=== PATIENT | female | born 1945 | race Caucasian/White ===

== ENCOUNTER 2017-01-11 17:13 | Inpatient (IN) | payer OTHER, MEDICAID ==
[2017-01-11] MEDS ORDERED: DILAUDID INJ IM ONE (17:24)
[2017-01-11] MEDS ORDERED: DILAUDID INJ ONE (17:26)
--- NOTE | 2017-01-11 17:26 | DR.GENAD ---
HPI - Complaint/Symptoms Chief Complaint Doctors Comments: Patient presents to the ED with complaint of fallling out the back door and injured her left shoulder and hip. Complains of 10/10 pain. Denies any allergies. There was no LOC or vomiting PMH - PMH Past Medical History: CHF, COPD, Diabetes, Dyslipidemia, Hypertension Past Surgical History: Yes Surgical History: Cholecystectomy, Hysterectomy, Ortho Surgery - Family History Family Medical History: Diabetes Mellitus, Coronary Artery Disease, Hypertension - Social History Do you use any recreational Drugs:: No ROS - Review of Systems Constitutional: No Symptoms Reported Eyes: No Symptoms Reported ENTM: No Symptoms Reported Respiratoy: No Symptoms Reported Cardiovascular: No Symptoms Reported Gastrointestinal/Abdominal: No Symptoms Reported Genitourinary: No Symptoms Reported Neurological: No Symptoms Reported Musculoskeletal: Shoulder (left shoulder pain) Integumentary: No Symptoms Reported Hematologic/Lymphatic: No Symptoms Reported Endocrine: No Symptoms Reported Psychiatric: No Symptoms Reported All Other Systems: Reviewed and Negative PE - Vital Signs Vitals: Temperature 97.9 F Pulse Rate 85 Respiratory Rate 18 Blood Pressure [Right Arm] 135/69 Blood Pressure 179/97 O2 Sat by Pulse Oximetry 93 - General Limitations: No Limitations General Appearance: Alert, Anxious - Head Head Exam: Normal Inspection, Atraumatic - Eyes Eye exam: Normal Appearance, PERRL, EOMI - ENT ENT Exam: Normal Exam External Ear Exam: Normal External Inspection TM/Canal Exam: Bilateral Normal Nose Exam: Normal Nose Exam Mouth Exam: Normal Inspection Throat Exam: Normal Inspection - Neck Neck Exam: Normal Inspection - Chest Chest Inspection: Normal Inspection - Respiratory Respiratory Exam: Normal Lung Sounds Bilat Respiratory Exam: Bilateral Clear to Auscultation - Cardiovascular Cardiovascular Exam: Regular Rate, Normal Rhythm - Abdominal Exam Abdominal Exam: Normal Inspection, Normal Bowel Sounds Abdominal Tenderness: negative: RUQ, RLQ, LUQ, LLQ, Epigastrium, Suprapubic, Diffuse, Mild, Moderate, Severe, Other - Extremities Extremities Exam: Normal Inspection, Tenderness (left shoulder), Other (left hip pain) - Back Back Exam: Normal Inspection - Neurologic Neurological Exam: Alert, Oriented X3, CN II-XII Intact - Psychiatric Psychiatric Exam: Normal Affect - Skin Skin Exam: Warm, Dry, Intact Course - Treatment Treatment: Dilaudid 1mg - Reevaluation 1st: Improved ROR - XRAY XRAY Interpreted by: Radiologist (Pelvic pain after fall: Mildly displaced subcapital left femoral neck fracture; Left shoulder: Significantly comminujted fracture of the humeral head and neck with associated anterior inferior humeral head dislocation with associated bony Bankart fracture of the glenoid. There is fracture exttension with comminution of the greater tuberosity. Mildly [id number] coracoid process fracture, Left 2nd rib fracture with possible pulmonary contusion. No pneumothorax visualized. Large glenohuymeral lipohemarthrosis) - Diagnosis Discharge Problem: Displaced subcapital femoral neck frac Shoulder fracture, left Qualifiers: Encounter type: initial encounter Fracture type: closed Qualified Code(s): S42.92XA - Fracture of left shoulder girdle, part unspecified, initial encounter for closed fracture - Discharge Plan Condition: Stable - Follow ups/Referrals Follow ups/Referrals: NFD,None [Primary Care Provider] - 3 days - Instructions
[2017-01-11] MEDS ORDERED: DILAUDID INJ IVP ONE (17:28)
--- NOTE | 2017-01-11 17:58 | RAD ---
HISTORY: Fall with pain Study: 2 views of the left shoulder. Comparison: None Findings: Poorly defined, comminuted fracture of the left humeral head with probable dislocation anteriorly of the humerus. No gross soft tissue abnormalities. The acromioclavicular joint is normal in appearanc e. IMPRESSION: 1. Comminuted fracture dislocation of the left shoulder. This is not well defined on this plain film of the shoulder. Reported By:
--- NOTE | 2017-01-11 19:01 | CT ---
CT pelvis without contrast Indication: Pelvic pain after fall. Comparison: None Technique: CT images of the pelvis were obtained without contrast. Automatic exposure control was uti lized. Findings: There is an acute subcapital left femoral neck fracture demonstrating mild superior elevati on with foreshortening and external rotation. The femoral heads are normally seated within the acetab rena. No acute pelvic fracture or diastasis identified. The SI joints and pubic symphysis are intact. There are mild discogenic degenerative changes of the lower lumbar spine. Impression: Mildly displaced subcapital left femoral neck fracture. Reported By:
--- NOTE | 2017-01-11 19:09 | CT ---
CT left shoulder without contrast Indication: Shoulder pain after fall Comparison: Radiographs performed earlier the same day Technique: CT images of the left shoulder were obtained without contrast. Automatic exposure control was utilized. Findings: There is severely comminuted fracture of the humeral head and neck with anterior dislocatio n of the humeral head with impaction on the anterior inferior glenoid. There is associated bony Banka rt fracture. There is moderate impaction of the humeral neck into the largest humeral head fragment, demonstrating posterior angulation. There are several fracture fragments within the posterior glenohu meral joint space, likely representing comminuted fracture of the greater tuberosity. There is also f racture of the coracoid process demonstrating approximately 1.3 cm of anterior lateral displacement. There is large lipohemarthrosis. There is fracture of the lateral left 2nd rib. There is some mild ground-glass of the visualized left lung apex, suggesting contusion. No pneumothorax is visualized. Impression: 1. Significantly comminuted fracture of the humeral head and neck with associated anterior inferior h umeral head dislocation with associated bony Bankart fracture of the glenoid. There is fracture exten rupinder with comminution of the greater tuberosity. 2. Mildly displaced coracoid process fracture 3. Left 2nd rib fracture with possible pulmonary contusion. No pneumothorax visualized. 4. Large glenohumeral lipohemarthrosis Reported By:
--- NOTE | 2017-01-11 19:19 | CT ---
CT cervical spine without contrast Indication:Pain after fall Technique: Helical images through the cervical spine without contrast. Coronal and sagittal reformats provided. Findings: The craniocervical and cervicothoracic junctions are intact. Patient's head is tilted to th e left. Limited images through the posterior fossa show no acute abnormality. Limited images through the upper chest show chronic lung changes. Mild edema may be present. There is soft tissue swelling about the left shoulder. See separately dictated left shoulder CT repor t. Carotid bulb plaque noted. Spinal canal is relatively patent for CT without severe stenosis. Verte bral body heights are normal. Mild multilevel disk space narrowing noted, most pronounced at C3-C4 Impression: No acute cervical spine fracture. Reported By:
[2017-01-11 20:31] LABS: BILIRUBIN,URINE NEGATIVE (NEGATIVE); BLOOD/HEMOGLOBIN,URINE NEGATIVE (NEGATIVE); GLUCOSE, URINE 4+ (NEGATIVE); KETONES,URINE NEGATIVE (NEGATIVE); LEUKOCYTE ESTERASE ,URINE NEGATIVE (NEGATIVE); NITRITES,URINE NEGATIVE (NEGATIVE); PROTEIN,URINE NEGATIVE (NEGATIVE); UROBILINOGEN,URINE NORMAL (NORMAL)
[2017-01-11 20:44] LABS: AMORPHOUS SEDIMENT,UR 1+ /HPF (NEGATIVE); APPEARANCE,URINE CLEAR (CLEAR); BACTERIA,URINE NEGATIVE /HPF (NEGATIVE); COLOR,URINE PALE YELLOW (YELLOW); RBC,URINE NONE SEEN /HPF (NEGATIVE); SQUAMOUS EPITHELIAL CELL,UR RARE /HPF (NEGATIVE)
[2017-01-11] MEDS ORDERED: DILAUDID PCA 60 MG IVP PRN (20:50)
[2017-01-11] MEDS ORDERED: D5W 1000 ML IV 1,000 ML IV SCH (21:00)
[2017-01-11] MEDS: DILAUDID INJ IVP PRN (22:39)
[2017-01-12] MEDS: DILAUDID INJ IVP PRN ×4 (01:03→13:52)
[2017-01-12 02:50] VITALS: BMI 34.1
--- NOTE | 2017-01-12 06:52 | RAD ---
Chest, one view Indication: Preoperative evaluation prior to hip surgery. Comparison: 04/18/2016 Findings: The heart size is normal. There are stable mild interstitial changes at the lung bases. No focal infiltrate or large effusion. The bony thorax is unremarkable. Impression: No acute chest process. Reported By:
[2017-01-12 07:42] LABS: BASOPHILS # (AUTO) 0.1 X10^3/uL (0.0-0.1); BASOPHILS % (AUTO) 0.7 % (0.2-1.0); EOSINOPHILS # (AUTO) 0.5 x10^3/uL (0.0-0.2); EOSINOPHILS % (AUTO) 4.3 % (0.9-2.9); HEMATOCRIT 40.3 % (36.0-47.0); HEMOGLOBIN 13.8 g/dL (12.0-16.0); LYMPHOCYTES # (AUTO) 1.8 X10^3/uL (1.3-2.9); LYMPHOCYTES % (AUTO) 15.6 % (21.0-51.0); MEAN CORPUSCULAR HEMOGLOBIN 32.2 pg (27.0-34.0); MEAN CORPUSCULAR HGB CONC 34.1 g/dL (33.0-35.0); MEAN CORPUSCULAR VOLUME 94.5 fL (80.0-100.0); MEAN PLATELET VOLUME 8.8 fL (7.4-11.0); MONOCYTES # (AUTO) 0.5 x10^3/uL (0.3-0.8); MONOCYTES % (AUTO) 4.2 % (0.0-13.0); NEUTROPHILS # (AUTO) 8.6 x10^3/uL (2.2-4.8); NEUTROPHILS % (AUTO) 75.2 % (42.0-75.0); PLATELET COUNT 225 X10^3/uL (150.0-450.0); RED BLOOD COUNT 4.27 X10^6/uL (3.5-5.4); RED CELL DISTRIBUTION WIDTH 14.1 % (11.6-16.5); WHITE BLOOD COUNT 11.4 X10^3/uL (3.6-10.0)
[2017-01-12 07:53] LABS: ALBUMIN 3.3 g/dL (3.4-5.0); CALCIUM 8.5 mg/dL (8.5-10.1); CARBON DIOXIDE 32.4 mmol/L (21-32); COR CA(FOR HYPOALB) 9.1 mg/dL (8.5-10.1); CREATININE 1.79 mg/dL (0.55-1.02); TOTAL PROTEIN 6.8 g/dL (6.4-8.2)
[2017-01-12 11:40] VITALS: BP 149/67
--- NOTE | 2017-01-12 13:59 | DR.H&P ---
H&P - History & Physical for Day of: H&P Date: 01/11/17 - Chief Complaint Chief Complaint: Left hip, shoulder, and chest wall pain - Allergies Allergies/Adverse Reactions: Allergies Allergy/AdvReac Type Severity Reaction Status Date / Time No Known Drug Allergies Allergy Verified 01/11/17 18:00 - History of Present Illness History of Present Illness: Pt is a 71 y/o WF presents following a fall c/o left hip, left shoulder, and left chest wall pain. Radiographic imaging revealed a non-displaced left rib fracture with possible pulmonary contusion, left femerol neck fx, and left humeral head fx associated with hemarthrosis, anterior dislocation of the humeral head, glenoid fx and displaced coracoid process fx. Pt is being admitted for pain control with tentative plans to transfer to a tertiary medical center due to multiple underlying medical problems. - Past Medical History Past Medical History: CHF, COPD, Diabetes, Dyslipidemia, Hypertension - Past Surgical History Surgical History: Cholecystectomy, Hysterectomy, Ortho Surgery - Family History Family Medical History: Diabetes Mellitus, Coronary Artery Disease, Hypertension - Social History Does patient currently use any type of tobacco product: No Have you used tobacco products in the last 12 months: No Type of Tobacco Use: None Does any household member use tobacco: No Alcohol Use: None Drug Use: None - Medications Home Medications: Exenatide Microspheres [Bydureon Pen] 2 mg SC .Saturday01/12/17 [History Confirmed 01/12/17] Glipizide [Glipizide] 1 tab PO BID 01/12/17 [History Confirmed 01/12/17] Meloxicam [Meloxicam] 1 tab PO DAILY 01/12/17 [History Confirmed 01/12/17] Misc Home Med [Patient's Home Medication] 1 tab PO DAILY 01/12/17 [History Confirmed 01/12/17] Pregabalin [LYRICA 100 MG *] 1 tab PO BID 01/12/17 [History Confirmed 01/12/17] Simvastatin [Simvastatin] 1 tab PO .SUPPER 01/12/17 [History Confirmed 01/12/17] Valsartan [Valsartan] 1 tab PO DAILY 01/12/17 [History Confirmed 01/12/17] - Review of Systems Constitutional: No Symptoms Reported Eyes: No Symptoms Reported ENT: No Symptoms Reported Respiratory: No Symptoms Reported Cardiovascular: No Symptoms Reported Gastrointestinal: No Symptoms Reported Genitourinary: No Symptoms Reported Musculoskeletal: See HPI Skin: No Symptoms Reported Neurological: No Symptoms Reported - Physical Exam Vital Signs: Temperature 97.6 F Pulse Rate [Left Radial] 82 Pulse Rate 85 Respiratory Rate 21 Blood Pressure [Right Arm] 149/67 Blood Pressure 179/97 O2 Sat by Pulse Oximetry 88 Oriented: Normal (consistent with baseline dementia) Eyes: Normal Ear: Normal Nose: Normal Throat: Normal Respiratory: Clear Throughout Cardiovascular: Normal : Normal Auscultation: Bowel Sounds: Normal Palpation: Normal Tenderness: Normal Skin: Normal Musculoskeletal: Left, Shoulder (Left humerus fx - see HPI ), Arm, Hip (left femeral neck fracture) Psychiatric: Normal Mood Description: Calm Affect: Flat Speech Pattern: Inappropriate (consistent with baseline dementia) - Assessment/Plan (1) Left displaced femoral neck fracture Status: Acute Plan: 1. Admit for further w/u. 2. CMP/CBC. 3. UA C&S. 4. EKG. 5. Dilaudid 1mg IV q [address] pelvis without contrast. 7. CT left shoulder. 8. Rib view films. 6. O2 at 2L/min per NC (2) Left humeral fracture Qualifiers: Encounter type: initial encounter Fracture type: closed Fracture alignment: displaced Status: Acute Plan: as above (3) Fracture of coracoid process of left scapula Qualifiers: Encounter type: initial encounter Fracture type: closed Fracture alignment: displaced Qualified Code(s): S42.132A - Displaced fracture of coracoid process, left shoulder, initial encounter for closed fracture Status: Acute Plan: as above (4) Glenoid fracture of shoulder Qualifiers: Encounter type: initial encounter Fracture type: closed Laterality: left Qualified Code(s): S42.142A - Displaced fracture of glenoid cavity of scapula , left shoulder, initial encounter for closed fracture; S42.152A - Displaced fracture of neck of scapula, left shoulder, initial encounter for closed fracture Status: Acute Plan: as above (5) CHF (congestive heart failure) Qualifiers: Congestive heart failure chronicity: chronic Status: Chronic Plan: as above (6) COPD (chronic obstructive pulmonary disease) Qualifiers: COPD type: chronic bronchitis Status: Chronic Plan: as above
--- NOTE | 2017-01-12 14:16 | PCM.DCPLAN ---
Discharge Summary - Admission Date Date of Admission: 01/11/17 - Discharge Date Discharge Date: 01/12/17 - Admission Diagnoses (1) Left displaced femoral neck fracture Status: Acute (2) Left humeral fracture Status: Acute (3) Fracture of coracoid process of left scapula Status: Acute (4) Glenoid fracture of shoulder Status: Acute (5) CHF (congestive heart failure) Status: Chronic (6) COPD (chronic obstructive pulmonary disease) Status: Chronic - Discharge Diagnoses Discharge Diagnosis: same - Discharge Medications Discharge Medications: Exenatide Microspheres [Bydureon Pen] 2 mg SC .Saturday01/12/17 [History] Glipizide [Glipizide] 1 tab PO BID 01/12/17 [History] Meloxicam [Meloxicam] 1 tab PO DAILY 01/12/17 [History] Misc Home Med [Patient's Home Medication] 1 tab PO DAILY 01/12/17 [History] Pregabalin [LYRICA 100 MG *] 1 tab PO BID 01/12/17 [History] Simvastatin [Simvastatin] 1 tab PO .SUPPER 01/12/17 [History] Valsartan [Valsartan] 1 tab PO DAILY 01/12/17 [History] - Hospital Course Vital Signs: Temperature 97.6 F Pulse Rate [Left Radial] 82 Pulse Rate 85 Respiratory Rate 21 Blood Pressure [Right Arm] 149/67 Blood Pressure 179/97 O2 Sat by Pulse Oximetry 88 Latest Lab Results: Laboratory Last Values WBC 11.4 X10^3/uL (3.6-10.0) H 01/12/17 07:30 RBC 4.27 X10^6/uL (3.5-5.4) 01/12/17 07:30 Hgb 13.8 g/dL (12.0-16.0) 01/12/17 07:30 Hct 40.3 % (36.0-47.0) 01/12/17 07:30 MCV 94.5 fL (80.0-100.0) 01/12/17 07:30 MCH 32.2 pg (27.0-34.0) 01/12/17 07:30 MCHC 34.1 g/dL (33.0-35.0) 01/12/17 07:30 RDW 14.1 % (11.6-16.5) 01/12/17 07:30 Plt Count 225 X10^3/uL (150.0-450.0) 01/12/17 07:30 MPV 8.8 fL (7.4-11.0) 01/12/17 07:30 Neut % 75.2 % (42.0-75.0) H 01/12/17 07:30 Lymph % 15.6 % (21.0-51.0) L 01/12/17 07:30 [place] % 4.2 % (0.0-13.0) 01/12/17 07:30 Eos % 4.3 % (0.9-2.9) H 01/12/17 07:30 Baso % 0.7 % (0.2-1.0) 01/12/17 07:30 Neut # 8.6 x10^3/uL (2.2-4.8) H 01/12/17 07:30 Lymph # 1.8 X10^3/uL (1.3-2.9) 01/12/17 07:30 [place] # 0.5 x10^3/uL (0.3-0.8) 01/12/17 07:30 Eos # 0.5 x10^3/uL (0.0-0.2) H 01/12/17 07:30 Baso # 0.1 X10^3/uL (0.0-0.1) 01/12/17 07:30 Absolute Nucleated RBC 0.0 /100WBC 01/12/17 07:30 INR Target Range - 01/12/17 07:30 INR 0.84 (0.8-1.3) 01/12/17 07:30 PTT 25.1 SECONDS (22.9-36.5) 01/12/17 07:30 PTT Comment - 01/12/17 07:30 Sodium 143 mmol/L (136-145) 01/12/17 07:30 Corrected Sodium 145 mmol/L (136-145) 01/12/17 07:30 Potassium 3.6 mmol/L (3.5-5.1) 01/12/17 07:30 Chloride 102 mmol/L (98-107) 01/12/17 07:30 Carbon Dioxide 32.4 mmol/L (21-32) H 01/12/17 07:30 BUN 18 mg/dL (7-18) 01/12/17 07:30 Creatinine 1.79 mg/dL (0.55-1.02) H 01/12/17 07:30 Est GFR (MDRD) Af Amer 36 (>60) L 01/12/17 07:30 Est GFR (MDRD) Non-Af 30 (>60) L 01/12/17 07:30 Glucose 175 mg/dL (65-99) H 01/12/17 07:30 POC Glucose (mg/dL) 189 mg/dL (65-99) H 01/12/17 11:37 Calcium 8.5 mg/dL (8.5-10.1) 01/12/17 07:30 Corrected Calcium 9.1 mg/dL (8.5-10.1) 01/12/17 07:30 Total Bilirubin 0.50 mg/dL (0.2-1.0) 01/12/17 07:30 AST 34 Units/L (15-37) 01/12/17 07:30 ALT 36 Units/L (12-78) 01/12/17 07:30 Alkaline Phosphatase 162 Units/L (46-116) H 01/12/17 07:30 Total Protein 6.8 g/dL (6.4-8.2) 01/12/17 07:30 Albumin 3.3 g/dL (3.4-5.0) L 01/12/17 07:30 Globulin 3.5 g/dL (2.5-4.5) 01/12/17 07:30 Albumin/Globulin Ratio 0.9 Ratio (1.1-2.1) L 01/12/17 07:30 Specimen Type Catherized urine 01/11/17 20:00 Urine Color Pale yellow (YELLOW) 01/11/17 20:00 Urine Appearance Clear (CLEAR) 01/11/17 20:00 Urine pH 5.0 (5.0 - 8.0) 01/11/17 20:00 Ur Specific [place] 1.020 (1.000-1.030) 01/11/17 20:00 Urine Protein Negative (NEGATIVE) 01/11/17 20:00 Urine Glucose (UA) 4+ (NEGATIVE) 01/11/17 20:00 Urine Ketones Negative (NEGATIVE) 01/11/17 20:00 Urine Occult Blood Negative (NEGATIVE) 01/11/17 20:00 Urine Nitrite Negative (NEGATIVE) 01/11/17 20:00 Urine Bilirubin Negative (NEGATIVE) 01/11/17 20:00 Urine Urobilinogen Normal (NORMAL) 01/11/17 20:00 Ur Leukocyte Esterase Negative (NEGATIVE) 01/11/17 20:00 Urine RBC None seen /HPF (NEGATIVE) 01/11/17 20:00 Urine WBC None seen /HPF (NEGATIVE) 01/11/17 20:00 Ur Squamous Epith Cells Rare /HPF (NEGATIVE) 01/11/17 20:00 Amorphous Sediment 1+ /HPF (NEGATIVE) 01/11/17 20:00 Urine Bacteria Negative /HPF (NEGATIVE) 01/11/17 20:00 Ur Culture Indicated? No/not indicated 01/11/17 20:00 Blood Type A POSITIVE 01/12/17 07:30 Antibody Screen Negative 01/12/17 07:30 Hospital Course: As stated in the HPI, the pt is a 71 y/o WF presents following a fall c/o left hip, left shoulder, and left chest wall pain. Radiographic imaging revealed a non-displaced left rib fracture with possible pulmonary contusion, left femerol neck fx, and left humeral head fx associated with hemarthrosis, anterior dislocation of the humeral head, glenoid fx and displaced coracoid process fx. Pt is being admitted for pain control with tentative plans to transfer to a tertiary medical center due to multiple underlying medical problems. The pt's pain is currently well controlled on dilaudid 1mg IV q 2 hours prn pain. Pt has been accepted to [facility] in [place], [place] for further work up and ortho surgical evaluation. - Discharge Plan Disposition: 01 HOME, SELF-CARE Condition: Stable - Follow ups/Referrals Follow ups/Referrals: NFD,None [Primary Care Provider] - 3 days - Instructions Instructions: Shoulder Fracture
[2017-01-12] MEDS ORDERED: COREG TAB 12.5 MG PO SCH (21:00)
[2017-01-12] MEDS ORDERED: ARICEPT TAB 10 MG PO SCH (21:00)
--- NOTE | 2017-01-13 07:02 | RAD ---
HISTORY: Left hip fracture. Study: AP view of the pelvis in frogleg view of the left hip. Comparison: None. Findings: A single frontal view of the pelvis demonstrates the pelvic ring to be intact. There is a mildly dis placed fracture of the left femoral neck with approximately 1/4 shafts width lateral and superior dis placement of the distal femoral component. The left femoral head is well seated in the acetabulum. So ft tissue swelling surrounding the fracture site is noted. Impression: Mildly displaced fracture of the left femoral neck. Reported By:
[2017-01-13] MEDS ORDERED: PATIENT'S HOME MEDICATION (Aspirin [Aspirin] 81 MG) PO SCH (09:00)
[2017-01-13] MEDS ORDERED: XANAX PO SCH (09:00)
[2017-01-13] MEDS ORDERED: COLACE CAP 100 MG PO SCH (09:00)
[2017-01-13] MEDS ORDERED: ASPIRIN EC 81 MG PO SCH (09:00)
== END 2017-01-12 14:54 | disposition short-term general hospital (02) | DRG 536 ==
LOC: ER 17:20 → MED/SURG 20:44
PROVIDERS: ADMIT Internal Medicine; ATTEND Internal Medicine
DX: S72.012A Unspecified intracapsular fracture of left femur, initial encounter for closed fracture (principal); S42.92XA Fracture of left shoulder girdle, part unspecified, initial encounter for closed fracture; S42.142A Displaced fracture of glenoid cavity of scapula, left shoulder, initial encounter for closed fracture; S42.152A Displaced fracture of neck of scapula, left shoulder, initial encounter for closed fracture; S42.135A Nondisplaced fracture of coracoid process, left shoulder, initial encounter for closed fracture; W13.8XXA Fall from, out of or through other building or structure, initial encounter; Y92.89 Other specified places as the place of occurrence of the external cause; R07.2 Precordial pain; I50.9 Heart failure, unspecified; J44.9 Chronic obstructive pulmonary disease, unspecified
CPT/HCPCS: 36415; 51702; 71010; 72125; 72192; 73030; 73200; 73501; 80053; 81001; 85025; 85610; 85730; 86850; 86900; 86901; 93005; 93010; 94760; 96365; 96374; 99284; A4222

== ENCOUNTER 2017-02-05 11:48 | Observation (INO) | payer OTHER, MEDICAID ==
[2017-02-05] MEDS ORDERED: BUTT CREAM (COMPOUND) ONE (16:45)
[2017-02-05] MEDS ORDERED: FLEXERIL TAB 10 MG PO PRN (16:58)
[2017-02-05] MEDS ORDERED: DUONEB 0.5 MG/3 MG ONE (17:00)
[2017-02-05] MEDS: DUONEB 0.5 MG/3 MG NEB SCH ×2 (17:10→20:34)
[2017-02-05 17:14] VITALS: BMI 31.7
[2017-02-05] MEDS ORDERED: TYLENOL 325 MG TAB PO PRN (17:20)
[2017-02-05] MEDS ORDERED: XANAX PO PRN (17:22)
[2017-02-05] MEDS ORDERED: DILAUDID INJ IVP PRN (17:28)
[2017-02-05] MEDS ORDERED: ZOFRAN INJ 4 MG VIAL IVP PRN (17:29)
[2017-02-05] MEDS: HumaLOG SC SCH (17:30)
--- NOTE | 2017-02-05 18:59 | DR.H&P ---
H&P - History & Physical for Day of: H&P Date: 02/05/17 - Chief Complaint Chief Complaint: WEAKNESS - Allergies Allergies/Adverse Reactions: Allergies Allergy/AdvReac Type Severity Reaction Status Date / Time No Known Drug Allergies Allergy Verified 01/11/17 18:00 - History of Present Illness History of Present Illness: patient is a 71-year-old white female who is being admitted for generalized weakness. Plan to consult case management for long- term care placement for physical therapy/rehabilitation therapy. Patient was recently released from [facility] in [place] where she was treated for a left traumatic hip fracture repair. - Past Medical History Past Medical History: CHF, COPD, Diabetes, Dyslipidemia, Hypertension - Past Surgical History Surgical History: Cholecystectomy, Hysterectomy, Ortho Surgery - Family History Family Medical History: Diabetes Mellitus, Coronary Artery Disease, Hypertension - Social History Does patient currently use any type of tobacco product: No Have you used tobacco products in the last 12 months: No Type of Tobacco Use: None Does any household member use tobacco: No Alcohol Use: None Drug Use: None - Review of Systems Constitutional: Weakness Eyes: No Symptoms Reported ENT: No Symptoms Reported Respiratory: No Symptoms Reported Cardiovascular: No Symptoms Reported Genitourinary: No Symptoms Reported Musculoskeletal: Shoulder Pain, Back Pain, Leg Pain Neurological: Weakness - Physical Exam Vital Signs: Pulse Rate 80 Blood Pressure [Right Arm] 149/67 Blood Pressure 149/67 O2 Sat by Pulse Oximetry 95 Oriented: Normal Eyes: Normal Ear: Normal Nose: Normal Throat: Normal Respiratory: RLL Diminished, LLL Diminished Cardiovascular: Normal : Normal Auscultation: Bowel Sounds: Normal Palpation: Normal Skin: Normal Musculoskeletal: Shoulder, Hip, Back:Lumbar, Motor Deficit Mood Description: Calm Speech Pattern: Clear, Appropriate - Assessment/Plan (1) Weakness Status: Acute Plan: ADMIT FOR EVALUATION OF WEAKNESS, RESUME HOME MEDS. ADMISSION LABS. PT CONSULT. CASE MANAGMENT FOR JAIL PLACEMENT (2) Hx of fracture of left hip Status: Acute (3) Diabetes mellitus Qualifiers: Diabetes mellitus type: type 2 Diabetes mellitus complication status: without complication Status: Acute (4) CHF (congestive heart failure) Qualifiers: Congestive heart failure chronicity: chronic Status: Chronic (5) COPD (chronic obstructive pulmonary disease) Qualifiers: COPD type: chronic bronchitis Status: Chronic (6) Hypertension Qualifiers: Hypertension type: essential hypertension Qualified Code(s): I10 - Essential (primary) hypertension Status: Chronic
[2017-02-05 20:20] LABS: BILIRUBIN,URINE NEGATIVE (NEGATIVE); BLOOD/HEMOGLOBIN,URINE 4+ (NEGATIVE); GLUCOSE, URINE NEGATIVE (NEGATIVE); KETONES,URINE NEGATIVE (NEGATIVE); LEUKOCYTE ESTERASE ,URINE 3+ (NEGATIVE); NITRITES,URINE POSITIVE (NEGATIVE); PROTEIN,URINE 2+ (NEGATIVE); UROBILINOGEN,URINE NORMAL (NORMAL)
[2017-02-05 20:24] LABS: APPEARANCE,URINE CLOUDY (CLEAR); COLOR,URINE YELLOW (YELLOW)
[2017-02-05 20:26] LABS: BACTERIA,URINE 2+ /HPF (NEGATIVE); SQUAMOUS EPITHELIAL CELL,UR RARE /HPF (NEGATIVE)
[2017-02-05] MEDS: LOVENOX INJ 30 MG SYR SC SCH (21:49)
[2017-02-05] MEDS: PEPCID TAB 20 MG PO SCH (21:53)
[2017-02-05] MEDS: COLACE CAP 100 MG PO SCH (21:53)
[2017-02-05] MEDS: SNACK - Diabetic Appropriate PO SCH (21:56)
[2017-02-05] MEDS: MIRALAX POWDER (1 DOSE 17GM) PO SCH (21:56)
[2017-02-05] MEDS ORDERED: NS 1/2 1000 ML IV 1,000 ML IV ONE (22:30)
[2017-02-05] MEDS: ROCEPHIN VIAL 1 GM 1 GM in NS 50 ML IV + SPIKE MINIBAG* 50 ML IV SCH (22:37)
[2017-02-05] MEDS: NORCO 5/325 MG TAB PO PRN (22:37)
[2017-02-05] MEDS: NS 1/2 1000 ML IV 1,000 ML IV SCH (22:38)
[2017-02-05] MEDS ORDERED: STERILE WATER IRRIGATION IR ONE (23:33)
[2017-02-06] MEDS: DUONEB 0.5 MG/3 MG NEB SCH ×6 (01:10→20:19)
[2017-02-06] MEDS: NORCO 5/325 MG TAB PO PRN ×2 (02:43→09:27)
[2017-02-06 05:46] LABS: ALANINE AMINOTRANSFERASE 23 Units/L (12-78); ALBUMIN 2.4 g/dL (3.4-5.0); ALKALINE PHOSPHATASE 122 Units/L (46-116); ASPARTATE AMINO TRANSFERASE 22 Units/L (15-37); BLOOD UREA NITROGEN 17 mg/dL (7-18); CALCIUM 8.6 mg/dL (8.5-10.1); CARBON DIOXIDE 32.9 mmol/L (21-32); CHLORIDE 97 mmol/L (98-107); COR CA(FOR HYPOALB) 9.9 mg/dL (8.5-10.1); COR NA(FOR HYPERGLY) 134 mmol/L (136-145); CREATININE 0.75 mg/dL (0.55-1.02); SODIUM 133 mmol/L (136-145); TOTAL PROTEIN 7.4 g/dL (6.4-8.2); eGFR BLACK RACES > 60 (>60); eGFR NON BLACK RACES > 60 (>60)
[2017-02-06 06:06] LABS: BASOPHILS % (AUTO) 0.5 % (0.2-1.0); EOSINOPHILS # (AUTO) 0.2 x10^3/uL (0.0-0.2); EOSINOPHILS % (AUTO) 3.6 % (0.9-2.9); HEMATOCRIT 33.1 % (36.0-47.0); HEMOGLOBIN 11.3 g/dL (12.0-16.0); LYMPHOCYTES # (AUTO) 1.3 X10^3/uL (1.3-2.9); LYMPHOCYTES % (AUTO) 23.4 % (21.0-51.0); MEAN CORPUSCULAR HEMOGLOBIN 33.3 pg (27.0-34.0); MEAN CORPUSCULAR HGB CONC 34.2 g/dL (33.0-35.0); MEAN CORPUSCULAR VOLUME 97.2 fL (80.0-100.0); MEAN PLATELET VOLUME 8.2 fL (7.4-11.0); MONOCYTES # (AUTO) 0.7 x10^3/uL (0.3-0.8); MONOCYTES % (AUTO) 12.5 % (0.0-13.0); NEUTROPHILS # (AUTO) 3.3 x10^3/uL (2.2-4.8); PLATELET COUNT 249 X10^3/uL (150.0-450.0); RED CELL DISTRIBUTION WIDTH 17.6 % (11.6-16.5); WHITE BLOOD COUNT 5.5 X10^3/uL (3.6-10.0)
[2017-02-06] MEDS: HumaLOG SC SCH ×3 (06:22→16:24)
[2017-02-06] MEDS: NS 1/2 1000 ML IV 1,000 ML IV SCH ×2 (07:28→22:04)
[2017-02-06] MEDS: LEVEMIR SC SCH ×2 (07:29→10:29)
[2017-02-06] MEDS ORDERED: HumuLIN R SUBCUT PRN (08:17)
[2017-02-06] MEDS: VITAMIN C PO SCH (09:27)
[2017-02-06] MEDS: MICRO K EXTEN CAP 10 MEQ PO SCH (09:28)
[2017-02-06] MEDS: LASIX PO SCH (09:28)
[2017-02-06] MEDS: COLACE CAP 100 MG PO SCH ×2 (09:28→21:59)
[2017-02-06] MEDS: ROCEPHIN VIAL 1 GM 1 GM in NS 50 ML IV + SPIKE MINIBAG* 50 ML IV SCH (09:29)
[2017-02-06] MEDS: LOVENOX INJ 30 MG SYR SC SCH ×2 (09:29→22:04)
[2017-02-06] MEDS: PEPCID TAB 20 MG PO SCH ×2 (09:29→22:03)
[2017-02-06] MEDS: TAB-A-VITE PO SCH (09:29)
[2017-02-06] MEDS: MIRALAX POWDER (1 DOSE 17GM) PO SCH ×2 (09:30→22:04)
[2017-02-06] MEDS ORDERED: NORCO 7.5/325 MG TAB PO PRN (17:59)
[2017-02-06] MEDS: ZOCOR TAB 20 MG PO SCH (19:24)
[2017-02-06] MEDS: SNACK - Diabetic Appropriate PO SCH (22:02)
[2017-02-06] MEDS: NORCO 7.5/325 MG TAB PO PRN (22:02)
[2017-02-06] MEDS: LYRICA CAP 100 MG PO SCH (22:03)
[2017-02-06] MEDS: GLUCOTROL PO SCH (22:03)
[2017-02-07] MEDS: DUONEB 0.5 MG/3 MG NEB SCH ×6 (00:25→20:36)
[2017-02-07] MEDS: NORCO 7.5/325 MG TAB PO PRN ×2 (04:10→14:13)
[2017-02-07 05:38] LABS: BASOPHILS % (AUTO) 0.6 % (0.2-1.0); EOSINOPHILS # (AUTO) 0.3 x10^3/uL (0.0-0.2); EOSINOPHILS % (AUTO) 4.6 % (0.9-2.9); HEMATOCRIT 33.3 % (36.0-47.0); HEMOGLOBIN 11.4 g/dL (12.0-16.0); LYMPHOCYTES # (AUTO) 1.5 X10^3/uL (1.3-2.9); LYMPHOCYTES % (AUTO) 25.2 % (21.0-51.0); MEAN CORPUSCULAR HEMOGLOBIN 33.7 pg (27.0-34.0); MEAN CORPUSCULAR HGB CONC 34.4 g/dL (33.0-35.0); MEAN CORPUSCULAR VOLUME 98.1 fL (80.0-100.0); MEAN PLATELET VOLUME 8.2 fL (7.4-11.0); MONOCYTES # (AUTO) 0.7 x10^3/uL (0.3-0.8); MONOCYTES % (AUTO) 11.7 % (0.0-13.0); NEUTROPHILS # (AUTO) 3.4 x10^3/uL (2.2-4.8); NEUTROPHILS % (AUTO) 57.9 % (42.0-75.0); PLATELET COUNT 242 X10^3/uL (150.0-450.0); RED BLOOD COUNT 3.39 X10^6/uL (3.5-5.4); RED CELL DISTRIBUTION WIDTH 17.6 % (11.6-16.5); WHITE BLOOD COUNT 5.8 X10^3/uL (3.6-10.0)
[2017-02-07 05:48] LABS: ALANINE AMINOTRANSFERASE 23 Units/L (12-78); ALBUMIN 2.4 g/dL (3.4-5.0); ALKALINE PHOSPHATASE 120 Units/L (46-116); ASPARTATE AMINO TRANSFERASE 21 Units/L (15-37); BLOOD UREA NITROGEN 14 mg/dL (7-18); CALCIUM 8.7 mg/dL (8.5-10.1); CARBON DIOXIDE 31.5 mmol/L (21-32); CHLORIDE 99 mmol/L (98-107); COR NA(FOR HYPERGLY) 135 mmol/L (136-145); CREATININE 0.73 mg/dL (0.55-1.02); SODIUM 134 mmol/L (136-145); TOTAL PROTEIN 7.4 g/dL (6.4-8.2); eGFR BLACK RACES > 60 (>60); eGFR NON BLACK RACES > 60 (>60)
[2017-02-07] MEDS: HumaLOG SC SCH ×3 (06:02→17:13)
[2017-02-07] MEDS: LOVENOX INJ 30 MG SYR SC SCH ×2 (09:34→21:18)
[2017-02-07] MEDS: XANAX PO SCH (09:35)
[2017-02-07] MEDS: GLUCOTROL PO SCH ×2 (09:36→21:17)
[2017-02-07] MEDS: PriLOSEC PO SCH (09:36)
[2017-02-07] MEDS: PEPCID TAB 20 MG PO SCH ×2 (09:37→21:17)
[2017-02-07] MEDS: ASPIRIN 81 MG CHEWTAB PO SCH (09:37)
[2017-02-07] MEDS: TAB-A-VITE PO SCH (09:37)
[2017-02-07] MEDS: VITAMIN C PO SCH (09:37)
[2017-02-07] MEDS: LYRICA CAP 100 MG PO SCH ×2 (09:37→21:17)
[2017-02-07] MEDS: LASIX PO SCH (09:38)
[2017-02-07] MEDS: MICRO K EXTEN CAP 10 MEQ PO SCH (09:38)
[2017-02-07] MEDS: COLACE CAP 100 MG PO SCH ×2 (09:38→21:17)
[2017-02-07] MEDS: MIRALAX POWDER (1 DOSE 17GM) PO SCH ×2 (09:40→21:18)
[2017-02-07] MEDS: ROCEPHIN VIAL 1 GM 1 GM in NS 50 ML IV + SPIKE MINIBAG* 50 ML IV SCH (09:41)
[2017-02-07] MEDS: LEVEMIR SC SCH (09:45)
[2017-02-07] MEDS ORDERED: MYLICON TAB 80 MG CHEW PO PRN (10:57)
[2017-02-07] MEDS: NS 1/2 1000 ML IV 1,000 ML IV SCH (12:05)
[2017-02-07] MEDS: ZOCOR TAB 20 MG PO SCH (17:43)
[2017-02-07] MEDS: SNACK - Diabetic Appropriate PO SCH (21:18)
[2017-02-08] MEDS: DUONEB 0.5 MG/3 MG NEB SCH ×4 (00:58→12:20)
[2017-02-08] MEDS: HumaLOG SC SCH ×2 (06:02→11:25)
[2017-02-08 06:19] LABS: BASOPHILS % (AUTO) 0.4 % (0.2-1.0); EOSINOPHILS # (AUTO) 0.3 x10^3/uL (0.0-0.2); EOSINOPHILS % (AUTO) 4.4 % (0.9-2.9); HEMATOCRIT 35.5 % (36.0-47.0); LYMPHOCYTES # (AUTO) 1.2 X10^3/uL (1.3-2.9); LYMPHOCYTES % (AUTO) 19.1 % (21.0-51.0); MEAN CORPUSCULAR HEMOGLOBIN 33.2 pg (27.0-34.0); MEAN CORPUSCULAR HGB CONC 33.7 g/dL (33.0-35.0); MEAN CORPUSCULAR VOLUME 98.6 fL (80.0-100.0); MEAN PLATELET VOLUME 8.3 fL (7.4-11.0); MONOCYTES # (AUTO) 0.5 x10^3/uL (0.3-0.8); MONOCYTES % (AUTO) 8.1 % (0.0-13.0); NEUTROPHILS # (AUTO) 4.3 x10^3/uL (2.2-4.8); PLATELET COUNT 220 X10^3/uL (150.0-450.0); WHITE BLOOD COUNT 6.4 X10^3/uL (3.6-10.0)
[2017-02-08 06:24] LABS: ALANINE AMINOTRANSFERASE 25 Units/L (12-78); ALBUMIN 2.6 g/dL (3.4-5.0); ALKALINE PHOSPHATASE 126 Units/L (46-116); ASPARTATE AMINO TRANSFERASE 22 Units/L (15-37); BLOOD UREA NITROGEN 11 mg/dL (7-18); CALCIUM 8.8 mg/dL (8.5-10.1); CARBON DIOXIDE 31.3 mmol/L (21-32); CHLORIDE 102 mmol/L (98-107); COR CA(FOR HYPOALB) 9.9 mg/dL (8.5-10.1); COR NA(FOR HYPERGLY) 138 mmol/L (136-145); CREATININE 0.64 mg/dL (0.55-1.02); SODIUM 137 mmol/L (136-145); TOTAL PROTEIN 7.6 g/dL (6.4-8.2); eGFR BLACK RACES > 60 (>60); eGFR NON BLACK RACES > 60 (>60)
[2017-02-08] MEDS: ROCEPHIN VIAL 1 GM 1 GM in NS 50 ML IV + SPIKE MINIBAG* 50 ML IV SCH (09:44)
[2017-02-08] MEDS: LOVENOX INJ 30 MG SYR SC SCH (09:44)
[2017-02-08] MEDS: PriLOSEC PO SCH (09:45)
[2017-02-08] MEDS: PEPCID TAB 20 MG PO SCH (09:45)
[2017-02-08] MEDS: GLUCOTROL PO SCH (09:45)
[2017-02-08] MEDS: LASIX PO SCH (09:45)
[2017-02-08] MEDS: VITAMIN C PO SCH (09:45)
[2017-02-08] MEDS: MICRO K EXTEN CAP 10 MEQ PO SCH (09:45)
[2017-02-08] MEDS: XANAX PO SCH (09:45)
[2017-02-08] MEDS: COLACE CAP 100 MG PO SCH (09:45)
[2017-02-08] MEDS: ASPIRIN 81 MG CHEWTAB PO SCH (09:45)
[2017-02-08] MEDS: TAB-A-VITE PO SCH (09:45)
[2017-02-08] MEDS: LYRICA CAP 100 MG PO SCH (09:46)
[2017-02-08] MEDS: MIRALAX POWDER (1 DOSE 17GM) PO SCH (09:46)
[2017-02-08] MEDS: LEVEMIR SC SCH (09:56)
[2017-02-08] MEDS: NS 1/2 1000 ML IV 1,000 ML IV SCH (11:05)
[2017-02-08 12:14] VITALS: BP 142/66
[2017-02-08] MEDS ORDERED: FLUVIRIN IM ONE (14:00)
== END 2017-02-08 13:40 ==
LOC: MED/SURG 11:48 → UNDOADMOB 11:48 → MED/SURG 13:27
PROVIDERS: ADMIT Internal Medicine; ATTEND Internal Medicine
DX: R53.1 Weakness (principal); J44.9 Chronic obstructive pulmonary disease, unspecified; I50.9 Heart failure, unspecified; E78.2 Mixed hyperlipidemia; I10 Essential (primary) hypertension; E11.65 Type 2 diabetes mellitus with hyperglycemia; J44.0 Chronic obstructive pulmonary disease with (acute) lower respiratory infection; N39.0 Urinary tract infection, site not specified; Z87.81 Personal history of (healed) traumatic fracture; R26.89 Other abnormalities of gait and mobility
CPT/HCPCS: 36415; 80053; 81001; 85025; 87086; 94640; 94760; A4217; A4222; 1956; G0378; J0696; J1650; J1815; J1817; J7620

== ENCOUNTER 2017-04-05 07:11 | Inpatient (IN) | payer OTHER, MEDICAID ==
[2017-04-05] MEDS ORDERED: LASIX IVP ONE ×2 (07:28→07:33)
[2017-04-05 07:34] LABS: ABG BASE EXCESS 1.6 mmol/L (-2.0-2.0)
[2017-04-05 07:35] LABS: ABG HCO3 33.1 mmol/L (22-26)
[2017-04-05 07:36] LABS: ABG ALLEN TEST POS
[2017-04-05] MEDS ORDERED: DUONEB 0.5 MG/3 MG NEB ONE (07:41)
[2017-04-05 08:12] LABS: ALANINE AMINOTRANSFERASE 22 Units/L (12-78); ALBUMIN 3.3 g/dL (3.4-5.0); ALKALINE PHOSPHATASE 171 Units/L (46-116); ASPARTATE AMINO TRANSFERASE 31 Units/L (15-37); BLOOD UREA NITROGEN 15 mg/dL (7-18); CALCIUM 9.2 mg/dL (8.5-10.1); CARBON DIOXIDE 32.6 mmol/L (21-32); CHLORIDE 99 mmol/L (98-107); COR CA(FOR HYPOALB) 9.8 mg/dL (8.5-10.1); COR NA(FOR HYPERGLY) 144 mmol/L (136-145); CREATININE 0.91 mg/dL (0.55-1.02); SODIUM 139 mmol/L (136-145); TOTAL PROTEIN 8.3 g/dL (6.4-8.2); eGFR BLACK RACES > 60 (>60); eGFR NON BLACK RACES > 60 (>60)
--- NOTE | 2017-04-05 08:17 | RAD ---
Examination: Portable AP chest History: SOB, low oxygen Comparison reference: 01/11/2017 Findings: Continued normal heart size. Minimal linear atelectasis left base. Small focus of airspace disease in the right lower lung with air bronchogram identified. This may represent atelectasis; the diaphragm is slightly elevated. Interval performance of left shoulder arthroplasty since prior study. Impression: Right lower lobe infiltrate, minimal atelectasis left base. Reported By:
[2017-04-05 08:22] LABS: B-TYPE NATRIURETIC PEPTIDE 231 pg/mL (0-79)
--- NOTE | 2017-04-05 08:28 | DR.DIABETE ---
HPI - Time Seen Time seen: 08:10 - PCP Primary Care Physician: klaus - Complaints/Symptoms Chief Complaint Doctor Comments: Relative reports that patient had breathing problemes this AM at 0400, she was started on her breathing treatment and got better. Later this morning about two hours later, her breathing became more labored. and she came to the ED for evaluation. Upon arrival oxygen via nasal canula ,saturation 59% via pulse ox. Her blood gas pH 7.15 pco2 95; O2 48;HC03 33 O2 sat 70%.. Patient was started on nebulization treatment and improved with Bipap. Chief Complaint:: pt has been short of breath and having sore throat that started last night. - Source History Provided: Patient, Family Member - Mode of Arrival Mode of Arrival: Wheelchair - Timing Onset of Chief Complaint: 04/04/17 PMH - PMH Past Medical History: Yes Past Medical History: CHF, COPD, Diabetes, Dyslipidemia, Hypertension Past Surgical History: Yes Surgical History: Cholecystectomy, Hysterectomy, Ortho Surgery - Family History History of Family Medical Conditions: Yes Family Medical History: Diabetes Mellitus, Coronary Artery Disease, Hypertension - Social History Does patient currently use any type of tobacco product: No Have you used tobacco products in the last 12 months: No Type of Tobacco Use: None Does any household member use tobacco: No Alcohol Use: None Do you use any recreational Drugs:: No Lives With: Family - infectious screening In the last 2 months have you had wt loss of >10#?: NO Have you had fever, night sweats or hemotysis?: No Have you traveled outside the country in the last 6 months?: No Isolation: Standard ROS - Review of Systems Constitutional: See HPI Eyes: No Symptoms Reported ENTM: No Symptoms Reported Respiratoy: Short of Breath Cardiovascular: No Symptoms Reported Gastrointestinal/Abdominal: No Symptoms Reported Genitourinary: No Symptoms Reported Neurological: No Symptoms Reported Musculoskeletal: No Symptoms Reported Integumentary: No Symptoms Reported Hematologic/Lymphatic: No Symptoms Reported Endocrine: No Symptoms Reported Psychiatric: No Symptoms Reported All Other Systems: Reviewed and Negative PE - Vital Signs Vitals: Temperature 98.3 F Pulse Rate [Left Radial] 106 Pulse Rate 107 Respiratory Rate 16 Blood Pressure [Left Arm] 115/70 Blood Pressure [Right Arm] 142/66 Blood Pressure 193/97 O2 Sat by Pulse Oximetry 100 - General Limitations: Altered Mental Status General Appearance: Alert, In Distress (respiratory) - Head Head Exam: Normal Inspection, Atraumatic - Eyes Eye exam: Normal Appearance, PERRL, EOMI - ENT ENT Exam: Normal Exam - Neck Neck Exam: Normal Inspection, Full ROM - Chest Chest Inspection: Normal Inspection (s/p neb treatment) - Respiratory Respiratory Exam: Normal Lung Sounds Bilat Respiratory Exam: Bilateral Clear to Auscultation (s/p neb treatment) - Cardiovascular Cardiovascular Exam: Regular Rate, Normal Rhythm - Abdominal Exam Abdominal Exam: Normal Inspection Abdominal Tenderness: negative: RUQ, RLQ, LUQ, LLQ, Epigastrium, Suprapubic, Diffuse, Mild, Moderate, Severe, Other - Extremities Extremities Exam: Normal Inspection, Full ROM - Back Back Exam: Normal Inspection - Neurologic Neurological Exam: Alert, Oriented X3, CN II-XII Intact Speech: Fluid Speech Cranial Nerve Exam: EOM Function (II, III, IV, ): Right Abnormal - Skin Skin Exam: Warm, Dry, Intact Course - Treatment Treatment: Bipap, nebulizatins, oxygen - Reevaluation 1st: Improved - Consultation Called: 09:00 (Dr Salinas agreed to admit for further treatment and evaluation) ROR - Labs Reviewed Result Diagrams: 04/05/17 07:55 04/05/17 07:55 Laboratory: WBC 8.3 X10^3/uL (3.6-10.0) 04/05/17 07:55 RBC 5.05 X10^6/uL (3.5-5.4) 04/05/17 07:55 Hgb 16.0 g/dL (12.0-16.0) 04/05/17 07:55 Hct 47.3 % (36.0-47.0) H 04/05/17 07:55 MCV 93.6 fL (80.0-100.0) 04/05/17 07:55 MCH 31.7 pg (27.0-34.0) 04/05/17 07:55 MCHC 33.9 g/dL (33.0-35.0) 04/05/17 07:55 RDW 13.6 % (11.6-16.5) 04/05/17 07:55 Plt Count 160 X10^3/uL (150.0-450.0) 04/05/17 07:55 MPV 9.1 fL (7.4-11.0) 04/05/17 07:55 Neut % 85.4 % (42.0-75.0) H 04/05/17 07:55 Lymph % 10.5 % (21.0-51.0) L 04/05/17 07:55 [place] % 3.0 % (0.0-13.0) 04/05/17 07:55 Eos % 0.6 % (0.9-2.9) L 04/05/17 07:55 Baso % 0.5 % (0.2-1.0) 04/05/17 07:55 Neut # 7.1 x10^3/uL (2.2-4.8) H 04/05/17 07:55 Lymph # 0.9 X10^3/uL (1.3-2.9) L 04/05/17 07:55 [place] # 0.3 x10^3/uL (0.3-0.8) 04/05/17 07:55 Eos # 0.0 x10^3/uL (0.0-0.2) 04/05/17 07:55 Baso # 0.0 X10^3/uL (0.0-0.1) 04/05/17 07:55 Absolute Nucleated RBC 0.0 /100WBC 04/05/17 07:55 Sample Site Lb 04/05/17 09:14 ABG pH 7.420 (7.35-7.45) 04/05/17 09:14 ABG pCO2 51.0 mmHg (35.0-45.0) H* 04/05/17 09:14 ABG pO2 70.0 mmHg (80.0-100.0) L 04/05/17 09:14 ABG HCO3 33.1 mmol/L (22-26) H* 04/05/17 09:14 ABG O2 Saturation 94.0 % (90-100) 04/05/17 09:14 ABG Base Excess 7.3 mmol/L (-2.0-2.0) H 04/05/17 09:14 Wes Test Pos 04/05/17 09:14 A-a Gradient 223.0 mmHg 04/05/17 09:14 FiO2 50.000 04/05/17 09:14 Blood Gas Comments Pt kelli well. cdn 12/01/17 09:14 Sodium 139 mmol/L (136-145) 04/05/17 07:55 Corrected Sodium 144 mmol/L (136-145) 04/05/17 07:55 Potassium 5.0 mmol/L (3.5-5.1) 04/05/17 07:55 Chloride 99 mmol/L (98-107) 04/05/17 07:55 Carbon Dioxide 32.6 mmol/L (21-32) H 04/05/17 07:55 BUN 15 mg/dL (7-18) 04/05/17 07:55 Creatinine 0.91 mg/dL (0.55-1.02) 04/05/17 07:55 Est GFR (MDRD) Af Amer > 60 (>60) 04/05/17 07:55 Est GFR (MDRD) Non-Af > 60 (>60) 04/05/17 07:55 Glucose 303 mg/dL (65-99) H 04/05/17 07:55 Calcium 9.2 mg/dL (8.5-10.1) 04/05/17 07:55 Corrected Calcium 9.8 mg/dL (8.5-10.1) 04/05/17 07:55 Total Bilirubin 0.40 mg/dL (0.2-1.0) 04/05/17 07:55 AST 31 Units/L (15-37) 04/05/17 07:55 ALT 22 Units/L (12-78) 04/05/17 07:55 Alkaline Phosphatase 171 Units/L (46-116) H 04/05/17 07:55 C-Reactive Protein 103.20 mg/L (0-3.0) H 04/05/17 07:55 B-Natriuretic Peptide 231 pg/mL (0-79) H 04/05/17 07:55 Total Protein 8.3 g/dL (6.4-8.2) H 04/05/17 07:55 Albumin 3.3 g/dL (3.4-5.0) L 04/05/17 07:55 Globulin 5.0 g/dL (2.5-4.5) H 04/05/17 07:55 Albumin/Globulin Ratio 0.7 Ratio (1.1-2.1) L 04/05/17 07:55 Specimen Type Catherized urine 04/05/17 08:30 Urine Color Yellow (YELLOW) 04/05/17 08:30 Urine Appearance Slightly hazy (CLEAR) 04/05/17 08:30 Urine pH 6.0 (5.0 - 8.0) 04/05/17 08:30 Ur Specific [place] 1.020 (1.000-1.030) 04/05/17 08:30 Urine Protein 4+ (NEGATIVE) 04/05/17 08:30 Urine Glucose (UA) 2+ (NEGATIVE) 04/05/17 08:30 Urine Ketones Negative (NEGATIVE) 04/05/17 08:30 Urine Occult Blood 2+ (NEGATIVE) 04/05/17 08:30 Urine Nitrite Negative (NEGATIVE) 04/05/17 08:30 Urine Bilirubin Negative (NEGATIVE) 04/05/17 08:30 Urine Urobilinogen Normal (NORMAL) 04/05/17 08:30 Ur Leukocyte Esterase Negative (NEGATIVE) 04/05/17 08:30 Urine RBC 0 - 4 /HPF (NEGATIVE) 04/05/17 08:30 Urine WBC Rare /HPF (NEGATIVE) 04/05/17 08:30 Ur Squamous Epith Cells Few /HPF (NEGATIVE) 04/05/17 08:30 Amorphous Sediment 1+ /HPF (NEGATIVE) 04/05/17 08:30 Urine Bacteria Negative /HPF (NEGATIVE) 04/05/17 08:30 Hyaline Casts Few /LPF (NEGATIVE) 04/05/17 08:30 Ur Culture Indicated? No/not indicated 04/05/17 08:30 - XRAY XRAY Interpreted by: Radiologist (Chest: Continued normal heart size. Minimal linear atelectasis left base. Small focus of airspace disease in the right lower lung with air brochogram identified. This may represent atelectasis; the diaphragm is slightly elevated. Interval performace of left shoulder arthropasty since prior study. Impression: Right lower lobe infiltrate, minimal atelectasis left base.) - EKG Rhythm: ST Block: LBBB - Diagnosis Discharge Problem: COPD exacerbation RLL pneumonia Qualifiers: Pneumonia type: due to unspecified organism Qualified Code(s): J18.1 - Lobar pneumonia, unspecified organism Hypertension Qualifiers: Hypertension type: unspecified Qualified Code(s): I10 - Essential (primary) hypertension - Discharge Plan Condition: Stable - Follow ups/Referrals Follow ups/Referrals: AGGIE SALINAS [Primary Care Provider] - 3 days - Instructions
[2017-04-05 08:35] LABS: BASOPHILS % (AUTO) 0.5 % (0.2-1.0); EOSINOPHILS % (AUTO) 0.6 % (0.9-2.9); HEMATOCRIT 47.3 % (36.0-47.0); LYMPHOCYTES # (AUTO) 0.9 X10^3/uL (1.3-2.9); LYMPHOCYTES % (AUTO) 10.5 % (21.0-51.0); MEAN CORPUSCULAR HEMOGLOBIN 31.7 pg (27.0-34.0); MEAN CORPUSCULAR HGB CONC 33.9 g/dL (33.0-35.0); MEAN CORPUSCULAR VOLUME 93.6 fL (80.0-100.0); MEAN PLATELET VOLUME 9.1 fL (7.4-11.0); MONOCYTES # (AUTO) 0.3 x10^3/uL (0.3-0.8); NEUTROPHILS # (AUTO) 7.1 x10^3/uL (2.2-4.8); NEUTROPHILS % (AUTO) 85.4 % (42.0-75.0); PLATELET COUNT 160 X10^3/uL (150.0-450.0); RED BLOOD COUNT 5.05 X10^6/uL (3.5-5.4); RED CELL DISTRIBUTION WIDTH 13.6 % (11.6-16.5); WHITE BLOOD COUNT 8.3 X10^3/uL (3.6-10.0)
[2017-04-05 08:42] LABS: BILIRUBIN,URINE NEGATIVE (NEGATIVE); BLOOD/HEMOGLOBIN,URINE 2+ (NEGATIVE); GLUCOSE, URINE 2+ (NEGATIVE); KETONES,URINE NEGATIVE (NEGATIVE); LEUKOCYTE ESTERASE ,URINE NEGATIVE (NEGATIVE); NITRITES,URINE NEGATIVE (NEGATIVE); PROTEIN,URINE 4+ (NEGATIVE); UROBILINOGEN,URINE NORMAL (NORMAL)
[2017-04-05] MEDS ORDERED: NORMODYNE INJ 20 MG VIAL IVP PRN (08:46)
[2017-04-05 09:06] LABS: APPEARANCE,URINE SLIGHTLY HAZY (CLEAR); BACTERIA,URINE NEGATIVE /HPF (NEGATIVE); COLOR,URINE YELLOW (YELLOW); RBC,URINE 0 - 4 /HPF (NEGATIVE); SQUAMOUS EPITHELIAL CELL,UR FEW /HPF (NEGATIVE)
[2017-04-05 09:07] LABS: AMORPHOUS SEDIMENT,UR 1+ /HPF (NEGATIVE); HYALINE CASTS, URINE FEW /LPF (NEGATIVE)
[2017-04-05] MEDS ORDERED: ROCEPHIN 1 GM IV PREMIX 1 GM/50 ML IV.SOLN. IV ONE ×2 (09:13→09:18)
[2017-04-05] MEDS ORDERED: NS 1/2 1000 ML IV 1,000 ML IV ONE ×2 (09:18→19:18)
[2017-04-05 09:19] LABS: ABG BASE EXCESS 7.3 mmol/L (-2.0-2.0)
[2017-04-05 09:20] LABS: ABG ALLEN TEST POS; ABG HCO3 33.1 mmol/L (22-26)
[2017-04-05] MEDS: NS 1/2 1000 ML IV 1,000 ML IV SCH ×2 (09:23→20:41)
[2017-04-05] MEDS: HumuLIN R SUBCUT PRN (12:12)
[2017-04-05] MEDS ORDERED: DUONEB 0.5 MG/3 MG NEB PRN (12:26)
[2017-04-05] MEDS ORDERED: ZOCOR TAB 20 MG PO SCH (13:00)
[2017-04-05] MEDS: ZOSYN VIAL 3.375 GM 3.375 GM in NS 50 ML IV 50 ML IV SCH ×2 (14:00→21:27)
[2017-04-05] MEDS: ROBITUSSIN DM PO SCH ×3 (15:13→21:30)
[2017-04-05 15:31] VITALS: BMI 31.2
[2017-04-05] MEDS: NORCO 7.5/325 MG TAB PO PRN (17:54)
[2017-04-05] MEDS ORDERED: NS 100 ML IV + SPIKE MINIBAG* 100 ML IV ONE (19:36)
[2017-04-05] MEDS: DUONEB 0.5 MG/3 MG NEB SCH (20:38)
[2017-04-05] MEDS: PULMICORT NEB TX 0.5 MG NEB SCH (20:38)
[2017-04-05] MEDS: SNACK - Diabetic Appropriate PO SCH (20:42)
[2017-04-05] MEDS ORDERED: PATIENT'S HOME MEDICATION (Amitriptyline Hcl [Amitriptyline Hcl] 1 TAB) PO SCH (21:00)
[2017-04-05] MEDS: ELAVIL PO SCH (21:28)
[2017-04-05] MEDS: COREG TAB 12.5 MG PO SCH (21:29)
[2017-04-05] MEDS: ARICEPT TAB 10 MG PO SCH (21:29)
[2017-04-05] MEDS: LYRICA CAP 100 MG PO SCH (21:29)
[2017-04-05] MEDS: FLEXERIL TAB 10 MG PO SCH (21:29)
[2017-04-05] MEDS: ZETIA TAB 10 MG PO SCH (21:30)
[2017-04-06] MEDS: DUONEB 0.5 MG/3 MG NEB SCH ×6 (00:40→20:27)
[2017-04-06] MEDS: NS 1/2 1000 ML IV 1,000 ML IV SCH ×5 (03:52→23:50)
[2017-04-06] MEDS ORDERED: NS 100 ML IV + SPIKE MINIBAG* 100 ML IV ONE ×2 (05:04→20:46)
[2017-04-06] MEDS: ZOSYN VIAL 3.375 GM 3.375 GM in NS 50 ML IV 50 ML IV SCH ×3 (06:00→21:43)
[2017-04-06] MEDS ORDERED: NS 1/2 1000 ML IV 1,000 ML IV ONE ×3 (06:05→20:44)
[2017-04-06 06:33] LABS: BASOPHILS % (AUTO) 0.3 % (0.2-1.0); EOSINOPHILS # (AUTO) 0.1 x10^3/uL (0.0-0.2); EOSINOPHILS % (AUTO) 1.1 % (0.9-2.9); HEMATOCRIT 39.5 % (36.0-47.0); HEMOGLOBIN 13.5 g/dL (12.0-16.0); LYMPHOCYTES # (AUTO) 1.9 X10^3/uL (1.3-2.9); LYMPHOCYTES % (AUTO) 26.6 % (21.0-51.0); MEAN CORPUSCULAR HEMOGLOBIN 31.6 pg (27.0-34.0); MEAN CORPUSCULAR HGB CONC 34.2 g/dL (33.0-35.0); MEAN CORPUSCULAR VOLUME 92.5 fL (80.0-100.0); MEAN PLATELET VOLUME 9.3 fL (7.4-11.0); MONOCYTES # (AUTO) 0.4 x10^3/uL (0.3-0.8); NEUTROPHILS # (AUTO) 4.6 x10^3/uL (2.2-4.8); PLATELET COUNT 132 X10^3/uL (150.0-450.0); RED BLOOD COUNT 4.27 X10^6/uL (3.5-5.4); RED CELL DISTRIBUTION WIDTH 13.2 % (11.6-16.5)
[2017-04-06 07:12] LABS: ALANINE AMINOTRANSFERASE 23 Units/L (12-78); ALBUMIN 2.6 g/dL (3.4-5.0); ALKALINE PHOSPHATASE 122 Units/L (46-116); ASPARTATE AMINO TRANSFERASE 33 Units/L (15-37); BLOOD UREA NITROGEN 19 mg/dL (7-18); CALCIUM 8.7 mg/dL (8.5-10.1); CARBON DIOXIDE 29.6 mmol/L (21-32); CHLORIDE 100 mmol/L (98-107); COR CA(FOR HYPOALB) 9.8 mg/dL (8.5-10.1); COR NA(FOR HYPERGLY) 138 mmol/L (136-145); CREATININE 0.84 mg/dL (0.55-1.02); SODIUM 137 mmol/L (136-145); TOTAL PROTEIN 6.9 g/dL (6.4-8.2); eGFR BLACK RACES > 60 (>60); eGFR NON BLACK RACES > 60 (>60)
[2017-04-06] MEDS ORDERED: PATIENT'S HOME MEDICATION (Umeclidinium-Vilanterol 1 PUFF) IN SCH (09:00)
[2017-04-06] MEDS ORDERED: PATIENT'S HOME MEDICATION (Aspirin [Aspirin] 81 MG) PO SCH (09:00)
[2017-04-06] MEDS ORDERED: MEMANTINE HCL 28 MG PO SCH (09:00)
[2017-04-06] MEDS: PULMICORT NEB TX 0.5 MG NEB SCH ×2 (09:02→20:27)
[2017-04-06] MEDS: DIOVAN TAB 80 MG PO SCH (10:03)
[2017-04-06] MEDS: LYRICA CAP 100 MG PO SCH ×2 (10:03→21:40)
[2017-04-06] MEDS: LASIX PO SCH (10:03)
[2017-04-06] MEDS: ASPIRIN EC 81 MG PO SCH (10:03)
[2017-04-06] MEDS: MICRO K EXTEN CAP 10 MEQ PO SCH (10:03)
[2017-04-06] MEDS: COREG TAB 12.5 MG PO SCH ×2 (10:03→21:41)
[2017-04-06] MEDS: PriLOSEC PO SCH (10:03)
[2017-04-06] MEDS: LEVAQUIN PREMIX IV 750 MG 750 MG/150 ML BAG IV SCH (10:04)
[2017-04-06] MEDS: ROBITUSSIN DM PO SCH ×4 (10:04→21:43)
--- NOTE | 2017-04-06 14:14 | RAD ---
Examination: Chest, PA and lateral views History: Pneumonia Comparison reference: 04/05/2017 Findings: Continued normal heart size. Increasing airspace disease, with air bronchogram, in the righ t lower lobe. Minimal atelectasis suggested again in the left base. No significant pleural fluid, pne umothorax or hilar lesion noted. Impression: Increasing pneumonia right base. Reported By:
[2017-04-06] MEDS: XANAX PO SCH (17:32)
[2017-04-06] MEDS: PATIENT'S HOME MEDICATION PO SCH (17:41)
[2017-04-06] MEDS: SNACK - Diabetic Appropriate PO SCH (20:23)
[2017-04-06] MEDS ORDERED: ZOSYN VIAL 3.375 GM IV ONE (20:45)
[2017-04-06] MEDS: ZETIA TAB 10 MG PO SCH (21:40)
[2017-04-06] MEDS: NORCO 7.5/325 MG TAB PO PRN (21:40)
[2017-04-06] MEDS: ELAVIL PO SCH (21:41)
[2017-04-06] MEDS: ARICEPT TAB 10 MG PO SCH (21:42)
[2017-04-06] MEDS: FLEXERIL TAB 10 MG PO SCH (21:42)
[2017-04-07] MEDS: DUONEB 0.5 MG/3 MG NEB SCH ×6 (00:39→20:22)
[2017-04-07] MEDS ORDERED: ZOSYN VIAL 3.375 GM IV ONE (05:07)
[2017-04-07] MEDS ORDERED: NS 100 ML IV + SPIKE MINIBAG* 100 ML IV ONE (05:08)
[2017-04-07 05:31] LABS: BASOPHILS % (AUTO) 0.2 % (0.2-1.0); EOSINOPHILS # (AUTO) 0.2 x10^3/uL (0.0-0.2); EOSINOPHILS % (AUTO) 3.3 % (0.9-2.9); HEMATOCRIT 37.7 % (36.0-47.0); HEMOGLOBIN 12.8 g/dL (12.0-16.0); LYMPHOCYTES # (AUTO) 1.7 X10^3/uL (1.3-2.9); LYMPHOCYTES % (AUTO) 32.8 % (21.0-51.0); MEAN CORPUSCULAR HEMOGLOBIN 31.2 pg (27.0-34.0); MEAN CORPUSCULAR HGB CONC 33.9 g/dL (33.0-35.0); MEAN CORPUSCULAR VOLUME 92.2 fL (80.0-100.0); MEAN PLATELET VOLUME 9.9 fL (7.4-11.0); MONOCYTES # (AUTO) 0.5 x10^3/uL (0.3-0.8); NEUTROPHILS # (AUTO) 2.8 x10^3/uL (2.2-4.8); NEUTROPHILS % (AUTO) 54.7 % (42.0-75.0); PLATELET COUNT 128 X10^3/uL (150.0-450.0); RED BLOOD COUNT 4.09 X10^6/uL (3.5-5.4); RED CELL DISTRIBUTION WIDTH 13.4 % (11.6-16.5); WHITE BLOOD COUNT 5.2 X10^3/uL (3.6-10.0)
[2017-04-07] MEDS: NS 1/2 1000 ML IV 1,000 ML IV SCH ×3 (05:48→22:19)
[2017-04-07] MEDS: ZOSYN VIAL 3.375 GM 3.375 GM in NS 50 ML IV 50 ML IV SCH ×3 (05:48→22:19)
[2017-04-07 06:32] LABS: ALANINE AMINOTRANSFERASE 23 Units/L (12-78); ALBUMIN 2.3 g/dL (3.4-5.0); ALKALINE PHOSPHATASE 107 Units/L (46-116); ASPARTATE AMINO TRANSFERASE 28 Units/L (15-37); BLOOD UREA NITROGEN 20 mg/dL (7-18); CALCIUM 8.2 mg/dL (8.5-10.1); CARBON DIOXIDE 28.9 mmol/L (21-32); CHLORIDE 103 mmol/L (98-107); COR CA(FOR HYPOALB) 9.6 mg/dL (8.5-10.1); COR NA(FOR HYPERGLY) 140 mmol/L (136-145); CREATININE 0.89 mg/dL (0.55-1.02); SODIUM 139 mmol/L (136-145); TOTAL PROTEIN 6.3 g/dL (6.4-8.2); eGFR BLACK RACES > 60 (>60); eGFR NON BLACK RACES > 60 (>60)
[2017-04-07] MEDS: PULMICORT NEB TX 0.5 MG NEB SCH ×2 (08:32→20:22)
[2017-04-07] MEDS: XANAX PO SCH (08:52)
[2017-04-07] MEDS: LEVAQUIN PREMIX IV 750 MG 750 MG/150 ML BAG IV SCH (08:52)
[2017-04-07] MEDS: ROBITUSSIN DM PO SCH ×4 (08:52→21:18)
[2017-04-07] MEDS: COREG TAB 12.5 MG PO SCH ×2 (08:53→21:17)
[2017-04-07] MEDS: DIOVAN TAB 80 MG PO SCH (08:53)
[2017-04-07] MEDS: LYRICA CAP 100 MG PO SCH ×2 (08:53→22:18)
[2017-04-07] MEDS: LASIX PO SCH (08:53)
[2017-04-07] MEDS: ASPIRIN EC 81 MG PO SCH (08:53)
[2017-04-07] MEDS: PriLOSEC PO SCH (08:53)
[2017-04-07] MEDS: MICRO K EXTEN CAP 10 MEQ PO SCH (08:54)
[2017-04-07] MEDS: PATIENT'S HOME MEDICATION PO SCH (08:55)
--- NOTE | 2017-04-07 10:12 | RAD ---
HISTORY: 71-year-old female with shortness of breath. Study: Frontal view of the chest. Comparison: Chest radiograph 04/06/2017 Findings: Left reverse total shoulder arthroplasty is stable. The trachea is midline. The cardiac silhouette is stably enlarged with chronic elevation of the righ t hemidiaphragm, prominent interstitium and perihilar lung markings. Mild improvement pattern of aera tion of the right lung base along the medial aspect. The lungs are clear without focal consolidation, effusion or pneumothorax. Soft tissues are unremarkable. Osseous structures are unremarkable. IMPRESSION: 1. Mild improvement pattern of aeration right lung base. Reported By:
[2017-04-07] MEDS: HumuLIN R SUBCUT PRN (13:08)
[2017-04-07] MEDS: SNACK - Diabetic Appropriate PO SCH (20:17)
[2017-04-07] MEDS: ELAVIL PO SCH (21:00)
[2017-04-07] MEDS: ARICEPT TAB 10 MG PO SCH (21:17)
[2017-04-07] MEDS: ZETIA TAB 10 MG PO SCH (22:18)
[2017-04-07] MEDS: FLEXERIL TAB 10 MG PO SCH (22:18)
[2017-04-07] MEDS: NORCO 7.5/325 MG TAB PO PRN (22:19)
[2017-04-08] MEDS: DUONEB 0.5 MG/3 MG NEB SCH ×6 (00:54→21:07)
[2017-04-08] MEDS ORDERED: NS 1/2 1000 ML IV 1,000 ML IV ONE (03:00)
[2017-04-08] MEDS: ZOSYN VIAL 3.375 GM 3.375 GM in NS 50 ML IV 50 ML IV SCH ×3 (05:27→21:07)
[2017-04-08] MEDS: NS 1/2 1000 ML IV 1,000 ML IV SCH ×3 (05:27→23:04)
[2017-04-08 05:57] LABS: BASOPHILS % (AUTO) 0.4 % (0.2-1.0); EOSINOPHILS # (AUTO) 0.2 x10^3/uL (0.0-0.2); EOSINOPHILS % (AUTO) 3.6 % (0.9-2.9); HEMATOCRIT 37.3 % (36.0-47.0); HEMOGLOBIN 12.7 g/dL (12.0-16.0); LYMPHOCYTES # (AUTO) 1.7 X10^3/uL (1.3-2.9); LYMPHOCYTES % (AUTO) 34.3 % (21.0-51.0); MEAN CORPUSCULAR HEMOGLOBIN 31.3 pg (27.0-34.0); MEAN CORPUSCULAR HGB CONC 34.1 g/dL (33.0-35.0); MEAN CORPUSCULAR VOLUME 91.7 fL (80.0-100.0); MEAN PLATELET VOLUME 9.4 fL (7.4-11.0); MONOCYTES # (AUTO) 0.5 x10^3/uL (0.3-0.8); MONOCYTES % (AUTO) 9.2 % (0.0-13.0); NEUTROPHILS # (AUTO) 2.7 x10^3/uL (2.2-4.8); NEUTROPHILS % (AUTO) 52.5 % (42.0-75.0); PLATELET COUNT 141 X10^3/uL (150.0-450.0); RED BLOOD COUNT 4.07 X10^6/uL (3.5-5.4); RED CELL DISTRIBUTION WIDTH 13.3 % (11.6-16.5); WHITE BLOOD COUNT 5.1 X10^3/uL (3.6-10.0)
[2017-04-08 06:40] LABS: ALANINE AMINOTRANSFERASE 24 Units/L (12-78); ALBUMIN 2.3 g/dL (3.4-5.0); ALKALINE PHOSPHATASE 117 Units/L (46-116); ASPARTATE AMINO TRANSFERASE 31 Units/L (15-37); BLOOD UREA NITROGEN 18 mg/dL (7-18); CALCIUM 8.4 mg/dL (8.5-10.1); CARBON DIOXIDE 29.8 mmol/L (21-32); CHLORIDE 104 mmol/L (98-107); COR CA(FOR HYPOALB) 9.8 mg/dL (8.5-10.1); COR NA(FOR HYPERGLY) 141 mmol/L (136-145); CREATININE 0.82 mg/dL (0.55-1.02); SODIUM 140 mmol/L (136-145); TOTAL PROTEIN 6.6 g/dL (6.4-8.2); eGFR BLACK RACES > 60 (>60); eGFR NON BLACK RACES > 60 (>60)
--- NOTE | 2017-04-08 07:31 | RAD ---
Examination: Portable AP chest History: SOB and pneumonia Comparison reference 04/07/2017 Findings: Continued normal heart size with low volume lungs. No change in the patchy airspace density in the right lower lung. The left diaphragm has become less distinct, consistent with a developing p arenchymal process in the left lower lobe; minimal air bronchogram is visible. No pneumothorax is see n. Impression: Persistent infiltrate right lower lobe. Developing airspace process left lower lung. Cont inued follow-up suggested. Reported By:
[2017-04-08] MEDS: LEVAQUIN PREMIX IV 750 MG 750 MG/150 ML BAG IV SCH (08:01)
[2017-04-08] MEDS: MICRO K EXTEN CAP 10 MEQ PO SCH (08:02)
[2017-04-08] MEDS: XANAX PO SCH (08:02)
[2017-04-08] MEDS: DIOVAN TAB 80 MG PO SCH (08:02)
[2017-04-08] MEDS: COREG TAB 12.5 MG PO SCH ×2 (08:03→21:05)
[2017-04-08] MEDS: ASPIRIN EC 81 MG PO SCH (08:03)
[2017-04-08] MEDS: PriLOSEC PO SCH (08:03)
[2017-04-08] MEDS: LYRICA CAP 100 MG PO SCH ×2 (08:03→21:06)
[2017-04-08] MEDS: ROBITUSSIN DM PO SCH ×4 (08:03→23:07)
[2017-04-08] MEDS: PATIENT'S HOME MEDICATION PO SCH (08:03)
[2017-04-08] MEDS: LASIX PO SCH (08:03)
[2017-04-08] MEDS: PULMICORT NEB TX 0.5 MG NEB SCH ×2 (08:42→21:07)
[2017-04-08] MEDS: NORCO 7.5/325 MG TAB PO PRN ×2 (14:23→22:30)
[2017-04-08] MEDS ORDERED: NS 500 ML IV 500 ML IV ONE (16:27)
[2017-04-08] MEDS ORDERED: NS 500 ML IV 500 ML IV SCH (17:00)
[2017-04-08] MEDS: SNACK - Diabetic Appropriate PO SCH (20:58)
[2017-04-08] MEDS: ZETIA TAB 10 MG PO SCH (21:00)
[2017-04-08] MEDS ORDERED: COLACE CAP 100 MG PO SCH (21:00)
[2017-04-08] MEDS: ELAVIL PO SCH (21:05)
[2017-04-08] MEDS: ARICEPT TAB 10 MG PO SCH (21:05)
[2017-04-08] MEDS: FLEXERIL TAB 10 MG PO SCH (21:06)
[2017-04-09] MEDS: DUONEB 0.5 MG/3 MG NEB SCH ×4 (00:50→13:15)
[2017-04-09] MEDS: NS 1/2 1000 ML IV 1,000 ML IV SCH (04:01)
[2017-04-09] MEDS: ZOSYN VIAL 3.375 GM 3.375 GM in NS 50 ML IV 50 ML IV SCH ×2 (05:43→13:13)
[2017-04-09 06:16] LABS: BASOPHILS % (AUTO) 0.4 % (0.2-1.0); EOSINOPHILS # (AUTO) 0.2 x10^3/uL (0.0-0.2); EOSINOPHILS % (AUTO) 3.9 % (0.9-2.9); HEMATOCRIT 36.8 % (36.0-47.0); HEMOGLOBIN 12.7 g/dL (12.0-16.0); LYMPHOCYTES # (AUTO) 1.9 X10^3/uL (1.3-2.9); LYMPHOCYTES % (AUTO) 37.4 % (21.0-51.0); MEAN CORPUSCULAR HEMOGLOBIN 31.4 pg (27.0-34.0); MEAN CORPUSCULAR HGB CONC 34.5 g/dL (33.0-35.0); MEAN PLATELET VOLUME 9.7 fL (7.4-11.0); MONOCYTES # (AUTO) 0.4 x10^3/uL (0.3-0.8); MONOCYTES % (AUTO) 7.6 % (0.0-13.0); NEUTROPHILS # (AUTO) 2.5 x10^3/uL (2.2-4.8); NEUTROPHILS % (AUTO) 50.7 % (42.0-75.0); PLATELET COUNT 157 X10^3/uL (150.0-450.0); RED BLOOD COUNT 4.04 X10^6/uL (3.5-5.4); RED CELL DISTRIBUTION WIDTH 13.3 % (11.6-16.5); WHITE BLOOD COUNT 4.9 X10^3/uL (3.6-10.0)
[2017-04-09 06:45] LABS: ALANINE AMINOTRANSFERASE 42 Units/L (12-78); ALBUMIN 2.3 g/dL (3.4-5.0); ALKALINE PHOSPHATASE 118 Units/L (46-116); ASPARTATE AMINO TRANSFERASE 37 Units/L (15-37); BLOOD UREA NITROGEN 17 mg/dL (7-18); CALCIUM 8.5 mg/dL (8.5-10.1); CARBON DIOXIDE 31.6 mmol/L (21-32); CHLORIDE 105 mmol/L (98-107); COR CA(FOR HYPOALB) 9.9 mg/dL (8.5-10.1); COR NA(FOR HYPERGLY) 143 mmol/L (136-145); SODIUM 142 mmol/L (136-145); TOTAL PROTEIN 6.6 g/dL (6.4-8.2); eGFR BLACK RACES > 60 (>60); eGFR NON BLACK RACES > 60 (>60)
[2017-04-09] MEDS: ASPIRIN EC 81 MG PO SCH (08:10)
[2017-04-09] MEDS: LASIX PO SCH (08:11)
[2017-04-09] MEDS: LEVAQUIN PREMIX IV 750 MG 750 MG/150 ML BAG IV SCH (08:11)
[2017-04-09] MEDS: LYRICA CAP 100 MG PO SCH (08:11)
[2017-04-09] MEDS: COREG TAB 12.5 MG PO SCH (08:11)
[2017-04-09] MEDS: MICRO K EXTEN CAP 10 MEQ PO SCH (08:11)
[2017-04-09] MEDS: DIOVAN TAB 80 MG PO SCH (08:11)
[2017-04-09] MEDS: XANAX PO SCH (08:12)
[2017-04-09] MEDS: PriLOSEC PO SCH (08:12)
[2017-04-09] MEDS: ROBITUSSIN DM PO SCH ×2 (08:12→13:53)
[2017-04-09] MEDS: PATIENT'S HOME MEDICATION PO SCH (08:12)
[2017-04-09] MEDS: PULMICORT NEB TX 0.5 MG NEB SCH (08:42)
[2017-04-09] MEDS: NORCO 7.5/325 MG TAB PO PRN (10:22)
[2017-04-09 15:03] VITALS: BP 122/56
== END 2017-04-09 17:00 | disposition home or self-care (01) | DRG 194 ==
LOC: ER 07:11 → ICU 10:18
PROVIDERS: ADMIT Internal Medicine; ATTEND Internal Medicine
DX: J18.8 Other pneumonia, unspecified organism (principal); J44.1 Chronic obstructive pulmonary disease with (acute) exacerbation; R06.02 Shortness of breath; E11.65 Type 2 diabetes mellitus with hyperglycemia; E78.2 Mixed hyperlipidemia; I10 Essential (primary) hypertension; J20.8 Acute bronchitis due to other specified organisms; B95.62 Methicillin resistant Staphylococcus aureus infection as the cause of diseases classified elsewhere; R26.89 Other abnormalities of gait and mobility
CPT/HCPCS: 36415; 36600; 51702; 71010; 71020; 80053; 81001; 82803; 83880; 85025; 86140; 87040; 87070; 87077; 87086; 87186; 87205; 87880; 93005; 93010; 94640; 94660; 96365; 96374; 96375; 97535; 99285; A4222; A4618; A7030; J0696; J1815; J1940; J1956; J2543; J7620; J7626

== ENCOUNTER 2017-06-26 17:41 | Inpatient (IN) | payer OTHER, MEDICAID ==
[~2017-06-26 17:41] MED LIST: MARCAINE 0.5% ONE
--- NOTE | 2017-06-26 18:16 | RAD ---
Right hip, three views Indication: Fall with hip pain Comparison: None Findings: There is a comminuted basicervical fracture of the right femoral neck with superior displac ement of the distal fragment. The right femoral head is intact and remains well seated within the marcelle tabulum without dislocation. Bipolar left hip arthroplasty projects in expected radiographic position without complication. The SI joints and pubic symphysis are intact. Impression: Moderately displaced basicervical fracture of the right femoral neck without dislocation. Reported By:
--- NOTE | 2017-06-26 18:18 | DR.EXTPAIN ---
HPI - Time seen Time seen: 18:00 - PCP Primary Care Physician: WARREN - Complaint/Symptoms Chief Complaint Doctor Comments: tripped and fell backwards onto left hip just [employer] Chief Complaint:: PT. C/O RIGHT HIP PAIN S/P FALL. PT. UNABLE TO BEAR WEIGHT ON EXTREMITY. - Nurses notes reviewed Nurses Notes Review: Yes - Source History Provided: Patient, EMS - Mode of arrival Mode of Arrival: EMS - Timing Onset of Chief Complaint: 06/26/17 - Context History of: Hip Operation PMH - PMH Past Medical History: Yes Past Medical History: CHF, COPD, Diabetes, Dyslipidemia, Hypertension Past Surgical History: Yes Surgical History: Cholecystectomy, Hysterectomy, Ortho Surgery - Family History History of Family Medical Conditions: Yes Family Medical History: Diabetes Mellitus, Coronary Artery Disease, Hypertension - Social History Does patient currently use any type of tobacco product: No Have you used tobacco products in the last 12 months: No Type of Tobacco Use: None Does any household member use tobacco: No Alcohol Use: None Do you use any recreational Drugs:: No Lives With: Family Lives Where: Home - infectious screening In the last 2 months have you had wt loss of >10#?: NO Have you had fever, night sweats or hemotysis?: No Have you traveled outside the country in the last 6 months?: No Isolation: Standard ROS - Review of Systems Constitutional: No Symptoms Reported Eyes: No Symptoms Reported ENTM: No Symptoms Reported Respiratoy: No Symptoms Reported Cardiovascular: No Symptoms Reported Gastrointestinal/Abdominal: No Symptoms Reported Genitourinary: No Symptoms Reported Neurological: No Symptoms Reported Musculoskeletal: Right, Hip Integumentary: No Symptoms Reported Hematologic/Lymphatic: No Symptoms Reported Endocrine: No Symptoms Reported Psychiatric: No Symptoms Reported All Other Systems: Reviewed and Negative PE - Vital Signs Vitals: Temperature 97.8 F Pulse Rate 63 Respiratory Rate 20 Blood Pressure [Left Arm] 115/70 Blood Pressure [Right Arm] 122/56 Blood Pressure 173/80 O2 Sat by Pulse Oximetry 97 - General Limitations: No Limitations General Appearance: Alert, In No Apparent Distress - Head Head Exam: Normal Inspection, Atraumatic - Eyes Eye exam: Normal Appearance - ENT ENT Exam: Normal Exam - Respiratory Respiratory Exam: Normal Lung Sounds Bilat Respiratory Exam: Bilateral Clear to Auscultation - Cardiovascular Cardiovascular Exam: Regular Rate, Normal Rhythm, Normal Heart Sounds - Abdominal Exam Abdominal Exam: Normal Bowel Sounds, Soft. negative: Tenderness - Upper Extremities Shoulder Exam: Normal Inspection Arm Exam: Normal Inspection Elbow Exam: Normal Inspection Neuromotor Exam: Normal Exam Neurosensory Exam: Normal Exam - Lower Extremities Hip/Pelvis Exam: Tenderness, Pelvis Stable Knee Exam: Normal Inspection Lower Leg Exam: Normal Inspection, Full ROM. negative: Tenderness Ankle Exam: Normal Inspection Neurovascular/Tendon Exam: Normal Capillary Refill Gait Exam: Not Tested/Not Observed, Unable to bear weight - Skin Skin Exam: Warm, Dry, Intact Course - Consultation Consultation Comments: Spoke with Dr Neves and reviewed Xray, will admit pt to medicine, preop labs. ROR - Labs Reviewed Laboratory Results Reviewed?: Yes Result Diagrams: 06/26/17 19:02 06/26/17 19:02 Laboratory: WBC 12.4 X10^3/uL (3.6-10.0) H 06/26/17 19:02 RBC 4.73 X10^6/uL (3.5-5.4) 06/26/17 19:02 Hgb 15.0 g/dL (12.0-16.0) 06/26/17 19:02 Hct 43.2 % (36.0-47.0) 06/26/17 19:02 MCV 91.3 fL (80.0-100.0) 06/26/17 19:02 MCH 31.7 pg (27.0-34.0) 06/26/17 19:02 MCHC 34.7 g/dL (33.0-35.0) 06/26/17 19:02 RDW 13.2 % (11.6-16.5) 06/26/17 19:02 Plt Count 197 X10^3/uL (150.0-450.0) 06/26/17 19:02 MPV 8.7 fL (7.4-11.0) 06/26/17 19:02 Neut % 76.4 % (42.0-75.0) H 06/26/17 19:02 Lymph % 16.7 % (21.0-51.0) L 06/26/17 19:02 [place] % 4.2 % (0.0-13.0) 06/26/17 19:02 Eos % 2.2 % (0.9-2.9) 06/26/17 19:02 Baso % 0.5 % (0.2-1.0) 06/26/17 19:02 Neut # 9.4 x10^3/uL (2.2-4.8) H 06/26/17 19:02 Lymph # 2.1 X10^3/uL (1.3-2.9) 06/26/17 19:02 [place] # 0.5 x10^3/uL (0.3-0.8) 06/26/17 19:02 Eos # 0.3 x10^3/uL (0.0-0.2) H 06/26/17 19:02 Baso # 0.1 X10^3/uL (0.0-0.1) 06/26/17 19:02 Absolute Nucleated RBC 0.0 /100WBC 06/26/17 19:02 INR Target Range - 06/26/17 19:02 INR 0.96 (0.8-1.3) 06/26/17 19:02 PTT 25.6 SECONDS (22.9-36.5) 06/26/17 19:02 PTT Comment - 06/26/17 19:02 Sodium 141 mmol/L (136-145) 06/26/17 19:02 Corrected Sodium 141 mmol/L (136-145) 06/26/17 19:02 Potassium 4.1 mmol/L (3.5-5.1) 06/26/17 19:02 Chloride 101 mmol/L (98-107) 06/26/17 19:02 Carbon Dioxide 31.4 mmol/L (21-32) 06/26/17 19:02 BUN 20 mg/dL (7-18) H 06/26/17 19:02 Creatinine 1.03 mg/dL (0.55-1.02) H 06/26/17 19:02 Est GFR (MDRD) Af Amer > 60 (>60) 06/26/17 19:02 Est GFR (MDRD) Non-Af 56 (>60) L 06/26/17 19:02 Glucose 120 mg/dL (65-99) H 06/26/17 19:02 Calcium 8.9 mg/dL (8.5-10.1) 06/26/17 19:02 Corrected Calcium TNP 06/26/17 19:02 Magnesium 2.3 mg/dL (1.7-2.9) 06/26/17 19:02 Total Bilirubin 0.20 mg/dL (0.2-1.0) 06/26/17 19:02 AST 24 Units/L (15-37) 06/26/17 19:02 ALT 36 Units/L (12-78) 06/26/17 19:02 Alkaline Phosphatase 120 Units/L (46-116) H 06/26/17 19:02 Total Protein 7.6 g/dL (6.4-8.2) 06/26/17 19:02 Albumin 3.5 g/dL (3.4-5.0) 06/26/17 19:02 Globulin 4.1 g/dL (2.5-4.5) 06/26/17 19:02 Albumin/Globulin Ratio 0.9 Ratio (1.1-2.1) L 06/26/17 19:02 - XRAY XRAY Interpreted by: Radiologist XRAY Findings: rt hip fx - Diagnosis Discharge Problem: Hip fracture - Discharge Plan Disposition: ADMITTED INPATIENT Condition: Stable - Follow ups/Referrals Follow ups/Referrals: AGGIE KELLEY [Primary Care Provider] - 3 days - Instructions
[2017-06-26] MEDS ORDERED: MORPHINE SULFATE INJ 2 MG INJ IVP ONE (18:33)
[2017-06-26] MEDS ORDERED: ZOFRAN INJ 4 MG VIAL IVP ONE (18:33)
[2017-06-26] MEDS ORDERED: ZOFRAN INJ 4 MG VIAL ONE (18:35)
[2017-06-26] MEDS ORDERED: MORPHINE SULFATE INJ 2 MG INJ ONE (18:35)
[2017-06-26 19:12] LABS: BASOPHILS # (AUTO) 0.1 X10^3/uL (0.0-0.1); BASOPHILS % (AUTO) 0.5 % (0.2-1.0); EOSINOPHILS # (AUTO) 0.3 x10^3/uL (0.0-0.2); EOSINOPHILS % (AUTO) 2.2 % (0.9-2.9); HEMATOCRIT 43.2 % (36.0-47.0); LYMPHOCYTES # (AUTO) 2.1 X10^3/uL (1.3-2.9); LYMPHOCYTES % (AUTO) 16.7 % (21.0-51.0); MEAN CORPUSCULAR HEMOGLOBIN 31.7 pg (27.0-34.0); MEAN CORPUSCULAR HGB CONC 34.7 g/dL (33.0-35.0); MEAN CORPUSCULAR VOLUME 91.3 fL (80.0-100.0); MEAN PLATELET VOLUME 8.7 fL (7.4-11.0); MONOCYTES # (AUTO) 0.5 x10^3/uL (0.3-0.8); MONOCYTES % (AUTO) 4.2 % (0.0-13.0); NEUTROPHILS # (AUTO) 9.4 x10^3/uL (2.2-4.8); NEUTROPHILS % (AUTO) 76.4 % (42.0-75.0); PLATELET COUNT 197 X10^3/uL (150.0-450.0); RED BLOOD COUNT 4.73 X10^6/uL (3.5-5.4); RED CELL DISTRIBUTION WIDTH 13.2 % (11.6-16.5); WHITE BLOOD COUNT 12.4 X10^3/uL (3.6-10.0)
[2017-06-26 19:24] LABS: ALANINE AMINOTRANSFERASE 36 Units/L (12-78); ALBUMIN 3.5 g/dL (3.4-5.0); ALKALINE PHOSPHATASE 120 Units/L (46-116); ASPARTATE AMINO TRANSFERASE 24 Units/L (15-37); BLOOD UREA NITROGEN 20 mg/dL (7-18); CALCIUM 8.9 mg/dL (8.5-10.1); CARBON DIOXIDE 31.4 mmol/L (21-32); CHLORIDE 101 mmol/L (98-107); COR NA(FOR HYPERGLY) 141 mmol/L (136-145); CREATININE 1.03 mg/dL (0.55-1.02); MAGNESIUM 2.3 mg/dL (1.7-2.9); SODIUM 141 mmol/L (136-145); TOTAL PROTEIN 7.6 g/dL (6.4-8.2); eGFR BLACK RACES > 60 (>60); eGFR NON BLACK RACES 56 (>60)
--- NOTE | 2017-06-26 19:37 | RAD ---
AP Chest Indication: preoperative evaluation for hip surgery Comparison: 04/08/2017 Findings: The trachea is midline. The cardiac silhouette is unremarkable. Aside for subsegmental atelectasis within both lung bases the lungs are clear without focal infiltrate or effusion. The bony thorax is unremarkable. IMPRESSION: 1. No acute cardiopulmonary abnormality. Reported By:
--- NOTE | 2017-06-26 19:46 | CT ---
CT right hip without contrast. Indication: Fall Technique: 2 mm axial images with coronal and sagittal reformatted images were provided without IV co ntrast administration. Comparison: Hip radiographic evaluation performed earlier on same date. Findings: The mildly displaced fracture of the basicervical right femoral neck. There are few small d isplaced comminuted fracture fragments. The distal femur demonstrates very mild proximal and lateral migration. The femoral head remains well positioned within the acetabular fossa. There is no acute ac etabular fracture. The obturator ring is intact on the right. Small right hip joint effusion. There i s moderate osteopenia. Impression: 1.Mildly comminuted and distracted right basicervical femoral neck fracture. Femoral head remains wel l positioned within the acetabular fossa without acute acetabular fracture. 2. Moderate osteopenia. Reported By:
[2017-06-26] MEDS ORDERED: NS 500 ML IV 500 ML IV ONE (20:38)
[2017-06-26] MEDS ORDERED: PATIENT'S HOME MEDICATION (Albuterol Sulfate [Proair Hfa] 2 PUFF) IH SCH (21:00)
[2017-06-26] MEDS ORDERED: VERSED ONE (21:01)
[2017-06-26] MEDS ORDERED: DIPRIVAN PREMIX 1 GM IV 1,000 MG/100 ML VIAL ONE (21:01)
[2017-06-26] MEDS ORDERED: KETALAR ONE (21:01)
[2017-06-26] MEDS ORDERED: DIPRIVAN VIAL 20 ML ONE (21:02)
[2017-06-26] MEDS ORDERED: MARCAINE 0.25% INJ ONE (21:12)
[2017-06-26] MEDS ORDERED: VENTOLIN or PROAIR HFA IN PRN (21:35)
[2017-06-26] MEDS: COREG TAB 12.5 MG PO SCH (22:06)
[2017-06-26] MEDS: FLEXERIL TAB 10 MG PO SCH (22:07)
[2017-06-26] MEDS: XANAX PO SCH (22:07)
[2017-06-26] MEDS: ARICEPT TAB 10 MG PO SCH (22:07)
[2017-06-26] MEDS: LYRICA CAP 100 MG PO SCH (22:07)
[2017-06-26] MEDS: ZOCOR TAB 20 MG PO SCH (22:09)
[2017-06-26] MEDS: NS 1000 ML 1,000 ML IV SCH (22:10)
[2017-06-26] MEDS: GLUCOTROL PO SCH (22:10)
[2017-06-26] MEDS ORDERED: STERILE WATER IRRIGATION IR ONE ×2 (22:50→22:55)
[2017-06-27] MEDS ORDERED: VENTOLIN or PROAIR HFA IN SCH (03:00)
[2017-06-27 05:36] LABS: BASOPHILS % (AUTO) 0.5 % (0.2-1.0); EOSINOPHILS # (AUTO) 0.3 x10^3/uL (0.0-0.2); EOSINOPHILS % (AUTO) 3.1 % (0.9-2.9); HEMATOCRIT 37.6 % (36.0-47.0); HEMOGLOBIN 13.1 g/dL (12.0-16.0); LYMPHOCYTES % (AUTO) 22.5 % (21.0-51.0); MEAN CORPUSCULAR HEMOGLOBIN 31.8 pg (27.0-34.0); MEAN CORPUSCULAR HGB CONC 34.8 g/dL (33.0-35.0); MEAN CORPUSCULAR VOLUME 91.5 fL (80.0-100.0); MONOCYTES # (AUTO) 0.6 x10^3/uL (0.3-0.8); MONOCYTES % (AUTO) 6.9 % (0.0-13.0); PLATELET COUNT 181 X10^3/uL (150.0-450.0); RED BLOOD COUNT 4.11 X10^6/uL (3.5-5.4)
[2017-06-27 05:37] VITALS: BMI 34.7
[2017-06-27 05:55] LABS: ALANINE AMINOTRANSFERASE 29 Units/L (12-78); ALBUMIN 2.9 g/dL (3.4-5.0); ALKALINE PHOSPHATASE 101 Units/L (46-116); ASPARTATE AMINO TRANSFERASE 18 Units/L (15-37); BLOOD UREA NITROGEN 16 mg/dL (7-18); CALCIUM 8.4 mg/dL (8.5-10.1); CHLORIDE 108 mmol/L (98-107); COR CA(FOR HYPOALB) 9.3 mg/dL (8.5-10.1); CREATININE 0.87 mg/dL (0.55-1.02); SODIUM 142 mmol/L (136-145); TOTAL PROTEIN 6.4 g/dL (6.4-8.2); eGFR BLACK RACES > 60 (>60); eGFR NON BLACK RACES > 60 (>60)
[2017-06-27] MEDS: COREG TAB 12.5 MG PO SCH ×2 (08:10→20:01)
[2017-06-27] MEDS: DIOVAN TAB 80 MG PO SCH (08:10)
--- NOTE | 2017-06-27 08:18 | DR.H&P ---
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 PT HAS PMH OF COPD, DM, HTN , OA. PT ADMITTED FOR PAIN CONTROL, ORTHO CONSULT. CXR, EKG ON ADMISSION - Past Medical History Past Medical History: CHF, COPD, Diabetes, Dyslipidemia, Hypertension - Past Surgical History Surgical History: Cholecystectomy, Hysterectomy, Ortho Surgery - Family History Family Medical History: Diabetes Mellitus, Coronary Artery Disease, Hypertension - Social History Does patient currently use any type of tobacco product: No Have you used tobacco products in the last 12 months: No Type of Tobacco Use: None Does any household member use tobacco: No Alcohol Use: None Drug Use: None - Medications Home Medications: Glimepiride [AMARYL 4 MG *] 1 tab PO DAILY 06/26/17 [History Confirmed 06/26/17] Glipizide 1 tab PO BID 06/26/17 [History Confirmed 06/26/17] Tramadol HCl [ULTRAM 50 MG *] 1 tab PO BID PRN 06/26/17 [History Confirmed 06/26] - Review of Systems Constitutional: No Symptoms Reported Eyes: No Symptoms Reported ENT: No Symptoms Reported Cardiovascular: No Symptoms Reported Musculoskeletal: Back Pain, Leg Pain Skin: No Symptoms Reported Neurological: Weakness - Physical Exam Vital Signs: Temperature 98.4 F Pulse Rate [Apical] 76 Pulse Rate 63 Respiratory Rate 20 Blood Pressure [Left Arm] 115/70 Blood Pressure [Right Arm] 99/88 Blood Pressure 173/80 O2 Sat by Pulse Oximetry 98 Oriented: Normal Eyes: Normal Ear: Normal Nose: Normal Throat: Normal Respiratory: RLL Diminished, LLL Diminished Cardiovascular: Normal : Normal Auscultation: Bowel Sounds: Normal Palpation: Normal Tenderness: Normal Skin: Normal Musculoskeletal: Right, Hip, Thigh, Back:Lumbar Psychiatric: Anxiety Affect: Anxious Speech Pattern: Clear, Appropriate - Assessment/Plan (1) Hip fracture Status: Acute Plan: ADMIT, ORTHO CONSULT. BLOOD SUGAR CONTROL. BP AND CARDIAC MONITORING. CXR, EKG ON ADMISSION NPO AFTER MIDNIGHT (2) Diabetes mellitus Status: Acute (3) Hx of fracture of left hip Status: Acute (4) CHF (congestive heart failure) Status: Chronic (5) COPD (chronic obstructive pulmonary disease) Qualifiers: COPD type: chronic bronchitis Status: Chronic (6) Hypertension Qualifiers: Hypertension type: unspecified Qualified Code(s): I10 - Essential (primary ) hypertension Status: Chronic
[2017-06-27] MEDS ORDERED: SOLIFENACIN SUCCINATE PO SCH (09:00)
[2017-06-27] MEDS ORDERED: PATIENT'S HOME MEDICATION (Meloxicam [Meloxicam] 7.5 MG) PO SCH (09:00)
[2017-06-27] MEDS ORDERED: PATIENT'S HOME MEDICATION (Umeclidinium-Vilanterol 1 PUFF) IN SCH (09:00)
[2017-06-27] MEDS ORDERED: PATIENT'S HOME MEDICATION (Amitriptyline Hcl [Amitriptyline Hcl] 1 TAB) PO SCH (09:00)
[2017-06-27] MEDS ORDERED: LR 1000 ML IV 1,000 ML IV ONE (09:17)
[2017-06-27] MEDS ORDERED: EPHEDRINE SULFATE INJ ONE (09:39)
[2017-06-27] MEDS ORDERED: NEO-SYNEPHRINE INJ ONE ×2 (09:39)
[2017-06-27] MEDS ORDERED: DIPRIVAN VIAL ONE (09:39)
[2017-06-27] MEDS ORDERED: VERSED ONE (09:39)
[2017-06-27] MEDS: AMARYL TAB 4 MG PO SCH ×2 (09:44→15:24)
[2017-06-27] MEDS: ZETIA TAB 10 MG PO SCH ×2 (09:45→15:24)
[2017-06-27] MEDS: GLUCOTROL PO SCH ×2 (09:45→20:01)
[2017-06-27] MEDS: LYRICA CAP 100 MG PO SCH ×2 (09:45→20:01)
[2017-06-27] MEDS: PriLOSEC PO SCH ×2 (09:45→15:25)
[2017-06-27] MEDS: MEMANTINE HCL 28 MG PO SCH (09:45)
[2017-06-27] MEDS: ELAVIL PO SCH ×2 (09:46→15:23)
[2017-06-27] MEDS: CANAGLIFLOZIN PO SCH (09:46)
[2017-06-27] MEDS: MOBIC TAB 15 MG PO SCH ×2 (09:46→15:25)
[2017-06-27] MEDS: DETROL LA 2 MG CAP EXT REL PO SCH ×2 (09:46→15:24)
[2017-06-27] MEDS: MICRO K EXTEN CAP 10 MEQ PO SCH ×2 (09:47→15:24)
[2017-06-27] MEDS: LASIX PO SCH ×2 (09:47→15:25)
[2017-06-27] MEDS ORDERED: ANCEF 1 GM IV PREMIX* 2 GM/100 ML BAG IV ONE (10:32)
[2017-06-27] MEDS ORDERED: MARCAINE 0.5% ONE (10:41)
--- NOTE | 2017-06-27 10:50 | DR.CONSULT ---
Consult - Consultation for Day of: Date: 06/27/17 - Chief Complaint Chief Complaint: rt hip pain - Allergies Allergies/Adverse Reactions: Allergies Allergy/AdvReac Type Severity Reaction Status Date / Time No Known Drug Allergies Allergy Verified 06/26/17 17:47 - History of Present Illness History of Present Illness: fall on 06/26/17. unable to get up and walk. was brought to the ER. investigations show rt hip fracture. I was consulted. advised. CT rt hip, epidural injection for pain control, bucks traction , blood test and posted for surgery. - Past Medical History Past Medical History: CHF, COPD, Diabetes, Dyslipidemia, Hypertension - Past Surgical History Surgical History: Cholecystectomy, Hysterectomy, Ortho Surgery (left hip josefina and left shoulder surgery) - Family History Family Medical History: Diabetes Mellitus, Coronary Artery Disease, Hypertension - Social History Does patient currently use any type of tobacco product: No Have you used tobacco products in the last 12 months: No Type of Tobacco Use: None Does any household member use tobacco: No Alcohol Use: None Drug Use: None - Medications Home Medications: Glimepiride [AMARYL 4 MG *] 1 tab PO DAILY 06/26/17 [History Confirmed 06/26/17] Glipizide 1 tab PO BID 06/26/17 [History Confirmed 06/26/17] Tramadol HCl [ULTRAM 50 MG *] 1 tab PO BID PRN 06/26/17 [History Confirmed 06/26] - Review of Systems Musculoskeletal: See HPI - Physical Exam Vital Signs: Temperature 97.9 F Pulse Rate [Right Brachial] 80 Pulse Rate [Apical] 76 Pulse Rate 63 Respiratory Rate 12 Blood Pressure [Left Arm] 115/70 Blood Pressure [Right Arm] 130/63 Blood Pressure 173/80 O2 Sat by Pulse Oximetry 96 Musculoskeletal: Right, Hip, Swelling, Tender, Deformity, Instability, Crepitance - Plan Plan: rt hip intra capsular neck fracture. plan rt hip bipolar hemiarthroplasty. benefits and reisks discussed with her and the family.
[2017-06-27] MEDS ORDERED: NS 250 ML IV 250 ML IV ONE (11:34)
[2017-06-27] MEDS ORDERED: NS IRRIGATION 1000 ML 1,000 ML with BACITRACIN VIAL 50,000 UNT IR ONE ×2 (11:39)
[2017-06-27] MEDS: NS 1000 ML 1,000 ML IV SCH ×2 (12:18→15:31)
[2017-06-27] MEDS ORDERED: DILAUDID INJ ONE (12:50)
[2017-06-27] MEDS ORDERED: NS 1000 ML 1,000 ML ONE (13:07)
[2017-06-27] MEDS ORDERED: NS IRRIGATION 3000 ML 3,000 ML with BACITRACIN VIAL 50,000 UNT IR ONE ×4 (13:09)
[2017-06-27] MEDS ORDERED: DILAUDID INJ IVP PRN (14:11)
[2017-06-27] MEDS ORDERED: REGLAN INJ 10 MG VIAL IVP PRN (14:11)
[2017-06-27] MEDS ORDERED: ZOFRAN INJ 4 MG VIAL IVP PRN (14:11)
[2017-06-27] MEDS ORDERED: PHENERGAN INJ 25 MG IVP PRN (14:11)
[2017-06-27] MEDS ORDERED: BENADRYL INJ 50 MG VIAL IVP PRN (14:11)
--- NOTE | 2017-06-27 14:47 | RAD ---
HISTORY: Status post arthroplasty Study: Right hip AP, lateral, AP pelvis Comparison: 06/26/2017 Findings: The patient is immediately status post right knee hemiarthroplasty. Position and alignment is anatomi c. Surgical joy are present at the operative site. IMPRESSION: Status post right hip arthroplasty in good position Reported By:
[2017-06-27] MEDS: ULTRAM PO PRN (15:25)
[2017-06-27] MEDS: FLEXERIL TAB 10 MG PO SCH (20:01)
[2017-06-27] MEDS: ZOCOR TAB 20 MG PO SCH (20:01)
[2017-06-27] MEDS: ARICEPT TAB 10 MG PO SCH (20:01)
[2017-06-27] MEDS: XANAX PO SCH (20:02)
[2017-06-28] MEDS ORDERED: TYLENOL 325 MG TAB PO PRN (00:21)
[2017-06-28] MEDS: NS 1000 ML 1,000 ML IV SCH ×2 (01:47→15:28)
[2017-06-28] MEDS: MORPHINE SULFATE INJ 2 MG INJ IVP PRN ×3 (04:45→22:27)
[2017-06-28 06:04] LABS: BASOPHILS % (AUTO) 0.3 % (0.2-1.0); EOSINOPHILS # (AUTO) 0.3 x10^3/uL (0.0-0.2); EOSINOPHILS % (AUTO) 3.2 % (0.9-2.9); HEMATOCRIT 31.5 % (36.0-47.0); HEMOGLOBIN 11.2 g/dL (12.0-16.0); LYMPHOCYTES # (AUTO) 1.9 X10^3/uL (1.3-2.9); LYMPHOCYTES % (AUTO) 18.3 % (21.0-51.0); MEAN CORPUSCULAR HEMOGLOBIN 32.5 pg (27.0-34.0); MEAN CORPUSCULAR HGB CONC 35.7 g/dL (33.0-35.0); MEAN PLATELET VOLUME 9.2 fL (7.4-11.0); MONOCYTES # (AUTO) 0.8 x10^3/uL (0.3-0.8); MONOCYTES % (AUTO) 7.1 % (0.0-13.0); NEUTROPHILS # (AUTO) 7.5 x10^3/uL (2.2-4.8); NEUTROPHILS % (AUTO) 71.1 % (42.0-75.0); PLATELET COUNT 150 X10^3/uL (150.0-450.0); RED BLOOD COUNT 3.46 X10^6/uL (3.5-5.4); RED CELL DISTRIBUTION WIDTH 12.6 % (11.6-16.5); WHITE BLOOD COUNT 10.6 X10^3/uL (3.6-10.0)
[2017-06-28 06:08] LABS: BLOOD UREA NITROGEN 15 mg/dL (7-18); CALCIUM 8.2 mg/dL (8.5-10.1); CARBON DIOXIDE 28.7 mmol/L (21-32); CHLORIDE 105 mmol/L (98-107); CREATININE 0.88 mg/dL (0.55-1.02); SODIUM 141 mmol/L (136-145); eGFR BLACK RACES > 60 (>60); eGFR NON BLACK RACES > 60 (>60)
[2017-06-28] MEDS: AMARYL TAB 4 MG PO SCH (08:47)
[2017-06-28] MEDS: COREG TAB 12.5 MG PO SCH ×2 (08:48→20:17)
[2017-06-28] MEDS: CANAGLIFLOZIN PO SCH (08:48)
[2017-06-28] MEDS: DIOVAN TAB 80 MG PO SCH (08:49)
[2017-06-28] MEDS: DETROL LA 2 MG CAP EXT REL PO SCH (08:49)
[2017-06-28] MEDS: ELAVIL PO SCH (08:49)
[2017-06-28] MEDS: MICRO K EXTEN CAP 10 MEQ PO SCH (08:50)
[2017-06-28] MEDS: MEMANTINE HCL 28 MG PO SCH (08:50)
[2017-06-28] MEDS: LYRICA CAP 100 MG PO SCH ×2 (08:50→20:17)
[2017-06-28] MEDS: GLUCOTROL PO SCH ×2 (08:50→20:17)
[2017-06-28] MEDS: LASIX PO SCH (08:50)
[2017-06-28] MEDS: MOBIC TAB 15 MG PO SCH (08:51)
[2017-06-28] MEDS: PriLOSEC PO SCH (08:51)
[2017-06-28] MEDS: ZETIA TAB 10 MG PO SCH (08:51)
[2017-06-28] MEDS: ULTRAM PO PRN (09:00)
--- NOTE | 2017-06-28 14:35 | PCM.PROG ---
Progress Note - Progress Note for Day of Date: 06/28/17 - Subjective Subjective: 1DAY POST OP RIGHT HIP FRACTURE REPAIR PER DR SHABAZZ. PT IS CURRENTLY TOLERATING POST OPERATIVE PAIN. PT HAD NOT BEEN UP POST OP. STATE SHE ATE BREAKFAST, NO BM. - Past Medical Family Social History Past Med/Fam/Surg Hx: No changes since H&P Allergies: Allergies No Known Drug Allergies Allergy (Verified 06/26/17 17:47) - Review of Systems ROS: No change since H&P - Vital Signs and I&O's Vital Signs: Temperature 98.9 F Pulse Rate [Right Brachial] 107 Pulse Rate [Apical] 76 Pulse Rate 90 Respiratory Rate 20 Blood Pressure [Left Arm] 115/70 Blood Pressure [Right Arm] 145/65 Blood Pressure 133/63 O2 Sat by Pulse Oximetry 92 Intake and Output: Intake & Output 06/26/17 06/27/17 06/28/17 06/29/17 11:59 11:59 11:59 11:59 Intake Total 1220 1440 600 Output Total 1999 5300 1150 Balance -780 -2220 -168 - Physical Exam Oriented: Normal Eyes: Normal Ear: Normal Nose: Normal Throat: Normal Respiratory: Diminished Cardiovascular: Normal : Normal Auscultation: Bowel Sounds: Normal Tenderness: Normal Skin: Normal Musculoskeletal: Right, Hip, Tender, Instability Psychiatric: Anxiety Mood Description: Calm Affect: Anxious Speech Pattern: Clear, Appropriate - Laboratory and Diagnostics Result Diagrams: 06/28/17 04:30 06/28/17 04:30 Labs: Laboratory WBC 10.6 X10^3/uL (3.6-10.0) H 06/28/17 04:30 RBC 3.46 X10^6/uL (3.5-5.4) L 06/28/17 04:30 Hgb 11.2 g/dL (12.0-16.0) L 06/28/17 04:30 Hct 31.5 % (36.0-47.0) L 06/28/17 04:30 MCV 91.0 fL (80.0-100.0) 06/28/17 04:30 MCH 32.5 pg (27.0-34.0) 06/28/17 04:30 MCHC 35.7 g/dL (33.0-35.0) H 06/28/17 04:30 RDW 12.6 % (11.6-16.5) 06/28/17 04:30 Plt Count 150 X10^3/uL (150.0-450.0) 06/28/17 04:30 MPV 9.2 fL (7.4-11.0) 06/28/17 04:30 Neut % 71.1 % (42.0-75.0) 06/28/17 04:30 Lymph % 18.3 % (21.0-51.0) L 06/28/17 04:30 Hidalgo % 7.1 % (0.0-13.0) 06/28/17 04:30 Eos % 3.2 % (0.9-2.9) H 06/28/17 04:30 Baso % 0.3 % (0.2-1.0) 06/28/17 04:30 Neut # 7.5 x10^3/uL (2.2-4.8) H 06/28/17 04:30 Lymph # 1.9 X10^3/uL (1.3-2.9) 06/28/17 04:30 Hidalgo # 0.8 x10^3/uL (0.3-0.8) 06/28/17 04:30 Eos # 0.3 x10^3/uL (0.0-0.2) H 06/28/17 04:30 Baso # 0.0 X10^3/uL (0.0-0.1) 06/28/17 04:30 Absolute Nucleated RBC 0.0 /100WBC 06/28/17 04:30 INR Target Range - 06/26/17 19:02 INR 0.96 (0.8-1.3) 06/26/17 19:02 PTT 25.6 SECONDS (22.9-36.5) 06/26/17 19:02 PTT Comment - 06/26/17 19:02 Sodium 141 mmol/L (136-145) 06/28/17 04:30 Corrected Sodium TNP 06/28/17 04:30 Potassium 3.8 mmol/L (3.5-5.1) 06/28/17 04:30 Chloride 105 mmol/L (98-107) 06/28/17 04:30 Carbon Dioxide 28.7 mmol/L (21-32) 06/28/17 04:30 BUN 15 mg/dL (7-18) 06/28/17 04:30 Creatinine 0.88 mg/dL (0.55-1.02) 06/28/17 04:30 Est GFR (MDRD) Af Amer > 60 (>60) 06/28/17 04:30 Est GFR (MDRD) Non-Af > 60 (>60) 06/28/17 04:30 Glucose 110 mg/dL (65-99) H 06/28/17 04:30 POC Glucose (mg/dL) 142 mg/dL (65-99) H 06/28/17 11:24 Calcium 8.2 mg/dL (8.5-10.1) L 06/28/17 04:30 Corrected Calcium 9.3 mg/dL (8.5-10.1) 06/27/17 04:40 Magnesium 2.3 mg/dL (1.7-2.9) 06/26/17 19:02 Total Bilirubin 0.30 mg/dL (0.2-1.0) 06/27/17 04:40 AST 18 Units/L (15-37) 06/27/17 04:40 ALT 29 Units/L (12-78) 06/27/17 04:40 Alkaline Phosphatase 101 Units/L (46-116) 06/27/17 04:40 Total Protein 6.4 g/dL (6.4-8.2) 06/27/17 04:40 Albumin 2.9 g/dL (3.4-5.0) L 06/27/17 04:40 Globulin 3.5 g/dL (2.5-4.5) 06/27/17 04:40 Albumin/Globulin Ratio 0.8 Ratio (1.1-2.1) L 06/27/17 04:40 Blood Type A POSITIVE 06/26/17 19:02 Antibody Screen Positive 06/26/17 19:02 Antibody Identification Anti-E Warm Auto Antibody 06/26/17 19:02 Antibody Identification Anti-E Warm Auto Antibody 06/26/17 19:02 - Plan (1) Hip fracture Status: Acute Plan: S/P RIGHT HIP FRACTURE REPAIR, CONTINUE DAILY LABS, POST OPERATIVE PLAN OF CARE, PAIN CONTROL, WOUND/DRESSING CHANGES. BLOOD SUGAR CONTROL. BP AND CARDIAC MONITORING. CXR, EKG ON ADMISSION (2) Diabetes mellitus Status: Acute (3) Hx of fracture of left hip Status: Acute (4) CHF (congestive heart failure) Status: Chronic (5) COPD (chronic obstructive pulmonary disease) Status: Chronic Qualifiers: COPD type: chronic bronchitis (6) Hypertension Status: Chronic Qualifiers: Hypertension type: unspecified Qualified Code(s): I10 - Essential (primary ) hypertension
[2017-06-28] MEDS: LOVENOX INJ 30 MG SYR SC SCH (20:15)
[2017-06-28] MEDS: XANAX PO SCH (20:16)
[2017-06-28] MEDS: ZOCOR TAB 20 MG PO SCH (20:17)
[2017-06-28] MEDS: FLEXERIL TAB 10 MG PO SCH (20:17)
[2017-06-28] MEDS: ARICEPT TAB 10 MG PO SCH (20:17)
[2017-06-28] MEDS: DUONEB 0.5 MG/3 MG NEB PRN (20:42)
[2017-06-29] MEDS: MORPHINE SULFATE INJ 2 MG INJ IVP PRN ×2 (02:53→08:53)
[2017-06-29] MEDS: NS 1000 ML 1,000 ML IV SCH ×2 (02:53→20:02)
[2017-06-29 06:13] LABS: BASOPHILS % (AUTO) 0.3 % (0.2-1.0); EOSINOPHILS # (AUTO) 0.4 x10^3/uL (0.0-0.2); HEMATOCRIT 26.7 % (36.0-47.0); HEMOGLOBIN 9.5 g/dL (12.0-16.0); LYMPHOCYTES # (AUTO) 2.1 X10^3/uL (1.3-2.9); LYMPHOCYTES % (AUTO) 21.9 % (21.0-51.0); MEAN CORPUSCULAR HEMOGLOBIN 32.6 pg (27.0-34.0); MEAN CORPUSCULAR HGB CONC 35.6 g/dL (33.0-35.0); MEAN CORPUSCULAR VOLUME 91.4 fL (80.0-100.0); MEAN PLATELET VOLUME 9.2 fL (7.4-11.0); MONOCYTES # (AUTO) 0.7 x10^3/uL (0.3-0.8); MONOCYTES % (AUTO) 7.9 % (0.0-13.0); NEUTROPHILS # (AUTO) 6.2 x10^3/uL (2.2-4.8); NEUTROPHILS % (AUTO) 65.9 % (42.0-75.0); PLATELET COUNT 125 X10^3/uL (150.0-450.0); RED BLOOD COUNT 2.92 X10^6/uL (3.5-5.4); RED CELL DISTRIBUTION WIDTH 12.9 % (11.6-16.5); WHITE BLOOD COUNT 9.4 X10^3/uL (3.6-10.0)
[2017-06-29 06:14] LABS: BLOOD UREA NITROGEN 17 mg/dL (7-18); CALCIUM 8.1 mg/dL (8.5-10.1); CARBON DIOXIDE 26.6 mmol/L (21-32); CHLORIDE 106 mmol/L (98-107); COR NA(FOR HYPERGLY) 141 mmol/L (136-145); CREATININE 0.93 mg/dL (0.55-1.02); SODIUM 141 mmol/L (136-145); eGFR BLACK RACES > 60 (>60); eGFR NON BLACK RACES > 60 (>60)
[2017-06-29] MEDS: LOVENOX INJ 30 MG SYR SC SCH (08:46)
[2017-06-29] MEDS: ELAVIL PO SCH (08:46)
[2017-06-29] MEDS: COREG TAB 12.5 MG PO SCH ×2 (08:46→20:01)
[2017-06-29] MEDS: AMARYL TAB 4 MG PO SCH (08:47)
[2017-06-29] MEDS: ZETIA TAB 10 MG PO SCH (08:47)
[2017-06-29] MEDS: GLUCOTROL PO SCH ×2 (08:47→20:01)
[2017-06-29] MEDS: DETROL LA 2 MG CAP EXT REL PO SCH (08:47)
[2017-06-29] MEDS: DIOVAN TAB 80 MG PO SCH (08:47)
[2017-06-29] MEDS: PriLOSEC PO SCH (08:47)
[2017-06-29] MEDS: LASIX PO SCH (08:47)
[2017-06-29] MEDS: MICRO K EXTEN CAP 10 MEQ PO SCH (08:47)
[2017-06-29] MEDS: LYRICA CAP 100 MG PO SCH ×2 (08:47→20:01)
[2017-06-29] MEDS: MOBIC TAB 15 MG PO SCH (08:48)
[2017-06-29] MEDS: CANAGLIFLOZIN PO SCH (08:52)
[2017-06-29] MEDS: MEMANTINE HCL 28 MG PO SCH (08:52)
[2017-06-29] MEDS: LEVAQUIN PREMIX IV 500 MG 500 MG/100 ML BAG IV SCH (19:09)
[2017-06-29] MEDS: ULTRAM PO PRN (19:58)
[2017-06-29] MEDS: ARICEPT TAB 10 MG PO SCH (20:01)
[2017-06-29] MEDS: ZOCOR TAB 20 MG PO SCH (20:01)
[2017-06-29] MEDS: FLEXERIL TAB 10 MG PO SCH (21:20)
[2017-06-29] MEDS: XANAX PO SCH (21:20)
[2017-06-30] MEDS: MORPHINE SULFATE INJ 2 MG INJ IVP PRN ×2 (04:08→18:12)
[2017-06-30 06:11] LABS: BASOPHILS % (AUTO) 0.4 % (0.2-1.0); EOSINOPHILS # (AUTO) 0.3 x10^3/uL (0.0-0.2); EOSINOPHILS % (AUTO) 3.6 % (0.9-2.9); HEMATOCRIT 25.4 % (36.0-47.0); HEMOGLOBIN 9.1 g/dL (12.0-16.0); LYMPHOCYTES # (AUTO) 1.4 X10^3/uL (1.3-2.9); LYMPHOCYTES % (AUTO) 15.8 % (21.0-51.0); MEAN CORPUSCULAR HEMOGLOBIN 32.6 pg (27.0-34.0); MEAN CORPUSCULAR HGB CONC 35.9 g/dL (33.0-35.0); MEAN CORPUSCULAR VOLUME 90.8 fL (80.0-100.0); MEAN PLATELET VOLUME 9.6 fL (7.4-11.0); MONOCYTES # (AUTO) 0.6 x10^3/uL (0.3-0.8); MONOCYTES % (AUTO) 7.4 % (0.0-13.0); NEUTROPHILS # (AUTO) 6.4 x10^3/uL (2.2-4.8); NEUTROPHILS % (AUTO) 72.8 % (42.0-75.0); PLATELET COUNT 138 X10^3/uL (150.0-450.0); RED BLOOD COUNT 2.79 X10^6/uL (3.5-5.4); RED CELL DISTRIBUTION WIDTH 12.7 % (11.6-16.5); WHITE BLOOD COUNT 8.7 X10^3/uL (3.6-10.0)
[2017-06-30 06:13] LABS: BLOOD UREA NITROGEN 16 mg/dL (7-18); CALCIUM 8.3 mg/dL (8.5-10.1); CHLORIDE 106 mmol/L (98-107); COR NA(FOR HYPERGLY) 142 mmol/L (136-145); CREATININE 0.81 mg/dL (0.55-1.02); SODIUM 141 mmol/L (136-145); eGFR BLACK RACES > 60 (>60); eGFR NON BLACK RACES > 60 (>60)
[2017-06-30] MEDS: COLACE CAP 100 MG PO SCH ×2 (08:30→20:57)
[2017-06-30] MEDS: COREG TAB 12.5 MG PO SCH ×2 (08:30→20:58)
[2017-06-30] MEDS: LOVENOX INJ 30 MG SYR SC SCH (08:30)
[2017-06-30] MEDS: DETROL LA 2 MG CAP EXT REL PO SCH (08:30)
[2017-06-30] MEDS: LASIX PO SCH (08:30)
[2017-06-30] MEDS: MICRO K EXTEN CAP 10 MEQ PO SCH (08:30)
[2017-06-30] MEDS: LYRICA CAP 100 MG PO SCH ×2 (08:31→20:57)
[2017-06-30] MEDS: DIOVAN TAB 80 MG PO SCH (08:31)
[2017-06-30] MEDS: MEMANTINE HCL 28 MG PO SCH (08:31)
[2017-06-30] MEDS: CANAGLIFLOZIN PO SCH (08:31)
[2017-06-30] MEDS: GLUCOTROL PO SCH ×2 (08:31→20:57)
[2017-06-30] MEDS: LEVAQUIN PREMIX IV 500 MG 500 MG/100 ML BAG IV SCH (08:31)
[2017-06-30] MEDS: AMARYL TAB 4 MG PO SCH (08:31)
[2017-06-30] MEDS: ELAVIL PO SCH (08:31)
[2017-06-30] MEDS: MILK OF MAGNESIA PO SCH ×3 (08:31→20:57)
[2017-06-30] MEDS: PriLOSEC PO SCH (08:38)
[2017-06-30] MEDS: ZETIA TAB 10 MG PO SCH (08:39)
[2017-06-30] MEDS: MOBIC TAB 15 MG PO SCH (08:39)
[2017-06-30] MEDS: NS 1000 ML 1,000 ML IV SCH ×2 (13:38→18:18)
[2017-06-30] MEDS: FLEXERIL TAB 10 MG PO SCH (20:57)
[2017-06-30] MEDS: XANAX PO SCH (20:57)
[2017-06-30] MEDS: ZOCOR TAB 20 MG PO SCH (20:57)
[2017-06-30] MEDS: ARICEPT TAB 10 MG PO SCH (20:58)
[2017-07-01] MEDS: NS 1000 ML 1,000 ML IV SCH ×2 (01:55→18:33)
[2017-07-01] MEDS: MORPHINE SULFATE INJ 2 MG INJ IVP PRN ×3 (05:48→21:25)
[2017-07-01 06:11] LABS: BASOPHILS % (AUTO) 0.6 % (0.2-1.0); EOSINOPHILS # (AUTO) 0.3 x10^3/uL (0.0-0.2); EOSINOPHILS % (AUTO) 4.1 % (0.9-2.9); HEMATOCRIT 24.8 % (36.0-47.0); HEMOGLOBIN 8.9 g/dL (12.0-16.0); LYMPHOCYTES # (AUTO) 1.7 X10^3/uL (1.3-2.9); LYMPHOCYTES % (AUTO) 22.4 % (21.0-51.0); MEAN CORPUSCULAR HEMOGLOBIN 32.6 pg (27.0-34.0); MEAN CORPUSCULAR HGB CONC 35.7 g/dL (33.0-35.0); MEAN CORPUSCULAR VOLUME 91.4 fL (80.0-100.0); MEAN PLATELET VOLUME 9.4 fL (7.4-11.0); MONOCYTES # (AUTO) 0.6 x10^3/uL (0.3-0.8); MONOCYTES % (AUTO) 7.5 % (0.0-13.0); NEUTROPHILS # (AUTO) 5.1 x10^3/uL (2.2-4.8); NEUTROPHILS % (AUTO) 65.4 % (42.0-75.0); PLATELET COUNT 159 X10^3/uL (150.0-450.0); RED BLOOD COUNT 2.72 X10^6/uL (3.5-5.4); RED CELL DISTRIBUTION WIDTH 12.9 % (11.6-16.5); WHITE BLOOD COUNT 7.8 X10^3/uL (3.6-10.0)
[2017-07-01 06:43] LABS: ALANINE AMINOTRANSFERASE 60 Units/L (12-78); ALBUMIN 1.9 g/dL (3.4-5.0); ALKALINE PHOSPHATASE 133 Units/L (46-116); ASPARTATE AMINO TRANSFERASE 62 Units/L (15-37); BLOOD UREA NITROGEN 15 mg/dL (7-18); CALCIUM 8.3 mg/dL (8.5-10.1); CARBON DIOXIDE 29.6 mmol/L (21-32); CHLORIDE 106 mmol/L (98-107); CREATININE 0.67 mg/dL (0.55-1.02); SODIUM 141 mmol/L (136-145); TOTAL PROTEIN 5.9 g/dL (6.4-8.2); eGFR BLACK RACES > 60 (>60); eGFR NON BLACK RACES > 60 (>60)
[2017-07-01] MEDS: LEVAQUIN PREMIX IV 500 MG 500 MG/100 ML BAG IV SCH (08:43)
[2017-07-01] MEDS: MICRO K EXTEN CAP 10 MEQ PO SCH (08:44)
[2017-07-01] MEDS: LASIX PO SCH (08:44)
[2017-07-01] MEDS: COREG TAB 12.5 MG PO SCH ×2 (08:44→21:18)
[2017-07-01] MEDS: LYRICA CAP 100 MG PO SCH ×2 (08:44→21:17)
[2017-07-01] MEDS: MILK OF MAGNESIA PO SCH ×2 (08:44→21:17)
[2017-07-01] MEDS: ZETIA TAB 10 MG PO SCH (08:44)
[2017-07-01] MEDS: GLUCOTROL PO SCH ×2 (08:44→21:22)
[2017-07-01] MEDS: DETROL LA 2 MG CAP EXT REL PO SCH (08:44)
[2017-07-01] MEDS: COLACE CAP 100 MG PO SCH ×2 (08:44→21:17)
[2017-07-01] MEDS: MOBIC TAB 15 MG PO SCH (08:44)
[2017-07-01] MEDS: DIOVAN TAB 80 MG PO SCH (08:45)
[2017-07-01] MEDS: PriLOSEC PO SCH (08:45)
[2017-07-01] MEDS: ELAVIL PO SCH (08:45)
[2017-07-01] MEDS: AMARYL TAB 4 MG PO SCH (08:45)
[2017-07-01] MEDS: LOVENOX INJ 30 MG SYR SC SCH (08:45)
[2017-07-01] MEDS: MEMANTINE HCL 28 MG PO SCH (08:48)
[2017-07-01] MEDS: CANAGLIFLOZIN PO SCH (08:48)
[2017-07-01] MEDS: DUONEB 0.5 MG/3 MG NEB PRN (09:42)
--- NOTE | 2017-07-01 12:17 | PCM.PROG ---
Progress Note - Progress Note for Day of Date: 07/01/17 - Subjective Subjective: she is post op rt hip bipolar arthroplasty. I have seen her multiple damián since the surgery. The drain has been removed. the dressing changed. incison clean and dry. waling with help of the walker. she is ambulting very well. the denies any excessive pain, fever, chills. no complications in her post op period. No infection or any complications. patient was reminded of her posterior hio precautions and the consequences of not following those. she understands that she will dislocate her hip and may need surgical intervention to reduce it in case she dislocates that. she reports she understands that. - Past Medical Family Social History Past Med/Fam/Surg Hx: No changes since H&P Allergies: Allergies No Known Drug Allergies Allergy (Verified 06/26/17 17:47) - Review of Systems ROS: No change since H&P - Vital Signs and I&O's Vital Signs: Temperature 98.2 F Pulse Rate [Right Brachial] 70 Pulse Rate [Apical] 76 Pulse Rate 64 Respiratory Rate 18 Blood Pressure [Left Arm] 115/70 Blood Pressure [Right Arm] 143/64 Blood Pressure 133/63 O2 Sat by Pulse Oximetry 98 Intake and Output: Intake & Output 06/29/17 06/30/17 07/01/17 07/02/17 11:59 11:59 11:59 11:59 Intake Total 2280 4220 2722 Output Total 2475 60 600 Balance -195 4160 2122 - Physical Exam Oriented: Normal Eyes: Normal Ear: Normal Nose: Normal Throat: Normal Respiratory: Diminished Cardiovascular: Normal : Normal Auscultation: Bowel Sounds: Normal Tenderness: Normal Skin: Normal Musculoskeletal: Right, Hip, Tender, Instability Psychiatric: Anxiety Mood Description: Calm Affect: Anxious Speech Pattern: Clear, Appropriate - Laboratory and Diagnostics Result Diagrams: 07/01/17 04:35 07/01/17 04:35 Labs: 06/28/17 00:40 Blood Blood Culture - Preliminary 06/28/17 00:35 Blood Blood Culture - Preliminary Laboratory WBC 7.8 X10^3/uL (3.6-10.0) 07/01/17 04:35 RBC 2.72 X10^6/uL (3.5-5.4) L 07/01/17 04:35 Hgb 8.9 g/dL (12.0-16.0) L 07/01/17 04:35 Hct 24.8 % (36.0-47.0) L 07/01/17 04:35 MCV 91.4 fL (80.0-100.0) 07/01/17 04:35 MCH 32.6 pg (27.0-34.0) 07/01/17 04:35 MCHC 35.7 g/dL (33.0-35.0) H 07/01/17 04:35 RDW 12.9 % (11.6-16.5) 07/01/17 04:35 Plt Count 159 X10^3/uL (150.0-450.0) 07/01/17 04:35 MPV 9.4 fL (7.4-11.0) 07/01/17 04:35 Neut % 65.4 % (42.0-75.0) 07/01/17 04:35 Lymph % 22.4 % (21.0-51.0) 07/01/17 04:35 Riley % 7.5 % (0.0-13.0) 07/01/17 04:35 Eos % 4.1 % (0.9-2.9) H 07/01/17 04:35 Baso % 0.6 % (0.2-1.0) 07/01/17 04:35 Neut # 5.1 x10^3/uL (2.2-4.8) H 07/01/17 04:35 Lymph # 1.7 X10^3/uL (1.3-2.9) 07/01/17 04:35 Riley # 0.6 x10^3/uL (0.3-0.8) 07/01/17 04:35 Eos # 0.3 x10^3/uL (0.0-0.2) H 07/01/17 04:35 Baso # 0.0 X10^3/uL (0.0-0.1) 07/01/17 04:35 Absolute Nucleated RBC 0.0 /100WBC 07/01/17 04:35 INR Target Range - 06/26/17 19:02 INR 0.96 (0.8-1.3) 06/26/17 19:02 PTT 25.6 SECONDS (22.9-36.5) 06/26/17 19:02 PTT Comment - 06/26/17 19:02 Sodium 141 mmol/L (136-145) 07/01/17 04:35 Corrected Sodium TNP 07/01/17 04:35 Potassium 3.9 mmol/L (3.5-5.1) 07/01/17 04:35 Chloride 106 mmol/L (98-107) 07/01/17 04:35 Carbon Dioxide 29.6 mmol/L (21-32) 07/01/17 04:35 BUN 15 mg/dL (7-18) 07/01/17 04:35 Creatinine 0.67 mg/dL (0.55-1.02) 07/01/17 04:35 Est GFR (MDRD) Af Amer > 60 (>60) 07/01/17 04:35 Est GFR (MDRD) Non-Af > 60 (>60) 07/01/17 04:35 Glucose 102 mg/dL (65-99) H 07/01/17 04:35 POC Glucose (mg/dL) 135 mg/dL (65-99) H 07/01/17 11:19 Calcium 8.3 mg/dL (8.5-10.1) L 07/01/17 04:35 Corrected Calcium 10.0 mg/dL (8.5-10.1) 07/01/17 04:35 Magnesium 2.3 mg/dL (1.7-2.9) 06/26/17 19:02 Total Bilirubin 0.30 mg/dL (0.2-1.0) 07/01/17 04:35 AST 62 Units/L (15-37) H 07/01/17 04:35 ALT 60 Units/L (12-78) 07/01/17 04:35 Alkaline Phosphatase 133 Units/L (46-116) H 07/01/17 04:35 Total Protein 5.9 g/dL (6.4-8.2) L 07/01/17 04:35 Albumin 1.9 g/dL (3.4-5.0) L 07/01/17 04:35 Globulin 4.0 g/dL (2.5-4.5) 07/01/17 04:35 Albumin/Globulin Ratio 0.5 Ratio (1.1-2.1) L 07/01/17 04:35 Blood Type A POSITIVE 06/26/17 19:02 Antibody Screen Positive 06/26/17 19:02 Antibody Identification Anti-E Warm Auto Antibody 06/26/17 19:02 Antibody Identification Anti-E Warm Auto Antibody 06/26/17 19:02 - Plan (1) Hip fracture Status: Acute Plan: plan on DC her. pain mangement PO. regular dressing change and staple removal at 3 weeks. RTC as advised.
[2017-07-01] MEDS: FLEXERIL TAB 10 MG PO SCH (21:17)
[2017-07-01] MEDS: XANAX PO SCH (21:18)
[2017-07-01] MEDS: ARICEPT TAB 10 MG PO SCH (21:18)
[2017-07-01] MEDS: ZOCOR TAB 20 MG PO SCH (21:18)
[2017-07-02] MEDS: MORPHINE SULFATE INJ 2 MG INJ IVP PRN ×2 (02:42→14:41)
[2017-07-02 05:08] LABS: BASOPHILS % (AUTO) 0.7 % (0.2-1.0); EOSINOPHILS # (AUTO) 0.3 x10^3/uL (0.0-0.2); EOSINOPHILS % (AUTO) 5.3 % (0.9-2.9); HEMATOCRIT 24.2 % (36.0-47.0); HEMOGLOBIN 8.6 g/dL (12.0-16.0); LYMPHOCYTES # (AUTO) 1.6 X10^3/uL (1.3-2.9); LYMPHOCYTES % (AUTO) 26.8 % (21.0-51.0); MEAN CORPUSCULAR HEMOGLOBIN 32.6 pg (27.0-34.0); MEAN CORPUSCULAR HGB CONC 35.5 g/dL (33.0-35.0); MEAN CORPUSCULAR VOLUME 91.8 fL (80.0-100.0); MEAN PLATELET VOLUME 8.8 fL (7.4-11.0); MONOCYTES # (AUTO) 0.5 x10^3/uL (0.3-0.8); MONOCYTES % (AUTO) 7.7 % (0.0-13.0); NEUTROPHILS # (AUTO) 3.6 x10^3/uL (2.2-4.8); NEUTROPHILS % (AUTO) 59.5 % (42.0-75.0); PLATELET COUNT 168 X10^3/uL (150.0-450.0); RED BLOOD COUNT 2.63 X10^6/uL (3.5-5.4); RED CELL DISTRIBUTION WIDTH 12.6 % (11.6-16.5)
[2017-07-02 05:22] LABS: ALANINE AMINOTRANSFERASE 54 Units/L (12-78); ALBUMIN 1.9 g/dL (3.4-5.0); ALKALINE PHOSPHATASE 137 Units/L (46-116); ASPARTATE AMINO TRANSFERASE 40 Units/L (15-37); BLOOD UREA NITROGEN 16 mg/dL (7-18); CALCIUM 8.2 mg/dL (8.5-10.1); CHLORIDE 106 mmol/L (98-107); COR CA(FOR HYPOALB) 9.9 mg/dL (8.5-10.1); COR NA(FOR HYPERGLY) 141 mmol/L (136-145); CREATININE 0.69 mg/dL (0.55-1.02); SODIUM 141 mmol/L (136-145); TOTAL PROTEIN 5.8 g/dL (6.4-8.2); eGFR BLACK RACES > 60 (>60); eGFR NON BLACK RACES > 60 (>60)
[2017-07-02] MEDS: NS 1000 ML 1,000 ML IV SCH ×2 (06:02→09:19)
--- NOTE | 2017-07-02 06:37 | RAD ---
HISTORY: COPD, congestive heart failure Study: Chest AP portable Comparison: 06/26/2017 Findings: The heart is enlarged. No congestive heart failure is noted. The aorta is calcified. The miguel ángel are nor mal. The lungs are free of acute alveolar infiltrates. Bibasilar subsegmental atelectasis right great er than left is identified. No pleural effusions are identified. The bony thorax is unremarkable with the exception of a left shoulder arthroplasty. IMPRESSION: Mild cardiomegaly without congestive heart failure No infiltrates Bibasilar subsegmental atelectasis Reported By:
[2017-07-02] MEDS ORDERED: EXENATIDE MICROSPHERES 2 MG SC SCH (09:00)
[2017-07-02] MEDS: LEVAQUIN PREMIX IV 500 MG 500 MG/100 ML BAG IV SCH (09:09)
[2017-07-02] MEDS: PriLOSEC PO SCH (09:11)
[2017-07-02] MEDS: LYRICA CAP 100 MG PO SCH (09:11)
[2017-07-02] MEDS: DIOVAN TAB 80 MG PO SCH (09:11)
[2017-07-02] MEDS: ELAVIL PO SCH (09:11)
[2017-07-02] MEDS: ZETIA TAB 10 MG PO SCH (09:11)
[2017-07-02] MEDS: COLACE CAP 100 MG PO SCH (09:11)
[2017-07-02] MEDS: MILK OF MAGNESIA PO SCH (09:11)
[2017-07-02] MEDS: DETROL LA 2 MG CAP EXT REL PO SCH (09:11)
[2017-07-02] MEDS: MICRO K EXTEN CAP 10 MEQ PO SCH (09:11)
[2017-07-02] MEDS: AMARYL TAB 4 MG PO SCH (09:12)
[2017-07-02] MEDS: LASIX PO SCH (09:12)
[2017-07-02] MEDS: COREG TAB 12.5 MG PO SCH (09:12)
[2017-07-02] MEDS: GLUCOTROL PO SCH (09:12)
[2017-07-02] MEDS: MOBIC TAB 15 MG PO SCH (09:12)
[2017-07-02] MEDS: LOVENOX INJ 30 MG SYR SC SCH (09:12)
[2017-07-02] MEDS: MEMANTINE HCL 28 MG PO SCH (09:13)
[2017-07-02] MEDS: CANAGLIFLOZIN PO SCH (09:13)
[2017-07-02 12:12] VITALS: BP 136/60
[2017-07-02] MEDS ORDERED: ELAVIL ONE (20:39)
--- NOTE | 2017-07-05 11:01 | OR.GENERIC ---
Post-Op Note Generic - Post-Op Note Operative Report: PREOPERATIVE DIAGNOSIS- right HIP FRACTURE NECK OF FEMUR, PATHOLOGICAL, DISPLACED, TRANSCERVICAL POSTOPERATIVE DIAGNOSIS-right HIPfRACTURE NECK OF FEMUR, INTRACAPSULAR, TRANSCERVICDISPLACED, PATHOLOGICAL pROCEDURE-right HIP BIPOLAR HEMIARTHROPLASTY, UNCEMENTED iMPLANTS USED-fady ACCOLADE II fEMUR-SIZE 4, 127 NECK, +0 NECK bIPOLAR UNIVERSAL HEAD 44 MM CERCLAGE CABLE WITH CRIMP 1 indication- Mrs. ROBERTS is a 71-year-old female who presents to the emergency room after a fall at home. She was seen in the emergency room and examination and x-rays and a computed tomography scan confirmed that it is not displaced intracapsular fracture of the RIGHT hip. Patient's past history significant for a LEFT hip fracture and a LEFT shoulder fracture dislocation which has been treated in the past year. She was admitted and underwent medical consultation was placed for me. History was again reviewed with her. After clearance from the medicine and the anesthesia she was posted for surgery. Natural history and treatment discussions were done with the family. Surgical option for fixation versus josefina-replacement versus total hip replacement were discussed with them. Computed tomography scan did not show any signs of osteoarthritis as well as the x-rays. So I offered them josefina-bipolar arthroplasty. Risks and benefits were discussed with them. Complications including but not limited to infection, neurovascular damage, loosening, periprosthetic fracture, arthritis of the hip, persistence of pain, stiffness of the RIGHT hip, need for further procedure, conversion to a total hip where he feel the complications which were discussed with them. They understood and verbalized that. preoperative-patient was seen in the preoperative holding area. Patient had gotten an epidural previous day for pain control. Limb was marked. Consent was revisited. Again the procedure was explained to them in detail. Postoperative instructions were discussed with him. She got an appropriate antibiotic. Procedure- patient was brought to the operating room. Patient was placed supine on the operating table. She was shifted to the LEFT lateral position and secured to the pegboard. Safety straps were applied. Axillary roll was placed. The RIGHT upper limb was supported with support. RIGHT lower limb was prepped and draped. Landmarks as well as the proposed incision was marked.A curvilinear incision was made centering over the posterior 3rd of the greater trochanter. Incision deepened through the subcutaneous tissue and to expose the gluteus and tensor fascia sharda. Incision made in the tensor fascia sharda and the gluteal muscles split bluntly to expose the fat surrounding the short rotators. A CHARNLEY retractor was placed and made sure that there was no traction on sciatic nerve. The fat surrounding the short rotators was swept with a Ray-Nestor. The circumflex presents with cauterized. Ethibond sutures were passed through the short rotators and the short rotators were cauterized off the bone with the limb externally rotated. The capsule identified and capsulotomy done and T fashion. Again treating sutures passed through the capsule using Ethibond. The joint was entered end hematoma evacuated. Fracture was noted to be in the transcervical region, comminution noted. Severe osteoporosis noted. Using a bone rongeur the fragments where taken out. The head extracted with a corkscrew and measured to be 44. The rest of the neck exposed and retractors placed superiorly and inferiorly. The proposed neck osteotomy was marked a fingerbreadth from the lesser trocar. Osteotomy completed with an oscillating saw. The acetabulum visualized and free floating fragments were removed. The ligamentum was removed. Thorough irrigation was done and no signs of arthritis noted in the acetabular side. So decided to proceed with a bipolar arthroplasty. the femur was flexed to 90 and rotated withthe foot parallel to the floor. Using a box osteotome lateralizing the entry was done. The canal was opened with reamer. Progressive reaming was done from 0. Size 4 seems to be good fit. There was not out of periprosthetic fracture. So we went ahead and did a prophylactic and cerclage wire. broach was advanced with appropriate anteversion. Using the final broach trial reduction was done with a 0 neck and 44 head. Hip was taken through range of motion and shuck test was appropriate tension. These were the final sizes which were determined. These were opened on the back table. The broach was removed through irrigation was done. The final component was seated and the 44 head was reduced. It was again ranged and found to be stable. the capsule and Rotators were sutured back to the femur by passing them through the drill and the bone. The tensor fascia as well as the G max was closed in layers. subcutaneous tissue was closed with the QUILL 20. The skin was stapled. Sterile dressing was applied. Patient was taken off the pegboard and placed supine on the recovery table with an abduction pillow. Postoperative x-rays were obtained which showed appropriately sized and aligned hip processes with ANCEF large cable. No complications were noted. The family was briefed about the procedure. Postoperative instructions were given to them. She is advised to be inpatient and go through rehabilitation. We will make appropriate rehabilitation arrangements for her. Regular dressing change and posterior hip precautions were discussed with him. Weightbearing as tolerated/100 percent weightbearing is allowed. All the questions were discussed with the patient.
== END 2017-07-02 15:35 | DRG 470 ==
LOC: ER 17:47 → MED/SURG 20:35
PROVIDERS: ADMIT Internal Medicine; ATTEND Internal Medicine
PROC: 0SRR01A Replacement of Right Hip Joint, Femoral Surface with Metal Synthetic Substitute, Uncemented, Open Approach (ICD-10-PCS; principal; 2017-06-27 10:30)
DX: S72.091A Other fracture of head and neck of right femur, initial encounter for closed fracture (principal); W01.0XXA Fall on same level from slipping, tripping and stumbling without subsequent striking against object, initial encounter; Y92.89 Other specified places as the place of occurrence of the external cause; J44.9 Chronic obstructive pulmonary disease, unspecified; E11.65 Type 2 diabetes mellitus with hyperglycemia; E78.2 Mixed hyperlipidemia; I10 Essential (primary) hypertension; M25.551 Pain in right hip; R94.31 Abnormal electrocardiogram [ECG] [EKG]; R26.89 Other abnormalities of gait and mobility
CPT/HCPCS: 36415; 51702; 62326; 71045; 73501; 73700; 80048; 80053; 83735; 85025; 85610; 85730; 86850; 86860; 86880; 86885; 86900; 86901; 86970; 87040; 93005; 93010; 94640; 94762; 96365; 96374; 96375; 97535; 99100; 99284; A4216; A4217; A4222; S0020; J0690; J1170; J1650; J1956; J2250; J2270; J2370; J2405; J3490; J7120; J7620

== ENCOUNTER → 2017-07-23 | Outpatient (CLI) | payer OTHER, MEDICAID ==
[2017-07-02 12:12] VITALS: BP 136/60
--- NOTE | 2017-07-23 12:10 | RAD ---
Exam: Right hip History: 71-year-old female with right hip pain. Comparison: Previous right hip radiographs of 06/27/2017. Findings: AP pelvis and frog-leg lateral views of the right hip were obtained. The patient is status post right hip replacement. Both the femoral and acetabular components of the prosthesis appear well seated wit h no radiographic evidence of loosening. No acute bony abnormality is identified. IMPRESSION: Status post right total hip replacement. No hardware complications are seen. Reported By:
== END ==
LOC: RAD 11:38
PROVIDERS: ATTEND Orthopaedic Surgery
DX: M25.551 Pain in right hip (principal); Z96.641 Presence of right artificial hip joint
CPT/HCPCS: 73501

== ENCOUNTER → 2017-08-27 | Outpatient (CLI) | payer OTHER, MEDICAID ==
--- NOTE | 2017-08-27 17:39 | RAD ---
HISTORY: Right knee pain for months Study: Right knee: Four views Comparison: None Findings: Moderate joint space narrowing is noted in the medial compartment. Minimal spurring is noted mediall y. Minimal spiking of the tibial spines is noted. A bipartite patella is noted. Minimal patellofem oral joint degeneration is noted. No acute bony or joint abnormalities are identified. Mild osteope romaine is present. IMPRESSION: 1. Degenerative change in the right knee as described above. 2. No acute bony or joint abnormalities are identified. Reported By:
== END ==
LOC: RAD 15:41
PROVIDERS: ATTEND Internal Medicine
DX: M25.561 Pain in right knee (principal)
CPT/HCPCS: 73560

== ENCOUNTER → 2017-09-03 | Outpatient (CLI) | payer OTHER, MEDICAID ==
--- NOTE | 2017-09-03 11:02 | US ---
HISTORY: Right knee pain. Palpable edema in the right knee laterally Study: Right knee ultrasound: Multiplanar ultrasonographic examination of the soft tissues lateral to the right knee and posterior to the right knee was performed. Comparison: Right knee films from 08/27 2017 Findings: On the images submitted to [facility] there is significant edema present within the soft tissues along the la teral aspect of the right knee. The visualized posterior right knee shows no evidence of a popliteal cyst. IMPRESSION: 1. Significant edema involving the lateral aspect of the right knee. Reported By:
== END ==
LOC: RAD 10:09
PROVIDERS: ATTEND Nurse Practitioner Family
DX: M25.461 Effusion, right knee (principal); R60.0 Localized edema
CPT/HCPCS: 76881

== ENCOUNTER → 2017-09-18 | Outpatient (CLI) | payer OTHER, MEDICAID ==
--- NOTE | 2017-09-18 09:36 | VAS ---
VENOUS ULTRASOUND DOPPLER EXAMINATION OF THE RIGHT LOWER EXTREMITY HISTORY: Edema Comparison: None TECHNIQUE: Multiple adames scale and color flow Doppler images of the deep venous system were obtained of the right lower extremity. FINDINGS: The deep venous system of the right lower extremity was evaluated from the level of the common femora l vein through the popliteal vein. Normal color flow and augmentation can be observed. In addition, normal compression is seen throughout the deep venous system. IMPRESSION: 1. Negative for DVT. Reported By:
== END ==
LOC: RAD 08:56
PROVIDERS: ATTEND Internal Medicine
DX: R60.0 Localized edema (principal)
CPT/HCPCS: 93971

== ENCOUNTER 2018-01-06 12:32 | Observation (INO) ==
[2018-01-06 13:13] LABS: BASOPHILS % (AUTO) 0.5 % (0.2-1.0); EOSINOPHILS # (AUTO) 0.1 x10^3/uL (0.0-0.2); EOSINOPHILS % (AUTO) 1.1 % (0.9-2.9); HEMATOCRIT 39.2 % (36.0-47.0); HEMOGLOBIN 13.6 g/dL (12.0-16.0); LYMPHOCYTES % (AUTO) 13.8 % (21.0-51.0); MEAN CORPUSCULAR HEMOGLOBIN 31.6 pg (27.0-34.0); MEAN CORPUSCULAR HGB CONC 34.6 g/dL (33.0-35.0); MEAN CORPUSCULAR VOLUME 91.3 fL (80.0-100.0); MEAN PLATELET VOLUME 8.4 fL (7.4-11.0); MONOCYTES # (AUTO) 0.5 x10^3/uL (0.3-0.8); MONOCYTES % (AUTO) 6.4 % (0.0-13.0); NEUTROPHILS # (AUTO) 5.6 x10^3/uL (2.2-4.8); NEUTROPHILS % (AUTO) 78.2 % (42.0-75.0); PLATELET COUNT 166 X10^3/uL (150.0-450.0); WHITE BLOOD COUNT 7.2 X10^3/uL (3.6-10.0)
[2018-01-06 13:20] LABS: ALBUMIN 2.8 g/dL (3.4-5.0); CALCIUM 8.5 mg/dL (8.5-10.1); CARBON DIOXIDE 31.6 mmol/L (21-32); COR CA(FOR HYPOALB) 9.5 mg/dL (8.5-10.1); CREATININE 1.18 mg/dL (0.55-1.02); TOTAL PROTEIN 6.6 g/dL (6.4-8.2)
[2018-01-06 13:42] LABS: BILIRUBIN,URINE NEGATIVE (NEGATIVE); BLOOD/HEMOGLOBIN,URINE NEGATIVE (NEGATIVE); GLUCOSE, URINE 4+ (NEGATIVE); KETONES,URINE NEGATIVE (NEGATIVE); LEUKOCYTE ESTERASE ,URINE NEGATIVE (NEGATIVE); NITRITES,URINE NEGATIVE (NEGATIVE); PROTEIN,URINE 1+ (NEGATIVE); UROBILINOGEN,URINE NORMAL (NORMAL)
[2018-01-06 13:43] LABS: CKMB % 3.7 % (<4); CREATINE KINASE 27 Units/L (26-192); CREATINE KINASE MB < 1.0 ng/mL (0-4.0); TROPONIN I < 0.02 ng/mL (0-1.5)
[2018-01-06 13:48] LABS: AMORPHOUS SEDIMENT,UR 1+ /HPF (NEGATIVE); APPEARANCE,URINE CLEAR (CLEAR); BACTERIA,URINE TRACE /HPF (NEGATIVE); COLOR,URINE YELLOW (YELLOW); RBC,URINE 0-2 /HPF (NONE SEEN); SQUAMOUS EPITHELIAL CELL,UR RARE /HPF (NEGATIVE)
--- NOTE | 2018-01-06 13:52 | CT ---
CT brain without contrast Indication: Fall and dizziness Comparison: 04/18/2016 Technique: Multiple axial images of the brain were obtained from the skull base to the vertex without administra tion of IV contrast. Findings: Mild bilateral periventricular deep white matter hypoattenuation is noted , not significant changed f rom prior CT exam.. No acute intraparenchymal hemorrhage or mass can be identified. No extra-axial fluid collections are seen. No alteration in the attenuation of the brain parenchyma can be identified to suggest acute o r subacute ischemic change. The ventricular system is symmetric and nondilated. The extracranial st ructures are grossly unremarkable. IMPRESSION: No acute intracranial process is identified. Mild bilateral periventricular deep white matter hypoattenuation is nonspecific; however statisticall y most likely represent sequela of chronic microvascular ischemic disease. Reported By:
[2018-01-06] MEDS: NS 1000 ML 1,000 ML IV SCH (14:00)
--- NOTE | 2018-01-06 14:08 | CT ---
History: Back pain Technique: CT of the lumbar spine without IV contrast. Multiple contiguous axial CT images of the lum bar spine were obtained without IV contrast. Sagittal and coronal reformatted images were reconstruct ed. Automated exposure control (AEC) was utilized to adjust the MA and/or kV according to patient siz e. Comparison:NONE Findings: Nonspecific interstitial opacities are seen in the lung bases. This can be seen in setting of chronic interstitial lung disease, atypical infection, interstitial pulmonary edema. There is no acute fracture, dislocation, or subluxation of the lumbar spine demonstrated. There is ge neralized osteopenia. The vertebral bodies demonstrate normal height and alignment. There is mild mul tilevel DDD and spondylosis. At L4-5, there is a concentric disc bulge with mild bilateral facet arthrosis and ligamentum flavum t hickening resulting in mild spinal canal stenosis. Impression: 1. No acute bony abnormalities of the lumbar spine are demonstrated. There are mild multilevel degene rative changes 2. Generalized osteopenia. 3. Nonspecific findings the lung bases as described above appear Reported By:
--- NOTE | 2018-01-06 14:44 | DR.DIZZY ---
HPI Time seen Time seen: 14:25 PCP Primary Care Physician: SALINAS Complaint Chief Complaint Doctor Comments: Patient presents with family with complaint of multiple falls at home today associated with weakness and dizziness. She denies vomiting or diarrhea or fever. Chief Complaint:: FAMILY MEMBER STATES PRIOR TO ARRIVAL, THEY HAD SAT PT. UP ON THE SIDE OF THE BED AND PT. FELL BACK ONTO BED. PT. C/O OF BACK AND HIP PAIN TO FAMILY MEMBER AND REQUESTED A PAIN PILL. PAIN PILL WAS GIVEN TO PT. FAMILY STATES THEY GOT PT. TO THE SIDE OF THE BED AGAIN AND PT. BECAME VERY DIZZY AND PALE. UPON ARRIVAL TO ER, PT. IS DROWSY AND CONFUSED. Source History Provided: Patient, Family Member and EMS Mode of Arrival Mode of Arrival: EMS Timing Onset of Chief Complaint: 01/06/18 Context Stroke Symptoms: None PMH PMH Past Medical History: Yes Past Medical History: CHF, COPD, Diabetes, Dyslipidemia, Hypertension and Sleep Apnea Past Surgical History: Yes Surgical History: Cholecystectomy, Hysterectomy and Ortho Surgery Family History History of Family Medical Conditions: Yes Family Medical History: Diabetes Mellitus, Coronary Artery Disease and Hypertension Social History Does patient currently use any type of tobacco product: No Have you used tobacco products in the last 12 months: No Type of Tobacco Use: None Does any household member use tobacco: No Alcohol Use: None Do you use any recreational Drugs:: No Lives With: Family Lives Where: Home infectious screening In the last 2 months have you had wt loss of >10#?: NO Have you had fever, night sweats or hemotysis?: No Have you traveled outside the country in the last 6 months?: No Isolation: Standard PE Vital Signs Vitals: Temperature 99.7 F Pulse Rate [Apical] 89 Pulse Rate 98 Respiratory Rate 20 Blood Pressure [Left Arm] 115/70 Blood Pressure [Right Arm] 121/58 Blood Pressure 131/68 O2 Sat by Pulse Oximetry 98 General Limitations: No Limitations, Language Barrier and Physical Limitation ( mulltiple falls, weakness) General Appearance: Alert, In No Apparent Distress and Lethargic; negative In Distress Head Head Exam: Normal Inspection, Atraumatic and Normocephalic Eyes Eye exam: Normal Appearance, PERRL and EOMI Pupils: Regular, Round: Bilateral Anterior Chamber: Normal Inspection: Bilateral ENT ENT Exam: Normal Exam, Normal Oropharynx and Mucous Membranes Moist Neck Neck Exam: Normal Inspection and Full ROM Respiratory Respiratory Exam: Normal Lung Sounds Bilat Respiratory Exam: Bilateral: Clear to Auscultation Abdominal Exam Abdominal Exam: Normal Inspection, Normal Bowel Sounds and Soft Abdominal Tenderness: RUQ, RLQ and LUQ Rectal Rectal Exam: Deferred Extremeties Extremities Exam: Normal Inspection and Full ROM Back Back Exam: Normal Inspection and Full ROM Neurologic Neurological Exam: Alert, Oriented X3 and CN II-XII Intact Cranial Nerve Exam: EOM Function (II, III, IV, ): Normal Cerebellar Function: Ataxic Gait Motor Strength - LUE: 3/5 Psychiatric Psychiatric Exam: Normal Affect and Normal Mood Skin Skin Exam: Warm, Dry, Intact and Normal Color COURSE Consultation Called: 14:30 Consultation Comments: Dr Salinas agreed to admit for further evaluation ROR Labs Reviewed Result Diagrams: 01/06/18 13:01 01/06/18 13:01 Laboratory: WBC 7.2 X10^3/uL (3.6-10.0) 01/06/18 13:01 RBC 4.30 X10^6/uL (3.5-5.4) 01/06/18 13:01 Hgb 13.6 g/dL (12.0-16.0) 01/06/18 13:01 Hct 39.2 % (36.0-47.0) 01/06/18 13:01 MCV 91.3 fL (80.0-100.0) 01/06/18 13:01 MCH 31.6 pg (27.0-34.0) 01/06/18 13:01 MCHC 34.6 g/dL (33.0-35.0) 01/06/18 13:01 RDW 14.0 % (11.6-16.5) 01/06/18 13:01 Plt Count 166 X10^3/uL (150.0-450.0) 01/06/18 13:01 MPV 8.4 fL (7.4-11.0) 01/06/18 13:01 Neut % (Auto) 78.2 % (42.0-75.0) H 01/06/18 13:01 Lymph % (Auto) 13.8 % (21.0-51.0) L 01/06/18 13:01 [place] % (Auto) 6.4 % (0.0-13.0) 01/06/18 13:01 Eos % (Auto) 1.1 % (0.9-2.9) 01/06/18 13:01 Baso % (Auto) 0.5 % (0.2-1.0) 01/06/18 13:01 Neut # (Auto) 5.6 x10^3/uL (2.2-4.8) H 01/06/18 13:01 Lymph # (Auto) 1.0 X10^3/uL (1.3-2.9) L 01/06/18 13:01 [place] # (Auto) 0.5 x10^3/uL (0.3-0.8) 01/06/18 13:01 Eos # (Auto) 0.1 x10^3/uL (0.0-0.2) 01/06/18 13:01 Baso # (Auto) 0.0 X10^3/uL (0.0-0.1) 01/06/18 13:01 Absolute Nucleated RBC 0.1 /100WBC 01/06/18 13:01 INR Target Range - 01/06/18 13:01 INR 0.99 (0.8-1.3) 01/06/18 13:01 APTT 29.0 SECONDS (22.9-36.5) 01/06/18 13:01 PTT Comment - 01/06/18 13:01 Sodium 139 mmol/L (136-145) 01/06/18 13:01 Corrected Sodium 140 mmol/L (136-145) 01/06/18 13:01 Potassium 3.8 mmol/L (3.5-5.1) 01/06/18 13:01 Chloride 103 mmol/L (98-107) 01/06/18 13:01 Carbon Dioxide 31.6 mmol/L (21-32) 01/06/18 13:01 BUN 23 mg/dL (7-18) H 01/06/18 13:01 Creatinine 1.18 mg/dL (0.55-1.02) H 01/06/18 13:01 Est GFR (MDRD) Af Amer 58 (>60) L 01/06/18 13:01 Est GFR (MDRD) Non-Af 48 (>60) L 01/06/18 13:01 Glucose 152 mg/dL (65-99) H 01/06/18 13:01 Calcium 8.5 mg/dL (8.5-10.1) 01/06/18 13:01 Corrected Calcium 9.5 mg/dL (8.5-10.1) 01/06/18 13:01 Total Bilirubin 0.30 mg/dL (0.2-1.0) 01/06/18 13:01 AST 15 Units/L (15-37) 01/06/18 13:01 ALT 22 Units/L (12-78) 01/06/18 13:01 Alkaline Phosphatase 121 Units/L (46-116) H 01/06/18 13:01 Creatine Kinase 27 Units/L (26-192) 01/06/18 13:01 CK-MB (CK-2) < 1.0 ng/mL (0-4.0) 01/06/18 13:01 CK/CKMB % Calc 3.7 % (<4) 01/06/18 13:01 Troponin I < 0.02 ng/mL (0-1.5) 01/06/18 13:01 C-Reactive Protein 80.00 mg/L (0-3.0) H 01/06/18 13:01 Total Protein 6.6 g/dL (6.4-8.2) 01/06/18 13:01 Albumin 2.8 g/dL (3.4-5.0) L 01/06/18 13:01 Globulin 3.8 g/dL (2.5-4.5) 01/06/18 13:01 Albumin/Globulin Ratio 0.7 Ratio (1.1-2.1) L 01/06/18 13:01 Amylase 22 Units/L (25-115) L 01/06/18 13:01 Lipase 115 Units/L (73-393) 01/06/18 13:01 Specimen Type Catherized urine 01/06/18 13:29 Urine Color Yellow (YELLOW) 01/06/18 13:29 Urine Appearance Clear (CLEAR) 01/06/18 13:29 Urine pH 5.0 (5.0 - 8.0) 01/06/18 13:29 Ur Specific [place] 1.020 (1.000-1.030) 01/06/18 13:29 Urine Protein 1+ (NEGATIVE) 01/06/18 13:29 Urine Glucose (UA) 4+ (NEGATIVE) 01/06/18 13:29 Urine Ketones Negative (NEGATIVE) 01/06/18 13:29 Urine Occult Blood Negative (NEGATIVE) 01/06/18 13:29 Urine Nitrite Negative (NEGATIVE) 01/06/18 13:29 Urine Bilirubin Negative (NEGATIVE) 01/06/18 13:29 Urine Urobilinogen Normal (NORMAL) 01/06/18 13:29 Ur Leukocyte Esterase Negative (NEGATIVE) 01/06/18 13:29 Urine RBC 0-2 /HPF (NONE SEEN) 01/06/18 13:29 Urine WBC None seen /HPF (NONE SEEN) 01/06/18 13:29 Ur Squamous Epith Cells Rare /HPF (NEGATIVE) 01/06/18 13:29 Amorphous Sediment 1+ /HPF (NEGATIVE) 01/06/18 13:29 Urine Bacteria Trace /HPF (NEGATIVE) 01/06/18 13:29 Ur Culture Indicated? No/not indicated 01/06/18 13:29 Other Results Comments: Generalized osteopenia. CT Brain:No acute intracranial process is identified. Mild bilateral periventricular deep white matter hypoattenuation is nonspecific; however statistically most likely represent sequala of chronic micorvascular ischemic disease. XRAY XRAY Findings: CT Lumbar spine: No acute bony abnromalities, Mild multilevel DJD EKG Rate: 93 [place]: LAD Rhythm: NSR Block: IVCD Diagnosis Discharge Problem: Dizziness, Weakness, Multiple falls Narrative Support Text: Patient admitted to hospital
[2018-01-06] MEDS ORDERED: LEVOCETIRIZINE PO SCH (15:56)
[2018-01-06] MEDS ORDERED: PERCOCET TAB 5/325 MG PO PRN (15:56)
[2018-01-06] MEDS ORDERED: PATIENT'S HOME MEDICATION (Memantine [Namenda Xr] 28 MG) PO SCH (15:56)
[2018-01-06 16:02] VITALS: BMI 27.7
[2018-01-06] MEDS ORDERED: ROXICODONE TAB 5 MG PO PRN (17:55)
[2018-01-06] MEDS: DIOVAN TAB 80 MG PO SCH (18:06)
[2018-01-06] MEDS: MICRO K EXTEN CAP 10 MEQ PO SCH ×2 (18:07→18:08)
[2018-01-06] MEDS: LASIX PO SCH (18:07)
[2018-01-06] MEDS: PATIENT'S HOME MEDICATION (Memantine [Namenda Xr] 28 MG) PO SCH (18:07)
[2018-01-06] MEDS: PriLOSEC PO SCH (18:08)
[2018-01-06] MEDS: MOBIC TAB 15 MG PO SCH (18:08)
[2018-01-06] MEDS: PATIENT'S HOME MEDICATION (Solifenacin [Vesicare] 5 MG) PO SCH (18:08)
[2018-01-06] MEDS ORDERED: ELAVIL PO SCH (18:30)
[2018-01-06] MEDS ORDERED: STERILE WATER IRRIGATION IR ONE (20:35)
[2018-01-06] MEDS: COREG TAB 12.5 MG PO SCH (20:53)
[2018-01-06] MEDS: GLUCOTROL PO SCH (20:54)
[2018-01-06] MEDS: ZyrTEC TAB 10 MG PO SCH (20:54)
[2018-01-07] MEDS ORDERED: TYLENOL 325 MG TAB PO PRN (00:21)
[2018-01-07] MEDS: NS 1000 ML 1,000 ML IV SCH ×2 (02:30→12:52)
[2018-01-07 05:16] LABS: BASOPHILS % (AUTO) 0.6 % (0.2-1.0); EOSINOPHILS # (AUTO) 0.1 x10^3/uL (0.0-0.2); EOSINOPHILS % (AUTO) 0.8 % (0.9-2.9); HEMATOCRIT 36.8 % (36.0-47.0); HEMOGLOBIN 12.7 g/dL (12.0-16.0); LYMPHOCYTES # (AUTO) 1.8 X10^3/uL (1.3-2.9); LYMPHOCYTES % (AUTO) 27.5 % (21.0-51.0); MEAN CORPUSCULAR HEMOGLOBIN 31.3 pg (27.0-34.0); MEAN CORPUSCULAR HGB CONC 34.4 g/dL (33.0-35.0); MEAN CORPUSCULAR VOLUME 91.3 fL (80.0-100.0); MEAN PLATELET VOLUME 8.5 fL (7.4-11.0); MONOCYTES # (AUTO) 0.7 x10^3/uL (0.3-0.8); MONOCYTES % (AUTO) 10.3 % (0.0-13.0); NEUTROPHILS % (AUTO) 60.8 % (42.0-75.0); PLATELET COUNT 143 X10^3/uL (150.0-450.0); RED BLOOD COUNT 4.04 X10^6/uL (3.5-5.4); WHITE BLOOD COUNT 6.5 X10^3/uL (3.6-10.0)
[2018-01-07 05:30] LABS: ALANINE AMINOTRANSFERASE 19 Units/L (12-78); ALBUMIN 2.3 g/dL (3.4-5.0); ALKALINE PHOSPHATASE 106 Units/L (46-116); ASPARTATE AMINO TRANSFERASE 16 Units/L (15-37); BLOOD UREA NITROGEN 18 mg/dL (7-18); CALCIUM 8.1 mg/dL (8.5-10.1); CARBON DIOXIDE 31.3 mmol/L (21-32); CHLORIDE 105 mmol/L (98-107); COR CA(FOR HYPOALB) 9.5 mg/dL (8.5-10.1); COR NA(FOR HYPERGLY) 141 mmol/L (136-145); CREATININE 1.07 mg/dL (0.55-1.02); SODIUM 140 mmol/L (136-145); TOTAL PROTEIN 5.9 g/dL (6.4-8.2); eGFR NON BLACK RACES 53 (>60)
[2018-01-07 06:07] LABS: BAND NEUTROPHILS % 9 % (0-10)
[2018-01-07 06:08] LABS: PLATELET MORPHOLOGY COMMENT NORMAL (NORMAL)
[2018-01-07] MEDS ORDERED: CANAGLIFLOZIN 300 MG PO SCH (09:00)
[2018-01-07] MEDS ORDERED: LYRICA CAP 100 MG PO SCH (09:00)
[2018-01-07] MEDS: LASIX PO SCH (09:26)
[2018-01-07] MEDS: MICRO K EXTEN CAP 10 MEQ PO SCH (09:26)
[2018-01-07] MEDS: GLUCOTROL PO SCH ×2 (09:28→20:23)
[2018-01-07] MEDS: AMARYL TAB 4 MG PO SCH (09:28)
[2018-01-07] MEDS: LYRICA CAP 100 MG PO SCH ×2 (09:29→21:09)
[2018-01-07] MEDS: PriLOSEC PO SCH (09:30)
[2018-01-07] MEDS: MOBIC TAB 15 MG PO SCH (09:30)
[2018-01-07] MEDS: DIOVAN TAB 80 MG PO SCH (09:31)
[2018-01-07] MEDS: COREG TAB 12.5 MG PO SCH ×2 (09:31→20:23)
[2018-01-07] MEDS: PATIENT'S HOME MEDICATION (Memantine [Namenda Xr] 28 MG) PO SCH (09:34)
[2018-01-07] MEDS: PATIENT'S HOME MEDICATION (Solifenacin [Vesicare] 5 MG) PO SCH (09:35)
--- NOTE | 2018-01-07 12:45 | DR.H&P ---
H&P - History & Physical for Day of: H&P Date: 01/06/18 - Chief Complaint Chief Complaint: SYNCOPE, INTRACTABLE LEFT HIP PAIN - History of Present Illness History of Present Illness: 72 WF ER ADMISSION AFTER PRESENTING WITH CO PER FAMILY OF SYNCOPE, PT ATTEMPTED TO GET UP FROM BED AND HAD INTRACTABLE LEFT HIP PAIN, COULD "NOT GET LET TO MOVE" AND "PASSED OUT ON THE BED". PT HAS PMH OF DM , CAD, CHF, COPD, OA, HX OF BILATERAL HIP FRACTURE REPAIR. PT DENIES ANY CP OR INCREASED SOB. PT EVALUATED IN ER, ELEVATED CRP, GENERALIZED WEAKNESS. PT ADMITTED FOR TREATMENT AND EVALUATION. - Past Medical History Past Medical History: Hypertension, Dyslipidemia, Diabetes, COPD, Sleep Apnea, CHF - Past Surgical History Surgical History: Cholecystectomy, Hysterectomy, Ortho Surgery - Family History Family Medical History: Cancer - Social History Does patient currently use any type of tobacco product: No Have you used tobacco products in the last 12 months: No Type of Tobacco Use: None Does any household member use tobacco: No Alcohol Use: None Drug Use: None - Medications Home Medications: No Known Drug Allergies Allergy (Verified 01/06/18 12:40) CONTINUE taking the following medications Home Medica 2 mg SQ WEEKLY 01/06/18 [History] alprazolam 0.25 mg PO HS 01/06/18 [History] amitriptyline 100 mg PO QDAY 01/06/18 [History] canagliflozin [Invokana] 300 mg PO QAM 01/06/18 [History] carvedilol 25 mg PO BID 01/06/18 [History] cyclobenzaprine 10 mg PO DAILY 01/06/18 [History] docusate sodium [Colace] 100 mg PO QHS 01/06/18 [History] donepezil 10 mg PO QHS 01/06/18 [History] ezetimibe [Zetia] 10 mg PO QDAY 01/06/18 [History] furosemide 40 mg PO DAILY 01/06/18 [History] glimepiride 2 mg PO QAM 01/06/18 [History] glipizide 5 mg PO BID 01/06/18 [History] hydrocodone-acetaminophen [Switzer] 1 tab PO Q4-6H PRN 01/06/18 [History] levocetirizine 2.5 mg PO QHS 01/06/18 [History] meloxicam 15 mg PO QDAY 01/06/18 [History] memantine [Namenda XR] 28 mg PO QDAY 01/06/18 [History] omeprazole 20 mg PO QDAY 01/06/18 [History] potassium chloride 10 meq PO QDAY 01/06/18 [History] pregabalin [Lyrica] 100 mg PO BID 01/06/18 [History] ropinirole 0.25 mg PO TID 01/06/18 [History] simvastatin 20 mg PO QHS 01/06/18 [History] solifenacin [Vesicare] 5 mg PO QDAY 01/06/18 [History] valsartan 80 mg PO QDAY 01/06/18 [History] - Review of Systems Constitutional: Weakness Eyes: No Symptoms Reported ENT: No Symptoms Reported Respiratory: No Symptoms Reported Cardiovascular: No Symptoms Reported, Light Headedness. denies: Edema Gastrointestinal: No Symptoms Reported Genitourinary: No Symptoms Reported Musculoskeletal: Leg Pain (LEFT HIP PAIN) Skin: No Symptoms Reported Neurological: Weakness - Physical Exam Vital Signs: Temperature 96.5 F Pulse Rate [Right Brachial] 67 Pulse Rate [Right Dorsalis 82 Pedis] Pulse Rate [Apical] 68 Pulse Rate 98 Respiratory Rate 18 Blood Pressure [Left Arm] 119/59 Blood Pressure [Right Arm] 127/59 Blood Pressure 131/68 O2 Sat by Pulse Oximetry 97 Oriented: Normal Eyes: Normal Ear: Normal Nose: Normal Throat: Normal Respiratory: RLL Diminished, LLL Diminished Cardiovascular: Normal : Normal Auscultation: Bowel Sounds: Normal Palpation: Normal Tenderness: Normal Skin: Decreased Turgur Musculoskeletal: Right, Left, Hip, Knee, Back:Lumbar, Sensory Deficit Psychiatric: Normal Speech Pattern: Clear, Appropriate - Assessment/Plan (1) Syncope Status: Acute Plan: ADMIT, CARDIAC ENZYMES. CT HEAD ON ADMISSION, LSPINE IN ER. VERIFY HOME MEDICATION, ADMISSION LABS. BP MONITORING, BLOOD SUGAR CONTROL. PAIN CONTROL, BLOOD AND URINE CULTURES (2) Hip pain Status: Acute (3) Hypertension Qualifiers: Hypertension type: unspecified Qualified Code(s): I10 - Essential (primary ) hypertension Status: Chronic (4) Diabetes mellitus Status: Chronic (5) CHF (congestive heart failure) Status: Chronic (6) COPD (chronic obstructive pulmonary disease) Qualifiers: COPD type: chronic bronchitis Status: Chronic - Allergies Allergies/Adverse Reactions: Allergies Allergy/AdvReac Type Severity Reaction Status Date / Time No Known Drug Allergies Allergy Verified 01/06/18 12:40
[2018-01-07] MEDS: ELAVIL PO SCH (12:54)
--- NOTE | 2018-01-07 12:56 | PCM.PROG ---
Progress Note - Progress Note for Day of Date of Exam: 01/07/18 - Subjective Subjective: 72 WF ER ADMISSION ON 01/06 WITH CO LEFT HIP PAIN AND CO UNABLE GET UP USING LEFT HIP. PT STATES "I FELL BACK ON THE BED" "I PASSED OUT". PT HAD CT HEAD IN ER W/O ACUTE CHANGES. PT HAD L SPINE SERIES WITH DDD. PT CO PAIN NOT IN HIP LIKE ONE DAY AGO. PT CO FEELING WEAK ALL OVER AND TIRED. PT HAD BLOOD CUTLURES COLLECTED DUE TO FEVER DURING THE NIGHT, PT CURRENTLY ON HOME MEDICATION WITH DOSE ADJUSTMENTS OF SEDATIVE MEDS. PLAN TO OBTAIN CT LEFT HIP - Past Medical Family Social History Past Med/Fam/Surg Hx: No changes since H&P Allergies: Allergies No Known Drug Allergies Allergy (Verified 01/06/18 12:40) - Review of Systems ROS: No change since H&P - Vital Signs and I&O's Vital Signs: Temperature 96.5 F Pulse Rate [Right Brachial] 67 Pulse Rate [Right Dorsalis 82 Pedis] Pulse Rate [Apical] 68 Pulse Rate 98 Respiratory Rate 18 Blood Pressure [Left Arm] 119/59 Blood Pressure [Right Arm] 127/59 Blood Pressure 131/68 O2 Sat by Pulse Oximetry 97 Intake and Output: Intake & Output 01/05/18 01/06/18 01/07/18 01/08/18 11:59 11:59 11:59 11:59 Intake Total 1352 / 1352 Output Total 1500 / 1500 Balance -148 / -148 - Physical Exam Oriented: Normal Eyes: Normal Ear: Normal Nose: Normal Throat: Normal Respiratory: Diminished Cardiovascular: Normal : Normal Auscultation: Bowel Sounds: Normal Tenderness: Normal Skin: Decreased Turgur Musculoskeletal: Right, Left, Hip, Knee, Back:Lumbar, Sensory Deficit Psychiatric: Normal Speech Pattern: Clear, Appropriate - Laboratory and Diagnostics Result Diagrams: 01/07/18 04:56 01/07/18 04:56 Labs: Laboratory WBC 6.5 X10^3/uL (3.6-10.0) 01/07/18 04:56 RBC 4.04 X10^6/uL (3.5-5.4) 01/07/18 04:56 Hgb 12.7 g/dL (12.0-16.0) 01/07/18 04:56 Hct 36.8 % (36.0-47.0) 01/07/18 04:56 MCV 91.3 fL (80.0-100.0) 01/07/18 04:56 MCH 31.3 pg (27.0-34.0) 01/07/18 04:56 MCHC 34.4 g/dL (33.0-35.0) 01/07/18 04:56 RDW 14.0 % (11.6-16.5) 01/07/18 04:56 Plt Count 143 X10^3/uL (150.0-450.0) L 01/07/18 04:56 Plt Count Comment Adequate (ADEQUATE) 01/07/18 04:56 MPV 8.5 fL (7.4-11.0) 01/07/18 04:56 Neut % (Auto) 60.8 % (42.0-75.0) 01/07/18 04:56 Lymph % (Auto) 27.5 % (21.0-51.0) 01/07/18 04:56 [place] % (Auto) 10.3 % (0.0-13.0) 01/07/18 04:56 Eos % (Auto) 0.8 % (0.9-2.9) L 01/07/18 04:56 Baso % (Auto) 0.6 % (0.2-1.0) 01/07/18 04:56 Neut # (Auto) 4.0 x10^3/uL (2.2-4.8) 01/07/18 04:56 Lymph # (Auto) 1.8 X10^3/uL (1.3-2.9) 01/07/18 04:56 [place] # (Auto) 0.7 x10^3/uL (0.3-0.8) 01/07/18 04:56 Eos # (Auto) 0.1 x10^3/uL (0.0-0.2) 01/07/18 04:56 Baso # (Auto) 0.0 X10^3/uL (0.0-0.1) 01/07/18 04:56 Absolute Nucleated RBC 0.1 /100WBC 01/07/18 04:56 Total Counted 100 01/07/18 04:56 Neutrophils % (Manual) 56 % (39-76) 01/07/18 04:56 Band Neutrophils % 9 % (0-10) 01/07/18 04:56 Lymphocytes % (Manual) 29 % (13-43) 01/07/18 04:56 Monocytes % (Manual) 6 % (4-9) 01/07/18 04:56 Plt Morphology Comment Normal (NORMAL) 01/07/18 04:56 RBC Morphology Normal (NORMAL) 01/07/18 04:56 INR Target Range - 01/06/18 13:01 INR 0.99 (0.8-1.3) 01/06/18 13:01 APTT 29.0 SECONDS (22.9-36.5) 01/06/18 13:01 PTT Comment - 01/06/18 13:01 Sodium 140 mmol/L (136-145) 01/07/18 04:56 Corrected Sodium 141 mmol/L (136-145) 01/07/18 04:56 Potassium 3.6 mmol/L (3.5-5.1) 01/07/18 04:56 Chloride 105 mmol/L (98-107) 01/07/18 04:56 Carbon Dioxide 31.3 mmol/L (21-32) 01/07/18 04:56 BUN 18 mg/dL (7-18) 01/07/18 04:56 Creatinine 1.07 mg/dL (0.55-1.02) H 01/07/18 04:56 Est GFR (MDRD) Af Amer > 60 (>60) 01/07/18 04:56 Est GFR (MDRD) Non-Af 53 (>60) L 01/07/18 04:56 Glucose 124 mg/dL (65-99) H 01/07/18 04:56 POC Glucose (mg/dL) 112 mg/dL (65-99) H 01/07/18 05:40 Calcium 8.1 mg/dL (8.5-10.1) L 01/07/18 04:56 Corrected Calcium 9.5 mg/dL (8.5-10.1) 01/07/18 04:56 Total Bilirubin 0.30 mg/dL (0.2-1.0) 01/07/18 04:56 AST 16 Units/L (15-37) 01/07/18 04:56 ALT 19 Units/L (12-78) 01/07/18 04:56 Alkaline Phosphatase 106 Units/L (46-116) 01/07/18 04:56 Creatine Kinase 27 Units/L (26-192) 01/06/18 13:01 CK-MB (CK-2) < 1.0 ng/mL (0-4.0) 01/06/18 13:01 CK/CKMB % Calc 3.7 % (<4) 01/06/18 13:01 Troponin I < 0.02 ng/mL (0-1.5) 01/06/18 13:01 C-Reactive Protein 80.00 mg/L (0-3.0) H 01/06/18 13:01 Total Protein 5.9 g/dL (6.4-8.2) L 01/07/18 04:56 Albumin 2.3 g/dL (3.4-5.0) L 01/07/18 04:56 Globulin 3.6 g/dL (2.5-4.5) 01/07/18 04:56 Albumin/Globulin Ratio 0.6 Ratio (1.1-2.1) L 01/07/18 04:56 Amylase 22 Units/L (25-115) L 01/06/18 13:01 Lipase 115 Units/L (73-393) 01/06/18 13:01 Specimen Type Catherized urine 01/06/18 13:29 Urine Color Yellow (YELLOW) 01/06/18 13:29 Urine Appearance Clear (CLEAR) 01/06/18 13:29 Urine pH 5.0 (5.0 - 8.0) 01/06/18 13:29 Ur Specific [place] 1.020 (1.000-1.030) 01/06/18 13:29 Urine Protein 1+ (NEGATIVE) 01/06/18 13:29 Urine Glucose (UA) 4+ (NEGATIVE) 01/06/18 13:29 Urine Ketones Negative (NEGATIVE) 01/06/18 13:29 Urine Occult Blood Negative (NEGATIVE) 01/06/18 13:29 Urine Nitrite Negative (NEGATIVE) 01/06/18 13:29 Urine Bilirubin Negative (NEGATIVE) 01/06/18 13:29 Urine Urobilinogen Normal (NORMAL) 01/06/18 13:29 Ur Leukocyte Esterase Negative (NEGATIVE) 01/06/18 13:29 Urine RBC 0-2 /HPF (NONE SEEN) 01/06/18 13:29 Urine WBC None seen /HPF (NONE SEEN) 01/06/18 13:29 Ur Squamous Epith Cells Rare /HPF (NEGATIVE) 01/06/18 13:29 Amorphous Sediment 1+ /HPF (NEGATIVE) 01/06/18 13:29 Urine Bacteria Trace /HPF (NEGATIVE) 01/06/18 13:29 Ur Culture Indicated? No/not indicated 01/06/18 13:29 - Plan (1) Syncope Status: Acute Plan: CARDIAC ENZYMES NEGATIVE ON ADMISSION. CT HEAD ON ADMISSION, LSPINE IN ER. VERIFY HOME MEDICATION, AM LABS. BP MONITORING, BLOOD SUGAR CONTROL. PAIN CONTROL, BLOOD AND URINE CULTURES ORDERED. CT HIP, CTA LOWER EXTREMITIES (2) Hip pain Status: Acute (3) Hypertension Status: Chronic Qualifiers: Hypertension type: unspecified Qualified Code(s): I10 - Essential (primary ) hypertension (4) Diabetes mellitus Status: Chronic (5) CHF (congestive heart failure) Status: Chronic (6) COPD (chronic obstructive pulmonary disease) Status: Chronic Qualifiers: COPD type: chronic bronchitis (7) Fever Status: Acute (8) Decreased sensation of lower extremity Status: Acute
[2018-01-07 13:33] LABS: BILIRUBIN,URINE NEGATIVE (NEGATIVE); BLOOD/HEMOGLOBIN,URINE 4+ (NEGATIVE); GLUCOSE, URINE 3+ (NEGATIVE); KETONES,URINE NEGATIVE (NEGATIVE); LEUKOCYTE ESTERASE ,URINE 1+ (NEGATIVE); NITRITES,URINE NEGATIVE (NEGATIVE); PROTEIN,URINE NEGATIVE (NEGATIVE); UROBILINOGEN,URINE NORMAL (NORMAL)
[2018-01-07 13:46] LABS: APPEARANCE,URINE SLIGHTLY HAZY (CLEAR); COLOR,URINE PALE YELLOW (YELLOW)
[2018-01-07 13:47] LABS: BACTERIA,URINE NEGATIVE /HPF (NEGATIVE); SQUAMOUS EPITHELIAL CELL,UR RARE /HPF (NEGATIVE)
[2018-01-07] MEDS: LOVENOX INJ 40 MG SYR SC SCH (15:41)
[2018-01-07 15:54] LABS: CRYPTOSPORIDIUM PARVUM ANTIGEN NEGATIVE (NEGATIVE); GIARDIA LAMBLIA ANTIGEN NEGATIVE (NEGATIVE); STOOL FOR WBC POSITIVE (NEGATIVE)
[2018-01-07] MEDS: ZyrTEC TAB 10 MG PO SCH (20:22)
[2018-01-07] MEDS: XANAX PO SCH (20:23)
[2018-01-08] MEDS: NS 1000 ML 1,000 ML IV SCH ×4 (00:43→18:16)
[2018-01-08 06:15] LABS: BASOPHILS % (AUTO) 0.4 % (0.2-1.0); EOSINOPHILS # (AUTO) 0.2 x10^3/uL (0.0-0.2); EOSINOPHILS % (AUTO) 3.2 % (0.9-2.9); HEMATOCRIT 33.9 % (36.0-47.0); HEMOGLOBIN 11.8 g/dL (12.0-16.0); LYMPHOCYTES # (AUTO) 1.3 X10^3/uL (1.3-2.9); LYMPHOCYTES % (AUTO) 25.8 % (21.0-51.0); MEAN CORPUSCULAR HEMOGLOBIN 31.7 pg (27.0-34.0); MEAN CORPUSCULAR HGB CONC 34.9 g/dL (33.0-35.0); MEAN CORPUSCULAR VOLUME 90.7 fL (80.0-100.0); MEAN PLATELET VOLUME 8.8 fL (7.4-11.0); MONOCYTES # (AUTO) 0.6 x10^3/uL (0.3-0.8); MONOCYTES % (AUTO) 11.3 % (0.0-13.0); NEUTROPHILS # (AUTO) 2.9 x10^3/uL (2.2-4.8); NEUTROPHILS % (AUTO) 59.3 % (42.0-75.0); PLATELET COUNT 120 X10^3/uL (150.0-450.0); RED BLOOD COUNT 3.73 X10^6/uL (3.5-5.4); RED CELL DISTRIBUTION WIDTH 13.6 % (11.6-16.5); WHITE BLOOD COUNT 4.9 X10^3/uL (3.6-10.0)
[2018-01-08 06:31] LABS: ALANINE AMINOTRANSFERASE 17 Units/L (12-78); ALBUMIN 2.1 g/dL (3.4-5.0); ALKALINE PHOSPHATASE 97 Units/L (46-116); ASPARTATE AMINO TRANSFERASE 15 Units/L (15-37); BLOOD UREA NITROGEN 16 mg/dL (7-18); CALCIUM 8.1 mg/dL (8.5-10.1); CARBON DIOXIDE 30.5 mmol/L (21-32); CHLORIDE 107 mmol/L (98-107); COR CA(FOR HYPOALB) 9.6 mg/dL (8.5-10.1); COR NA(FOR HYPERGLY) 143 mmol/L (136-145); CREATININE 0.87 mg/dL (0.55-1.02); SODIUM 143 mmol/L (136-145); TOTAL PROTEIN 5.7 g/dL (6.4-8.2); eGFR NON BLACK RACES > 60 (>60)
--- NOTE | 2018-01-08 10:15 | CT ---
CT pelvis without contrast Indication: Left hip pain, limited range of motion. History of hip fracture. Comparison: CT 06/26/2017, right hip radiographs 07/23/2017 Technique: CT images of the pelvis were obtained without contrast. Automatic exposure control was uti lized. Findings: Bilateral hip arthroplasty hardware appears normally aligned. There is fracture of the righ t greater trochanter demonstrating approximately 4 cm of superior displacement, which is new compared with the most recent radiograph from July of this year. Cerclage wire of the proximal right femur i s intact. Otherwise there is no evidence for acute fracture or subluxation. There is a 1.1 x 0.9 cm l ytic focus within the superior lateral right acetabulum (image 88, series 10), new from the prior CT and radiograph. Small osseous densities about the left hip are most compatible with heterotopic ossif ication. No large joint effusion can be identified, although evaluation of the soft tissues is limite d by technique and streak artifact from the hip arthroplasties. There is colonic diverticulosis without evidence for acute diverticulitis. Amaya catheter is present within the decompressed bladder. The muscles and neurovascular structures about the pelvis and hips a re grossly unremarkable. Impression: 1. Superiorly displaced, age-indeterminate fracture of the right greater trochanter. Correlation is r ecommended. 2. Approximately 1 cm lytic focus within the subcortical right acetabulum, suggestive for particle di sease related to poly wear. 3. Colonic diverticulosis Reported By:
[2018-01-08] MEDS: COREG TAB 12.5 MG PO SCH ×2 (10:16→20:47)
[2018-01-08] MEDS: PriLOSEC PO SCH (10:17)
[2018-01-08] MEDS: AMARYL TAB 4 MG PO SCH (10:17)
[2018-01-08] MEDS: GLUCOTROL PO SCH ×2 (10:17→20:47)
[2018-01-08] MEDS: MICRO K EXTEN CAP 10 MEQ PO SCH (10:17)
[2018-01-08] MEDS: LYRICA CAP 100 MG PO SCH ×2 (10:17→20:47)
[2018-01-08] MEDS: MOBIC TAB 15 MG PO SCH (10:17)
[2018-01-08] MEDS: LASIX PO SCH (10:17)
[2018-01-08] MEDS: ELAVIL PO SCH (10:18)
[2018-01-08] MEDS: DIOVAN TAB 80 MG PO SCH (10:18)
[2018-01-08] MEDS: PATIENT'S HOME MEDICATION (Solifenacin [Vesicare] 5 MG) PO SCH (10:22)
[2018-01-08] MEDS: PATIENT'S HOME MEDICATION (Memantine [Namenda Xr] 28 MG) PO SCH (10:22)
[2018-01-08] MEDS: LOVENOX INJ 40 MG SYR SC SCH (10:24)
--- NOTE | 2018-01-08 18:01 | CT ---
CTA OF THE ABDOMEN AND PELVIS AND BILATERAL LOWER EXTREMITY RUNOFF WITHOUT AND WITH CONTRAST CLINICAL INDICATION: Lower extremity pain and numbness. TECHNIQUE: Written informed consent was obtained. Non-gated spiral axial images of the lower thorax, abdomen, pelvis and lower extremities were obtained with nonionic intravenous contrast. 3D reconstru ctions were performed. Dose reduction techniques including Automated Exposure Control (AEC) and adjus tment of mA and kV were utlized. COMPARISON: 01/11/2017 FINDINGS: VASCULAR: Abdominal Aorta: No significant stenosis. Celiac [place]: No significant stenosis. Superior Mesenteric Artery: No significant stenosis. Renal Arteries: No significant stenosis. Inferior Mesenteric Artery: No significant stenosis. RIGHT PELVIS/LOWER EXTREMITY: Right Common Iliac Artery: No significant stenosis. Right Internal Iliac Artery: No significant stenosis. Right External Iliac Artery: No significant stenosis. Right Common Femoral Artery: No significant stenosis. Right Profunda Femoris Artery: No significant stenosis. Right Superficial Femoral Artery: No significant stenosis. Right Popliteal Artery: No significant stenosis. Right Anterior Tibial Artery: No significant stenosis. Crosses the ankle to supply the dorsalis pedi s artery. Right Tibioperoneal Trunk: No significant stenosis. Right Posterior Tibial Artery: No significant stenosis. Crosses the ankle to supply the plantar arch . Right Peroneal Artery: No significant stenosis. LEFT PELVIS/LOWER EXTREMITY: Left Common Iliac Artery: No significant stenosis. Left Internal Iliac Artery: No significant stenosis. Left External Iliac Artery: No significant stenosis. Left Common Femoral Artery: No significant stenosis. Left Profunda Femoris Artery: No significant stenosis. Left Superficial Femoral Artery: No significant stenosis. Left Popliteal Artery: No significant stenosis. Left Anterior Tibial Artery: No significant stenosis. Crosses the ankle to supply the dorsalis pedis artery. Left Tibioperoneal Trunk: No significant stenosis. Left Posterior Tibial Artery: No significant stenosis. Crosses the ankle to supply the plantar arch. Left Peroneal Artery: No significant stenosis. Abdomen without: Gallbladder absent. No renal stones. Abdomen with: Liver and spleen are normal in size, enhancement characteristics and contour. No focal lesions. The portal vein is patent. No ductal dilitation. Gallbladder is present. No gallbladder wall thickening. The pancreas is unremarkable. Adrenal glands are normal. Kidneys enhance symmetrically w ithout hydronephrosis. Diffuse low-attenuation wall thickening of the colon worst involving the right and transverse colon. there is a prominent mesenteric lymph node measuring 2.9 cm on series 8, image 55. This is very cristina lar to prior 01/11/2017. No free fluid or fluid collections. Pelvis without: No distal ureteral stones or bladder stones. Pelvis with: The bladder is normal in appearance. Uterus not well seen. Overall pelvic structures no t. Well seen secondary to streak artifact from patient's hip prostheses No aggressive osseous lesions. IMPRESSION: 1. No significant stenosis or occlusion of the artery of the lower extremities. 2. Prominent mesenteric lymph node which is stable from prior. Correlate with any history of malignan cy. Reported By:
[2018-01-08] MEDS ORDERED: MAALOX or MYLANTA PO PRN (20:38)
[2018-01-08] MEDS: XANAX PO SCH (20:46)
[2018-01-08] MEDS: ZyrTEC TAB 10 MG PO SCH (20:46)
[2018-01-08] MEDS ORDERED: POTASSIUM CHL 40 MEQ/NS 0.45% 500 ML IV PRN (22:21)
[2018-01-08] MEDS ORDERED: POTASSIUM CHLORIDE LIQ 20 MEQ UDC PO PRN (22:21)
[2018-01-08] MEDS ORDERED: K-RIDER 10 MEQ/NS 100 ML 10 MEQ/100 ML BAG IV PRN (22:21)
[2018-01-08] MEDS ORDERED: POTASSIUM CHL 60 MEQ/NS 0.45% 500 ML IV PRN (22:21)
[2018-01-08] MEDS: MAGNESIUM SULFATE 1 GRAM/100 mL PREMIX 1 GM/100 ML BAG IV PRN (23:15)
[2018-01-09] MEDS: MAGNESIUM SULFATE 1 GRAM/100 mL PREMIX 1 GM/100 ML BAG IV PRN (00:30)
[2018-01-09] MEDS: K-LYTE EFFERVESCENT PO PRN ×2 (01:45→21:11)
[2018-01-09] MEDS: NS 1000 ML 1,000 ML IV SCH ×3 (05:18→21:17)
[2018-01-09 06:11] LABS: BASOPHILS % (AUTO) 0.5 % (0.2-1.0); EOSINOPHILS # (AUTO) 0.2 x10^3/uL (0.0-0.2); EOSINOPHILS % (AUTO) 3.6 % (0.9-2.9); HEMATOCRIT 33.6 % (36.0-47.0); HEMOGLOBIN 11.7 g/dL (12.0-16.0); LYMPHOCYTES # (AUTO) 1.3 X10^3/uL (1.3-2.9); LYMPHOCYTES % (AUTO) 29.6 % (21.0-51.0); MEAN CORPUSCULAR HEMOGLOBIN 31.7 pg (27.0-34.0); MEAN CORPUSCULAR HGB CONC 34.9 g/dL (33.0-35.0); MONOCYTES # (AUTO) 0.5 x10^3/uL (0.3-0.8); MONOCYTES % (AUTO) 10.4 % (0.0-13.0); NEUTROPHILS # (AUTO) 2.5 x10^3/uL (2.2-4.8); NEUTROPHILS % (AUTO) 55.9 % (42.0-75.0); PLATELET COUNT 144 X10^3/uL (150.0-450.0); RED BLOOD COUNT 3.69 X10^6/uL (3.5-5.4); RED CELL DISTRIBUTION WIDTH 13.5 % (11.6-16.5); WHITE BLOOD COUNT 4.5 X10^3/uL (3.6-10.0)
[2018-01-09 06:13] LABS: ALANINE AMINOTRANSFERASE 18 Units/L (12-78); ALBUMIN 2.1 g/dL (3.4-5.0); ALKALINE PHOSPHATASE 111 Units/L (46-116); ASPARTATE AMINO TRANSFERASE 13 Units/L (15-37); BLOOD UREA NITROGEN 10 mg/dL (7-18); CALCIUM 7.9 mg/dL (8.5-10.1); CHLORIDE 104 mmol/L (98-107); COR CA(FOR HYPOALB) 9.4 mg/dL (8.5-10.1); COR NA(FOR HYPERGLY) 141 mmol/L (136-145); CREATININE 0.77 mg/dL (0.55-1.02); MAGNESIUM 2.4 mg/dL (1.7-2.9); SODIUM 140 mmol/L (136-145); TOTAL PROTEIN 5.7 g/dL (6.4-8.2); eGFR NON BLACK RACES > 60 (>60)
[2018-01-09] MEDS: COREG TAB 12.5 MG PO SCH ×2 (08:27→21:12)
[2018-01-09] MEDS: AMARYL TAB 4 MG PO SCH (08:27)
[2018-01-09] MEDS: LASIX PO SCH (08:28)
[2018-01-09] MEDS: LOVENOX INJ 40 MG SYR SC SCH (08:28)
[2018-01-09] MEDS: GLUCOTROL PO SCH ×2 (08:28→21:13)
[2018-01-09] MEDS: ELAVIL PO SCH (08:28)
[2018-01-09] MEDS: DIOVAN TAB 80 MG PO SCH (08:28)
[2018-01-09] MEDS: MICRO K EXTEN CAP 10 MEQ PO SCH (08:29)
[2018-01-09] MEDS: LYRICA CAP 100 MG PO SCH ×2 (08:29→21:15)
[2018-01-09] MEDS: PriLOSEC PO SCH (08:29)
[2018-01-09] MEDS: MOBIC TAB 15 MG PO SCH (08:29)
[2018-01-09] MEDS: PATIENT'S HOME MEDICATION (Memantine [Namenda Xr] 28 MG) PO SCH (08:29)
[2018-01-09] MEDS: PATIENT'S HOME MEDICATION (Solifenacin [Vesicare] 5 MG) PO SCH (08:30)
[2018-01-09] MEDS: LEVAQUIN PREMIX IV 500 MG 500 MG/100 ML BAG IV SCH (10:43)
--- NOTE | 2018-01-09 13:01 | PCM.PROG ---
Progress Note - Progress Note for Day of Date of Exam: 01/08/18 - Subjective Subjective: 72 WF ER ADMISSION ON 01/06 WITH CO LEFT HIP PAIN AND CO UNABLE GET UP USING LEFT HIP. PT STATES "I FELL BACK ON THE BED" "I PASSED OUT". PT HAD CT HEAD IN ER W/O ACUTE CHANGES. PT HAD L SPINE SERIES WITH DDD. PT CO PAIN NOT IN HIP LIKE ONE DAY AGO. PT CO FEELING WEAK ALL OVER AND TIRED.PT CO DIARRHEA FOR SEVERAL DAYS ADN WEAKNESS FOLLOWED, STOOL STUDIES PENDING. PT HAD CTA LE/ CT LEFT HIP ORDERED FOR THIS AM. - Past Medical Family Social History Past Med/Fam/Surg Hx: No changes since H&P Allergies: Allergies No Known Drug Allergies Allergy (Verified 01/06/18 12:40) - Review of Systems ROS: No change since H&P - Vital Signs and I&O's Vital Signs: Temperature 98.3 F Pulse Rate [Right Brachial] 61 Pulse Rate [Right Dorsalis 82 Pedis] Pulse Rate [Apical] 68 Pulse Rate 98 Respiratory Rate 24 Blood Pressure [Left Arm] 148/65 Blood Pressure [Right Arm] 123/63 Blood Pressure 131/68 O2 Sat by Pulse Oximetry 90 Intake and Output: Intake & Output 01/07/18 01/08/18 01/09/18 01/10/18 11:59 11:59 11:59 11:59 Intake Total 1352 / 1352 1754 / 1754 1860 / 1860 Output Total 1500 / 1500 2049 / 2049 2575 / 2575 Balance -148 / -148 -296 / -296 -715 / -715 - Physical Exam Oriented: Normal Eyes: Normal Ear: Normal Nose: Normal Throat: Normal Respiratory: Diminished Cardiovascular: Normal : Normal Auscultation: Bowel Sounds: Normal Tenderness: Normal Skin: Decreased Turgur Musculoskeletal: Right, Left, Hip, Knee, Back:Lumbar, Sensory Deficit Psychiatric: Normal Speech Pattern: Clear, Appropriate - Laboratory and Diagnostics Result Diagrams: 01/09/18 04:53 01/09/18 04:53 Labs: 01/07/18 08:47 Blood Blood Culture - Preliminary 01/07/18 08:42 Blood Blood Culture - Preliminary 01/07/18 14:13 Stool Stool Culture - Preliminary Salmonella Species 01/07/18 14:13 Stool - Final Laboratory WBC 4.5 X10^3/uL (3.6-10.0) 01/09/18 04:53 RBC 3.69 X10^6/uL (3.5-5.4) 01/09/18 04:53 Hgb 11.7 g/dL (12.0-16.0) L 01/09/18 04:53 Hct 33.6 % (36.0-47.0) L 01/09/18 04:53 MCV 91.0 fL (80.0-100.0) 01/09/18 04:53 MCH 31.7 pg (27.0-34.0) 01/09/18 04:53 MCHC 34.9 g/dL (33.0-35.0) 01/09/18 04:53 RDW 13.5 % (11.6-16.5) 01/09/18 04:53 Plt Count 144 X10^3/uL (150.0-450.0) L 01/09/18 04:53 Plt Count Comment Adequate (ADEQUATE) 01/07/18 04:56 MPV 9.0 fL (7.4-11.0) 01/09/18 04:53 Neut % (Auto) 55.9 % (42.0-75.0) 01/09/18 04:53 Lymph % (Auto) 29.6 % (21.0-51.0) 01/09/18 04:53 [place] % (Auto) 10.4 % (0.0-13.0) 01/09/18 04:53 Eos % (Auto) 3.6 % (0.9-2.9) H 01/09/18 04:53 Baso % (Auto) 0.5 % (0.2-1.0) 01/09/18 04:53 Neut # (Auto) 2.5 x10^3/uL (2.2-4.8) 01/09/18 04:53 Lymph # (Auto) 1.3 X10^3/uL (1.3-2.9) 01/09/18 04:53 [place] # (Auto) 0.5 x10^3/uL (0.3-0.8) 01/09/18 04:53 Eos # (Auto) 0.2 x10^3/uL (0.0-0.2) 01/09/18 04:53 Baso # (Auto) 0.0 X10^3/uL (0.0-0.1) 01/09/18 04:53 Absolute Nucleated RBC 0.1 /100WBC 01/09/18 04:53 Total Counted 100 01/07/18 04:56 Neutrophils % (Manual) 56 % (39-76) 01/07/18 04:56 Band Neutrophils % 9 % (0-10) 01/07/18 04:56 Lymphocytes % (Manual) 29 % (13-43) 01/07/18 04:56 Monocytes % (Manual) 6 % (4-9) 01/07/18 04:56 Eosinophils % (Manual) Cancelled 01/08/18 05:04 Basophils % (Manual) Cancelled 01/08/18 05:04 Metamyelocytes % Cancelled 01/08/18 05:04 Myelocytes % Cancelled 01/08/18 05:04 Promyelocytes % Cancelled 01/08/18 05:04 Nucleated RBCs Cancelled 01/08/18 05:04 Atypical Lymphocytes Cancelled 01/08/18 05:04 Blast Cells Cancelled 01/08/18 05:04 Smudge Cells Cancelled 01/08/18 05:04 Toxic Granulation Cancelled 01/08/18 05:04 Dohle Bodies Cancelled 01/08/18 05:04 Ivette Rods Cancelled 01/08/18 05:04 Plt Clumps, EDTA Cancelled 01/08/18 05:04 Giant Platelets Cancelled 01/08/18 05:04 Plt Morphology Comment Normal (NORMAL) 01/07/18 04:56 RBC Morphology Normal (NORMAL) 01/07/18 04:56 Dimorphic RBCs Cancelled 01/08/18 05:04 Polychromasia Cancelled 01/08/18 05:04 Hypochromasia Cancelled 01/08/18 05:04 Poikilocytosis Cancelled 01/08/18 05:04 Basophilic Stippling Cancelled 01/08/18 05:04 Anisocytosis Cancelled 01/08/18 05:04 Microcytosis Cancelled 01/08/18 05:04 Macrocytosis Cancelled 01/08/18 05:04 Spherocytes Cancelled 01/08/18 05:04 Pappenheimer Bodies Cancelled 01/08/18 05:04 Sickle Cells Cancelled 01/08/18 05:04 Target Cells Cancelled 01/08/18 05:04 Tear Drop Cells Cancelled 01/08/18 05:04 Ovalocytes Cancelled 01/08/18 05:04 Stomatocytes Cancelled 01/08/18 05:04 Helmet Cells Cancelled 01/08/18 05:04 [place] Bodies Cancelled 01/08/18 05:04 [place] Rings Cancelled 01/08/18 05:04 [place] Cells Cancelled 01/08/18 05:04 Crenated Cell Cancelled 01/08/18 05:04 Acanthocytes (Spur) Cancelled 01/08/18 05:04 Rouleaux Cancelled 01/08/18 05:04 Schistocytes Cancelled 01/08/18 05:04 INR Target Range - 01/06/18 13:01 INR 0.99 (0.8-1.3) 01/06/18 13:01 APTT 29.0 SECONDS (22.9-36.5) 01/06/18 13:01 PTT Comment - 01/06/18 13:01 Sodium 140 mmol/L (136-145) 01/09/18 04:53 Corrected Sodium 141 mmol/L (136-145) 01/09/18 04:53 Potassium 3.5 mmol/L (3.5-5.1) 01/09/18 04:53 Chloride 104 mmol/L (98-107) 01/09/18 04:53 Carbon Dioxide 33.0 mmol/L (21-32) H 01/09/18 04:53 BUN 10 mg/dL (7-18) 01/09/18 04:53 Creatinine 0.77 mg/dL (0.55-1.02) 01/09/18 04:53 Est GFR (MDRD) Af Amer > 60 (>60) 01/09/18 04:53 Est GFR (MDRD) Non-Af > 60 (>60) 01/09/18 04:53 Glucose 141 mg/dL (65-99) H 01/09/18 04:53 POC Glucose (mg/dL) 230 mg/dL (65-99) H 01/09/18 11:19 Calcium 7.9 mg/dL (8.5-10.1) L 01/09/18 04:53 Corrected Calcium 9.4 mg/dL (8.5-10.1) 01/09/18 04:53 Magnesium 2.4 mg/dL (1.7-2.9) 01/09/18 04:53 Total Bilirubin 0.20 mg/dL (0.2-1.0) 01/09/18 04:53 AST 13 Units/L (15-37) L 01/09/18 04:53 ALT 18 Units/L (12-78) 01/09/18 04:53 Alkaline Phosphatase 111 Units/L (46-116) 01/09/18 04:53 Creatine Kinase 27 Units/L (26-192) 01/06/18 13:01 CK-MB (CK-2) < 1.0 ng/mL (0-4.0) 01/06/18 13:01 CK/CKMB % Calc 3.7 % (<4) 01/06/18 13:01 Troponin I < 0.02 ng/mL (0-1.5) 01/06/18 13:01 C-Reactive Protein 80.00 mg/L (0-3.0) H 01/06/18 13:01 Total Protein 5.7 g/dL (6.4-8.2) L 01/09/18 04:53 Albumin 2.1 g/dL (3.4-5.0) L 01/09/18 04:53 Globulin 3.6 g/dL (2.5-4.5) 01/09/18 04:53 Albumin/Globulin Ratio 0.6 Ratio (1.1-2.1) L 01/09/18 04:53 Amylase 22 Units/L (25-115) L 01/06/18 13:01 Lipase 115 Units/L (73-393) 01/06/18 13:01 Specimen Type Catherized urine 01/07/18 11:10 Urine Color Pale yellow (YELLOW) 01/07/18 11:10 Urine Appearance Slightly hazy (CLEAR) 01/07/18 11:10 Urine pH 5.0 (5.0 - 8.0) 01/07/18 11:10 Ur Specific [place] 1.010 (1.000-1.030) 01/07/18 11:10 Urine Protein Negative (NEGATIVE) 01/07/18 11:10 Urine Glucose (UA) 3+ (NEGATIVE) 01/07/18 11:10 Urine Ketones Negative (NEGATIVE) 01/07/18 11:10 Urine Occult Blood 4+ (NEGATIVE) 01/07/18 11:10 Urine Nitrite Negative (NEGATIVE) 01/07/18 11:10 Urine Bilirubin Negative (NEGATIVE) 01/07/18 11:10 Urine Urobilinogen Normal (NORMAL) 01/07/18 11:10 Ur Leukocyte Esterase 1+ (NEGATIVE) 01/07/18 11:10 Urine RBC 3-5 /HPF (NONE SEEN) 01/07/18 11:10 Urine WBC 0-2 /HPF (NONE SEEN) 01/07/18 11:10 Ur Squamous Epith Cells Rare /HPF (NEGATIVE) 01/07/18 11:10 Amorphous Sediment 1+ /HPF (NEGATIVE) 01/06/18 13:29 Urine Bacteria Negative /HPF (NEGATIVE) 01/07/18 11:10 Ur Culture Indicated? No/not indicated 01/07/18 11:10 Stool Description 10g solid brown 01/07/18 14:13 Stl Occult Blood (IFOB) Positive (NEGATIVE) A 01/07/18 14:13 Stool for White Cells Positive (NEGATIVE) A 01/07/18 14:13 Stl C. diff Tox B Gene Negative (NEGATIVE) 01/07/18 14:13 Stl C. diff [id number] Negative (NEGATIVE) 01/07/18 14:13 Cryptosporid parvum Ag Negative (NEGATIVE) 01/07/18 14:13 Giardia lamblia Ag Negative (NEGATIVE) 01/07/18 14:13 - Plan (1) Syncope Status: Acute Plan: CARDIAC ENZYMES NEGATIVE ON ADMISSION. CT HEAD ON ADMISSION, LSPINE IN ER. VERIFY HOME MEDICATION, AM LABS. BP MONITORING, BLOOD SUGAR CONTROL. PAIN CONTROL, BLOOD AND URINE CULTURES ORDERED. CT HIP, CTA LOWER EXTREMITIES (2) Hip pain Status: Acute (3) Hypertension Status: Chronic Qualifiers: Hypertension type: unspecified Qualified Code(s): I10 - Essential (primary ) hypertension (4) Diabetes mellitus Status: Chronic (5) CHF (congestive heart failure) Status: Chronic (6) COPD (chronic obstructive pulmonary disease) Status: Chronic Qualifiers: COPD type: chronic bronchitis (7) Fever Status: Acute (8) Decreased sensation of lower extremity Status: Acute
--- NOTE | 2018-01-09 13:04 | PCM.PROG ---
Progress Note - Progress Note for Day of Date of Exam: 01/09/18 - Subjective Subjective: 72 WF ER ADMISSION ON 01/06 WITH CO LEFT HIP PAIN AND CO UNABLE GET UP USING LEFT HIP. PT STATES "I FELL BACK ON THE BED" "I PASSED OUT". PT HAD CT HEAD IN ER W/O ACUTE CHANGES. PT HAD L SPINE SERIES WITH DDD. PT HAS CT LEFT HIP WITH ACUTE CHANGES, DR SHABAZZ CONSULTED FOR NEW FRACUTRE FINDINGS. PT CO FEELING WEAK ALL OVER AND TIRED.PT CO DIARRHEA FOR SEVERAL DAYS ADN WEAKNESS FOLLOWED, STOOL STUDIES +SALMONELLA, PT SARTED ON IV LEVAQUIN. - Past Medical Family Social History Past Med/Fam/Surg Hx: No changes since H&P Allergies: Allergies No Known Drug Allergies Allergy (Verified 01/06/18 12:40) - Review of Systems ROS: No change since H&P - Vital Signs and I&O's Vital Signs: Temperature 98.3 F Pulse Rate [Right Brachial] 61 Pulse Rate [Right Dorsalis 82 Pedis] Pulse Rate [Apical] 68 Pulse Rate 98 Respiratory Rate 24 Blood Pressure [Left Arm] 148/65 Blood Pressure [Right Arm] 123/63 Blood Pressure 131/68 O2 Sat by Pulse Oximetry 90 Intake and Output: Intake & Output 01/07/18 01/08/18 01/09/18 01/10/18 11:59 11:59 11:59 11:59 Intake Total 1352 / 1352 1754 / 1754 1860 / 1860 Output Total 1500 / 1500 2049 / 2049 2575 / 2575 Balance -148 / -148 -296 / -296 -715 / -715 - Physical Exam Oriented: Normal Eyes: Normal Ear: Normal Nose: Normal Throat: Normal Respiratory: Diminished Cardiovascular: Normal : Normal Auscultation: Bowel Sounds: Normal Tenderness: Normal Skin: Decreased Turgur Musculoskeletal: Right, Left, Hip, Knee, Back:Lumbar, Sensory Deficit Psychiatric: Normal Speech Pattern: Clear, Appropriate - Laboratory and Diagnostics Result Diagrams: 01/09/18 04:53 01/09/18 04:53 Labs: 01/07/18 08:47 Blood Blood Culture - Preliminary 01/07/18 08:42 Blood Blood Culture - Preliminary 01/07/18 14:13 Stool Stool Culture - Preliminary Salmonella Species 01/07/18 14:13 Stool - Final Laboratory WBC 4.5 X10^3/uL (3.6-10.0) 01/09/18 04:53 RBC 3.69 X10^6/uL (3.5-5.4) 01/09/18 04:53 Hgb 11.7 g/dL (12.0-16.0) L 01/09/18 04:53 Hct 33.6 % (36.0-47.0) L 01/09/18 04:53 MCV 91.0 fL (80.0-100.0) 01/09/18 04:53 MCH 31.7 pg (27.0-34.0) 01/09/18 04:53 MCHC 34.9 g/dL (33.0-35.0) 01/09/18 04:53 RDW 13.5 % (11.6-16.5) 01/09/18 04:53 Plt Count 144 X10^3/uL (150.0-450.0) L 01/09/18 04:53 Plt Count Comment Adequate (ADEQUATE) 01/07/18 04:56 MPV 9.0 fL (7.4-11.0) 01/09/18 04:53 Neut % (Auto) 55.9 % (42.0-75.0) 01/09/18 04:53 Lymph % (Auto) 29.6 % (21.0-51.0) 01/09/18 04:53 [place] % (Auto) 10.4 % (0.0-13.0) 01/09/18 04:53 Eos % (Auto) 3.6 % (0.9-2.9) H 01/09/18 04:53 Baso % (Auto) 0.5 % (0.2-1.0) 01/09/18 04:53 Neut # (Auto) 2.5 x10^3/uL (2.2-4.8) 01/09/18 04:53 Lymph # (Auto) 1.3 X10^3/uL (1.3-2.9) 01/09/18 04:53 [place] # (Auto) 0.5 x10^3/uL (0.3-0.8) 01/09/18 04:53 Eos # (Auto) 0.2 x10^3/uL (0.0-0.2) 01/09/18 04:53 Baso # (Auto) 0.0 X10^3/uL (0.0-0.1) 01/09/18 04:53 Absolute Nucleated RBC 0.1 /100WBC 01/09/18 04:53 Total Counted 100 01/07/18 04:56 Neutrophils % (Manual) 56 % (39-76) 01/07/18 04:56 Band Neutrophils % 9 % (0-10) 01/07/18 04:56 Lymphocytes % (Manual) 29 % (13-43) 01/07/18 04:56 Monocytes % (Manual) 6 % (4-9) 01/07/18 04:56 Eosinophils % (Manual) Cancelled 01/08/18 05:04 Basophils % (Manual) Cancelled 01/08/18 05:04 Metamyelocytes % Cancelled 01/08/18 05:04 Myelocytes % Cancelled 01/08/18 05:04 Promyelocytes % Cancelled 01/08/18 05:04 Nucleated RBCs Cancelled 01/08/18 05:04 Atypical Lymphocytes Cancelled 01/08/18 05:04 Blast Cells Cancelled 01/08/18 05:04 Smudge Cells Cancelled 01/08/18 05:04 Toxic Granulation Cancelled 01/08/18 05:04 Dohle Bodies Cancelled 01/08/18 05:04 Ivette Rods Cancelled 01/08/18 05:04 Plt Clumps, EDTA Cancelled 01/08/18 05:04 Giant Platelets Cancelled 01/08/18 05:04 Plt Morphology Comment Normal (NORMAL) 01/07/18 04:56 RBC Morphology Normal (NORMAL) 01/07/18 04:56 Dimorphic RBCs Cancelled 01/08/18 05:04 Polychromasia Cancelled 01/08/18 05:04 Hypochromasia Cancelled 01/08/18 05:04 Poikilocytosis Cancelled 01/08/18 05:04 Basophilic Stippling Cancelled 01/08/18 05:04 Anisocytosis Cancelled 01/08/18 05:04 Microcytosis Cancelled 01/08/18 05:04 Macrocytosis Cancelled 01/08/18 05:04 Spherocytes Cancelled 01/08/18 05:04 Pappenheimer Bodies Cancelled 01/08/18 05:04 Sickle Cells Cancelled 01/08/18 05:04 Target Cells Cancelled 01/08/18 05:04 Tear Drop Cells Cancelled 01/08/18 05:04 Ovalocytes Cancelled 01/08/18 05:04 Stomatocytes Cancelled 01/08/18 05:04 Helmet Cells Cancelled 01/08/18 05:04 [place] Bodies Cancelled 01/08/18 05:04 [place] Rings Cancelled 01/08/18 05:04 [place] Cells Cancelled 01/08/18 05:04 Crenated Cell Cancelled 01/08/18 05:04 Acanthocytes (Spur) Cancelled 01/08/18 05:04 Rouleaux Cancelled 01/08/18 05:04 Schistocytes Cancelled 01/08/18 05:04 INR Target Range - 01/06/18 13:01 INR 0.99 (0.8-1.3) 01/06/18 13:01 APTT 29.0 SECONDS (22.9-36.5) 01/06/18 13:01 PTT Comment - 01/06/18 13:01 Sodium 140 mmol/L (136-145) 01/09/18 04:53 Corrected Sodium 141 mmol/L (136-145) 01/09/18 04:53 Potassium 3.5 mmol/L (3.5-5.1) 01/09/18 04:53 Chloride 104 mmol/L (98-107) 01/09/18 04:53 Carbon Dioxide 33.0 mmol/L (21-32) H 01/09/18 04:53 BUN 10 mg/dL (7-18) 01/09/18 04:53 Creatinine 0.77 mg/dL (0.55-1.02) 01/09/18 04:53 Est GFR (MDRD) Af Amer > 60 (>60) 01/09/18 04:53 Est GFR (MDRD) Non-Af > 60 (>60) 01/09/18 04:53 Glucose 141 mg/dL (65-99) H 01/09/18 04:53 POC Glucose (mg/dL) 230 mg/dL (65-99) H 01/09/18 11:19 Calcium 7.9 mg/dL (8.5-10.1) L 01/09/18 04:53 Corrected Calcium 9.4 mg/dL (8.5-10.1) 01/09/18 04:53 Magnesium 2.4 mg/dL (1.7-2.9) 01/09/18 04:53 Total Bilirubin 0.20 mg/dL (0.2-1.0) 01/09/18 04:53 AST 13 Units/L (15-37) L 01/09/18 04:53 ALT 18 Units/L (12-78) 01/09/18 04:53 Alkaline Phosphatase 111 Units/L (46-116) 01/09/18 04:53 Creatine Kinase 27 Units/L (26-192) 01/06/18 13:01 CK-MB (CK-2) < 1.0 ng/mL (0-4.0) 01/06/18 13:01 CK/CKMB % Calc 3.7 % (<4) 01/06/18 13:01 Troponin I < 0.02 ng/mL (0-1.5) 01/06/18 13:01 C-Reactive Protein 80.00 mg/L (0-3.0) H 01/06/18 13:01 Total Protein 5.7 g/dL (6.4-8.2) L 01/09/18 04:53 Albumin 2.1 g/dL (3.4-5.0) L 01/09/18 04:53 Globulin 3.6 g/dL (2.5-4.5) 01/09/18 04:53 Albumin/Globulin Ratio 0.6 Ratio (1.1-2.1) L 01/09/18 04:53 Amylase 22 Units/L (25-115) L 01/06/18 13:01 Lipase 115 Units/L (73-393) 01/06/18 13:01 Specimen Type Catherized urine 01/07/18 11:10 Urine Color Pale yellow (YELLOW) 01/07/18 11:10 Urine Appearance Slightly hazy (CLEAR) 01/07/18 11:10 Urine pH 5.0 (5.0 - 8.0) 01/07/18 11:10 Ur Specific [place] 1.010 (1.000-1.030) 01/07/18 11:10 Urine Protein Negative (NEGATIVE) 01/07/18 11:10 Urine Glucose (UA) 3+ (NEGATIVE) 01/07/18 11:10 Urine Ketones Negative (NEGATIVE) 01/07/18 11:10 Urine Occult Blood 4+ (NEGATIVE) 01/07/18 11:10 Urine Nitrite Negative (NEGATIVE) 01/07/18 11:10 Urine Bilirubin Negative (NEGATIVE) 01/07/18 11:10 Urine Urobilinogen Normal (NORMAL) 01/07/18 11:10 Ur Leukocyte Esterase 1+ (NEGATIVE) 01/07/18 11:10 Urine RBC 3-5 /HPF (NONE SEEN) 01/07/18 11:10 Urine WBC 0-2 /HPF (NONE SEEN) 01/07/18 11:10 Ur Squamous Epith Cells Rare /HPF (NEGATIVE) 01/07/18 11:10 Amorphous Sediment 1+ /HPF (NEGATIVE) 01/06/18 13:29 Urine Bacteria Negative /HPF (NEGATIVE) 01/07/18 11:10 Ur Culture Indicated? No/not indicated 01/07/18 11:10 Stool Description 10g solid brown 01/07/18 14:13 Stl Occult Blood (IFOB) Positive (NEGATIVE) A 01/07/18 14:13 Stool for White Cells Positive (NEGATIVE) A 01/07/18 14:13 Stl C. diff Tox B Gene Negative (NEGATIVE) 01/07/18 14:13 Stl C. diff [id number] Negative (NEGATIVE) 01/07/18 14:13 Cryptosporid parvum Ag Negative (NEGATIVE) 01/07/18 14:13 Giardia lamblia Ag Negative (NEGATIVE) 01/07/18 14:13 - Plan (1) Syncope Status: Acute Plan: CARDIAC ENZYMES NEGATIVE ON ADMISSION. CT HEAD ON ADMISSION, LSPINE IN ER. AM LABS. BP MONITORING, BLOOD SUGAR CONTROL. PAIN CONTROL, BLOOD AND URINE CULTURES ORDERED. LEFT HIP FRACUTRE, ORTHO CONSULT, STOOL + SALMONELLA PT STARTED ON IV LEVAQUIN (2) Salmonella Status: Acute (3) Closed left hip fracture Status: Acute (4) Hip pain Status: Acute (5) Hypertension Status: Chronic Qualifiers: Hypertension type: unspecified Qualified Code(s): I10 - Essential (primary ) hypertension (6) Diabetes mellitus Status: Chronic (7) CHF (congestive heart failure) Status: Chronic (8) COPD (chronic obstructive pulmonary disease) Status: Chronic Qualifiers: COPD type: chronic bronchitis (9) Fever Status: Acute (10) Decreased sensation of lower extremity Status: Acute
[2018-01-09] MEDS: ZyrTEC TAB 10 MG PO SCH (21:12)
[2018-01-09] MEDS: XANAX PO SCH (21:13)
[2018-01-10 05:16] LABS: BASOPHILS % (AUTO) 0.4 % (0.2-1.0); EOSINOPHILS # (AUTO) 0.2 x10^3/uL (0.0-0.2); EOSINOPHILS % (AUTO) 3.8 % (0.9-2.9); HEMATOCRIT 34.4 % (36.0-47.0); HEMOGLOBIN 11.8 g/dL (12.0-16.0); LYMPHOCYTES # (AUTO) 1.7 X10^3/uL (1.3-2.9); LYMPHOCYTES % (AUTO) 29.9 % (21.0-51.0); MEAN CORPUSCULAR HGB CONC 34.1 g/dL (33.0-35.0); MEAN CORPUSCULAR VOLUME 90.8 fL (80.0-100.0); MEAN PLATELET VOLUME 8.4 fL (7.4-11.0); MONOCYTES # (AUTO) 0.5 x10^3/uL (0.3-0.8); NEUTROPHILS # (AUTO) 3.2 x10^3/uL (2.2-4.8); NEUTROPHILS % (AUTO) 56.9 % (42.0-75.0); PLATELET COUNT 164 X10^3/uL (150.0-450.0); RED BLOOD COUNT 3.79 X10^6/uL (3.5-5.4); RED CELL DISTRIBUTION WIDTH 13.6 % (11.6-16.5); WHITE BLOOD COUNT 5.7 X10^3/uL (3.6-10.0)
[2018-01-10 05:24] LABS: ALANINE AMINOTRANSFERASE 19 Units/L (12-78); ALBUMIN 2.2 g/dL (3.4-5.0); ALKALINE PHOSPHATASE 113 Units/L (46-116); ASPARTATE AMINO TRANSFERASE 14 Units/L (15-37); BLOOD UREA NITROGEN 9 mg/dL (7-18); CALCIUM 8.3 mg/dL (8.5-10.1); CARBON DIOXIDE 34.8 mmol/L (21-32); CHLORIDE 107 mmol/L (98-107); COR CA(FOR HYPOALB) 9.7 mg/dL (8.5-10.1); COR NA(FOR HYPERGLY) 145 mmol/L (136-145); CREATININE 0.88 mg/dL (0.55-1.02); SODIUM 144 mmol/L (136-145); TOTAL PROTEIN 5.8 g/dL (6.4-8.2); eGFR NON BLACK RACES > 60 (>60)
[2018-01-10] MEDS: DIOVAN TAB 80 MG PO SCH (08:43)
[2018-01-10] MEDS: GLUCOTROL PO SCH (08:43)
[2018-01-10] MEDS: COREG TAB 12.5 MG PO SCH (08:43)
[2018-01-10] MEDS: AMARYL TAB 4 MG PO SCH (08:43)
[2018-01-10] MEDS: ELAVIL PO SCH (08:43)
[2018-01-10] MEDS: LEVAQUIN PREMIX IV 500 MG 500 MG/100 ML BAG IV SCH (08:44)
[2018-01-10] MEDS: LASIX PO SCH (08:44)
[2018-01-10] MEDS: LOVENOX INJ 40 MG SYR SC SCH (08:44)
[2018-01-10] MEDS: PATIENT'S HOME MEDICATION (Memantine [Namenda Xr] 28 MG) PO SCH (08:45)
[2018-01-10] MEDS: MICRO K EXTEN CAP 10 MEQ PO SCH (08:45)
[2018-01-10] MEDS: LYRICA CAP 100 MG PO SCH (08:45)
[2018-01-10] MEDS: PriLOSEC PO SCH (08:46)
[2018-01-10] MEDS: MOBIC TAB 15 MG PO SCH (08:46)
[2018-01-10] MEDS: NS 1000 ML 1,000 ML IV SCH (08:46)
[2018-01-10] MEDS: PATIENT'S HOME MEDICATION (Solifenacin [Vesicare] 5 MG) PO SCH (08:47)
--- NOTE | 2018-01-10 09:20 | DR.CONSULT ---
Consult - Consultation for Day of: Date: 01/10/18 - Chief Complaint Chief Complaint: left hip pain. - History of Present Illness History of Present Illness: patient is 69-year-old female admitted in the hospital for dehydration and multiple falls. Patient recently had a fall and has been complaining of left hip and back pain. Was seen in the emergency room. Admitted under Dr. [place]. A CT of the both the hips were done which showed trochanter fracture on the right side. 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 Currently patient to complaining of no pain She has seen me as a followup for her right hip bipolar arthroplasty. Left hip bipolar arthroplasty and reverse shoulder arthroplasty was done in [place] about a year ago. No complications with right hip arthroplasty was noted during the regular followup. Patient ablating well without any issues. Patient is currently asymptomatic regarding the right hip. - Past Medical History Past Medical History: Hypertension, Dyslipidemia, Diabetes, COPD, Sleep Apnea, CHF - Past Surgical History Surgical History: Cholecystectomy, Hysterectomy, Ortho Surgery - Family History Family Medical History: Cancer - Social History Does patient currently use any type of tobacco product: No Have you used tobacco products in the last 12 months: No Type of Tobacco Use: None Does any household member use tobacco: No Alcohol Use: None Drug Use: None - Medications Home Medications: No Known Drug Allergies Allergy (Verified 01/06/18 12:40) CONTINUE taking the following medications Home Medica 2 mg SQ WEEKLY 01/06/18 [History] alprazolam 0.25 mg PO HS 01/06/18 [History] amitriptyline 100 mg PO QDAY 01/06/18 [History] canagliflozin [Invokana] 300 mg PO QAM 01/06/18 [History] carvedilol 25 mg PO BID 01/06/18 [History] cyclobenzaprine 10 mg PO DAILY 01/06/18 [History] docusate sodium [Colace] 100 mg PO QHS 01/06/18 [History] donepezil 10 mg PO QHS 01/06/18 [History] ezetimibe [Zetia] 10 mg PO QDAY 01/06/18 [History] furosemide 40 mg PO DAILY 01/06/18 [History] glimepiride 2 mg PO QAM 01/06/18 [History] glipizide 5 mg PO BID 01/06/18 [History] hydrocodone-acetaminophen [[employer]] 1 tab PO Q4-6H PRN 01/06/18 [History] levocetirizine 2.5 mg PO QHS 01/06/18 [History] meloxicam 15 mg PO QDAY 01/06/18 [History] memantine [Namenda XR] 28 mg PO QDAY 01/06/18 [History] omeprazole 20 mg PO QDAY 01/06/18 [History] potassium chloride 10 meq PO QDAY 01/06/18 [History] pregabalin [Lyrica] 100 mg PO BID 01/06/18 [History] ropinirole 0.25 mg PO TID 01/06/18 [History] simvastatin 20 mg PO QHS 01/06/18 [History] solifenacin [Vesicare] 5 mg PO QDAY 01/06/18 [History] valsartan 80 mg PO QDAY 01/06/18 [History] - Physical Exam Vital Signs: Temperature 98.7 F Pulse Rate [Right Brachial] 65 Pulse Rate [Right Dorsalis 82 Pedis] Pulse Rate [Apical] 68 Pulse Rate 98 Respiratory Rate 24 Blood Pressure [Left Arm] 146/70 Blood Pressure [Right Arm] 123/63 Blood Pressure 131/68 O2 Sat by Pulse Oximetry 95 Musculoskeletal: Right, Hip (no bruising or swelling or deformity noted on the right hip. Normal gait. Range of motion is normal. SLR negative. No tenderness on the trochanter region.) - Plan Plan: CT scan were reviewed. It shows a well fixed bipolar hemiarthroplasty. On the right side that as a trochanter fracture. Clinically the patient is asymptomatic. this can be treated conservatively without any operative intervention at this time. We will keep an close watch her. Followup in 3 months with x-rays. Earlier in case of any concerns. - Allergies Allergies/Adverse Reactions: Allergies Allergy/AdvReac Type Severity Reaction Status Date / Time No Known Drug Allergies Allergy Verified 01/06/18 12:40
[2018-01-10 13:13] VITALS: BP 151/68
== END 2018-01-10 13:40 | disposition home health service (06) ==
LOC: ER 12:32 → MED/SURG 12:32
PROVIDERS: ADMIT Internal Medicine; ATTEND Internal Medicine
DX: K52.89 Other specified noninfective gastroenteritis and colitis; I50.9 Heart failure, unspecified; R55 Syncope and collapse; W18.39XA Other fall on same level, initial encounter; R42 Dizziness and giddiness; E86.0 Dehydration; A02.8 Other specified salmonella infections; M25.552 Pain in left hip; R20.8 Other disturbances of skin sensation; R53.1 Weakness; R79.82 Elevated C-reactive protein (CRP); E11.65 Type 2 diabetes mellitus with hyperglycemia; J44.9 Chronic obstructive pulmonary disease, unspecified; E78.2 Mixed hyperlipidemia; I10 Essential (primary) hypertension; S72.101A Unspecified trochanteric fracture of right femur, initial encounter for closed fracture; R94.31 Abnormal electrocardiogram [ECG] [EKG]; K92.1 Melena; R26.89 Other abnormalities of gait and mobility; R29.6 Repeated falls
CPT/HCPCS: 36415; 51702; 70450; 72131; 73700; 73706; 80053; 81001; 82150; 82270; 82550; 82553; 83630; 83690; 83735; 84484; 85025; 85610; 85730; 86140; 87040; 87045; 87077; 87186; 87328; 87329; 87427; 87449; 87493; 87899; 93005; 93010; 94760; 96365; 97110; 97116; 97163; 97167; 97530; 97535; 99218; 99284; A4217; A4222; G0378; J1650; J1956; J3490; J7030; J8499

== ENCOUNTER 2018-01-22 15:17 | Inpatient (IN) ==
[2018-01-22] MEDS ORDERED: PHARMACY CONSULT - DOSE _____ XX SCH (16:00)
[2018-01-22] MEDS: NS 1000 ML 1,000 ML IV SCH (16:23)
--- NOTE | 2018-01-22 16:38 | RAD ---
HISTORY: Shortness of breath and fever Study: Single view of the chest. Comparison: None. Findings: The cardiomediastinal silhouette is normal. Blunting of the left costophrenic angle. No definite cons olidation. Osseous structures demonstrate no acute abnormality. IMPRESSION: 1. Trace left pleural effusion Reported By:
[2018-01-22 16:45] LABS: ALBUMIN 2.5 g/dL (3.4-5.0); CALCIUM 8.2 mg/dL (8.5-10.1); COR CA(FOR HYPOALB) 9.4 mg/dL (8.5-10.1); CREATININE 1.31 mg/dL (0.55-1.02); TOTAL PROTEIN 6.4 g/dL (6.4-8.2)
[2018-01-22 16:49] LABS: BASOPHILS # (AUTO) 0.1 X10^3/uL (0.0-0.1); BASOPHILS % (AUTO) 0.5 % (0.2-1.0); EOSINOPHILS # (AUTO) 0.1 x10^3/uL (0.0-0.2); HEMATOCRIT 34.8 % (36.0-47.0); LYMPHOCYTES # (AUTO) 1.1 X10^3/uL (1.3-2.9); LYMPHOCYTES % (AUTO) 10.4 % (21.0-51.0); MEAN CORPUSCULAR HEMOGLOBIN 31.7 pg (27.0-34.0); MEAN CORPUSCULAR HGB CONC 34.6 g/dL (33.0-35.0); MEAN CORPUSCULAR VOLUME 91.5 fL (80.0-100.0); MEAN PLATELET VOLUME 8.9 fL (7.4-11.0); MONOCYTES % (AUTO) 9.3 % (0.0-13.0); NEUTROPHILS # (AUTO) 8.2 x10^3/uL (2.2-4.8); NEUTROPHILS % (AUTO) 78.8 % (42.0-75.0); PLATELET COUNT 166 X10^3/uL (150.0-450.0); RED CELL DISTRIBUTION WIDTH 13.7 % (11.6-16.5); WHITE BLOOD COUNT 10.4 X10^3/uL (3.6-10.0)
[2018-01-22 16:51] VITALS: BMI 32.9
[2018-01-22] MEDS ORDERED: LEVAQUIN PREMIX IV 750 MG 750 MG/150 ML BAG IV SCH (17:00)
--- NOTE | 2018-01-22 17:40 | DR.H&P ---
H&P - History & Physical for Day of: H&P Date: 01/22/18 - Chief Complaint Chief Complaint: FEVER, SOB, WEAKNESS - History of Present Illness History of Present Illness: 72 WF DIRECT ADMIT FROM DR DUMAS OFFICE AFTER PRESENTING FOR A FOLLOW UP ON SALMONELLA INFECTION. PT HAS TAKEN LEVAQUIN SINCE 01/10 WITH IMPROVEMENT IN GI SYMPTOMS, HOWEVER STARTED WITH HIGH FEVER AND SOB THIS AM AND DECREASED URINARY OUTPT. PT TEMP 103 IN OFFICE, GIVEN PO TYLENOL ES 500X 1 DOSE. PT HAD DIFFUSE WEAKNESS. PT HAS PMH OF CAD, CHF, DM, COPD, OA, RLS, ELIAS, HTN. PT ADMITTED FOR TREATMENT OF ACUTE ILLNESS, R/O SEPSIS. - Past Medical History Past Medical History: Hypertension, Dyslipidemia, Diabetes, COPD, Sleep Apnea, CHF - Past Surgical History Surgical History: Cholecystectomy, Hysterectomy, Ortho Surgery - Family History Family Medical History: Cancer - Social History Does patient currently use any type of tobacco product: No Have you used tobacco products in the last 12 months: No Type of Tobacco Use: None Does any household member use tobacco: No Alcohol Use: None - Medications Home Medications: No Known Drug Allergies Allergy (Verified 01/06/18 12:40) - Review of Systems Constitutional: Fever, Weakness, Malaise Eyes: No Symptoms Reported ENT: No Symptoms Reported Respiratory: Shortness of Breath Cardiovascular: No Symptoms Reported Gastrointestinal: Nausea Genitourinary: Retention Musculoskeletal: Back Pain, Leg Pain Skin: No Symptoms Reported Neurological: Weakness - Physical Exam Vital Signs: Temperature 99.9 F Pulse Rate [Left Brachial] 73 Respiratory Rate 21 Blood Pressure [Left Arm] 106/56 Blood Pressure [Right Arm] 123/63 Blood Pressure 151/68 O2 Sat by Pulse Oximetry 97 Oriented: Normal Eyes: Normal Ear: Normal Nose: Normal Throat: Dry Respiratory: RLL Diminished, LLL Diminished Cardiovascular: Normal. negative: Edema : Normal Palpation: Normal Tenderness: Normal Skin: Decreased Turgur Musculoskeletal: Left, Hip, Back:Lumbar, Motor Deficit, Sensory Deficit, Instability Psychiatric: Normal Mood Description: Calm Speech Pattern: Clear, Appropriate - Assessment/Plan (1) SOB (shortness of breath) Status: Acute Plan: ADMIT ICU, CARDIAC AND BP MONITORING. RESP CONSULT, FLU SWAB. FEVER CONTROL, BLOOD AND URINE CULTURES. IV LEVAQUIN, GENTLE IV HYDRATION. SEE PREVIOUS STOOL CULTURE REPORT. VERIFY HOME MEDS (2) Fever Status: Acute (3) Urinary retention Status: Acute (4) Hypertension Qualifiers: Hypertension type: unspecified Qualified Code(s): I10 - Essential (primary ) hypertension Status: Chronic (5) Diabetes mellitus Status: Chronic (6) CHF (congestive heart failure) Status: Chronic (7) COPD (chronic obstructive pulmonary disease) Qualifiers: COPD type: chronic bronchitis Status: Chronic - Allergies Allergies/Adverse Reactions: Allergies Allergy/AdvReac Type Severity Reaction Status Date / Time No Known Drug Allergies Allergy Verified 01/06/18 12:40
[2018-01-22 18:10] LABS: ABG ALLEN TEST POS; ABG BASE EXCESS 9.1 mmol/L (-2.0-2.0); ABG HCO3 35.5 mmol/L (22-26); FRACTIONATED INSPIRED OXYGEN 28
[2018-01-22] MEDS: XANAX PO SCH (21:02)
[2018-01-22] MEDS: REQUIP PO SCH (21:02)
[2018-01-22] MEDS: ARICEPT TAB 10 MG PO SCH (21:02)
[2018-01-22] MEDS: ZOCOR TAB 20 MG PO SCH (21:02)
[2018-01-22] MEDS: COREG TAB 12.5 MG PO SCH (21:02)
[2018-01-22] MEDS: LYRICA CAP 50 MG PO SCH (21:02)
[2018-01-22] MEDS: ZyrTEC TAB 10 MG PO SCH (21:02)
[2018-01-22] MEDS: COLACE CAP 100 MG PO SCH (21:03)
[2018-01-23 04:05] LABS: BILIRUBIN,URINE NEGATIVE (NEGATIVE); BLOOD/HEMOGLOBIN,URINE 4+ (NEGATIVE); GLUCOSE, URINE NEGATIVE (NEGATIVE); KETONES,URINE NEGATIVE (NEGATIVE); LEUKOCYTE ESTERASE ,URINE 3+ (NEGATIVE); NITRITES,URINE POSITIVE (NEGATIVE); PROTEIN,URINE 3+ (NEGATIVE); UROBILINOGEN,URINE NORMAL (NORMAL)
[2018-01-23 04:16] LABS: APPEARANCE,URINE CLOUDY (CLEAR); BACTERIA,URINE 3+ /HPF (NEGATIVE); COLOR,URINE YELLOW (YELLOW); RBC,URINE TNTC /HPF (NONE SEEN); SQUAMOUS EPITHELIAL CELL,UR MANY /HPF (NEGATIVE)
[2018-01-23 05:18] LABS: BASOPHILS % (AUTO) 0.2 % (0.2-1.0); EOSINOPHILS # (AUTO) 0.1 x10^3/uL (0.0-0.2); EOSINOPHILS % (AUTO) 0.8 % (0.9-2.9); HEMATOCRIT 37.4 % (36.0-47.0); HEMOGLOBIN 12.7 g/dL (12.0-16.0); LYMPHOCYTES # (AUTO) 0.8 X10^3/uL (1.3-2.9); LYMPHOCYTES % (AUTO) 8.4 % (21.0-51.0); MEAN CORPUSCULAR HEMOGLOBIN 31.6 pg (27.0-34.0); MEAN CORPUSCULAR HGB CONC 34.1 g/dL (33.0-35.0); MEAN CORPUSCULAR VOLUME 92.6 fL (80.0-100.0); MEAN PLATELET VOLUME 9.7 fL (7.4-11.0); MONOCYTES # (AUTO) 0.9 x10^3/uL (0.3-0.8); MONOCYTES % (AUTO) 9.7 % (0.0-13.0); NEUTROPHILS # (AUTO) 7.5 x10^3/uL (2.2-4.8); NEUTROPHILS % (AUTO) 80.9 % (42.0-75.0); PLATELET COUNT 126 X10^3/uL (150.0-450.0); RED BLOOD COUNT 4.04 X10^6/uL (3.5-5.4); RED CELL DISTRIBUTION WIDTH 13.9 % (11.6-16.5); WHITE BLOOD COUNT 9.3 X10^3/uL (3.6-10.0)
[2018-01-23 05:21] LABS: ALBUMIN 2.6 g/dL (3.4-5.0); CALCIUM 8.3 mg/dL (8.5-10.1); COR CA(FOR HYPOALB) 9.4 mg/dL (8.5-10.1); CREATININE 1.18 mg/dL (0.55-1.02); TOTAL PROTEIN 7.1 g/dL (6.4-8.2)
--- NOTE | 2018-01-23 05:22 | RAD ---
Chest, one view Indication: Shortness of breath, fever Comparison: 01/22/2018 Findings: There is mild cardiac silhouette enlargement. There are diffuse interstitial coarsening thr oughout both lungs. No dense infiltrate or significant pleural effusion. Previous left shoulder arthr oplasty noted. Impression: Diffuse interstitial prominence suggesting mild edema or atypical infection. Reported By:
[2018-01-23 05:38] LABS: PLATELET MORPHOLOGY COMMENT NORMAL (NORMAL)
[2018-01-23] MEDS ORDERED: OFIRMEV IV 1000 MG VIAL 1,000 MG/100 ML VIAL IV ONE (05:42)
[2018-01-23] MEDS ORDERED: OFIRMEV IV 1000 MG VIAL 750 MG/75 ML VIAL IV ONE (05:47)
[2018-01-23 05:54] LABS: CKMB % 0.7 % (<4); CREATINE KINASE 155 Units/L (26-192); CREATINE KINASE MB 1.1 ng/mL (0-4.0); TROPONIN I < 0.02 ng/mL (0-1.5)
[2018-01-23 05:56] LABS: ABG BASE EXCESS 4.9 mmol/L (-2.0-2.0); ABG HCO3 33.8 mmol/L (22-26)
[2018-01-23 05:57] LABS: ABG ALLEN TEST POS; FRACTIONATED INSPIRED OXYGEN 100
[2018-01-23 06:45] LABS: BILIRUBIN,URINE NEGATIVE (NEGATIVE); BLOOD/HEMOGLOBIN,URINE 4+ (NEGATIVE); GLUCOSE, URINE NEGATIVE (NEGATIVE); KETONES,URINE NEGATIVE (NEGATIVE); LEUKOCYTE ESTERASE ,URINE 3+ (NEGATIVE); NITRITES,URINE POSITIVE (NEGATIVE); PROTEIN,URINE 3+ (NEGATIVE); UROBILINOGEN,URINE NORMAL (NORMAL)
[2018-01-23 07:01] LABS: APPEARANCE,URINE CLOUDY (CLEAR); COLOR,URINE YELLOW (YELLOW)
[2018-01-23 07:02] LABS: BACTERIA,URINE 2+ /HPF (NEGATIVE); RBC,URINE TNTC /HPF (NONE SEEN); SQUAMOUS EPITHELIAL CELL,UR RARE /HPF (NEGATIVE)
[2018-01-23 08:16] LABS: ABG ALLEN TEST POS; ABG BASE EXCESS 7.6 mmol/L (-2.0-2.0); ABG HCO3 34.7 mmol/L (22-26); FRACTIONATED INSPIRED OXYGEN 50
[2018-01-23] MEDS ORDERED: SALINE 3% 15 ML NEB TX ONE (08:23)
[2018-01-23] MEDS ORDERED: SALINE 3% 15 ML NEB TX NEB ONE (08:25)
[2018-01-23] MEDS ORDERED: LASIX IVP ONE (08:42)
[2018-01-23] MEDS: LASIX PO SCH (08:43)
[2018-01-23] MEDS: COREG TAB 12.5 MG PO SCH ×2 (09:50→21:21)
[2018-01-23] MEDS: PriLOSEC PO SCH (09:51)
[2018-01-23] MEDS: ZETIA TAB 10 MG PO SCH (09:51)
[2018-01-23] MEDS: LYRICA CAP 50 MG PO SCH ×2 (09:52→21:20)
[2018-01-23] MEDS: MICRO K EXTEN CAP 10 MEQ PO SCH (09:52)
[2018-01-23] MEDS: ELAVIL PO SCH (09:53)
[2018-01-23] MEDS: DIOVAN TAB 80 MG PO SCH (09:53)
[2018-01-23] MEDS: REQUIP PO SCH ×2 (10:01→21:20)
[2018-01-23] MEDS: PATIENT'S HOME MEDICATION (Memantine [Namenda Xr] 28 MG) PO SCH (10:15)
[2018-01-23] MEDS: LOVENOX INJ 40 MG SYR SC SCH (12:22)
[2018-01-23] MEDS: NS 1000 ML 1,000 ML IV SCH ×2 (14:22→21:21)
[2018-01-23] MEDS: ARICEPT TAB 10 MG PO SCH (21:20)
[2018-01-23] MEDS: ZyrTEC TAB 10 MG PO SCH (21:20)
[2018-01-23] MEDS: COLACE CAP 100 MG PO SCH (21:20)
[2018-01-23] MEDS: ZOCOR TAB 20 MG PO SCH (21:21)
[2018-01-23] MEDS: XANAX PO SCH (21:21)
[2018-01-23] MEDS: HumuLIN R SUBCUT PRN (21:21)
[2018-01-24] MEDS: NORCO 10/325 TAB PO PRN ×2 (03:52→15:31)
[2018-01-24 05:07] LABS: BASOPHILS % (AUTO) 0.4 % (0.2-1.0); EOSINOPHILS # (AUTO) 0.1 x10^3/uL (0.0-0.2); EOSINOPHILS % (AUTO) 1.5 % (0.9-2.9); HEMATOCRIT 32.2 % (36.0-47.0); HEMOGLOBIN 11.1 g/dL (12.0-16.0); LYMPHOCYTES # (AUTO) 0.9 X10^3/uL (1.3-2.9); LYMPHOCYTES % (AUTO) 15.7 % (21.0-51.0); MEAN CORPUSCULAR HEMOGLOBIN 31.8 pg (27.0-34.0); MEAN CORPUSCULAR HGB CONC 34.4 g/dL (33.0-35.0); MEAN CORPUSCULAR VOLUME 92.4 fL (80.0-100.0); MEAN PLATELET VOLUME 10.2 fL (7.4-11.0); MONOCYTES # (AUTO) 0.7 x10^3/uL (0.3-0.8); MONOCYTES % (AUTO) 13.1 % (0.0-13.0); NEUTROPHILS # (AUTO) 3.9 x10^3/uL (2.2-4.8); NEUTROPHILS % (AUTO) 69.3 % (42.0-75.0); PLATELET COUNT 126 X10^3/uL (150.0-450.0); RED BLOOD COUNT 3.49 X10^6/uL (3.5-5.4); RED CELL DISTRIBUTION WIDTH 13.4 % (11.6-16.5); WHITE BLOOD COUNT 5.6 X10^3/uL (3.6-10.0)
[2018-01-24 05:27] LABS: ALANINE AMINOTRANSFERASE 37 Units/L (12-78); ALKALINE PHOSPHATASE 169 Units/L (46-116); ASPARTATE AMINO TRANSFERASE 41 Units/L (15-37); BLOOD UREA NITROGEN 18 mg/dL (7-18); CALCIUM 8.2 mg/dL (8.5-10.1); CARBON DIOXIDE 32.5 mmol/L (21-32); CHLORIDE 104 mmol/L (98-107); COR CA(FOR HYPOALB) 9.8 mg/dL (8.5-10.1); COR NA(FOR HYPERGLY) 144 mmol/L (136-145); CREATININE 0.96 mg/dL (0.55-1.02); SODIUM 142 mmol/L (136-145); eGFR NON BLACK RACES > 60 (>60)
[2018-01-24 05:46] LABS: PLATELET MORPHOLOGY COMMENT NORMAL (NORMAL)
[2018-01-24] MEDS: LYRICA CAP 50 MG PO SCH ×2 (09:50→20:33)
[2018-01-24] MEDS: LOVENOX INJ 40 MG SYR SC SCH (09:50)
[2018-01-24] MEDS: PriLOSEC PO SCH (09:50)
[2018-01-24] MEDS: MICRO K EXTEN CAP 10 MEQ PO SCH (09:51)
[2018-01-24] MEDS: ZETIA TAB 10 MG PO SCH (09:51)
[2018-01-24] MEDS: DIOVAN TAB 80 MG PO SCH (09:51)
[2018-01-24] MEDS: LASIX PO SCH (09:51)
[2018-01-24] MEDS: COREG TAB 12.5 MG PO SCH ×2 (09:51→20:32)
[2018-01-24] MEDS: REQUIP PO SCH ×2 (09:52→20:32)
[2018-01-24] MEDS: ELAVIL PO SCH (09:52)
[2018-01-24] MEDS: NS 1000 ML 1,000 ML IV SCH (10:12)
[2018-01-24] MEDS: PATIENT'S HOME MEDICATION (Memantine [Namenda Xr] 28 MG) PO SCH (10:12)
[2018-01-24 10:47] LABS: CRYPTOSPORIDIUM PARVUM ANTIGEN NEGATIVE (NEGATIVE); GIARDIA LAMBLIA ANTIGEN NEGATIVE (NEGATIVE)
[2018-01-24 10:49] LABS: STOOL FOR WBC POSITIVE (NEGATIVE)
[2018-01-24] MEDS: HumuLIN R SUBCUT PRN ×2 (12:07→20:36)
--- NOTE | 2018-01-24 13:52 | PCM.PROG ---
Progress Note - Progress Note for Day of Date of Exam: 01/23/18 - Subjective Subjective: 72 WF ADMITTED ON 01/22 WITH FEVER, WEAKNESS AND SOB. ON ADMISSION PT HAD PLEURAL EFFUSION, BLOOD AND URINE CULTURE COLLECTED, ENCOURAGED TO COLLECT SPUTUM. PT HAS UTI, CURRENTLY ON IV LEVAQUIN WITH SENSATIVITY PENDING. PT HAD EPISODE OF INCREASED RESP DISTRESS, PT ON BIPAP THIS AM, AWAKE AND RESPONSIVE. PT TO REPEAT CXR, JET NEBS, IV ABTX THERAPY, I & OS - Past Medical Family Social History Past Med/Fam/Surg Hx: No changes since H&P Allergies: Allergies No Known Drug Allergies Allergy (Verified 01/06/18 12:40) - Review of Systems ROS: No change since H&P - Vital Signs and I&O's Vital Signs: Temperature 97.2 F Pulse Rate [Left Brachial] 67 Pulse Rate 66 Respiratory Rate 28 Blood Pressure [Left Arm] 143/63 Blood Pressure [Right Arm] 129/60 Blood Pressure 146/65 O2 Sat by Pulse Oximetry 97 Intake and Output: Intake & Output 01/22/18 01/23/18 01/24/18 01/25/18 11:59 11:59 11:59 11:59 Intake Total 905 / 905 2077 / 2077 Output Total 300 / 300 1250 / 1250 Balance 605 / 605 827 / 827 - Physical Exam Oriented: Normal Eyes: Normal Ear: Normal Nose: Normal Throat: Dry Respiratory: Diminished Cardiovascular: Normal. negative: Edema : Normal Tenderness: Normal Skin: Decreased Turgur Musculoskeletal: Left, Hip, Back:Lumbar, Motor Deficit, Sensory Deficit, Instability Psychiatric: Normal Mood Description: Calm Speech Pattern: Clear, Appropriate - Laboratory and Diagnostics Result Diagrams: 01/24/18 04:00 01/24/18 04:07 Labs: 01/22/18 16:10 Blood Blood Culture - Preliminary 01/22/18 16:05 Blood Blood Culture - Preliminary 01/23/18 06:01 Urine,Clean Catch Urine Culture - Preliminary 01/24/18 09:30 Stool - Final Laboratory WBC 5.6 X10^3/uL (3.6-10.0) 01/24/18 04:00 RBC 3.49 X10^6/uL (3.5-5.4) L 01/24/18 04:00 Hgb 11.1 g/dL (12.0-16.0) L 01/24/18 04:00 Hct 32.2 % (36.0-47.0) L 01/24/18 04:00 MCV 92.4 fL (80.0-100.0) 01/24/18 04:00 MCH 31.8 pg (27.0-34.0) 01/24/18 04:00 MCHC 34.4 g/dL (33.0-35.0) 01/24/18 04:00 RDW 13.4 % (11.6-16.5) 01/24/18 04:00 Plt Count 126 X10^3/uL (150.0-450.0) L 01/24/18 04:00 Plt Count Comment Adequate (ADEQUATE) 01/24/18 04:00 MPV 10.2 fL (7.4-11.0) 01/24/18 04:00 Neut % (Auto) 69.3 % (42.0-75.0) 01/24/18 04:00 Lymph % (Auto) 15.7 % (21.0-51.0) L 01/24/18 04:00 [place] % (Auto) 13.1 % (0.0-13.0) H 01/24/18 04:00 Eos % (Auto) 1.5 % (0.9-2.9) 01/24/18 04:00 Baso % (Auto) 0.4 % (0.2-1.0) 01/24/18 04:00 Neut # (Auto) 3.9 x10^3/uL (2.2-4.8) 01/24/18 04:00 Lymph # (Auto) 0.9 X10^3/uL (1.3-2.9) L 01/24/18 04:00 [place] # (Auto) 0.7 x10^3/uL (0.3-0.8) 01/24/18 04:00 Eos # (Auto) 0.1 x10^3/uL (0.0-0.2) 01/24/18 04:00 Baso # (Auto) 0.0 X10^3/uL (0.0-0.1) 01/24/18 04:00 Absolute Nucleated RBC 0.0 /100WBC 01/24/18 04:00 Total Counted 100 01/24/18 04:00 Neutrophils % (Manual) 65 % (39-76) 01/24/18 04:00 Lymphocytes % (Manual) 25 % (13-43) 01/24/18 04:00 Monocytes % (Manual) 9 % (4-9) 01/24/18 04:00 Eosinophils % (Manual) 1 % (0-6) 01/24/18 04:00 Plt Morphology Comment Normal (NORMAL) 01/24/18 04:00 RBC Morphology Normal (NORMAL) 01/24/18 04:00 Sample Site Lr 01/23/18 08:09 ABG pH 7.370 (7.35-7.45) 01/23/18 08:09 ABG pCO2 60.0 mmHg (35.0-45.0) H* 01/23/18 08:09 ABG pO2 187.0 mmHg (80.0-100.0) H 01/23/18 08:09 ABG HCO3 34.7 mmol/L (22-26) H* 01/23/18 08:09 ABG O2 Saturation 100.0 % (90-100) 01/23/18 08:09 ABG Base Excess 7.6 mmol/L (-2.0-2.0) H 01/23/18 08:09 Wes Test Pos 01/23/18 08:09 A-a Gradient 95.0 mmHg 01/23/18 08:09 FiO2 50 01/23/18 08:09 Blood Gas Comments Pt kelli well. cdn 01/23/18 08:09 Sodium 142 mmol/L (136-145) 01/24/18 04:07 Corrected Sodium 144 mmol/L (136-145) 01/24/18 04:07 Potassium 3.8 mmol/L (3.5-5.1) 01/24/18 04:07 Chloride 104 mmol/L (98-107) 01/24/18 04:07 Carbon Dioxide 32.5 mmol/L (21-32) H 01/24/18 04:07 BUN 18 mg/dL (7-18) 01/24/18 04:07 Creatinine 0.96 mg/dL (0.55-1.02) 01/24/18 04:07 Est GFR (MDRD) Af Amer > 60 (>60) 01/24/18 04:07 Est GFR (MDRD) Non-Af > 60 (>60) 01/24/18 04:07 Glucose 164 mg/dL (65-99) H 01/24/18 04:07 POC Glucose (mg/dL) 204 mg/dL (65-99) H 01/24/18 11:49 Lactic Acid 0.6 mmol/L (0.4-2.0) 01/23/18 08:21 Calcium 8.2 mg/dL (8.5-10.1) L 01/24/18 04:07 Corrected Calcium 9.8 mg/dL (8.5-10.1) 01/24/18 04:07 Magnesium 2.0 mg/dL (1.7-2.9) 01/22/18 16:10 Total Bilirubin 0.30 mg/dL (0.2-1.0) 01/24/18 04:07 AST 41 Units/L (15-37) H 01/24/18 04:07 ALT 37 Units/L (12-78) 01/24/18 04:07 Alkaline Phosphatase 169 Units/L (46-116) H 01/24/18 04:07 Creatine Kinase 155 Units/L (26-192) 01/23/18 04:16 CK-MB (CK-2) 1.1 ng/mL (0-4.0) 01/23/18 04:16 CK/CKMB % Calc 0.7 % (<4) 01/23/18 04:16 Troponin I < 0.02 ng/mL (0-1.5) 01/23/18 04:16 Total Protein 6.0 g/dL (6.4-8.2) L 01/24/18 04:07 Albumin 2.0 g/dL (3.4-5.0) L 01/24/18 04:07 Globulin 4.0 g/dL (2.5-4.5) 01/24/18 04:07 Albumin/Globulin Ratio 0.5 Ratio (1.1-2.1) L 01/24/18 04:07 Specimen Type Catherized urine 01/23/18 06:01 Urine Color Yellow (YELLOW) 01/23/18 06:01 Urine Appearance Cloudy (CLEAR) 01/23/18 06:01 Urine pH 6.0 (5.0 - 8.0) 01/23/18 06:01 Ur Specific [place] 1.020 (1.000-1.030) 01/23/18 06:01 Urine Protein 3+ (NEGATIVE) 01/23/18 06:01 Urine Glucose (UA) Negative (NEGATIVE) 01/23/18 06:01 Urine Ketones Negative (NEGATIVE) 01/23/18 06:01 Urine Occult Blood 4+ (NEGATIVE) 01/23/18 06:01 Urine Nitrite Positive (NEGATIVE) 01/23/18 06:01 Urine Bilirubin Negative (NEGATIVE) 01/23/18 06:01 Urine Urobilinogen Normal (NORMAL) 01/23/18 06:01 Ur Leukocyte Esterase 3+ (NEGATIVE) 01/23/18 06:01 Urine RBC Tntc /HPF (NONE SEEN) 01/23/18 06:01 Urine WBC Tntc /HPF (NONE SEEN) 01/23/18 06:01 Ur Squamous Epith Cells Rare /HPF (NEGATIVE) 01/23/18 06:01 Urine Bacteria 2+ /HPF (NEGATIVE) 01/23/18 06:01 Ur Culture Indicated? Yes/culture set up 01/23/18 06:01 Stool Description >500g,unformed,oscar 01/24/18 09:30 Stl Occult Blood (IFOB) Negative (NEGATIVE) 01/24/18 09:30 Stool for White Cells Positive (NEGATIVE) A 01/24/18 09:30 Stl C. diff Tox B Gene Negative (NEGATIVE) 01/24/18 09:30 Stl C. diff [id number] Negative (NEGATIVE) 01/24/18 09:30 Cryptosporid parvum Ag Negative (NEGATIVE) 01/24/18 09:30 Giardia lamblia Ag Negative (NEGATIVE) 01/24/18 09:30 Influenza Type A (PCR) Negative (NEGATIVE) 01/22/18 19:15 Influenza Type B (PCR) Negative (NEGATIVE) 01/22/18 19:15 - Plan (1) SOB (shortness of breath) Status: Acute Plan: CARDIAC AND BP MONITORING. RESP CONSULT, FLU SWAB NEGATIVE. FEVER CONTROL, BLOOD AND URINE CULTURES SENSATIVITY PENDING. IV LEVAQUIN, GENTLE IV HYDRATION. SEE PREVIOUS STOOL CULTURE REPORT HX OF SALMONELLA. SSI (2) Fever Status: Acute (3) Urinary retention Status: Acute (4) Hypertension Status: Chronic Qualifiers: Hypertension type: unspecified Qualified Code(s): I10 - Essential (primary ) hypertension (5) Diabetes mellitus Status: Chronic (6) CHF (congestive heart failure) Status: Chronic Plan: SUPPLEMENTAL O2, STRICT I & OS. CXR Q AM, PRN BIPAP. ABG, CARDIAC MONITORING (7) COPD (chronic obstructive pulmonary disease) Status: Chronic Qualifiers: COPD type: chronic bronchitis
[2018-01-24] MEDS: LEVAQUIN PREMIX IV 750 MG 750 MG/150 ML BAG IV SCH (19:59)
[2018-01-24] MEDS: ZyrTEC TAB 10 MG PO SCH (20:31)
[2018-01-24] MEDS: ZOCOR TAB 20 MG PO SCH (20:31)
[2018-01-24] MEDS: SNACK - Diabetic Appropriate PO SCH (20:31)
[2018-01-24] MEDS: COLACE CAP 100 MG PO SCH (20:32)
[2018-01-24] MEDS: ARICEPT TAB 10 MG PO SCH (20:32)
[2018-01-24] MEDS: XANAX PO SCH (20:33)
[2018-01-24] MEDS ORDERED: STERILE WATER IRRIGATION IR ONE (20:44)
[2018-01-25] MEDS: NS 1000 ML 1,000 ML IV SCH ×2 (02:29→05:51)
[2018-01-25] MEDS ORDERED: MAALOX or MYLANTA PO PRN (05:53)
[2018-01-25 06:00] LABS: BASOPHILS % (AUTO) 0.3 % (0.2-1.0); EOSINOPHILS # (AUTO) 0.1 x10^3/uL (0.0-0.2); EOSINOPHILS % (AUTO) 1.7 % (0.9-2.9); HEMATOCRIT 29.9 % (36.0-47.0); HEMOGLOBIN 10.4 g/dL (12.0-16.0); LYMPHOCYTES # (AUTO) 0.9 X10^3/uL (1.3-2.9); MEAN CORPUSCULAR HEMOGLOBIN 31.7 pg (27.0-34.0); MEAN CORPUSCULAR HGB CONC 34.7 g/dL (33.0-35.0); MEAN CORPUSCULAR VOLUME 91.5 fL (80.0-100.0); MEAN PLATELET VOLUME 9.4 fL (7.4-11.0); MONOCYTES # (AUTO) 0.6 x10^3/uL (0.3-0.8); MONOCYTES % (AUTO) 10.7 % (0.0-13.0); NEUTROPHILS # (AUTO) 3.6 x10^3/uL (2.2-4.8); NEUTROPHILS % (AUTO) 70.3 % (42.0-75.0); PLATELET COUNT 144 X10^3/uL (150.0-450.0); RED BLOOD COUNT 3.27 X10^6/uL (3.5-5.4); RED CELL DISTRIBUTION WIDTH 13.4 % (11.6-16.5); WHITE BLOOD COUNT 5.2 X10^3/uL (3.6-10.0)
[2018-01-25 06:13] LABS: ALANINE AMINOTRANSFERASE 33 Units/L (12-78); ALBUMIN 1.9 g/dL (3.4-5.0); ALKALINE PHOSPHATASE 162 Units/L (46-116); ASPARTATE AMINO TRANSFERASE 25 Units/L (15-37); BLOOD UREA NITROGEN 14 mg/dL (7-18); CALCIUM 8.1 mg/dL (8.5-10.1); CARBON DIOXIDE 33.1 mmol/L (21-32); CHLORIDE 104 mmol/L (98-107); COR CA(FOR HYPOALB) 9.8 mg/dL (8.5-10.1); COR NA(FOR HYPERGLY) 143 mmol/L (136-145); CREATININE 0.82 mg/dL (0.55-1.02); SODIUM 142 mmol/L (136-145); TOTAL PROTEIN 5.8 g/dL (6.4-8.2); eGFR NON BLACK RACES > 60 (>60)
--- NOTE | 2018-01-25 06:45 | RAD ---
Examination: AP chest History: Fever SOB Comparison 01/23/2018 Findings: Stable heart size. Slight improvement in pulmonary aeration with minimal atelectasis remai jocelynn at the right base. Vascular congestion has improved. No consolidation or pneumothorax seen. Impression: Improvement in appearance of the lungs with slight residual atelectasis right lower lobe. Reported By:
[2018-01-25] MEDS: DIOVAN TAB 80 MG PO SCH (08:53)
[2018-01-25] MEDS: ELAVIL PO SCH (08:53)
[2018-01-25] MEDS: LASIX PO SCH (08:53)
[2018-01-25] MEDS: COREG TAB 12.5 MG PO SCH ×2 (08:53→20:04)
[2018-01-25] MEDS: MICRO K EXTEN CAP 10 MEQ PO SCH (08:53)
[2018-01-25] MEDS: PriLOSEC PO SCH (08:53)
[2018-01-25] MEDS: ZETIA TAB 10 MG PO SCH (08:53)
[2018-01-25] MEDS: LYRICA CAP 50 MG PO SCH ×2 (08:53→20:04)
[2018-01-25] MEDS: PATIENT'S HOME MEDICATION (Memantine [Namenda Xr] 28 MG) PO SCH (08:54)
[2018-01-25] MEDS: LOVENOX INJ 40 MG SYR SC SCH (08:54)
[2018-01-25] MEDS: REQUIP PO SCH ×2 (08:54→20:04)
[2018-01-25] MEDS: HumuLIN R SUBCUT PRN ×4 (11:30→20:06)
[2018-01-25] MEDS: COLACE CAP 100 MG PO SCH (20:04)
[2018-01-25] MEDS: ZOCOR TAB 20 MG PO SCH (20:04)
[2018-01-25] MEDS: ZyrTEC TAB 10 MG PO SCH (20:05)
[2018-01-25] MEDS: XANAX PO SCH (20:05)
[2018-01-25] MEDS: ARICEPT TAB 10 MG PO SCH (20:05)
[2018-01-25] MEDS: SNACK - Diabetic Appropriate PO SCH (20:05)
[2018-01-25] MEDS ORDERED: BUTT CREAM (COMPOUND) TOP PRN (21:44)
[2018-01-26] MEDS: TYLENOL 325 MG TAB PO PRN (02:42)
[2018-01-26] MEDS: NS 1000 ML 1,000 ML IV SCH (05:30)
[2018-01-26 06:30] LABS: ALANINE AMINOTRANSFERASE 27 Units/L (12-78); ALBUMIN 1.9 g/dL (3.4-5.0); ALKALINE PHOSPHATASE 158 Units/L (46-116); ASPARTATE AMINO TRANSFERASE 17 Units/L (15-37); BLOOD UREA NITROGEN 11 mg/dL (7-18); CALCIUM 8.2 mg/dL (8.5-10.1); CARBON DIOXIDE 33.9 mmol/L (21-32); CHLORIDE 104 mmol/L (98-107); COR CA(FOR HYPOALB) 9.9 mg/dL (8.5-10.1); COR NA(FOR HYPERGLY) 144 mmol/L (136-145); CREATININE 0.83 mg/dL (0.55-1.02); SODIUM 142 mmol/L (136-145); TOTAL PROTEIN 5.8 g/dL (6.4-8.2); eGFR NON BLACK RACES > 60 (>60)
[2018-01-26] MEDS: ELAVIL PO SCH (08:37)
[2018-01-26] MEDS: PriLOSEC PO SCH (08:38)
[2018-01-26] MEDS: REQUIP PO SCH ×2 (08:38→20:44)
[2018-01-26] MEDS: COREG TAB 12.5 MG PO SCH ×2 (08:38→20:44)
[2018-01-26] MEDS: MICRO K EXTEN CAP 10 MEQ PO SCH (08:38)
[2018-01-26] MEDS: DIOVAN TAB 80 MG PO SCH (08:38)
[2018-01-26] MEDS: ZETIA TAB 10 MG PO SCH (08:38)
[2018-01-26] MEDS: LASIX PO SCH (08:38)
[2018-01-26] MEDS: LYRICA CAP 50 MG PO SCH ×2 (08:38→20:44)
[2018-01-26] MEDS: LOVENOX INJ 40 MG SYR SC SCH (08:39)
[2018-01-26] MEDS: PATIENT'S HOME MEDICATION (Memantine [Namenda Xr] 28 MG) PO SCH (08:39)
[2018-01-26 08:57] LABS: BASOPHILS % (AUTO) 0.5 % (0.2-1.0); EOSINOPHILS # (AUTO) 0.1 x10^3/uL (0.0-0.2); EOSINOPHILS % (AUTO) 2.5 % (0.9-2.9); HEMATOCRIT 30.4 % (36.0-47.0); HEMOGLOBIN 10.6 g/dL (12.0-16.0); LYMPHOCYTES # (AUTO) 1.3 X10^3/uL (1.3-2.9); LYMPHOCYTES % (AUTO) 25.9 % (21.0-51.0); MEAN CORPUSCULAR HEMOGLOBIN 31.6 pg (27.0-34.0); MEAN CORPUSCULAR HGB CONC 34.8 g/dL (33.0-35.0); MEAN CORPUSCULAR VOLUME 90.9 fL (80.0-100.0); MEAN PLATELET VOLUME 8.9 fL (7.4-11.0); MONOCYTES # (AUTO) 0.6 x10^3/uL (0.3-0.8); MONOCYTES % (AUTO) 11.6 % (0.0-13.0); NEUTROPHILS # (AUTO) 3.1 x10^3/uL (2.2-4.8); NEUTROPHILS % (AUTO) 59.5 % (42.0-75.0); PLATELET COUNT 162 X10^3/uL (150.0-450.0); RED BLOOD COUNT 3.35 X10^6/uL (3.5-5.4); RED CELL DISTRIBUTION WIDTH 13.7 % (11.6-16.5); WHITE BLOOD COUNT 5.2 X10^3/uL (3.6-10.0)
[2018-01-26] MEDS ORDERED: LASIX IVP ONE (09:31)
[2018-01-26] MEDS: HumuLIN R SUBCUT PRN ×3 (11:23→20:46)
[2018-01-26] MEDS: NORCO 10/325 TAB PO PRN (16:05)
[2018-01-26] MEDS: LEVAQUIN PREMIX IV 750 MG 750 MG/150 ML BAG IV SCH (17:54)
[2018-01-26] MEDS: SNACK - Diabetic Appropriate PO SCH (20:44)
[2018-01-26] MEDS: XANAX PO SCH (20:44)
[2018-01-26] MEDS: ZOCOR TAB 20 MG PO SCH (20:44)
[2018-01-26] MEDS: ARICEPT TAB 10 MG PO SCH (20:44)
[2018-01-26] MEDS: COLACE CAP 100 MG PO SCH (20:45)
[2018-01-26] MEDS: ZyrTEC TAB 10 MG PO SCH (20:45)
[2018-01-26] MEDS ORDERED: CONSULT PHARMACY - ANTIBIOTIC XX SCH (22:00)
[2018-01-26] MEDS: MERREM VIAL 1,000 MG in NS 100 ML IV 100 ML IV SCH (22:55)
[2018-01-27] MEDS: TYLENOL 325 MG TAB PO PRN (05:32)
[2018-01-27 06:39] LABS: BASOPHILS % (AUTO) 0.5 % (0.2-1.0); EOSINOPHILS # (AUTO) 0.2 x10^3/uL (0.0-0.2); EOSINOPHILS % (AUTO) 2.8 % (0.9-2.9); HEMATOCRIT 31.2 % (36.0-47.0); HEMOGLOBIN 10.9 g/dL (12.0-16.0); LYMPHOCYTES # (AUTO) 1.2 X10^3/uL (1.3-2.9); LYMPHOCYTES % (AUTO) 17.7 % (21.0-51.0); MEAN CORPUSCULAR HEMOGLOBIN 31.3 pg (27.0-34.0); MEAN CORPUSCULAR HGB CONC 34.9 g/dL (33.0-35.0); MEAN CORPUSCULAR VOLUME 89.8 fL (80.0-100.0); MEAN PLATELET VOLUME 8.9 fL (7.4-11.0); MONOCYTES # (AUTO) 0.6 x10^3/uL (0.3-0.8); MONOCYTES % (AUTO) 9.1 % (0.0-13.0); NEUTROPHILS # (AUTO) 4.6 x10^3/uL (2.2-4.8); NEUTROPHILS % (AUTO) 69.9 % (42.0-75.0); PLATELET COUNT 189 X10^3/uL (150.0-450.0); RED BLOOD COUNT 3.48 X10^6/uL (3.5-5.4); RED CELL DISTRIBUTION WIDTH 13.4 % (11.6-16.5); WHITE BLOOD COUNT 6.6 X10^3/uL (3.6-10.0)
[2018-01-27 06:51] LABS: ALANINE AMINOTRANSFERASE 23 Units/L (12-78); ALBUMIN 1.9 g/dL (3.4-5.0); ALKALINE PHOSPHATASE 145 Units/L (46-116); ASPARTATE AMINO TRANSFERASE 11 Units/L (15-37); BLOOD UREA NITROGEN 11 mg/dL (7-18); CALCIUM 8.4 mg/dL (8.5-10.1); CHLORIDE 103 mmol/L (98-107); COR CA(FOR HYPOALB) 10.1 mg/dL (8.5-10.1); COR NA(FOR HYPERGLY) 142 mmol/L (136-145); CREATININE 0.87 mg/dL (0.55-1.02); SODIUM 141 mmol/L (136-145); TOTAL PROTEIN 5.9 g/dL (6.4-8.2); eGFR NON BLACK RACES > 60 (>60)
[2018-01-27] MEDS: ZETIA TAB 10 MG PO SCH (10:13)
[2018-01-27] MEDS: COREG TAB 12.5 MG PO SCH ×2 (10:13→21:13)
[2018-01-27] MEDS: REQUIP PO SCH ×2 (10:14→21:13)
[2018-01-27] MEDS: PriLOSEC PO SCH (10:14)
[2018-01-27] MEDS: MERREM VIAL 1,000 MG in NS 100 ML IV 100 ML IV SCH ×2 (10:19→21:14)
[2018-01-27] MEDS: LYRICA CAP 50 MG PO SCH ×2 (10:19→21:13)
[2018-01-27] MEDS: MICRO K EXTEN CAP 10 MEQ PO SCH (10:19)
[2018-01-27] MEDS: DIOVAN TAB 80 MG PO SCH (10:19)
[2018-01-27] MEDS: LOVENOX INJ 40 MG SYR SC SCH (10:20)
[2018-01-27] MEDS: LASIX PO SCH (10:21)
[2018-01-27] MEDS: ELAVIL PO SCH (10:21)
[2018-01-27] MEDS: PATIENT'S HOME MEDICATION (Memantine [Namenda Xr] 28 MG) PO SCH (11:05)
--- NOTE | 2018-01-27 13:47 | PCM.PROG ---
Progress Note - Progress Note for Day of Date of Exam: 01/27/18 - Subjective Subjective: 72 WF ADMITTED ON 01/22 WITH FEVER, WEAKNESS AND SOB. ON ADMISSION PT HAD BLOOD AND URINE CULTURE COLLECTED.PT HAS UTI, CULTURE POSITIVE FOR ECOLI , STARTED ON IV MEROPENEM. PT DENIES ANY SOB OR CP THIS AM, CONTINUES WITH FEELING WEAK. - Past Medical Family Social History Past Med/Fam/Surg Hx: No changes since H&P Allergies: Allergies No Known Drug Allergies Allergy (Verified 01/06/18 12:40) - Review of Systems ROS: No change since H&P - Vital Signs and I&O's Vital Signs: Temperature 97.8 F Pulse Rate [Left Brachial] 63 Pulse Rate 70 Respiratory Rate 29 Blood Pressure [Left Arm] 149/63 Blood Pressure [Right Arm] 129/60 Blood Pressure 151/64 O2 Sat by Pulse Oximetry 97 Intake and Output: Intake & Output 01/25/18 01/26/18 01/27/18 01/28/18 11:59 11:59 11:59 11:59 Intake Total 2347 / 2347 1680 / 1680 1760 / 1760 Output Total 1875 / 1875 1999 / 1999 3750 / 3750 Balance 472 / 472 -320 / -320 -1989 / - Physical Exam Oriented: Normal Eyes: Normal Ear: Normal Nose: Normal Throat: Dry Respiratory: Diminished Cardiovascular: Normal. negative: Edema : Normal Tenderness: Normal Skin: Decreased Turgur Musculoskeletal: Left, Hip, Back:Lumbar, Motor Deficit, Sensory Deficit, Instability Psychiatric: Normal Mood Description: Calm Speech Pattern: Clear, Appropriate - Laboratory and Diagnostics Result Diagrams: 01/27/18 06:05 01/27/18 06:05 Labs: 01/24/18 09:30 Stool Stool Culture - Final 01/24/18 09:30 Stool - Final 01/23/18 06:01 Urine,Clean Catch Urine Culture - Final Escherichia Coli 01/22/18 16:10 Blood Blood Culture - Preliminary 01/22/18 16:05 Blood Blood Culture - Preliminary Laboratory WBC 6.6 X10^3/uL (3.6-10.0) 01/27/18 06:05 RBC 3.48 X10^6/uL (3.5-5.4) L 01/27/18 06:05 Hgb 10.9 g/dL (12.0-16.0) L 01/27/18 06:05 Hct 31.2 % (36.0-47.0) L 01/27/18 06:05 MCV 89.8 fL (80.0-100.0) 01/27/18 06:05 MCH 31.3 pg (27.0-34.0) 01/27/18 06:05 MCHC 34.9 g/dL (33.0-35.0) 01/27/18 06:05 RDW 13.4 % (11.6-16.5) 01/27/18 06:05 Plt Count 189 X10^3/uL (150.0-450.0) 01/27/18 06:05 Plt Count Comment Adequate (ADEQUATE) 01/24/18 04:00 MPV 8.9 fL (7.4-11.0) 01/27/18 06:05 Neut % (Auto) 69.9 % (42.0-75.0) 01/27/18 06:05 Lymph % (Auto) 17.7 % (21.0-51.0) L 01/27/18 06:05 [place] % (Auto) 9.1 % (0.0-13.0) 01/27/18 06:05 Eos % (Auto) 2.8 % (0.9-2.9) 01/27/18 06:05 Baso % (Auto) 0.5 % (0.2-1.0) 01/27/18 06:05 Neut # (Auto) 4.6 x10^3/uL (2.2-4.8) 01/27/18 06:05 Lymph # (Auto) 1.2 X10^3/uL (1.3-2.9) L 01/27/18 06:05 [place] # (Auto) 0.6 x10^3/uL (0.3-0.8) 01/27/18 06:05 Eos # (Auto) 0.2 x10^3/uL (0.0-0.2) 01/27/18 06:05 Baso # (Auto) 0.0 X10^3/uL (0.0-0.1) 01/27/18 06:05 Absolute Nucleated RBC 0.0 /100WBC 01/27/18 06:05 Total Counted 100 09/21/18 04:00 Neutrophils % (Manual) 65 % (39-76) 01/24/18 04:00 Lymphocytes % (Manual) 25 % (13-43) 01/24/18 04:00 Monocytes % (Manual) 9 % (4-9) 01/24/18 04:00 Eosinophils % (Manual) 1 % (0-6) 01/24/18 04:00 Plt Morphology Comment Normal (NORMAL) 01/24/18 04:00 RBC Morphology Normal (NORMAL) 01/24/18 04:00 Sample Site Lr 01/23/18 08:09 ABG pH 7.370 (7.35-7.45) 01/23/18 08:09 ABG pCO2 60.0 mmHg (35.0-45.0) H* 01/23/18 08:09 ABG pO2 187.0 mmHg (80.0-100.0) H 01/23/18 08:09 ABG HCO3 34.7 mmol/L (22-26) H* 01/23/18 08:09 ABG O2 Saturation 100.0 % (90-100) 01/23/18 08:09 ABG Base Excess 7.6 mmol/L (-2.0-2.0) H 01/23/18 08:09 Wes Test Pos 01/23/18 08:09 A-a Gradient 95.0 mmHg 01/23/18 08:09 FiO2 50 01/23/18 08:09 Blood Gas Comments Pt kelli well. cdn 01/23/18 08:09 Sodium 141 mmol/L (136-145) 01/27/18 06:05 Corrected Sodium 142 mmol/L (136-145) 01/27/18 06:05 Potassium 3.3 mmol/L (3.5-5.1) L 01/27/18 06:05 Chloride 103 mmol/L (98-107) 01/27/18 06:05 Carbon Dioxide 34.0 mmol/L (21-32) H 01/27/18 06:05 BUN 11 mg/dL (7-18) 01/27/18 06:05 Creatinine 0.87 mg/dL (0.55-1.02) 01/27/18 06:05 Est GFR (MDRD) Af Amer > 60 (>60) 01/27/18 06:05 Est GFR (MDRD) Non-Af > 60 (>60) 01/27/18 06:05 Glucose 123 mg/dL (65-99) H 01/27/18 06:05 POC Glucose (mg/dL) 168 mg/dL (65-99) H 01/27/18 10:57 Lactic Acid 0.6 mmol/L (0.4-2.0) 01/23/18 08:21 Calcium 8.4 mg/dL (8.5-10.1) L 01/27/18 06:05 Corrected Calcium 10.1 mg/dL (8.5-10.1) 01/27/18 06:05 Magnesium 2.0 mg/dL (1.7-2.9) 01/22/18 16:10 Total Bilirubin 0.20 mg/dL (0.2-1.0) 01/27/18 06:05 AST 11 Units/L (15-37) L 01/27/18 06:05 ALT 23 Units/L (12-78) 01/27/18 06:05 Alkaline Phosphatase 145 Units/L (46-116) H 01/27/18 06:05 Creatine Kinase 155 Units/L (26-192) 01/23/18 04:16 CK-MB (CK-2) 1.1 ng/mL (0-4.0) 01/23/18 04:16 CK/CKMB % Calc 0.7 % (<4) 01/23/18 04:16 Troponin I < 0.02 ng/mL (0-1.5) 01/23/18 04:16 Total Protein 5.9 g/dL (6.4-8.2) L 01/27/18 06:05 Albumin 1.9 g/dL (3.4-5.0) L 01/27/18 06:05 Globulin 4.0 g/dL (2.5-4.5) 01/27/18 06:05 Albumin/Globulin Ratio 0.5 Ratio (1.1-2.1) L 01/27/18 06:05 Specimen Type Catherized urine 01/23/18 06:01 Urine Color Yellow (YELLOW) 01/23/18 06:01 Urine Appearance Cloudy (CLEAR) 01/23/18 06:01 Urine pH 6.0 (5.0 - 8.0) 01/23/18 06:01 Ur Specific [place] 1.020 (1.000-1.030) 01/23/18 06:01 Urine Protein 3+ (NEGATIVE) 01/23/18 06:01 Urine Glucose (UA) Negative (NEGATIVE) 01/23/18 06:01 Urine Ketones Negative (NEGATIVE) 01/23/18 06:01 Urine Occult Blood 4+ (NEGATIVE) 01/23/18 06:01 Urine Nitrite Positive (NEGATIVE) 01/23/18 06:01 Urine Bilirubin Negative (NEGATIVE) 01/23/18 06:01 Urine Urobilinogen Normal (NORMAL) 01/23/18 06:01 Ur Leukocyte Esterase 3+ (NEGATIVE) 01/23/18 06:01 Urine RBC Tntc /HPF (NONE SEEN) 01/23/18 06:01 Urine WBC Tntc /HPF (NONE SEEN) 01/23/18 06:01 Ur Squamous Epith Cells Rare /HPF (NEGATIVE) 01/23/18 06:01 Urine Bacteria 2+ /HPF (NEGATIVE) 01/23/18 06:01 Ur Culture Indicated? Yes/culture set up 01/23/18 06:01 Stool Description >500g,unformed,oscar 01/24/18 09:30 Stl Occult Blood (IFOB) Negative (NEGATIVE) 01/24/18 09:30 Stool for White Cells Positive (NEGATIVE) A 01/24/18 09:30 Stl C. diff Tox B Gene Negative (NEGATIVE) 01/24/18 09:30 Stl C. diff [id number] Negative (NEGATIVE) 01/24/18 09:30 Cryptosporid parvum Ag Negative (NEGATIVE) 01/24/18 09:30 Giardia lamblia Ag Negative (NEGATIVE) 01/24/18 09:30 Influenza Type A (PCR) Negative (NEGATIVE) 01/22/18 19:15 Influenza Type B (PCR) Negative (NEGATIVE) 01/22/18 19:15 - Plan (1) SOB (shortness of breath) Status: Acute Plan: CARDIAC AND BP MONITORING. RESP CONSULT, FLU SWAB NEGATIVE. FEVER CONTROL, BLOOD AND URINE CULTURES SENSATIVITY PENDING. IV ATBX, GENTLE IV HYDRATION. SEE PREVIOUS STOOL CULTURE REPORT HX OF SALMONELLA. SSI (2) Fever Status: Acute (3) Urinary retention Status: Acute (4) Hypertension Status: Chronic Qualifiers: Hypertension type: unspecified Qualified Code(s): I10 - Essential (primary ) hypertension (5) Diabetes mellitus Status: Chronic (6) CHF (congestive heart failure) Status: Chronic Plan: SUPPLEMENTAL O2, STRICT I & OS. CXR Q AM, PRN BIPAP. ABG, CARDIAC MONITORING (7) COPD (chronic obstructive pulmonary disease) Status: Chronic Qualifiers: COPD type: chronic bronchitis (8) UTI (urinary tract infection) Status: Acute Plan: CULTURE POSITIVE FOR ECOLI, STARTED ON MEROPENEM
[2018-01-27] MEDS: NORCO 10/325 TAB PO PRN (14:52)
[2018-01-27] MEDS: HumuLIN R SUBCUT PRN ×2 (18:24→21:32)
[2018-01-27] MEDS: SNACK - Diabetic Appropriate PO SCH (20:00)
[2018-01-27] MEDS: NS 1000 ML 1,000 ML IV SCH ×2 (21:11→22:00)
[2018-01-27] MEDS: ZyrTEC TAB 10 MG PO SCH (21:12)
[2018-01-27] MEDS: ZOCOR TAB 20 MG PO SCH (21:13)
[2018-01-27] MEDS: XANAX PO SCH (21:13)
[2018-01-27] MEDS: COLACE CAP 100 MG PO SCH (21:13)
[2018-01-27] MEDS: ARICEPT TAB 10 MG PO SCH (21:18)
[2018-01-28 05:50] LABS: BASOPHILS % (AUTO) 0.7 % (0.2-1.0); EOSINOPHILS # (AUTO) 0.3 x10^3/uL (0.0-0.2); EOSINOPHILS % (AUTO) 3.7 % (0.9-2.9); HEMATOCRIT 33.5 % (36.0-47.0); HEMOGLOBIN 11.5 g/dL (12.0-16.0); LYMPHOCYTES # (AUTO) 1.5 X10^3/uL (1.3-2.9); LYMPHOCYTES % (AUTO) 21.3 % (21.0-51.0); MEAN CORPUSCULAR HEMOGLOBIN 31.1 pg (27.0-34.0); MEAN CORPUSCULAR HGB CONC 34.4 g/dL (33.0-35.0); MEAN CORPUSCULAR VOLUME 90.4 fL (80.0-100.0); MEAN PLATELET VOLUME 8.9 fL (7.4-11.0); MONOCYTES # (AUTO) 0.6 x10^3/uL (0.3-0.8); MONOCYTES % (AUTO) 8.2 % (0.0-13.0); NEUTROPHILS # (AUTO) 4.6 x10^3/uL (2.2-4.8); NEUTROPHILS % (AUTO) 66.1 % (42.0-75.0); PLATELET COUNT 203 X10^3/uL (150.0-450.0); RED BLOOD COUNT 3.71 X10^6/uL (3.5-5.4); RED CELL DISTRIBUTION WIDTH 13.5 % (11.6-16.5); WHITE BLOOD COUNT 6.9 X10^3/uL (3.6-10.0)
[2018-01-28 06:09] LABS: ALANINE AMINOTRANSFERASE 19 Units/L (12-78); ALBUMIN 2.1 g/dL (3.4-5.0); ALKALINE PHOSPHATASE 142 Units/L (46-116); ASPARTATE AMINO TRANSFERASE 11 Units/L (15-37); BLOOD UREA NITROGEN 13 mg/dL (7-18); CARBON DIOXIDE 35.2 mmol/L (21-32); CHLORIDE 102 mmol/L (98-107); COR NA(FOR HYPERGLY) 142 mmol/L (136-145); CREATININE 0.86 mg/dL (0.55-1.02); SODIUM 141 mmol/L (136-145); TOTAL PROTEIN 6.3 g/dL (6.4-8.2); eGFR NON BLACK RACES > 60 (>60)
[2018-01-28 06:13] LABS: CALCIUM 8.6 mg/dL (8.5-10.1); COR CA(FOR HYPOALB) 10.1 mg/dL (8.5-10.1)
[2018-01-28] MEDS: LOVENOX INJ 40 MG SYR SC SCH (08:53)
[2018-01-28] MEDS: COREG TAB 12.5 MG PO SCH (08:54)
[2018-01-28] MEDS: PriLOSEC PO SCH (08:54)
[2018-01-28] MEDS: MERREM VIAL 1,000 MG in NS 100 ML IV 100 ML IV SCH (08:55)
[2018-01-28] MEDS: DIOVAN TAB 80 MG PO SCH (08:55)
[2018-01-28] MEDS: ZETIA TAB 10 MG PO SCH (08:56)
[2018-01-28] MEDS: MICRO K EXTEN CAP 10 MEQ PO SCH (08:56)
[2018-01-28] MEDS: REQUIP PO SCH (08:56)
[2018-01-28] MEDS: LYRICA CAP 50 MG PO SCH (08:57)
[2018-01-28] MEDS: ELAVIL PO SCH (08:58)
[2018-01-28] MEDS: PATIENT'S HOME MEDICATION (Memantine [Namenda Xr] 28 MG) PO SCH (08:59)
[2018-01-28] MEDS: LASIX PO SCH (08:59)
[2018-01-28] MEDS: HumuLIN R SUBCUT PRN (10:55)
[2018-01-28] MEDS: NS 1000 ML 1,000 ML IV SCH (11:05)
[2018-01-28 12:04] VITALS: BP 112/55
--- NOTE | 2018-02-09 15:00 | PCM.PROG ---
Progress Note - Progress Note for Day of Date of Exam: 01/24/18 - Subjective Subjective: 72 WF ADMITTED ON 01/22 WITH FEVER, WEAKNESS AND SOB. ON ADMISSION PT HAD BLOOD AND URINE CULTURE COLLECTED.PT HAS UTI. CONTINUES WITH FEELING WEAK BUT DENIES ANY OTHER COMPLAINTS. - Past Medical Family Social History Past Med/Fam/Surg Hx: No changes since H&P Allergies: Allergies No Known Drug Allergies Allergy (Verified 01/06/18 12:40) - Review of Systems ROS: No change since H&P - Vital Signs and I&O's Vital Signs: Temperature 97.5 F Pulse Rate [Left Brachial] 63 Pulse Rate 57 Respiratory Rate 21 Blood Pressure [Left Arm] 149/63 Blood Pressure [Right Arm] 129/60 Blood Pressure 112/55 O2 Sat by Pulse Oximetry 92 - Physical Exam Oriented: Normal Eyes: Normal Ear: Normal Nose: Normal Throat: Dry Respiratory: Diminished Cardiovascular: Normal. negative: Edema : Normal Tenderness: Normal Skin: Decreased Turgur Musculoskeletal: Left, Hip, Back:Lumbar, Motor Deficit, Sensory Deficit, Instability Psychiatric: Normal Mood Description: Calm Affect: Normal Speech Pattern: Clear, Appropriate - Laboratory and Diagnostics Result Diagrams: 01/28/18 05:20 01/28/18 05:20 Labs: 01/22/18 16:10 Blood Blood Culture - Final 01/22/18 16:05 Blood Blood Culture - Final 01/24/18 09:30 Stool Stool Culture - Final 01/24/18 09:30 Stool - Final 01/23/18 06:01 Urine,Clean Catch Urine Culture - Final Escherichia Coli Laboratory WBC 6.9 X10^3/uL (3.6-10.0) 01/28/18 05:20 RBC 3.71 X10^6/uL (3.5-5.4) 01/28/18 05:20 Hgb 11.5 g/dL (12.0-16.0) L 01/28/18 05:20 Hct 33.5 % (36.0-47.0) L 01/28/18 05:20 MCV 90.4 fL (80.0-100.0) 01/28/18 05:20 MCH 31.1 pg (27.0-34.0) 01/28/18 05:20 MCHC 34.4 g/dL (33.0-35.0) 01/28/18 05:20 RDW 13.5 % (11.6-16.5) 01/28/18 05:20 Plt Count 203 X10^3/uL (150.0-450.0) 01/28/18 05:20 Plt Count Comment Adequate (ADEQUATE) 01/24/18 04:00 MPV 8.9 fL (7.4-11.0) 01/28/18 05:20 Neut % (Auto) 66.1 % (42.0-75.0) 01/28/18 05:20 Lymph % (Auto) 21.3 % (21.0-51.0) 01/28/18 05:20 [place] % (Auto) 8.2 % (0.0-13.0) 01/28/18 05:20 Eos % (Auto) 3.7 % (0.9-2.9) H 01/28/18 05:20 Baso % (Auto) 0.7 % (0.2-1.0) 01/28/18 05:20 Neut # (Auto) 4.6 x10^3/uL (2.2-4.8) 01/28/18 05:20 Lymph # (Auto) 1.5 X10^3/uL (1.3-2.9) 01/28/18 05:20 [place] # (Auto) 0.6 x10^3/uL (0.3-0.8) 01/28/18 05:20 Eos # (Auto) 0.3 x10^3/uL (0.0-0.2) H 01/28/18 05:20 Baso # (Auto) 0.0 X10^3/uL (0.0-0.1) 01/28/18 05:20 Absolute Nucleated RBC 0.0 /100WBC 01/28/18 05:20 Total Counted 100 01/24/18 04:00 Neutrophils % (Manual) 65 % (39-76) 01/24/18 04:00 Lymphocytes % (Manual) 25 % (13-43) 01/24/18 04:00 Monocytes % (Manual) 9 % (4-9) 01/24/18 04:00 Eosinophils % (Manual) 1 % (0-6) 01/24/18 04:00 Plt Morphology Comment Normal (NORMAL) 01/24/18 04:00 RBC Morphology Normal (NORMAL) 01/24/18 04:00 Sample Site Lr 01/23/18 08:09 ABG pH 7.370 (7.35-7.45) 01/23/18 08:09 ABG pCO2 60.0 mmHg (35.0-45.0) H* 01/23/18 08:09 ABG pO2 187.0 mmHg (80.0-100.0) H 01/23/18 08:09 ABG HCO3 34.7 mmol/L (22-26) H* 01/23/18 08:09 ABG O2 Saturation 100.0 % (90-100) 01/23/18 08:09 ABG Base Excess 7.6 mmol/L (-2.0-2.0) H 01/23/18 08:09 Wes Test Pos 01/23/18 08:09 A-a Gradient 95.0 mmHg 01/23/18 08:09 FiO2 50 01/23/18 08:09 Blood Gas Comments Pt kelli well. cdn 01/23/18 08:09 Sodium 141 mmol/L (136-145) 01/28/18 05:20 Corrected Sodium 142 mmol/L (136-145) 01/28/18 05:20 Potassium 3.8 mmol/L (3.5-5.1) 01/28/18 05:20 Chloride 102 mmol/L (98-107) 01/28/18 05:20 Carbon Dioxide 35.2 mmol/L (21-32) H 01/28/18 05:20 BUN 13 mg/dL (7-18) 01/28/18 05:20 Creatinine 0.86 mg/dL (0.55-1.02) 01/28/18 05:20 Est GFR (MDRD) Af Amer > 60 (>60) 01/28/18 05:20 Est GFR (MDRD) Non-Af > 60 (>60) 01/28/18 05:20 Glucose 148 mg/dL (65-99) H 01/28/18 05:20 POC Glucose (mg/dL) 167 mg/dL (65-99) H 01/28/18 10:50 Lactic Acid 0.6 mmol/L (0.4-2.0) 01/23/18 08:21 Calcium 8.6 mg/dL (8.5-10.1) 01/28/18 05:20 Corrected Calcium 10.1 mg/dL (8.5-10.1) 01/28/18 05:20 Magnesium 2.0 mg/dL (1.7-2.9) 01/22/18 16:10 Total Bilirubin 0.20 mg/dL (0.2-1.0) 01/28/18 05:20 AST 11 Units/L (15-37) L 01/28/18 05:20 ALT 19 Units/L (12-78) 01/28/18 05:20 Alkaline Phosphatase 142 Units/L (46-116) H 01/28/18 05:20 Creatine Kinase 155 Units/L (26-192) 01/23/18 04:16 CK-MB (CK-2) 1.1 ng/mL (0-4.0) 01/23/18 04:16 CK/CKMB % Calc 0.7 % (<4) 01/23/18 04:16 Troponin I < 0.02 ng/mL (0-1.5) 01/23/18 04:16 Total Protein 6.3 g/dL (6.4-8.2) L 01/28/18 05:20 Albumin 2.1 g/dL (3.4-5.0) L 01/28/18 05:20 Globulin 4.2 g/dL (2.5-4.5) 01/28/18 05:20 Albumin/Globulin Ratio 0.5 Ratio (1.1-2.1) L 01/28/18 05:20 Specimen Type Catherized urine 01/23/18 06:01 Urine Color Yellow (YELLOW) 01/23/18 06:01 Urine Appearance Cloudy (CLEAR) 01/23/18 06:01 Urine pH 6.0 (5.0 - 8.0) 01/23/18 06:01 Ur Specific [place] 1.020 (1.000-1.030) 01/23/18 06:01 Urine Protein 3+ (NEGATIVE) 01/23/18 06:01 Urine Glucose (UA) Negative (NEGATIVE) 01/23/18 06:01 Urine Ketones Negative (NEGATIVE) 01/23/18 06:01 Urine Occult Blood 4+ (NEGATIVE) 01/23/18 06:01 Urine Nitrite Positive (NEGATIVE) 01/23/18 06:01 Urine Bilirubin Negative (NEGATIVE) 01/23/18 06:01 Urine Urobilinogen Normal (NORMAL) 01/23/18 06:01 Ur Leukocyte Esterase 3+ (NEGATIVE) 01/23/18 06:01 Urine RBC Tntc /HPF (NONE SEEN) 01/23/18 06:01 Urine WBC Tntc /HPF (NONE SEEN) 01/23/18 06:01 Ur Squamous Epith Cells Rare /HPF (NEGATIVE) 01/23/18 06:01 Urine Bacteria 2+ /HPF (NEGATIVE) 01/23/18 06:01 Ur Culture Indicated? Yes/culture set up 01/23/18 06:01 Stool Description >500g,unformed,oscar 01/24/18 09:30 Stl Occult Blood (IFOB) Negative (NEGATIVE) 01/24/18 09:30 Stool for White Cells Positive (NEGATIVE) A 01/24/18 09:30 Stl C. diff Tox B Gene Negative (NEGATIVE) 01/24/18 09:30 Stl C. diff [id number] Negative (NEGATIVE) 01/24/18 09:30 Cryptosporid parvum Ag Negative (NEGATIVE) 01/24/18 09:30 Giardia lamblia Ag Negative (NEGATIVE) 01/24/18 09:30 Influenza Type A (PCR) Negative (NEGATIVE) 01/22/18 19:15 Influenza Type B (PCR) Negative (NEGATIVE) 01/22/18 19:15 - Plan (1) SOB (shortness of breath) Status: Acute Plan: CARDIAC AND BP MONITORING. RESP CONSULT, FLU SWAB NEGATIVE. FEVER CONTROL, BLOOD AND URINE CULTURES SENSATIVITY PENDING. IV ATBX, GENTLE IV HYDR ATION. SEE PREVIOUS STOOL CULTURE REPORT HX OF SALMONELLA. SSI (2) UTI (urinary tract infection) Status: Acute Plan: CULTURE POSITIVE FOR ECOLI, STARTED ON MEROPENEM (3) Weakness Status: Acute (4) COPD (chronic obstructive pulmonary disease) Status: Chronic Qualifiers: COPD type: chronic bronchitis (5) Diabetes mellitus Status: Chronic (6) Hypertension Status: Chronic Qualifiers: Hypertension type: unspecified Qualified Code(s): I10 - Essential (primary) hypertension
== END 2018-01-28 13:05 | disposition home or self-care (01) | DRG 191 ==
LOC: ICU → OBSVTOIN 15:38
PROVIDERS: ADMIT Internal Medicine; ATTEND Internal Medicine
DX: E78.2 Mixed hyperlipidemia; R06.02 Shortness of breath; I50.9 Heart failure, unspecified; R33.8 Other retention of urine; N39.0 Urinary tract infection, site not specified; R26.89 Other abnormalities of gait and mobility; R53.1 Weakness; E11.65 Type 2 diabetes mellitus with hyperglycemia; M13.80 Other specified arthritis, unspecified site; B96.29 Other Escherichia coli [E. coli] as the cause of diseases classified elsewhere; J20.8 Acute bronchitis due to other specified organisms; R50.9 Fever, unspecified; F41.8 Other specified anxiety disorders; J44.1 Chronic obstructive pulmonary disease with (acute) exacerbation; I25.10 Atherosclerotic heart disease of native coronary artery without angina pectoris
CPT/HCPCS: 36415; 36600; 71010; 71045; 80053; 81001; 82270; 82550; 82553; 82803; 83605; 83630; 83735; 84484; 85025; 87040; 87045; 87086; 87088; 87186; 87328; 87329; 87427; 87449; 87493; 87502; 87899; 93005; 93010; 94640; 94660; 97110; 97116; 97163; 97166; 97530; 97535; 99231; A4217; A4222; A4618; A7030; J0131; J1650; J1815; J1940; J1956; J2185; J3490; J7030; J7050

== ENCOUNTER 2018-03-03 10:16 | Inpatient (IN) ==
[2018-03-03] MEDS ORDERED: SOLU-Medrol 40 MG VIAL ONE (10:18)
[2018-03-03] MEDS ORDERED: LASIX IVP ONE ×2 (10:31→10:38)
[2018-03-03 10:35] LABS: ABG BASE EXCESS 4.5 mmol/L (-2.0-2.0); ABG HCO3 37.4 mmol/L (22-26)
[2018-03-03 10:36] LABS: ABG ALLEN TEST POS; FRACTIONATED INSPIRED OXYGEN 100
[2018-03-03 10:44] VITALS: BMI 37.5
[2018-03-03 10:49] LABS: BILIRUBIN,URINE NEGATIVE (NEGATIVE); BLOOD/HEMOGLOBIN,URINE NEGATIVE (NEGATIVE); GLUCOSE, URINE NEGATIVE (NEGATIVE); KETONES,URINE NEGATIVE (NEGATIVE); LEUKOCYTE ESTERASE ,URINE NEGATIVE (NEGATIVE); NITRITES,URINE NEGATIVE (NEGATIVE); PROTEIN,URINE 2+ (NEGATIVE); UROBILINOGEN,URINE NORMAL (NORMAL)
[2018-03-03 10:57] LABS: BASOPHILS # (AUTO) 0.1 X10^3/uL (0.0-0.1); BASOPHILS % (AUTO) 0.8 % (0.2-1.0); EOSINOPHILS # (AUTO) 0.2 x10^3/uL (0.0-0.2); EOSINOPHILS % (AUTO) 2.5 % (0.9-2.9); HEMATOCRIT 45.5 % (36.0-47.0); HEMOGLOBIN 15.4 g/dL (12.0-16.0); LYMPHOCYTES # (AUTO) 2.1 X10^3/uL (1.3-2.9); LYMPHOCYTES % (AUTO) 23.1 % (21.0-51.0); MEAN CORPUSCULAR HEMOGLOBIN 31.2 pg (27.0-34.0); MEAN CORPUSCULAR HGB CONC 33.8 g/dL (33.0-35.0); MEAN CORPUSCULAR VOLUME 92.5 fL (80.0-100.0); MONOCYTES # (AUTO) 0.2 x10^3/uL (0.3-0.8); MONOCYTES % (AUTO) 1.8 % (0.0-13.0); NEUTROPHILS # (AUTO) 6.5 x10^3/uL (2.2-4.8); NEUTROPHILS % (AUTO) 71.8 % (42.0-75.0); PLATELET COUNT 241 X10^3/uL (150.0-450.0); RED BLOOD COUNT 4.92 X10^6/uL (3.5-5.4); RED CELL DISTRIBUTION WIDTH 14.7 % (11.6-16.5); WHITE BLOOD COUNT 9.1 X10^3/uL (3.6-10.0)
[2018-03-03 10:58] LABS: APPEARANCE,URINE HAZY (CLEAR); COLOR,URINE YELLOW (YELLOW)
[2018-03-03 10:59] LABS: BACTERIA,URINE NEGATIVE /HPF (NEGATIVE); HYALINE CASTS, URINE FEW /LPF (NEGATIVE); MUCUS,URINE FEW /HPF (NEGATIVE); RBC,URINE NONE SEEN /HPF (NONE SEEN)
[2018-03-03 11:00] LABS: SQUAMOUS EPITHELIAL CELL,UR NEGATIVE /HPF (NEGATIVE)
--- NOTE | 2018-03-03 11:00 | DR.SOBA ---
HPI Time Seen Time Seen by Provider: 03/03/18 10:52 Primary Care Physician Primary Care Physician: WARREN HPI Comment HPI Comment: SEVERE RESPIRATORY DISTRESS. HERE VIA EMS UNRESPONSIVE ON 100R MASK. 02SAT 65R 52. ACCESSORY RESP. MUSCLES AND ABDOMINAL MUSCLES USE FOR BREATHING. Complaints Chief Complaint Doctors Comments: SOB. Chief Complaint:: EMS RESPONDED TO A CALL IN REGARDS TO SHORTNESS OF BREATH. UPON EMS ARRIVAL, PT. WAS IN RESPIRATORY DISTRESS WITH AN O2 SAT OF 70%. PT. BECAME UNRESPONSIVE AFTER THEIR ARRIVAL. PT. WAS VENTILATED WITH AMBU PER EMS AND WAS GIVEN A BREATHING TREATMENT, LASIX 80MG IVP & SOLUMEDROL IVP. O2 SAT INCREASED TO 87% WITH AMBU. UPON ARRIVAL TO ER, PT. WAS WEARING A NON RE- BREATHER AND IN RESPIRATORY DISTRESS, ACCESSORY MUSCLE USE (ABDOMINAL). PT. UNRESPONSIVE. INITIAL O2 SAT WAS 65% UPON ARRIVAL TO ER. Reviewed Nurses Notes Reviewed: Yes Source History Provided: Family Member and EMS Mode of Arrival Mode of Arrival: EMS Timing Onset of Chief Complaint: 03/03/18 Duration Duration: Hours Context Onset:: At Rest PE Risk Factors:: None History of:: COPD Currently on:: Inhaled Bronchodilators Prehospital Care:: O2 and Furosemide Modifying Factors Worsens:: Nothing Improves:: Nothing Associated Signs and Symptoms Associated Signs and Symptoms: Wheeze PMH PMH Past Medical History: Yes Past Medical History: CHF, COPD, Diabetes, Dyslipidemia, Hypertension and Sleep Apnea Past Surgical History: Yes Surgical History: Cholecystectomy, Hysterectomy and Ortho Surgery Family History History of Family Medical Conditions: Yes Family Medical History: Cancer Social History Does patient currently use any type of tobacco product: No Have you used tobacco products in the last 12 months: No Type of Tobacco Use: None Does any household member use tobacco: No Alcohol Use: None Do you use any recreational Drugs:: No Lives With: Family Lives Where: Home infectious screening In the last 2 months have you had wt loss of >10#?: NO Have you had fever, night sweats or hemotysis?: No Have you traveled outside the country in the last 6 months?: No Isolation: Standard ROS Review of Systems Constitutional: Diaphoresis Eyes: negative Eye Pain and Discharge ENTM: No Symptoms Reported Respiratoy: Short of Breath and Wheezing Cardiovascular: Syncope and Cyanosis Gastrointestinal/Abdominal: negative Nausea and Vomiting Genitourinary: Other (WOLF CATH PLACE IN ED.) Neurological: Other (AMS) Integumentary: Dryness Hematologic/Lymphatic: Easy Bleeding and Easy Bruising Unable to Obtain Due To: Altered mental status PE Vital Signs Vitals: Temperature 96.2 F Pulse Rate [Apical] 87 Pulse Rate 72 Respiratory Rate 20 Blood Pressure [Left Arm] 180/81 Blood Pressure [Right Arm] 157/69 Blood Pressure 150/72 O2 Sat by Pulse Oximetry 100 General Limitations: Altered Mental Status (UNRESPONSIVE.) General Appearance: In Distress Head Head Exam: Atraumatic Eyes Eye exam: PERRL ENT ENT Exam: Normal External Ear Exam Neck Neck Exam: Trachea Midline Respiratory Respiratory Exam: Respiratory Distress Respiratory Exam: Bilateral: Wheezing and Bilateral: Rhonchi Cardiovascular Cardiovascular Exam: Tachycardia Abdominal Exam Abdominal Exam: Normal Bowel Sounds Neurologic Neurological Exam: Other (UNRESPONSIVE.) Skin Skin Exam: Mottled MDM Differential Diagnosis Differential Diagnosis: CHF, Mycardial Infarction, Pneumonia, Pneumothorax, Pulmonary embolism and Respiratory Failure COURSE Treatment Treatment: SEE ORDERS. NEB TREATMENT. IV SOLUMEDROL AND BIPAP IN ED. PNEUMONIA PROTOCOL INIATED AND IV ANTIBIOTIC GIVEN. PATIENT IMPROVED AND WAS MORE RESPONSIVE AND ANSWERING QUESTIONS IN ED BEFORE ADMISSION TO ICU. Consultation Consultation Comments: DISCUSS PATIENT WITH DR. KELLEY. HE WILL ADMIT PATIENT. Education/Counseling Education/Counseling: Patient and Family Educated On: Diagnosis ROR Labs Reviewed Laboratory Results Reviewed?: Yes Result Diagrams: 03/11/18 05:42 03/11/18 05:42 Laboratory: 03/06/18 09:19 Blood Blood Culture - Final 03/06/18 09:10 Blood Blood Culture - Final 03/05/18 19:00 Sputum - Expectorated Sputum Sputum Culture - Final 03/05/18 19:00 Sputum - Expectorated Sputum - Final 03/03/18 10:34 Blood Blood Culture - Final 03/03/18 10:30 Blood Blood Culture - Final Staphylococcus Hominis WBC 8.5 X10^3/uL (3.6-10.0) 03/11/18 05:42 RBC 3.83 X10^6/uL (3.5-5.4) 03/11/18 05:42 Hgb 11.9 g/dL (12.0-16.0) L 03/11/18 05:42 Hct 34.6 % (36.0-47.0) L 03/11/18 05:42 MCV 90.4 fL (80.0-100.0) 03/11/18 05:42 MCH 31.0 pg (27.0-34.0) 03/11/18 05:42 MCHC 34.3 g/dL (33.0-35.0) 03/11/18 05:42 RDW 14.2 % (11.6-16.5) 03/11/18 05:42 Plt Count 224 X10^3/uL (150.0-450.0) 03/11/18 05:42 MPV 8.4 fL (7.4-11.0) 03/11/18 05:42 Neut % (Auto) 67.0 % (42.0-75.0) 03/11/18 05:42 Lymph % (Auto) 21.1 % (21.0-51.0) 03/11/18 05:42 [place] % (Auto) 6.4 % (0.0-13.0) 03/11/18 05:42 Eos % (Auto) 4.9 % (0.9-2.9) H 03/11/18 05:42 Baso % (Auto) 0.6 % (0.2-1.0) 03/11/18 05:42 Neut # (Auto) 5.7 x10^3/uL (2.2-4.8) H 03/11/18 05:42 Lymph # (Auto) 1.8 X10^3/uL (1.3-2.9) 03/11/18 05:42 [place] # (Auto) 0.5 x10^3/uL (0.3-0.8) 03/11/18 05:42 Eos # (Auto) 0.4 x10^3/uL (0.0-0.2) H 03/11/18 05:42 Baso # (Auto) 0.1 X10^3/uL (0.0-0.1) 03/11/18 05:42 Absolute Nucleated RBC 0.1 /100WBC 03/11/18 05:42 INR Target Range - 03/03/18 10:34 INR 0.88 (0.8-1.3) 03/03/18 10:34 APTT 21.9 SECONDS (22.9-36.5) L 03/03/18 10:34 PTT Comment - 03/03/18 10:34 D-Dimer 2350 ng/mL (0-400) H* 03/03/18 10:34 Sample Site Lr 03/11/18 08:59 ABG pH 7.440 (7.35-7.45) 03/11/18 08:59 ABG pCO2 50.0 mmHg (35.0-45.0) H 03/11/18 08:59 ABG pO2 86.0 mmHg (80.0-100.0) 03/11/18 08:59 ABG HCO3 34.0 mmol/L (22-26) H* 03/11/18 08:59 ABG O2 Saturation 97.0 % (90-100) 03/11/18 08:59 ABG Base Excess 8.4 mmol/L (-2.0-2.0) H 03/11/18 08:59 Wes Test Pos 03/11/18 08:59 A-a Gradient 51.0 mmHg 03/11/18 08:59 FiO2 28 03/11/18 08:59 Blood Gas Comments Pt kelli well. cdn 03/11/18 08:59 Sodium 141 mmol/L (136-145) 03/11/18 05:42 Corrected Sodium 142 mmol/L (136-145) 03/11/18 05:42 Potassium 3.6 mmol/L (3.5-5.1) 03/11/18 05:42 Chloride 103 mmol/L (98-107) 03/11/18 05:42 Carbon Dioxide 32.1 mmol/L (21-32) H 03/11/18 05:42 BUN 11 mg/dL (7-18) 03/11/18 05:42 Creatinine 0.91 mg/dL (0.55-1.02) 03/11/18 05:42 Est GFR (MDRD) Af Amer > 60 (>60) 03/11/18 05:42 Est GFR (MDRD) Non-Af > 60 (>60) 03/11/18 05:42 Glucose 143 mg/dL (65-99) H 03/11/18 05:42 POC Glucose (mg/dL) 132 mg/dL (65-99) H 03/11/18 11:23 Lactic Acid 1.6 mmol/L (0.4-2.0) 03/03/18 10:34 Calcium 8.2 mg/dL (8.5-10.1) L 03/11/18 05:42 Corrected Calcium 9.3 mg/dL (8.5-10.1) 03/11/18 05:42 Magnesium 1.9 mg/dL (1.7-2.9) 03/06/18 04:10 Total Bilirubin 0.20 mg/dL (0.2-1.0) 03/11/18 05:42 AST 11 Units/L (15-37) L 03/11/18 05:42 ALT 19 Units/L (12-78) 03/11/18 05:42 Alkaline Phosphatase 108 Units/L (46-116) 03/11/18 05:42 Creatine Kinase 48 Units/L (26-192) 03/03/18 23:18 CK-MB (CK-2) < 1.0 ng/mL (0-4.0) 03/03/18 23:18 CK/CKMB % Calc 2.1 % (<4) 03/03/18 23:18 Troponin I < 0.02 ng/mL (0-1.5) 03/03/18 23:18 B-Natriuretic Peptide 37.2 pg/mL (0-79) 03/03/18 10:34 Total Protein 6.6 g/dL (6.4-8.2) 03/11/18 05:42 Albumin 2.6 g/dL (3.4-5.0) L 03/11/18 05:42 Globulin 4.0 g/dL (2.5-4.5) 03/11/18 05:42 Albumin/Globulin Ratio 0.7 Ratio (1.1-2.1) L 03/11/18 05:42 Specimen Type Clean catch urine 03/03/18 10:15 Urine Color Yellow (YELLOW) 03/03/18 10:15 Urine Appearance Hazy (CLEAR) 03/03/18 10:15 Urine pH 5.0 (5.0 - 8.0) 03/03/18 10:15 Ur Specific [place] 1.015 (1.000-1.030) 03/03/18 10:15 Urine Protein 2+ (NEGATIVE) 03/03/18 10:15 Urine Glucose (UA) Negative (NEGATIVE) 03/03/18 10:15 Urine Ketones Negative (NEGATIVE) 03/03/18 10:15 Urine Occult Blood Negative (NEGATIVE) 03/03/18 10:15 Urine Nitrite Negative (NEGATIVE) 03/03/18 10:15 Urine Bilirubin Negative (NEGATIVE) 03/03/18 10:15 Urine Urobilinogen Normal (NORMAL) 03/03/18 10:15 Ur Leukocyte Esterase Negative (NEGATIVE) 03/03/18 10:15 Urine RBC None seen /HPF (NONE SEEN) 03/03/18 10:15 Urine WBC None seen /HPF (NONE SEEN) 03/03/18 10:15 Ur Squamous Epith Cells Negative /HPF (NEGATIVE) 03/03/18 10:15 Urine Bacteria Negative /HPF (NEGATIVE) 03/03/18 10:15 Hyaline Casts Few /LPF (NEGATIVE) 03/03/18 10:15 Urine Mucus Few /HPF (NEGATIVE) 03/03/18 10:15 Ur Culture Indicated? No/not indicated 03/03/18 10:15 Instructions Instructions: Chronic Obstructive Pulmonary Disease Exacerbation, Flyy-no-Kkyj Fall Prevention in the Home, Zvhx-ba-Kcec Shortness of Breath, Adult, Vdhe-pa-Wbmx Weakness, Pllz-gx-Kaph Type 2 Diabetes Mellitus, Self Care, Adult, Izjn-ln-Zosq Hypertension, Oyys-xn-Hyqa Heart Failure, Bgva-rq-Ayjz Bacteremia Community-Acquired Pneumonia, Adult, Wibu-qk-Jmvk Forms: Patient Portal
[2018-03-03] MEDS ORDERED: ZOSYN VIAL 3.375 GRAMS 3.375 G in NS 100 ML IV + SPIKE MINIBAG* 100 ML IV ONE (11:03)
[2018-03-03 11:05] LABS: LACTIC ACID 1.6 mmol/L (0.4-2.0)
[2018-03-03] MEDS ORDERED: NS 250 ML IV 250 ML IV ONE (11:05)
[2018-03-03] MEDS ORDERED: ZOSYN VIAL 3.375 GRAMS IV ONE (11:05)
[2018-03-03] MEDS ORDERED: NS 100 ML IV + SPIKE MINIBAG* 100 ML IV ONE (11:05)
[2018-03-03 11:06] LABS: BLOOD UREA NITROGEN 17 mg/dL (7-18); CALCIUM 8.5 mg/dL (8.5-10.1); CHLORIDE 99 mmol/L (98-107); COR NA(FOR HYPERGLY) 142 mmol/L (136-145); CREATININE 1.32 mg/dL (0.55-1.02); SODIUM 138 mmol/L (136-145); TROPONIN I < 0.02 ng/mL (0-1.5); eGFR NON BLACK RACES 42 (>60)
[2018-03-03 11:11] LABS: ALANINE AMINOTRANSFERASE 19 Units/L (12-78); ALBUMIN 3.3 g/dL (3.4-5.0); ALKALINE PHOSPHATASE 155 Units/L (46-116); ASPARTATE AMINO TRANSFERASE 22 Units/L (15-37); CKMB % 1.8 % (<4); COR CA(FOR HYPOALB) 9.1 mg/dL (8.5-10.1); CREATINE KINASE 63 Units/L (26-192); CREATINE KINASE MB 1.1 ng/mL (0-4.0); TOTAL PROTEIN 7.9 g/dL (6.4-8.2)
[2018-03-03 11:19] LABS: B-TYPE NATRIURETIC PEPTIDE 37.2 pg/mL (0-79)
[2018-03-03 11:26] LABS: ABG BASE EXCESS 5.4 mmol/L (-2.0-2.0)
[2018-03-03 11:27] LABS: ABG ALLEN TEST POS; ABG HCO3 32.9 mmol/L (22-26); FRACTIONATED INSPIRED OXYGEN 100
[2018-03-03] MEDS ORDERED: NS 100 ML IV 100 ML IV ONE (12:02)
[2018-03-03] MEDS: SALINE 3% 15 ML NEB TX NEB ONE ×2 (13:50→15:50)
[2018-03-03] MEDS: NS 1/2 1000 ML IV 1,000 ML IV SCH (15:16)
[2018-03-03] MEDS ORDERED: NS 1/2 1000 ML IV 1,000 ML IV ONE (15:18)
[2018-03-03] MEDS ORDERED: SALINE 3% 15 ML NEB TX ONE (15:43)
[2018-03-03] MEDS: HumuLIN R SC PRN ×2 (16:24→22:25)
[2018-03-03] MEDS: DUONEB 0.5 MG/3 MG NEB SCH ×2 (16:36→20:10)
[2018-03-03] MEDS: ROBITUSSIN DM PO SCH ×2 (17:20→20:52)
[2018-03-03 17:37] LABS: CKMB % 3.3 % (<4); CREATINE KINASE 30 Units/L (26-192); CREATINE KINASE MB < 1.0 ng/mL (0-4.0); TROPONIN I 0.03 ng/mL (0-1.5)
[2018-03-03] MEDS: ZyrTEC TAB 10 MG PO SCH (20:52)
[2018-03-03] MEDS: SNACK - Diabetic Appropriate PO SCH (20:52)
[2018-03-03] MEDS: REQUIP PO SCH (20:52)
[2018-03-03] MEDS: GLUCOTROL PO SCH (20:52)
[2018-03-03] MEDS: ZOCOR TAB 20 MG PO SCH (20:52)
[2018-03-03] MEDS: LYRICA CAP 100 MG PO SCH (20:52)
[2018-03-03] MEDS: ARICEPT TAB 10 MG PO SCH (20:53)
[2018-03-03] MEDS: COREG TAB 12.5 MG PO SCH (20:53)
[2018-03-03] MEDS ORDERED: PATIENT'S HOME MEDICATION (Levocetirizine [Levocetirizine] 5 MG) PO SCH (21:00)
[2018-03-03 23:50] LABS: CKMB % 2.1 % (<4); CREATINE KINASE 48 Units/L (26-192); CREATINE KINASE MB < 1.0 ng/mL (0-4.0); TROPONIN I < 0.02 ng/mL (0-1.5)
[2018-03-04] MEDS: DUONEB 0.5 MG/3 MG NEB SCH ×6 (01:23→20:38)
[2018-03-04] MEDS: HumuLIN R SC PRN ×4 (06:09→21:08)
[2018-03-04 06:16] LABS: BASOPHILS % (AUTO) 0.3 % (0.2-1.0); HEMATOCRIT 35.6 % (36.0-47.0); LYMPHOCYTES # (AUTO) 0.9 X10^3/uL (1.3-2.9); LYMPHOCYTES % (AUTO) 8.3 % (21.0-51.0); MEAN CORPUSCULAR HEMOGLOBIN 30.5 pg (27.0-34.0); MEAN CORPUSCULAR HGB CONC 33.7 g/dL (33.0-35.0); MEAN CORPUSCULAR VOLUME 90.6 fL (80.0-100.0); MEAN PLATELET VOLUME 9.1 fL (7.4-11.0); MONOCYTES # (AUTO) 0.5 x10^3/uL (0.3-0.8); MONOCYTES % (AUTO) 4.2 % (0.0-13.0); NEUTROPHILS # (AUTO) 9.7 x10^3/uL (2.2-4.8); NEUTROPHILS % (AUTO) 87.2 % (42.0-75.0); PLATELET COUNT 208 X10^3/uL (150.0-450.0); RED BLOOD COUNT 3.93 X10^6/uL (3.5-5.4); RED CELL DISTRIBUTION WIDTH 14.2 % (11.6-16.5); WHITE BLOOD COUNT 11.1 X10^3/uL (3.6-10.0)
[2018-03-04 06:33] LABS: ALBUMIN 2.5 g/dL (3.4-5.0); CALCIUM 8.2 mg/dL (8.5-10.1); CARBON DIOXIDE 33.8 mmol/L (21-32); COR CA(FOR HYPOALB) 9.4 mg/dL (8.5-10.1); CREATININE 1.27 mg/dL (0.55-1.02); TOTAL PROTEIN 6.5 g/dL (6.4-8.2)
[2018-03-04] MEDS: MOBIC TAB 15 MG PO SCH (08:55)
[2018-03-04] MEDS: ASPIRIN EC 81 MG PO SCH (08:55)
[2018-03-04] MEDS: PriLOSEC PO SCH (08:55)
[2018-03-04] MEDS: LASIX PO SCH (08:55)
[2018-03-04] MEDS: GLUCOTROL PO SCH ×2 (08:56→20:21)
[2018-03-04] MEDS: MICRO K EXTEN CAP 10 MEQ PO SCH (08:56)
[2018-03-04] MEDS: LYRICA CAP 100 MG PO SCH ×2 (08:56→20:21)
[2018-03-04] MEDS: COLACE CAP 100 MG PO SCH (08:56)
[2018-03-04] MEDS: ZETIA TAB 10 MG PO SCH (08:56)
[2018-03-04] MEDS: FLEXERIL TAB 10 MG PO SCH (08:56)
[2018-03-04] MEDS: COREG TAB 12.5 MG PO SCH ×2 (08:56→20:21)
[2018-03-04] MEDS: ELAVIL PO SCH (08:56)
[2018-03-04] MEDS: MEMANTINE 28 MG PO SCH (08:57)
[2018-03-04] MEDS: DIOVAN TAB 80 MG PO SCH (08:57)
[2018-03-04] MEDS: ROBITUSSIN DM PO SCH ×4 (08:58→20:21)
[2018-03-04] MEDS: PATIENT'S HOME MEDICATION (Solifenacin [Vesicare] 5 MG) PO SCH (08:58)
[2018-03-04] MEDS ORDERED: PATIENT'S HOME MEDICATION (Meloxicam [Meloxicam] 7.5 MG) PO SCH (09:00)
[2018-03-04] MEDS ORDERED: AMITRIPTYLINE 100 MG PO SCH (09:00)
[2018-03-04] MEDS ORDERED: NS 1/2 1000 ML IV 1,000 ML IV ONE (10:20)
[2018-03-04] MEDS: NS 1/2 1000 ML IV 1,000 ML IV SCH ×2 (10:26→20:20)
[2018-03-04] MEDS ORDERED: CONSULT PHARMACY - ANTIBIOTIC XX SCH (11:00)
[2018-03-04] MEDS: ROCEPHIN VIAL 1 GRAM IVP SCH (12:09)
[2018-03-04] MEDS: ZITHROMAX INJ 500 MG VIAL 500 MG in NS 250 ML IV 250 ML IV SCH (13:44)
[2018-03-04] MEDS ORDERED: ZITHROMAX (ADDVANTAGE) 500 MG/250 ML IV.SOLN. IV SCH (14:00)
--- NOTE | 2018-03-04 17:14 | DR.H&P ---
H&P - History & Physical for Day of: H&P Date: 03/03/18 - Chief Complaint Chief Complaint: SOB, WEAKNESS - History of Present Illness History of Present Illness: PT IS 72 WF ER ADMISSION AFTER PRESENTING WITH CO EMS RESPONDED TO A CALL IN REGARDS TO SHORTNESS OF BREATH. UPON EMS ARRIVAL, PT. WAS IN RESPIRATORY DISTRESS WITH AN O2 SAT OF 70%. PT. BECAME UNRESPONSIVE AFTER THEIR ARRIVAL. PT. WAS VENTILATED WITH AMBU PER EMS AND WAS GIVEN A BREATHING TREATMENT, LASIX 80MG IVP & SOLUMEDROL IVP. O2 SAT INCREASED TO 87% WITH AMBU. UPON ARRIVAL TO ER, PT. WAS WEARING A NON RE-BREATHER AND IN RESPIRATORY DISTRESS, ACCESSORY MUSCLE USE (ABDOMINAL). PT. UNRESPONSIVE. INITIAL O2 SAT WAS 65% UPON ARRIVAL TO ER. PT CXR REVEALED BILATERAL PNEUMONIA. PT HAS PMH OF COPD, CHF, CAD, OA, HTN, DM. PT ADMITTED TO ICU FOR TREATMENT OF ACUTE RESP DISTRESS, PNEUMONIA - Past Medical History Past Medical History: Hypertension, Dyslipidemia, Diabetes, COPD, Sleep Apnea, CHF - Past Surgical History Surgical History: Cholecystectomy, Hysterectomy, Ortho Surgery - Family History Family Medical History: Cancer - Social History Does patient currently use any type of tobacco product: No Have you used tobacco products in the last 12 months: No Type of Tobacco Use: None Does any household member use tobacco: No Alcohol Use: None - Medications Home Medications: No Known Drug Allergies Allergy (Verified 01/06/18 12:40) CONTINUE taking the following medications alprazolam [Xanax] 0.25 mg PO DAILY PRN 03/03/18 [History] amitriptyline 100 mg PO DAILY 03/03/18 [History] aspirin [Aspir-81] 81 mg PO DAILY 03/03/18 [History] carvedilol [Coreg] 12.5 mg PO BID 03/03/18 [History] cyclobenzaprine 10 mg PO DAILY 03/03/18 [History] docusate sodium [Stool Softener] 100 mg PO DAILY 03/03/18 [History] donepezil [Aricept] 10 mg PO HS 03/03/18 [History] ezetimibe 10 mg PO DAILY 03/03/18 [History] furosemide [Lasix] 40 mg PO DAILY 03/03/18 [History] glimepiride 4 mg PO DAILY 03/03/18 [History] glipizide 5 mg PO BID 03/03/18 [History] levocetirizine 5 mg PO HS 03/03/18 [History] meloxicam 7.5 mg PO DAILY 03/03/18 [History] memantine 28 mg PO DAILY 03/03/18 [History] omeprazole magnesium [Prilosec OTC] 20 mg PO DAILY 03/03/18 [History] oxycodone-acetaminophen [Percocet] 10 mg PO Q6H PRN 03/03/18 [History] potassium chloride 10 mg PO DAILY 03/03/18 [History] pregabalin [Lyrica] 100 mg PO BID 03/03/18 [History] ropinirole 3 tab PO HS 03/03/18 [History] simvastatin 20 mg PO HS 03/03/18 [History] solifenacin [Vesicare] 5 mg PO DAILY 03/03/18 [History] valsartan 80 mg PO DAILY 03/03/18 [History] - Review of Systems Constitutional: Weakness Eyes: No Symptoms Reported ENT: No Symptoms Reported Respiratory: Shortness of Breath, Wheezing Cardiovascular: Light Headedness Gastrointestinal: No Symptoms Reported Genitourinary: No Symptoms Reported Musculoskeletal: Back Pain Skin: No Symptoms Reported Neurological: Weakness - Physical Exam Vital Signs: Temperature 98.0 F Pulse Rate [Apical] 83 Pulse Rate 80 Respiratory Rate 20 Blood Pressure [Left Arm] 155/78 Blood Pressure [Right Arm] 157/69 Blood Pressure 116/56 O2 Sat by Pulse Oximetry 100 Oriented: Person Eyes: Normal Ear: Normal Nose: Normal Throat: Dry Respiratory: Diminished Throughout Cardiovascular: Edema : Normal Palpation: Normal Tenderness: Normal Skin: Normal Musculoskeletal: Right, Left, Hip, Back:Lumbar, Sensory Deficit Speech Pattern: Delayed - Assessment/Plan (1) SOB (shortness of breath) Status: Acute Plan: ADMIT, SERIAL CE AND EKG. SUPPLEMENTAL O2, AGRESSIVE RESP THERAPY, JET NEBS. BIPAP PRN, ABG ON ADMISSION. AM CXR, ADMISSION LABS SPUTUM AND BLOOD CULTURES. IV ATBX, VERIFY HOME MEDS (2) Pneumonia Status: Acute (3) Hypertension Qualifiers: Hypertension type: unspecified Qualified Code(s): I10 - Essential (primary) hypertension Status: Chronic (4) Diabetes mellitus Status: Chronic (5) CHF (congestive heart failure) Status: Chronic (6) COPD (chronic obstructive pulmonary disease) Qualifiers: COPD type: chronic bronchitis Status: Chronic - Allergies Allergies/Adverse Reactions: Allergies Allergy/AdvReac Type Severity Reaction Status Date / Time No Known Drug Allergies Allergy Verified 01/06/18 12:40
--- NOTE | 2018-03-04 17:18 | PCM.PROG ---
Progress Note - Progress Note for Day of Date of Exam: 03/04/18 - Subjective Subjective: 72 WF ER ADMISSION ADMITTED WITH SOB, WEAKNESS AND BILATERAL PNEUMONIA. PT CXR ON ADMISSION REVEALED BILATERAL PNEUMONIA, HYPOXIA ON ADMISSION. REPEAT ABG WITH PO2 UP TO 77%. THIS AM PT CO MILD WEAKNESS, BREATHING FEELS MUCH IMPROVED. PT STATES SHE BECAME VERY WEAK AND SOB AFTER TAKING SHOWER YESTERDAY, THEN "I GUESS I PASSED OUT". PT CO MILD SPUTUM PRODUCTION, CHRONC JOINT PAIN, DENIES CHEST PAIN - Past Medical Family Social History Past Med/Fam/Surg Hx: No changes since H&P Allergies: Allergies No Known Drug Allergies Allergy (Verified 01/06/18 12:40) - Review of Systems ROS: No change since H&P - Vital Signs and I&O's Vital Signs: Temperature 98.0 F Pulse Rate [Apical] 83 Pulse Rate 80 Respiratory Rate 20 Blood Pressure [Left Arm] 155/78 Blood Pressure [Right Arm] 157/69 Blood Pressure 116/56 O2 Sat by Pulse Oximetry 100 Intake and Output: Intake & Output 03/02/18 03/03/18 03/04/18 03/05/18 11:59 11:59 11:59 11:59 Intake Total 819 / 819 1312 / 1312 Output Total 1900 / 1900 1800 / 1800 Balance -1081 / -1081 -488 / -488 - Physical Exam Oriented: Person Eyes: Normal Ear: Normal Nose: Normal Throat: Dry Respiratory: Diminished, Wheezes Cardiovascular: Edema : Normal Tenderness: Normal Skin: Normal Musculoskeletal: Right, Left, Hip, Back:Lumbar, Sensory Deficit Speech Pattern: Delayed - Laboratory and Diagnostics Result Diagrams: 03/04/18 05:24 03/04/18 05:24 Labs: Laboratory WBC 11.1 X10^3/uL (3.6-10.0) H 03/04/18 05:24 RBC 3.93 X10^6/uL (3.5-5.4) 03/04/18 05:24 Hgb 12.0 g/dL (12.0-16.0) D 03/04/18 05:24 Hct 35.6 % (36.0-47.0) L 03/04/18 05:24 MCV 90.6 fL (80.0-100.0) 03/04/18 05:24 MCH 30.5 pg (27.0-34.0) 03/04/18 05:24 MCHC 33.7 g/dL (33.0-35.0) 03/04/18 05:24 RDW 14.2 % (11.6-16.5) 03/04/18 05:24 Plt Count 208 X10^3/uL (150.0-450.0) 03/04/18 05:24 MPV 9.1 fL (7.4-11.0) 03/04/18 05:24 Neut % (Auto) 87.2 % (42.0-75.0) H 03/04/18 05:24 Lymph % (Auto) 8.3 % (21.0-51.0) L 03/04/18 05:24 [place] % (Auto) 4.2 % (0.0-13.0) 03/04/18 05:24 Eos % (Auto) 0.0 % (0.9-2.9) L 03/04/18 05:24 Baso % (Auto) 0.3 % (0.2-1.0) 03/04/18 05:24 Neut # (Auto) 9.7 x10^3/uL (2.2-4.8) H 03/04/18 05:24 Lymph # (Auto) 0.9 X10^3/uL (1.3-2.9) L 03/04/18 05:24 [place] # (Auto) 0.5 x10^3/uL (0.3-0.8) 03/04/18 05:24 Eos # (Auto) 0.0 x10^3/uL (0.0-0.2) 03/04/18 05:24 Baso # (Auto) 0.0 X10^3/uL (0.0-0.1) 03/04/18 05:24 Absolute Nucleated RBC 0.0 /100WBC 03/04/18 05:24 INR Target Range - 03/03/18 10:34 INR 0.88 (0.8-1.3) 03/03/18 10:34 APTT 21.9 SECONDS (22.9-36.5) L 03/03/18 10:34 PTT Comment - 03/03/18 10:34 D-Dimer 2350 ng/mL (0-400) H* 03/03/18 10:34 Sample Site Lr 03/03/18 11:20 ABG pH 7.340 (7.35-7.45) L 03/03/18 11:20 ABG pCO2 61.0 mmHg (35.0-45.0) H* 03/03/18 11:20 ABG pO2 77.0 mmHg (80.0-100.0) L 03/03/18 11:20 ABG HCO3 32.9 mmol/L (22-26) H* 03/03/18 11:20 ABG O2 Saturation 94.0 % (90-100) 03/03/18 11:20 ABG Base Excess 5.4 mmol/L (-2.0-2.0) H 03/03/18 11:20 Wes Test Pos 03/03/18 11:20 A-a Gradient 560.0 mmHg 03/03/18 11:20 FiO2 100 03/03/18 11:20 Blood Gas Comments Pt kelli well. cdn 03/03/18 11:20 Sodium 140 mmol/L (136-145) 03/04/18 05:24 Corrected Sodium 143 mmol/L (136-145) 03/04/18 05:24 Potassium 4.1 mmol/L (3.5-5.1) 03/04/18 05:24 Chloride 101 mmol/L (98-107) 03/04/18 05:24 Carbon Dioxide 33.8 mmol/L (21-32) H 03/04/18 05:24 BUN 25 mg/dL (7-18) H 03/04/18 05:24 Creatinine 1.27 mg/dL (0.55-1.02) H 03/04/18 05:24 Est GFR (MDRD) Af Amer 53 (>60) L 03/04/18 05:24 Est GFR (MDRD) Non-Af 44 (>60) L 03/04/18 05:24 Glucose 224 mg/dL (65-99) H 03/04/18 05:24 POC Glucose (mg/dL) 304 mg/dL (65-99) H 03/04/18 16:50 Lactic Acid 1.6 mmol/L (0.4-2.0) 03/03/18 10:34 Calcium 8.2 mg/dL (8.5-10.1) L 03/04/18 05:24 Corrected Calcium 9.4 mg/dL (8.5-10.1) 03/04/18 05:24 Total Bilirubin 0.30 mg/dL (0.2-1.0) 03/04/18 05:24 AST 12 Units/L (15-37) L 03/04/18 05:24 ALT 16 Units/L (12-78) 03/04/18 05:24 Alkaline Phosphatase 97 Units/L (46-116) 03/04/18 05:24 Creatine Kinase 48 Units/L (26-192) 03/03/18 23:18 CK-MB (CK-2) < 1.0 ng/mL (0-4.0) 03/03/18 23:18 CK/CKMB % Calc 2.1 % (<4) 03/03/18 23:18 Troponin I < 0.02 ng/mL (0-1.5) 03/03/18 23:18 B-Natriuretic Peptide 37.2 pg/mL (0-79) 03/03/18 10:34 Total Protein 6.5 g/dL (6.4-8.2) 03/04/18 05:24 Albumin 2.5 g/dL (3.4-5.0) L 03/04/18 05:24 Globulin 4.0 g/dL (2.5-4.5) 03/04/18 05:24 Albumin/Globulin Ratio 0.6 Ratio (1.1-2.1) L 03/04/18 05:24 Specimen Type Clean catch urine 03/03/18 10:15 Urine Color Yellow (YELLOW) 03/03/18 10:15 Urine Appearance Hazy (CLEAR) 03/03/18 10:15 Urine pH 5.0 (5.0 - 8.0) 03/03/18 10:15 Ur Specific [place] 1.015 (1.000-1.030) 03/03/18 10:15 Urine Protein 2+ (NEGATIVE) 03/03/18 10:15 Urine Glucose (UA) Negative (NEGATIVE) 03/03/18 10:15 Urine Ketones Negative (NEGATIVE) 03/03/18 10:15 Urine Occult Blood Negative (NEGATIVE) 03/03/18 10:15 Urine Nitrite Negative (NEGATIVE) 03/03/18 10:15 Urine Bilirubin Negative (NEGATIVE) 03/03/18 10:15 Urine Urobilinogen Normal (NORMAL) 03/03/18 10:15 Ur Leukocyte Esterase Negative (NEGATIVE) 03/03/18 10:15 Urine RBC None seen /HPF (NONE SEEN) 03/03/18 10:15 Urine WBC None seen /HPF (NONE SEEN) 03/03/18 10:15 Ur Squamous Epith Cells Negative /HPF (NEGATIVE) 03/03/18 10:15 Urine Bacteria Negative /HPF (NEGATIVE) 03/03/18 10:15 Hyaline Casts Few /LPF (NEGATIVE) 03/03/18 10:15 Urine Mucus Few /HPF (NEGATIVE) 03/03/18 10:15 Ur Culture Indicated? No/not indicated 03/03/18 10:15 - Plan (1) SOB (shortness of breath) Status: Acute Plan: SERIAL CE AND EKG ON ADMISSION REVIEWED WITH PT. SUPPLEMENTAL O2, AGRESSIVE RESP THERAPY, JET NEBS. BIPAP PRN, ABG Q A-M. AM CXR, AM LABS SPUTUM AND BLOOD CULTURES PENDING. IV ATBX, VERIFY HOME MEDS (2) Pneumonia Status: Acute (3) Hypertension Status: Chronic Qualifiers: Hypertension type: unspecified Qualified Code(s): I10 - Essential (primary) hypertension (4) Diabetes mellitus Status: Chronic (5) CHF (congestive heart failure) Status: Chronic (6) COPD (chronic obstructive pulmonary disease) Status: Chronic Qualifiers: COPD type: chronic bronchitis
[2018-03-04] MEDS: ZyrTEC TAB 10 MG PO SCH (20:20)
[2018-03-04] MEDS: REQUIP PO SCH (20:20)
[2018-03-04] MEDS: ZOCOR TAB 20 MG PO SCH (20:21)
[2018-03-04] MEDS: ARICEPT TAB 10 MG PO SCH (20:21)
[2018-03-04] MEDS: SNACK - Diabetic Appropriate PO SCH (20:40)
[2018-03-05] MEDS: TYLENOL 325 MG TAB PO PRN ×2 (00:28→22:03)
[2018-03-05] MEDS: TUSSIONEX PENNKINETIC SUSP PO PRN ×2 (01:09→21:22)
[2018-03-05] MEDS: DUONEB 0.5 MG/3 MG NEB SCH ×6 (01:20→22:12)
[2018-03-05] MEDS ORDERED: NS 1/2 1000 ML IV 1,000 ML IV ONE (05:59)
[2018-03-05 06:26] LABS: BASOPHILS % (AUTO) 0.5 % (0.2-1.0); EOSINOPHILS # (AUTO) 0.2 x10^3/uL (0.0-0.2); EOSINOPHILS % (AUTO) 2.2 % (0.9-2.9); HEMOGLOBIN 11.5 g/dL (12.0-16.0); LYMPHOCYTES # (AUTO) 1.6 X10^3/uL (1.3-2.9); LYMPHOCYTES % (AUTO) 18.2 % (21.0-51.0); MEAN CORPUSCULAR HEMOGLOBIN 30.9 pg (27.0-34.0); MEAN CORPUSCULAR HGB CONC 33.7 g/dL (33.0-35.0); MEAN CORPUSCULAR VOLUME 91.6 fL (80.0-100.0); MEAN PLATELET VOLUME 8.9 fL (7.4-11.0); MONOCYTES # (AUTO) 0.5 x10^3/uL (0.3-0.8); NEUTROPHILS # (AUTO) 6.7 x10^3/uL (2.2-4.8); NEUTROPHILS % (AUTO) 74.1 % (42.0-75.0); PLATELET COUNT 170 X10^3/uL (150.0-450.0); RED BLOOD COUNT 3.72 X10^6/uL (3.5-5.4); RED CELL DISTRIBUTION WIDTH 14.5 % (11.6-16.5)
[2018-03-05] MEDS: NS 1/2 1000 ML IV 1,000 ML IV SCH ×2 (06:30→20:17)
[2018-03-05 06:46] LABS: ALANINE AMINOTRANSFERASE 19 Units/L (12-78); ALBUMIN 2.4 g/dL (3.4-5.0); ALKALINE PHOSPHATASE 89 Units/L (46-116); ASPARTATE AMINO TRANSFERASE 19 Units/L (15-37); BLOOD UREA NITROGEN 25 mg/dL (7-18); CALCIUM 8.2 mg/dL (8.5-10.1); CARBON DIOXIDE 33.3 mmol/L (21-32); CHLORIDE 104 mmol/L (98-107); COR CA(FOR HYPOALB) 9.5 mg/dL (8.5-10.1); COR NA(FOR HYPERGLY) 143 mmol/L (136-145); CREATININE 0.99 mg/dL (0.55-1.02); SODIUM 142 mmol/L (136-145); TOTAL PROTEIN 6.3 g/dL (6.4-8.2); eGFR NON BLACK RACES 58 (>60)
[2018-03-05] MEDS: ZITHROMAX INJ 500 MG VIAL 500 MG in NS 250 ML IV 250 ML IV SCH (09:28)
[2018-03-05] MEDS: ROCEPHIN VIAL 1 GRAM IVP SCH (09:29)
[2018-03-05] MEDS: COREG TAB 12.5 MG PO SCH ×2 (09:29→21:24)
[2018-03-05] MEDS: ELAVIL PO SCH (09:29)
[2018-03-05] MEDS: GLUCOTROL PO SCH ×2 (09:30→21:24)
[2018-03-05] MEDS: MICRO K EXTEN CAP 10 MEQ PO SCH (09:30)
[2018-03-05] MEDS: FLEXERIL TAB 10 MG PO SCH (09:30)
[2018-03-05] MEDS: COLACE CAP 100 MG PO SCH (09:30)
[2018-03-05] MEDS: LYRICA CAP 100 MG PO SCH ×2 (09:30→21:24)
[2018-03-05] MEDS: DIOVAN TAB 80 MG PO SCH (09:30)
[2018-03-05] MEDS: LASIX PO SCH (09:30)
[2018-03-05] MEDS: PriLOSEC PO SCH (09:30)
[2018-03-05] MEDS: ROBITUSSIN DM PO SCH ×4 (09:31→21:22)
[2018-03-05] MEDS: MOBIC TAB 15 MG PO SCH (09:31)
[2018-03-05] MEDS: ZETIA TAB 10 MG PO SCH (09:31)
[2018-03-05] MEDS: ASPIRIN EC 81 MG PO SCH (09:31)
[2018-03-05] MEDS: PATIENT'S HOME MEDICATION (Solifenacin [Vesicare] 5 MG) PO SCH (09:34)
[2018-03-05] MEDS: MEMANTINE 28 MG PO SCH (09:34)
[2018-03-05] MEDS: HumuLIN R SC PRN ×3 (12:06→21:22)
[2018-03-05] MEDS: SNACK - Diabetic Appropriate PO SCH (20:00)
[2018-03-05] MEDS: ZOCOR TAB 20 MG PO SCH (21:24)
[2018-03-05] MEDS: REQUIP PO SCH (21:24)
[2018-03-05] MEDS: ARICEPT TAB 10 MG PO SCH (21:24)
[2018-03-05] MEDS: ZyrTEC TAB 10 MG PO SCH (21:25)
[2018-03-06] MEDS: NS 1/2 1000 ML IV 1,000 ML IV SCH ×2 (01:11→16:27)
[2018-03-06] MEDS: DUONEB 0.5 MG/3 MG NEB SCH ×6 (01:38→20:49)
[2018-03-06 04:50] LABS: BASOPHILS % (AUTO) 0.4 % (0.2-1.0); EOSINOPHILS # (AUTO) 0.3 x10^3/uL (0.0-0.2); EOSINOPHILS % (AUTO) 3.6 % (0.9-2.9); HEMATOCRIT 33.8 % (36.0-47.0); HEMOGLOBIN 11.5 g/dL (12.0-16.0); LYMPHOCYTES # (AUTO) 1.7 X10^3/uL (1.3-2.9); LYMPHOCYTES % (AUTO) 18.2 % (21.0-51.0); MEAN CORPUSCULAR HEMOGLOBIN 30.8 pg (27.0-34.0); MEAN CORPUSCULAR VOLUME 90.6 fL (80.0-100.0); MEAN PLATELET VOLUME 8.7 fL (7.4-11.0); MONOCYTES # (AUTO) 0.6 x10^3/uL (0.3-0.8); MONOCYTES % (AUTO) 6.1 % (0.0-13.0); NEUTROPHILS # (AUTO) 6.6 x10^3/uL (2.2-4.8); NEUTROPHILS % (AUTO) 71.7 % (42.0-75.0); PLATELET COUNT 186 X10^3/uL (150.0-450.0); RED BLOOD COUNT 3.73 X10^6/uL (3.5-5.4); RED CELL DISTRIBUTION WIDTH 14.4 % (11.6-16.5); WHITE BLOOD COUNT 9.2 X10^3/uL (3.6-10.0)
[2018-03-06 05:14] LABS: ALANINE AMINOTRANSFERASE 20 Units/L (12-78); ALBUMIN 2.4 g/dL (3.4-5.0); ALKALINE PHOSPHATASE 98 Units/L (46-116); ASPARTATE AMINO TRANSFERASE 15 Units/L (15-37); BLOOD UREA NITROGEN 16 mg/dL (7-18); CALCIUM 8.1 mg/dL (8.5-10.1); CARBON DIOXIDE 35.3 mmol/L (21-32); CHLORIDE 102 mmol/L (98-107); COR CA(FOR HYPOALB) 9.4 mg/dL (8.5-10.1); COR NA(FOR HYPERGLY) 140 mmol/L (136-145); CREATININE 0.84 mg/dL (0.55-1.02); SODIUM 140 mmol/L (136-145); TOTAL PROTEIN 6.5 g/dL (6.4-8.2); eGFR NON BLACK RACES > 60 (>60)
[2018-03-06] MEDS: COLACE CAP 100 MG PO SCH (08:00)
[2018-03-06] MEDS: DIOVAN TAB 80 MG PO SCH (08:00)
[2018-03-06] MEDS: ZETIA TAB 10 MG PO SCH (08:00)
[2018-03-06] MEDS: FLEXERIL TAB 10 MG PO SCH (08:00)
[2018-03-06] MEDS: ASPIRIN EC 81 MG PO SCH (08:00)
[2018-03-06] MEDS: PriLOSEC PO SCH (08:00)
[2018-03-06] MEDS: ROBITUSSIN DM PO SCH ×4 (08:01→20:35)
[2018-03-06] MEDS: MICRO K EXTEN CAP 10 MEQ PO SCH (08:01)
[2018-03-06] MEDS: COREG TAB 12.5 MG PO SCH ×2 (08:01→20:36)
[2018-03-06] MEDS: MOBIC TAB 15 MG PO SCH (08:01)
[2018-03-06] MEDS: ELAVIL PO SCH (08:01)
[2018-03-06] MEDS: LASIX PO SCH (08:01)
[2018-03-06] MEDS: LYRICA CAP 100 MG PO SCH ×2 (08:01→20:36)
[2018-03-06] MEDS: GLUCOTROL PO SCH ×2 (08:02→20:36)
[2018-03-06] MEDS: ROCEPHIN VIAL 1 GRAM IVP SCH (08:02)
[2018-03-06] MEDS: ZITHROMAX INJ 500 MG VIAL 500 MG in NS 250 ML IV 250 ML IV SCH (08:02)
[2018-03-06] MEDS: PATIENT'S HOME MEDICATION (Solifenacin [Vesicare] 5 MG) PO SCH (08:03)
[2018-03-06] MEDS: MEMANTINE 28 MG PO SCH (08:03)
[2018-03-06] MEDS: HumuLIN R SC PRN ×3 (11:12→20:37)
[2018-03-06] MEDS ORDERED: NS 1/2 1000 ML IV 1,000 ML IV ONE (16:03)
[2018-03-06] MEDS: SNACK - Diabetic Appropriate PO SCH (20:35)
[2018-03-06] MEDS: TUSSIONEX PENNKINETIC SUSP PO PRN (20:36)
[2018-03-06] MEDS: ZOCOR TAB 20 MG PO SCH (20:36)
[2018-03-06] MEDS: ARICEPT TAB 10 MG PO SCH (20:36)
[2018-03-06] MEDS: ZyrTEC TAB 10 MG PO SCH (20:36)
[2018-03-06] MEDS: ZYVOX 600MG IV 600 MG/300 ML BAG IV SCH (20:37)
[2018-03-06] MEDS: REQUIP PO SCH (20:40)
[2018-03-06] MEDS: TYLENOL 325 MG TAB PO PRN (23:32)
[2018-03-07] MEDS: DUONEB 0.5 MG/3 MG NEB SCH ×6 (01:07→20:10)
[2018-03-07] MEDS: NS 1/2 1000 ML IV 1,000 ML IV SCH (05:53)
[2018-03-07 06:18] LABS: BASOPHILS % (AUTO) 0.5 % (0.2-1.0); EOSINOPHILS # (AUTO) 0.4 x10^3/uL (0.0-0.2); EOSINOPHILS % (AUTO) 4.9 % (0.9-2.9); HEMATOCRIT 32.6 % (36.0-47.0); LYMPHOCYTES # (AUTO) 1.8 X10^3/uL (1.3-2.9); LYMPHOCYTES % (AUTO) 21.3 % (21.0-51.0); MEAN CORPUSCULAR HEMOGLOBIN 30.9 pg (27.0-34.0); MEAN CORPUSCULAR HGB CONC 33.7 g/dL (33.0-35.0); MEAN CORPUSCULAR VOLUME 91.7 fL (80.0-100.0); MEAN PLATELET VOLUME 9.2 fL (7.4-11.0); MONOCYTES # (AUTO) 0.5 x10^3/uL (0.3-0.8); NEUTROPHILS # (AUTO) 5.8 x10^3/uL (2.2-4.8); NEUTROPHILS % (AUTO) 67.3 % (42.0-75.0); PLATELET COUNT 188 X10^3/uL (150.0-450.0); RED BLOOD COUNT 3.55 X10^6/uL (3.5-5.4); RED CELL DISTRIBUTION WIDTH 14.1 % (11.6-16.5); WHITE BLOOD COUNT 8.7 X10^3/uL (3.6-10.0)
[2018-03-07 06:33] LABS: ALANINE AMINOTRANSFERASE 22 Units/L (12-78); ALBUMIN 2.3 g/dL (3.4-5.0); ALKALINE PHOSPHATASE 108 Units/L (46-116); ASPARTATE AMINO TRANSFERASE 17 Units/L (15-37); BLOOD UREA NITROGEN 14 mg/dL (7-18); CALCIUM 8.2 mg/dL (8.5-10.1); CARBON DIOXIDE 35.3 mmol/L (21-32); CHLORIDE 102 mmol/L (98-107); COR CA(FOR HYPOALB) 9.6 mg/dL (8.5-10.1); COR NA(FOR HYPERGLY) 141 mmol/L (136-145); SODIUM 141 mmol/L (136-145); TOTAL PROTEIN 6.4 g/dL (6.4-8.2); eGFR NON BLACK RACES > 60 (>60)
[2018-03-07] MEDS: ELAVIL PO SCH (09:42)
[2018-03-07] MEDS: ASPIRIN EC 81 MG PO SCH (09:42)
[2018-03-07] MEDS: COLACE CAP 100 MG PO SCH (09:42)
[2018-03-07] MEDS: DIOVAN TAB 80 MG PO SCH (09:42)
[2018-03-07] MEDS: COREG TAB 12.5 MG PO SCH ×2 (09:42→21:17)
[2018-03-07] MEDS: MEMANTINE 28 MG PO SCH (09:43)
[2018-03-07] MEDS: FLEXERIL TAB 10 MG PO SCH (09:43)
[2018-03-07] MEDS: LASIX PO SCH (09:43)
[2018-03-07] MEDS: GLUCOTROL PO SCH ×2 (09:43→21:18)
[2018-03-07] MEDS: LYRICA CAP 100 MG PO SCH ×2 (09:43→21:18)
[2018-03-07] MEDS: MICRO K EXTEN CAP 10 MEQ PO SCH (09:43)
[2018-03-07] MEDS: ROBITUSSIN DM PO SCH ×4 (09:44→21:18)
[2018-03-07] MEDS: ZETIA TAB 10 MG PO SCH (09:44)
[2018-03-07] MEDS: PATIENT'S HOME MEDICATION (Solifenacin [Vesicare] 5 MG) PO SCH (09:44)
[2018-03-07] MEDS: ZYVOX 600MG IV 600 MG/300 ML BAG IV SCH ×2 (09:44→21:19)
[2018-03-07] MEDS: PriLOSEC PO SCH (09:44)
[2018-03-07] MEDS: MOBIC TAB 15 MG PO SCH (09:44)
[2018-03-07] MEDS ORDERED: REQUIP PO PRN (09:46)
[2018-03-07] MEDS: HumuLIN R SC PRN ×2 (11:52→21:42)
--- NOTE | 2018-03-07 14:20 | PCM.PROG ---
Progress Note - Progress Note for Day of Date of Exam: 03/06/18 - Subjective Subjective: 72 WF ER ADMISSION ADMITTED WITH SOB, WEAKNESS AND BILATERAL PNEUMONIA. PT CXR ON ADMISSION REVEALED BILATERAL PNEUMONIA, HYPOXIA ON ADMISSION. REPEAT ABG WITH PO2 UP TO 77%. THIS AM PT CO MILD WEAKNESS, BREATHING FEELS MUCH IMPROVED. PT STATES SHE BECAME VERY WEAK AND SOB AFTER TAKING SHOWER YESTERDAY, THEN "I GUESS I PASSED OUT". PT CO MILD SPUTUM PRODUCTION, CHRONC JOINT PAIN, DENIES CHEST PAIN. PT HAD DIFFUSE DIMINISHED LUNG BASES, SCATTERED RHONCHI, SPUTUM CULTURE PENDING. PT STARTED ON IV ZYVOX, REPEAT BLOOD CULTURES PENDING - Past Medical Family Social History Past Med/Fam/Surg Hx: No changes since H&P Allergies: Allergies No Known Drug Allergies Allergy (Verified 01/06/18 12:40) - Review of Systems ROS: No change since H&P - Vital Signs and I&O's Vital Signs: Temperature 97.6 F Pulse Rate [Apical] 87 Pulse Rate 70 Respiratory Rate 23 Blood Pressure [Left Arm] 180/81 Blood Pressure [Right Arm] 157/69 Blood Pressure 158/65 O2 Sat by Pulse Oximetry 97 Intake and Output: Intake & Output 03/05/18 03/06/18 03/07/18 03/08/18 11:59 11:59 11:59 11:59 Intake Total 3664 / 3664 2929 / 2929 2013 Output Total 3800 / 3800 2450 / 2450 Balance -136 / -136 479 / 479 2013 - Physical Exam Oriented: Person Eyes: Normal Ear: Normal Nose: Normal Throat: Dry Respiratory: Diminished, Rhonchi Cardiovascular: Edema : Normal Tenderness: Normal Skin: Normal Musculoskeletal: Right, Left, Hip, Back:Lumbar, Sensory Deficit Speech Pattern: Clear, Appropriate - Laboratory and Diagnostics Result Diagrams: 03/07/18 04:34 03/07/18 04:34 Labs: 03/05/18 19:00 Sputum - Expectorated Sputum Sputum Culture - Preliminary 03/05/18 19:00 Sputum - Expectorated Sputum - Final 03/03/18 10:30 Blood Blood Culture - Final Staphylococcus Hominis 03/03/18 10:34 Blood Blood Culture - Preliminary Laboratory WBC 8.7 X10^3/uL (3.6-10.0) 03/07/18 04:34 RBC 3.55 X10^6/uL (3.5-5.4) 03/07/18 04:34 Hgb 11.0 g/dL (12.0-16.0) L 03/07/18 04:34 Hct 32.6 % (36.0-47.0) L 03/07/18 04:34 MCV 91.7 fL (80.0-100.0) 03/07/18 04:34 MCH 30.9 pg (27.0-34.0) 03/07/18 04:34 MCHC 33.7 g/dL (33.0-35.0) 03/07/18 04:34 RDW 14.1 % (11.6-16.5) 03/07/18 04:34 Plt Count 188 X10^3/uL (150.0-450.0) 03/07/18 04:34 MPV 9.2 fL (7.4-11.0) 03/07/18 04:34 Neut % (Auto) 67.3 % (42.0-75.0) 03/07/18 04:34 Lymph % (Auto) 21.3 % (21.0-51.0) 03/07/18 04:34 [place] % (Auto) 6.0 % (0.0-13.0) 03/07/18 04:34 Eos % (Auto) 4.9 % (0.9-2.9) H 03/07/18 04:34 Baso % (Auto) 0.5 % (0.2-1.0) 03/07/18 04:34 Neut # (Auto) 5.8 x10^3/uL (2.2-4.8) H 03/07/18 04:34 Lymph # (Auto) 1.8 X10^3/uL (1.3-2.9) 03/07/18 04:34 [place] # (Auto) 0.5 x10^3/uL (0.3-0.8) 03/07/18 04:34 Eos # (Auto) 0.4 x10^3/uL (0.0-0.2) H 03/07/18 04:34 Baso # (Auto) 0.0 X10^3/uL (0.0-0.1) 03/07/18 04:34 Absolute Nucleated RBC 0.0 /100WBC 03/07/18 04:34 INR Target Range - 03/03/18 10:34 INR 0.88 (0.8-1.3) 03/03/18 10:34 APTT 21.9 SECONDS (22.9-36.5) L 03/03/18 10:34 PTT Comment - 03/03/18 10:34 D-Dimer 2350 ng/mL (0-400) H* 03/03/18 10:34 Sample Site Lr 03/03/18 11:20 ABG pH 7.340 (7.35-7.45) L 03/03/18 11:20 ABG pCO2 61.0 mmHg (35.0-45.0) H* 03/03/18 11:20 ABG pO2 77.0 mmHg (80.0-100.0) L 03/03/18 11:20 ABG HCO3 32.9 mmol/L (22-26) H* 03/03/18 11:20 ABG O2 Saturation 94.0 % (90-100) 03/03/18 11:20 ABG Base Excess 5.4 mmol/L (-2.0-2.0) H 03/03/18 11:20 Wes Test Pos 03/03/18 11:20 A-a Gradient 560.0 mmHg 03/03/18 11:20 FiO2 100 03/03/18 11:20 Blood Gas Comments Pt kelli well. cdn 03/03/18 11:20 Sodium 141 mmol/L (136-145) 03/07/18 04:34 Corrected Sodium 141 mmol/L (136-145) 03/07/18 04:34 Potassium 3.6 mmol/L (3.5-5.1) 03/07/18 04:34 Chloride 102 mmol/L (98-107) 03/07/18 04:34 Carbon Dioxide 35.3 mmol/L (21-32) H 03/07/18 04:34 BUN 14 mg/dL (7-18) 03/07/18 04:34 Creatinine 0.80 mg/dL (0.55-1.02) 03/07/18 04:34 Est GFR (MDRD) Af Amer > 60 (>60) 03/07/18 04:34 Est GFR (MDRD) Non-Af > 60 (>60) 03/07/18 04:34 Glucose 117 mg/dL (65-99) H 03/07/18 04:34 POC Glucose (mg/dL) 261 mg/dL (65-99) H 03/07/18 11:28 Lactic Acid 1.6 mmol/L (0.4-2.0) 03/03/18 10:34 Calcium 8.2 mg/dL (8.5-10.1) L 03/07/18 04:34 Corrected Calcium 9.6 mg/dL (8.5-10.1) 03/07/18 04:34 Magnesium 1.9 mg/dL (1.7-2.9) 03/06/18 04:10 Total Bilirubin 0.40 mg/dL (0.2-1.0) 03/07/18 04:34 AST 17 Units/L (15-37) 03/07/18 04:34 ALT 22 Units/L (12-78) 03/07/18 04:34 Alkaline Phosphatase 108 Units/L (46-116) 03/07/18 04:34 Creatine Kinase 48 Units/L (26-192) 03/03/18 23:18 CK-MB (CK-2) < 1.0 ng/mL (0-4.0) 03/03/18 23:18 CK/CKMB % Calc 2.1 % (<4) 03/03/18 23:18 Troponin I < 0.02 ng/mL (0-1.5) 03/03/18 23:18 B-Natriuretic Peptide 37.2 pg/mL (0-79) 03/03/18 10:34 Total Protein 6.4 g/dL (6.4-8.2) 03/07/18 04:34 Albumin 2.3 g/dL (3.4-5.0) L 03/07/18 04:34 Globulin 4.1 g/dL (2.5-4.5) 03/07/18 04:34 Albumin/Globulin Ratio 0.6 Ratio (1.1-2.1) L 03/07/18 04:34 Specimen Type Clean catch urine 03/03/18 10:15 Urine Color Yellow (YELLOW) 03/03/18 10:15 Urine Appearance Hazy (CLEAR) 03/03/18 10:15 Urine pH 5.0 (5.0 - 8.0) 03/03/18 10:15 Ur Specific [place] 1.015 (1.000-1.030) 03/03/18 10:15 Urine Protein 2+ (NEGATIVE) 03/03/18 10:15 Urine Glucose (UA) Negative (NEGATIVE) 03/03/18 10:15 Urine Ketones Negative (NEGATIVE) 03/03/18 10:15 Urine Occult Blood Negative (NEGATIVE) 03/03/18 10:15 Urine Nitrite Negative (NEGATIVE) 03/03/18 10:15 Urine Bilirubin Negative (NEGATIVE) 03/03/18 10:15 Urine Urobilinogen Normal (NORMAL) 03/03/18 10:15 Ur Leukocyte Esterase Negative (NEGATIVE) 03/03/18 10:15 Urine RBC None seen /HPF (NONE SEEN) 03/03/18 10:15 Urine WBC None seen /HPF (NONE SEEN) 03/03/18 10:15 Ur Squamous Epith Cells Negative /HPF (NEGATIVE) 03/03/18 10:15 Urine Bacteria Negative /HPF (NEGATIVE) 03/03/18 10:15 Hyaline Casts Few /LPF (NEGATIVE) 03/03/18 10:15 Urine Mucus Few /HPF (NEGATIVE) 03/03/18 10:15 Ur Culture Indicated? No/not indicated 03/03/18 10:15 - Plan (1) SOB (shortness of breath) Status: Acute Plan: SERIAL CE AND EKG ON ADMISSION REVIEWED WITH PT. SUPPLEMENTAL O2, AGRESSIVE RESP THERAPY, JET NEBS. BIPAP PRN, ABG Q A-M. AM CXR, AM LABS SPUTUM. REPEAT BLOOD CULTURES PENDING. IV ZYVOX STARTED DUE TO +BC (2) Pneumonia Status: Acute Plan: JET NEBS. SUPPLEMENTAL O2. PULMONARY TOILETING (3) Hypertension Status: Chronic Qualifiers: Hypertension type: unspecified Qualified Code(s): I10 - Essential (primary) hypertension (4) Diabetes mellitus Status: Chronic (5) CHF (congestive heart failure) Status: Chronic (6) COPD (chronic obstructive pulmonary disease) Status: Chronic Qualifiers: COPD type: chronic bronchitis (7) Blood bacterial culture positive Status: Acute Plan: SUSPECT CONTAMINATION, REPEAT CULTURES PENDING. IV ZYVOX
--- NOTE | 2018-03-07 14:22 | PCM.PROG ---
Progress Note - Progress Note for Day of Date of Exam: 03/07/18 - Subjective Subjective: 72 WF ER ADMISSION ADMITTED WITH SOB, WEAKNESS AND BILATERAL PNEUMONIA. PT CXR ON ADMISSION REVEALED BILATERAL PNEUMONIA, HYPOXIA ON ADMISSION. REPEAT ABG WITH PO2 UP TO 77%. PT CO FEELING BAD THIS AM, APPEARS SLEEPY. D/C'D FLEXERIL, DECREASED REQUIP, LYRICA AND PRN SEDATIVE MEDICATION. PT CO INCREASED SPUTUM PRODUCTION, CHRONC JOINT PAIN, DENIES CHEST PAIN. PT HAD DIFFUSE DIMINISHED LUNG BASES, SCATTERED RHONCHI, REPEAT SPUTUM CUTLURE AND AM CHEST XRAY. PT STARTED ON IV ZYVOX, REPEAT BLOOD CULTURES PENDING - Past Medical Family Social History Past Med/Fam/Surg Hx: No changes since H&P Allergies: Allergies No Known Drug Allergies Allergy (Verified 01/06/18 12:40) - Review of Systems ROS: No change since H&P - Vital Signs and I&O's Vital Signs: Temperature 97.6 F Pulse Rate [Apical] 87 Pulse Rate 70 Respiratory Rate 23 Blood Pressure [Left Arm] 180/81 Blood Pressure [Right Arm] 157/69 Blood Pressure 158/65 O2 Sat by Pulse Oximetry 97 Intake and Output: Intake & Output 03/05/18 03/06/18 03/07/18 03/08/18 11:59 11:59 11:59 11:59 Intake Total 3664 / 3664 2929 / 2929 2013 Output Total 3800 / 3800 2450 / 2450 Balance -136 / -136 479 / 479 2013 - Physical Exam Oriented: Person Eyes: Normal Ear: Normal Nose: Normal Throat: Dry Respiratory: Diminished, Rhonchi Cardiovascular: Edema : Normal Tenderness: Normal Skin: Normal Musculoskeletal: Right, Left, Hip, Back:Lumbar, Sensory Deficit Speech Pattern: Clear, Appropriate - Laboratory and Diagnostics Result Diagrams: 03/07/18 04:34 03/07/18 04:34 Labs: 03/05/18 19:00 Sputum - Expectorated Sputum Sputum Culture - Preliminary 03/05/18 19:00 Sputum - Expectorated Sputum - Final 03/03/18 10:30 Blood Blood Culture - Final Staphylococcus Hominis 03/03/18 10:34 Blood Blood Culture - Preliminary Laboratory WBC 8.7 X10^3/uL (3.6-10.0) 03/07/18 04:34 RBC 3.55 X10^6/uL (3.5-5.4) 03/07/18 04:34 Hgb 11.0 g/dL (12.0-16.0) L 03/07/18 04:34 Hct 32.6 % (36.0-47.0) L 03/07/18 04:34 MCV 91.7 fL (80.0-100.0) 03/07/18 04:34 MCH 30.9 pg (27.0-34.0) 03/07/18 04:34 MCHC 33.7 g/dL (33.0-35.0) 03/07/18 04:34 RDW 14.1 % (11.6-16.5) 03/07/18 04:34 Plt Count 188 X10^3/uL (150.0-450.0) 03/07/18 04:34 MPV 9.2 fL (7.4-11.0) 03/07/18 04:34 Neut % (Auto) 67.3 % (42.0-75.0) 03/07/18 04:34 Lymph % (Auto) 21.3 % (21.0-51.0) 03/07/18 04:34 [place] % (Auto) 6.0 % (0.0-13.0) 03/07/18 04:34 Eos % (Auto) 4.9 % (0.9-2.9) H 03/07/18 04:34 Baso % (Auto) 0.5 % (0.2-1.0) 03/07/18 04:34 Neut # (Auto) 5.8 x10^3/uL (2.2-4.8) H 03/07/18 04:34 Lymph # (Auto) 1.8 X10^3/uL (1.3-2.9) 03/07/18 04:34 [place] # (Auto) 0.5 x10^3/uL (0.3-0.8) 03/07/18 04:34 Eos # (Auto) 0.4 x10^3/uL (0.0-0.2) H 03/07/18 04:34 Baso # (Auto) 0.0 X10^3/uL (0.0-0.1) 03/07/18 04:34 Absolute Nucleated RBC 0.0 /100WBC 03/07/18 04:34 INR Target Range - 03/03/18 10:34 INR 0.88 (0.8-1.3) 03/03/18 10:34 APTT 21.9 SECONDS (22.9-36.5) L 03/03/18 10:34 PTT Comment - 03/03/18 10:34 D-Dimer 2350 ng/mL (0-400) H* 03/03/18 10:34 Sample Site Lr 03/03/18 11:20 ABG pH 7.340 (7.35-7.45) L 03/03/18 11:20 ABG pCO2 61.0 mmHg (35.0-45.0) H* 03/03/18 11:20 ABG pO2 77.0 mmHg (80.0-100.0) L 03/03/18 11:20 ABG HCO3 32.9 mmol/L (22-26) H* 03/03/18 11:20 ABG O2 Saturation 94.0 % (90-100) 03/03/18 11:20 ABG Base Excess 5.4 mmol/L (-2.0-2.0) H 03/03/18 11:20 Wes Test Pos 03/03/18 11:20 A-a Gradient 560.0 mmHg 03/03/18 11:20 FiO2 100 03/03/18 11:20 Blood Gas Comments Pt kelli well. cdn 03/03/18 11:20 Sodium 141 mmol/L (136-145) 03/07/18 04:34 Corrected Sodium 141 mmol/L (136-145) 03/07/18 04:34 Potassium 3.6 mmol/L (3.5-5.1) 03/07/18 04:34 Chloride 102 mmol/L (98-107) 03/07/18 04:34 Carbon Dioxide 35.3 mmol/L (21-32) H 03/07/18 04:34 BUN 14 mg/dL (7-18) 03/07/18 04:34 Creatinine 0.80 mg/dL (0.55-1.02) 03/07/18 04:34 Est GFR (MDRD) Af Amer > 60 (>60) 03/07/18 04:34 Est GFR (MDRD) Non-Af > 60 (>60) 03/07/18 04:34 Glucose 117 mg/dL (65-99) H 03/07/18 04:34 POC Glucose (mg/dL) 261 mg/dL (65-99) H 03/07/18 11:28 Lactic Acid 1.6 mmol/L (0.4-2.0) 03/03/18 10:34 Calcium 8.2 mg/dL (8.5-10.1) L 03/07/18 04:34 Corrected Calcium 9.6 mg/dL (8.5-10.1) 03/07/18 04:34 Magnesium 1.9 mg/dL (1.7-2.9) 03/06/18 04:10 Total Bilirubin 0.40 mg/dL (0.2-1.0) 03/07/18 04:34 AST 17 Units/L (15-37) 03/07/18 04:34 ALT 22 Units/L (12-78) 03/07/18 04:34 Alkaline Phosphatase 108 Units/L (46-116) 03/07/18 04:34 Creatine Kinase 48 Units/L (26-192) 03/03/18 23:18 CK-MB (CK-2) < 1.0 ng/mL (0-4.0) 03/03/18 23:18 CK/CKMB % Calc 2.1 % (<4) 03/03/18 23:18 Troponin I < 0.02 ng/mL (0-1.5) 03/03/18 23:18 B-Natriuretic Peptide 37.2 pg/mL (0-79) 03/03/18 10:34 Total Protein 6.4 g/dL (6.4-8.2) 03/07/18 04:34 Albumin 2.3 g/dL (3.4-5.0) L 03/07/18 04:34 Globulin 4.1 g/dL (2.5-4.5) 03/07/18 04:34 Albumin/Globulin Ratio 0.6 Ratio (1.1-2.1) L 03/07/18 04:34 Specimen Type Clean catch urine 03/03/18 10:15 Urine Color Yellow (YELLOW) 03/03/18 10:15 Urine Appearance Hazy (CLEAR) 03/03/18 10:15 Urine pH 5.0 (5.0 - 8.0) 03/03/18 10:15 Ur Specific [place] 1.015 (1.000-1.030) 03/03/18 10:15 Urine Protein 2+ (NEGATIVE) 03/03/18 10:15 Urine Glucose (UA) Negative (NEGATIVE) 03/03/18 10:15 Urine Ketones Negative (NEGATIVE) 03/03/18 10:15 Urine Occult Blood Negative (NEGATIVE) 03/03/18 10:15 Urine Nitrite Negative (NEGATIVE) 03/03/18 10:15 Urine Bilirubin Negative (NEGATIVE) 03/03/18 10:15 Urine Urobilinogen Normal (NORMAL) 03/03/18 10:15 Ur Leukocyte Esterase Negative (NEGATIVE) 03/03/18 10:15 Urine RBC None seen /HPF (NONE SEEN) 03/03/18 10:15 Urine WBC None seen /HPF (NONE SEEN) 03/03/18 10:15 Ur Squamous Epith Cells Negative /HPF (NEGATIVE) 03/03/18 10:15 Urine Bacteria Negative /HPF (NEGATIVE) 03/03/18 10:15 Hyaline Casts Few /LPF (NEGATIVE) 03/03/18 10:15 Urine Mucus Few /HPF (NEGATIVE) 03/03/18 10:15 Ur Culture Indicated? No/not indicated 03/03/18 10:15 - Plan (1) SOB (shortness of breath) Status: Acute Plan: SERIAL CE AND EKG ON ADMISSION REVIEWED WITH PT. SUPPLEMENTAL O2, AGRESSIVE RESP THERAPY, JET NEBS. BIPAP PRN, ABG Q A-M. AM CXR, AM LABS SPUTUM. REPEAT BLOOD CULTURES PENDING. IV ZYVOX STARTED DUE TO +BC (2) Pneumonia Status: Acute Plan: JET NEBS. SUPPLEMENTAL O2. PULMONARY TOILETING (3) Hypertension Status: Chronic Qualifiers: Hypertension type: unspecified Qualified Code(s): I10 - Essential (primary) hypertension (4) Diabetes mellitus Status: Chronic (5) CHF (congestive heart failure) Status: Chronic (6) COPD (chronic obstructive pulmonary disease) Status: Chronic Qualifiers: COPD type: chronic bronchitis (7) Blood bacterial culture positive Status: Acute Plan: SUSPECT CONTAMINATION, REPEAT CULTURES PENDING. IV ZYVOX
[2018-03-07] MEDS: ZOCOR TAB 20 MG PO SCH (21:18)
[2018-03-07] MEDS: ZyrTEC TAB 10 MG PO SCH (21:19)
[2018-03-07] MEDS: SNACK - Diabetic Appropriate PO SCH (21:20)
[2018-03-07] MEDS: ARICEPT TAB 10 MG PO SCH (21:23)
[2018-03-08] MEDS: DUONEB 0.5 MG/3 MG NEB SCH ×6 (00:18→20:00)
[2018-03-08 06:31] LABS: BASOPHILS % (AUTO) 0.4 % (0.2-1.0); EOSINOPHILS # (AUTO) 0.4 x10^3/uL (0.0-0.2); HEMATOCRIT 35.9 % (36.0-47.0); HEMOGLOBIN 12.3 g/dL (12.0-16.0); LYMPHOCYTES # (AUTO) 1.4 X10^3/uL (1.3-2.9); LYMPHOCYTES % (AUTO) 18.1 % (21.0-51.0); MEAN CORPUSCULAR HEMOGLOBIN 30.9 pg (27.0-34.0); MEAN CORPUSCULAR HGB CONC 34.2 g/dL (33.0-35.0); MEAN CORPUSCULAR VOLUME 90.5 fL (80.0-100.0); MEAN PLATELET VOLUME 8.8 fL (7.4-11.0); MONOCYTES # (AUTO) 0.5 x10^3/uL (0.3-0.8); MONOCYTES % (AUTO) 5.8 % (0.0-13.0); NEUTROPHILS # (AUTO) 5.6 x10^3/uL (2.2-4.8); NEUTROPHILS % (AUTO) 70.7 % (42.0-75.0); PLATELET COUNT 223 X10^3/uL (150.0-450.0); RED BLOOD COUNT 3.97 X10^6/uL (3.5-5.4); RED CELL DISTRIBUTION WIDTH 14.2 % (11.6-16.5); WHITE BLOOD COUNT 7.9 X10^3/uL (3.6-10.0)
[2018-03-08 06:45] LABS: ALANINE AMINOTRANSFERASE 29 Units/L (12-78); ALBUMIN 2.6 g/dL (3.4-5.0); ALKALINE PHOSPHATASE 141 Units/L (46-116); ASPARTATE AMINO TRANSFERASE 24 Units/L (15-37); BLOOD UREA NITROGEN 15 mg/dL (7-18); CALCIUM 8.9 mg/dL (8.5-10.1); CARBON DIOXIDE 34.1 mmol/L (21-32); CHLORIDE 102 mmol/L (98-107); CREATININE 0.83 mg/dL (0.55-1.02); SODIUM 141 mmol/L (136-145); TOTAL PROTEIN 7.3 g/dL (6.4-8.2); eGFR NON BLACK RACES > 60 (>60)
[2018-03-08] MEDS: ZYVOX 600MG IV 600 MG/300 ML BAG IV SCH ×2 (09:23→20:39)
[2018-03-08] MEDS: LYRICA CAP 100 MG PO SCH (09:27)
[2018-03-08] MEDS: COLACE CAP 100 MG PO SCH (09:27)
[2018-03-08] MEDS: MOBIC TAB 15 MG PO SCH (09:28)
[2018-03-08] MEDS: ELAVIL PO SCH (09:28)
[2018-03-08] MEDS: DIOVAN TAB 80 MG PO SCH (09:29)
[2018-03-08] MEDS: ASPIRIN EC 81 MG PO SCH (09:29)
[2018-03-08] MEDS: MICRO K EXTEN CAP 10 MEQ PO SCH (09:29)
[2018-03-08] MEDS: PriLOSEC PO SCH (09:29)
[2018-03-08] MEDS: LASIX PO SCH (09:29)
[2018-03-08] MEDS: COREG TAB 12.5 MG PO SCH ×2 (09:29→20:37)
[2018-03-08] MEDS: ROBITUSSIN DM PO SCH ×5 (09:30→20:38)
[2018-03-08] MEDS: GLUCOTROL PO SCH ×2 (09:30→20:38)
[2018-03-08] MEDS ORDERED: LYRICA CAP 75 MG PO ONE (09:37)
[2018-03-08] MEDS: ZETIA TAB 10 MG PO SCH (10:00)
[2018-03-08] MEDS ORDERED: NS 1/2 1000 ML IV 1,000 ML IV ONE (11:12)
[2018-03-08] MEDS: PATIENT'S HOME MEDICATION (Solifenacin [Vesicare] 5 MG) PO SCH (11:16)
[2018-03-08] MEDS: NS 1/2 1000 ML IV 1,000 ML IV SCH (11:17)
[2018-03-08] MEDS: MEMANTINE 28 MG PO SCH (11:17)
[2018-03-08] MEDS: HumuLIN R SC PRN ×3 (11:38→21:03)
[2018-03-08] MEDS: LYRICA CAP 75 MG PO SCH ×3 (14:45→20:38)
[2018-03-08 15:26] LABS: ABG BASE EXCESS 9.7 mmol/L (-2.0-2.0)
[2018-03-08 15:27] LABS: ABG HCO3 35.8 mmol/L (22-26); FRACTIONATED INSPIRED OXYGEN 28
[2018-03-08] MEDS: ARICEPT TAB 10 MG PO SCH (20:37)
[2018-03-08] MEDS: SNACK - Diabetic Appropriate PO SCH (20:37)
[2018-03-08] MEDS: ZOCOR TAB 20 MG PO SCH (20:39)
[2018-03-08] MEDS: ZyrTEC TAB 10 MG PO SCH (20:39)
[2018-03-09] MEDS: DUONEB 0.5 MG/3 MG NEB SCH ×6 (00:45→21:56)
[2018-03-09] MEDS: TYLENOL 325 MG TAB PO PRN ×2 (06:25→21:26)
[2018-03-09 06:37] LABS: BASOPHILS % (AUTO) 0.4 % (0.2-1.0); EOSINOPHILS # (AUTO) 0.4 x10^3/uL (0.0-0.2); EOSINOPHILS % (AUTO) 5.1 % (0.9-2.9); HEMATOCRIT 36.6 % (36.0-47.0); HEMOGLOBIN 12.3 g/dL (12.0-16.0); LYMPHOCYTES # (AUTO) 1.5 X10^3/uL (1.3-2.9); LYMPHOCYTES % (AUTO) 19.2 % (21.0-51.0); MEAN CORPUSCULAR HEMOGLOBIN 30.6 pg (27.0-34.0); MEAN CORPUSCULAR HGB CONC 33.6 g/dL (33.0-35.0); MEAN CORPUSCULAR VOLUME 91.1 fL (80.0-100.0); MEAN PLATELET VOLUME 8.4 fL (7.4-11.0); MONOCYTES # (AUTO) 0.4 x10^3/uL (0.3-0.8); MONOCYTES % (AUTO) 5.8 % (0.0-13.0); NEUTROPHILS # (AUTO) 5.3 x10^3/uL (2.2-4.8); NEUTROPHILS % (AUTO) 69.5 % (42.0-75.0); PLATELET COUNT 230 X10^3/uL (150.0-450.0); RED BLOOD COUNT 4.02 X10^6/uL (3.5-5.4); RED CELL DISTRIBUTION WIDTH 14.6 % (11.6-16.5); WHITE BLOOD COUNT 7.7 X10^3/uL (3.6-10.0)
[2018-03-09 07:08] LABS: ALANINE AMINOTRANSFERASE 26 Units/L (12-78); ALBUMIN 2.6 g/dL (3.4-5.0); ALKALINE PHOSPHATASE 130 Units/L (46-116); ASPARTATE AMINO TRANSFERASE 14 Units/L (15-37); BLOOD UREA NITROGEN 13 mg/dL (7-18); CALCIUM 8.9 mg/dL (8.5-10.1); CARBON DIOXIDE 33.3 mmol/L (21-32); CHLORIDE 103 mmol/L (98-107); COR NA(FOR HYPERGLY) 143 mmol/L (136-145); CREATININE 0.84 mg/dL (0.55-1.02); SODIUM 142 mmol/L (136-145); TOTAL PROTEIN 7.1 g/dL (6.4-8.2); eGFR NON BLACK RACES > 60 (>60)
[2018-03-09] MEDS: PriLOSEC PO SCH (08:45)
[2018-03-09] MEDS: COLACE CAP 100 MG PO SCH (08:45)
[2018-03-09] MEDS: DIOVAN TAB 80 MG PO SCH (08:46)
[2018-03-09] MEDS: ASPIRIN EC 81 MG PO SCH (08:46)
[2018-03-09] MEDS: GLUCOTROL PO SCH ×2 (08:46→21:11)
[2018-03-09] MEDS: MOBIC TAB 15 MG PO SCH (08:47)
[2018-03-09] MEDS: LASIX PO SCH (08:47)
[2018-03-09] MEDS: COREG TAB 12.5 MG PO SCH ×2 (08:47→21:11)
[2018-03-09] MEDS: ELAVIL PO SCH (08:47)
[2018-03-09] MEDS: LYRICA CAP 75 MG PO SCH ×2 (08:48→21:10)
[2018-03-09] MEDS: ROBITUSSIN DM PO SCH ×4 (08:48→21:10)
[2018-03-09] MEDS: PATIENT'S HOME MEDICATION (Solifenacin [Vesicare] 5 MG) PO SCH (08:49)
[2018-03-09] MEDS: MEMANTINE 28 MG PO SCH (08:49)
[2018-03-09] MEDS: MICRO K EXTEN CAP 10 MEQ PO SCH (08:49)
[2018-03-09] MEDS: ZYVOX 600MG IV 600 MG/300 ML BAG IV SCH ×2 (08:50→21:10)
[2018-03-09] MEDS: ZETIA TAB 10 MG PO SCH (08:50)
[2018-03-09] MEDS: NS 1/2 1000 ML IV 1,000 ML IV SCH ×2 (08:58→17:40)
[2018-03-09] MEDS: XANAX PO PRN (09:36)
--- NOTE | 2018-03-09 17:07 | RAD ---
HISTORY: Dyspnea, fever, weakness Study: Single-view chest Comparison: March 05, 2018 and March 03, 2018 Findings: The trachea is midline. The cardiac silhouette is unremarkable. There has been ongoing interval improved patchy airspace consolidation consistent with resolving bronchopneumonia. There is no effusion or pneumothorax. A left humeral prosthesis and old right right rib deformity are noted. IMPRESSION: Continued improving radiographic appearance of the chest. Reported By:
[2018-03-09] MEDS: ZyrTEC TAB 10 MG PO SCH (21:10)
[2018-03-09] MEDS: ZOCOR TAB 20 MG PO SCH (21:11)
[2018-03-09] MEDS: SNACK - Diabetic Appropriate PO SCH (21:11)
[2018-03-09] MEDS: ARICEPT TAB 10 MG PO SCH (21:21)
[2018-03-10] MEDS: DUONEB 0.5 MG/3 MG NEB SCH ×6 (00:39→21:58)
[2018-03-10] MEDS ORDERED: NS 1/2 1000 ML IV 1,000 ML IV ONE (02:15)
[2018-03-10] MEDS: NS 1/2 1000 ML IV 1,000 ML IV SCH ×2 (02:27→18:44)
[2018-03-10 05:42] LABS: BASOPHILS # (AUTO) 0.1 X10^3/uL (0.0-0.1); BASOPHILS % (AUTO) 0.7 % (0.2-1.0); EOSINOPHILS # (AUTO) 0.5 x10^3/uL (0.0-0.2); EOSINOPHILS % (AUTO) 5.6 % (0.9-2.9); HEMATOCRIT 35.3 % (36.0-47.0); HEMOGLOBIN 11.9 g/dL (12.0-16.0); LYMPHOCYTES # (AUTO) 1.7 X10^3/uL (1.3-2.9); MEAN CORPUSCULAR HEMOGLOBIN 30.5 pg (27.0-34.0); MEAN CORPUSCULAR HGB CONC 33.6 g/dL (33.0-35.0); MEAN CORPUSCULAR VOLUME 90.8 fL (80.0-100.0); MEAN PLATELET VOLUME 8.4 fL (7.4-11.0); MONOCYTES # (AUTO) 0.5 x10^3/uL (0.3-0.8); MONOCYTES % (AUTO) 6.3 % (0.0-13.0); NEUTROPHILS # (AUTO) 5.7 x10^3/uL (2.2-4.8); NEUTROPHILS % (AUTO) 67.4 % (42.0-75.0); PLATELET COUNT 236 X10^3/uL (150.0-450.0); RED BLOOD COUNT 3.89 X10^6/uL (3.5-5.4); RED CELL DISTRIBUTION WIDTH 14.3 % (11.6-16.5); WHITE BLOOD COUNT 8.4 X10^3/uL (3.6-10.0)
[2018-03-10 05:47] LABS: ALANINE AMINOTRANSFERASE 22 Units/L (12-78); ALBUMIN 2.6 g/dL (3.4-5.0); ALKALINE PHOSPHATASE 120 Units/L (46-116); ASPARTATE AMINO TRANSFERASE 11 Units/L (15-37); BLOOD UREA NITROGEN 12 mg/dL (7-18); CALCIUM 8.5 mg/dL (8.5-10.1); CARBON DIOXIDE 31.8 mmol/L (21-32); CHLORIDE 103 mmol/L (98-107); COR CA(FOR HYPOALB) 9.6 mg/dL (8.5-10.1); COR NA(FOR HYPERGLY) 142 mmol/L (136-145); SODIUM 141 mmol/L (136-145); TOTAL PROTEIN 6.8 g/dL (6.4-8.2); eGFR NON BLACK RACES > 60 (>60)
--- NOTE | 2018-03-10 06:49 | RAD ---
HISTORY: Shortness of breath Study: Chest AP portable Comparison: 03/09/2018 Findings: The heart is upper limits normal in size. No congestive heart failure is noted. The lungs are well inflated. Improving right upper lobe infiltrate is identified. Mild residual infiltrate and subsegmental atelectasis remain. The remainder of the lung hayes are now clear. No pleural effusions are identified. Old rib fractures are present on the left. The patient is status post left shoulder arthroplasty. IMPRESSION: Continued improvement right upper lobe infiltrate. Mild residual infiltrate remains Reported By:
[2018-03-10] MEDS: ZYVOX 600MG IV 600 MG/300 ML BAG IV SCH ×2 (08:30→20:46)
[2018-03-10] MEDS: MICRO K EXTEN CAP 10 MEQ PO SCH (08:31)
[2018-03-10] MEDS: MEMANTINE 28 MG PO SCH (08:31)
[2018-03-10] MEDS: PATIENT'S HOME MEDICATION (Solifenacin [Vesicare] 5 MG) PO SCH (08:31)
[2018-03-10] MEDS: COREG TAB 12.5 MG PO SCH ×2 (08:32→20:46)
[2018-03-10] MEDS: ZETIA TAB 10 MG PO SCH (08:32)
[2018-03-10] MEDS: XANAX PO PRN (08:32)
[2018-03-10] MEDS: ELAVIL PO SCH (08:32)
[2018-03-10] MEDS: GLUCOTROL PO SCH ×2 (08:32→20:47)
[2018-03-10] MEDS: MOBIC TAB 15 MG PO SCH (08:32)
[2018-03-10] MEDS: LYRICA CAP 75 MG PO SCH ×2 (08:33→20:46)
[2018-03-10] MEDS: ROBITUSSIN DM PO SCH ×4 (08:33→20:46)
[2018-03-10] MEDS: LASIX PO SCH (08:33)
[2018-03-10] MEDS: PriLOSEC PO SCH (08:33)
[2018-03-10] MEDS: DIOVAN TAB 80 MG PO SCH ×2 (08:33→09:18)
[2018-03-10] MEDS: ASPIRIN EC 81 MG PO SCH (08:33)
[2018-03-10] MEDS: COLACE CAP 100 MG PO SCH (08:33)
[2018-03-10] MEDS ORDERED: LASIX IVP ONE (12:53)
[2018-03-10] MEDS: ZyrTEC TAB 10 MG PO SCH (20:46)
[2018-03-10] MEDS: SNACK - Diabetic Appropriate PO SCH (20:47)
[2018-03-10] MEDS: ARICEPT TAB 10 MG PO SCH (20:47)
[2018-03-10] MEDS: ZOCOR TAB 20 MG PO SCH (20:47)
[2018-03-11] MEDS: XANAX PO PRN ×2 (00:05→08:39)
[2018-03-11] MEDS: DUONEB 0.5 MG/3 MG NEB SCH ×3 (01:03→09:26)
[2018-03-11] MEDS: HumuLIN R SC PRN (05:37)
[2018-03-11 06:28] LABS: BASOPHILS # (AUTO) 0.1 X10^3/uL (0.0-0.1); BASOPHILS % (AUTO) 0.6 % (0.2-1.0); EOSINOPHILS # (AUTO) 0.4 x10^3/uL (0.0-0.2); EOSINOPHILS % (AUTO) 4.9 % (0.9-2.9); HEMATOCRIT 34.6 % (36.0-47.0); HEMOGLOBIN 11.9 g/dL (12.0-16.0); LYMPHOCYTES # (AUTO) 1.8 X10^3/uL (1.3-2.9); LYMPHOCYTES % (AUTO) 21.1 % (21.0-51.0); MEAN CORPUSCULAR HGB CONC 34.3 g/dL (33.0-35.0); MEAN CORPUSCULAR VOLUME 90.4 fL (80.0-100.0); MEAN PLATELET VOLUME 8.4 fL (7.4-11.0); MONOCYTES # (AUTO) 0.5 x10^3/uL (0.3-0.8); MONOCYTES % (AUTO) 6.4 % (0.0-13.0); NEUTROPHILS # (AUTO) 5.7 x10^3/uL (2.2-4.8); PLATELET COUNT 224 X10^3/uL (150.0-450.0); RED BLOOD COUNT 3.83 X10^6/uL (3.5-5.4); RED CELL DISTRIBUTION WIDTH 14.2 % (11.6-16.5); WHITE BLOOD COUNT 8.5 X10^3/uL (3.6-10.0)
[2018-03-11 06:59] LABS: ALANINE AMINOTRANSFERASE 19 Units/L (12-78); ALBUMIN 2.6 g/dL (3.4-5.0); ALKALINE PHOSPHATASE 108 Units/L (46-116); ASPARTATE AMINO TRANSFERASE 11 Units/L (15-37); BLOOD UREA NITROGEN 11 mg/dL (7-18); CALCIUM 8.2 mg/dL (8.5-10.1); CARBON DIOXIDE 32.1 mmol/L (21-32); CHLORIDE 103 mmol/L (98-107); COR CA(FOR HYPOALB) 9.3 mg/dL (8.5-10.1); COR NA(FOR HYPERGLY) 142 mmol/L (136-145); CREATININE 0.91 mg/dL (0.55-1.02); SODIUM 141 mmol/L (136-145); TOTAL PROTEIN 6.6 g/dL (6.4-8.2); eGFR NON BLACK RACES > 60 (>60)
[2018-03-11] MEDS: ZYVOX 600MG IV 600 MG/300 ML BAG IV SCH ×2 (08:35→08:36)
[2018-03-11] MEDS: NS 1/2 1000 ML IV 1,000 ML IV SCH (08:37)
[2018-03-11] MEDS: ELAVIL PO SCH (08:38)
[2018-03-11] MEDS: LYRICA CAP 75 MG PO SCH (08:38)
[2018-03-11] MEDS: ASPIRIN EC 81 MG PO SCH (08:38)
[2018-03-11] MEDS: ROBITUSSIN DM PO SCH (08:38)
[2018-03-11] MEDS: COREG TAB 12.5 MG PO SCH (08:38)
[2018-03-11] MEDS: PriLOSEC PO SCH (08:39)
[2018-03-11] MEDS: MICRO K EXTEN CAP 10 MEQ PO SCH (08:39)
[2018-03-11] MEDS: LASIX PO SCH (08:39)
[2018-03-11] MEDS: MOBIC TAB 15 MG PO SCH (08:39)
[2018-03-11] MEDS: GLUCOTROL PO SCH (08:39)
[2018-03-11] MEDS: COLACE CAP 100 MG PO SCH (08:39)
[2018-03-11] MEDS: MEMANTINE 28 MG PO SCH (08:40)
[2018-03-11] MEDS: PATIENT'S HOME MEDICATION (Solifenacin [Vesicare] 5 MG) PO SCH (08:40)
[2018-03-11] MEDS: ZETIA TAB 10 MG PO SCH (08:40)
[2018-03-11] MEDS: DIOVAN TAB 80 MG PO SCH (08:40)
[2018-03-11] MEDS ORDERED: K-DUR TAB 20 MEQ PO ONE (09:00)
[2018-03-11 09:05] LABS: ABG BASE EXCESS 8.4 mmol/L (-2.0-2.0)
[2018-03-11 09:06] LABS: ABG ALLEN TEST POS; FRACTIONATED INSPIRED OXYGEN 28
[2018-03-11 13:24] VITALS: BP 150/72
--- NOTE | 2018-03-26 02:15 | PCM.PROG ---
Progress Note - Progress Note for Day of Date of Exam: 03/09/18 - Subjective Subjective: 72 WF ER ADMISSION ADMITTED WITH SOB, WEAKNESS AND BILATERAL PNEUMONIA. PT CXR ON ADMISSION REVEALED BILATERAL PNEUMONIA, HYPOXIA ON ADMISSION. PATIENT CONTINUES TO HAVE COMPLAINT OF WITH COUGH AND SOB. - Past Medical Family Social History Past Med/Fam/Surg Hx: No changes since H&P Allergies: Allergies No Known Drug Allergies Allergy (Verified 01/06/18 12:40) - Review of Systems ROS: No change since H&P - Vital Signs and I&O's Vital Signs: Temperature 96.2 F Pulse Rate [Apical] 87 Pulse Rate 72 Respiratory Rate 20 Blood Pressure [Left Arm] 180/81 Blood Pressure [Right Arm] 157/69 Blood Pressure 150/72 O2 Sat by Pulse Oximetry 100 - Physical Exam Oriented: Person Eyes: Normal Ear: Normal Nose: Normal Throat: Dry Respiratory: Diminished, Rhonchi Cardiovascular: Edema : Normal Auscultation: Bowel Sounds: Normal Palpation: Normal Tenderness: Normal Skin: Normal Musculoskeletal: Right, Left, Hip, Back:Lumbar, Sensory Deficit Psychiatric: Normal Mood Description: Calm Affect: Normal Speech Pattern: Clear, Appropriate - Laboratory and Diagnostics Result Diagrams: 03/11/18 05:42 03/11/18 05:42 Labs: 03/06/18 09:19 Blood Blood Culture - Final 03/06/18 09:10 Blood Blood Culture - Final 03/05/18 19:00 Sputum - Expectorated Sputum Sputum Culture - Final 03/05/18 19:00 Sputum - Expectorated Sputum - Final 03/03/18 10:34 Blood Blood Culture - Final 03/03/18 10:30 Blood Blood Culture - Final Staphylococcus Hominis Laboratory WBC 8.5 X10^3/uL (3.6-10.0) 03/11/18 05:42 RBC 3.83 X10^6/uL (3.5-5.4) 03/11/18 05:42 Hgb 11.9 g/dL (12.0-16.0) L 03/11/18 05:42 Hct 34.6 % (36.0-47.0) L 03/11/18 05:42 MCV 90.4 fL (80.0-100.0) 03/11/18 05:42 MCH 31.0 pg (27.0-34.0) 03/11/18 05:42 MCHC 34.3 g/dL (33.0-35.0) 03/11/18 05:42 RDW 14.2 % (11.6-16.5) 03/11/18 05:42 Plt Count 224 X10^3/uL (150.0-450.0) 03/11/18 05:42 MPV 8.4 fL (7.4-11.0) 03/11/18 05:42 Neut % (Auto) 67.0 % (42.0-75.0) 03/11/18 05:42 Lymph % (Auto) 21.1 % (21.0-51.0) 03/11/18 05:42 [place] % (Auto) 6.4 % (0.0-13.0) 03/11/18 05:42 Eos % (Auto) 4.9 % (0.9-2.9) H 03/11/18 05:42 Baso % (Auto) 0.6 % (0.2-1.0) 03/11/18 05:42 Neut # (Auto) 5.7 x10^3/uL (2.2-4.8) H 03/11/18 05:42 Lymph # (Auto) 1.8 X10^3/uL (1.3-2.9) 03/11/18 05:42 [place] # (Auto) 0.5 x10^3/uL (0.3-0.8) 03/11/18 05:42 Eos # (Auto) 0.4 x10^3/uL (0.0-0.2) H 03/11/18 05:42 Baso # (Auto) 0.1 X10^3/uL (0.0-0.1) 03/11/18 05:42 Absolute Nucleated RBC 0.1 /100WBC 03/11/18 05:42 INR Target Range - 03/03/18 10:34 INR 0.88 (0.8-1.3) 03/03/18 10:34 APTT 21.9 SECONDS (22.9-36.5) L 03/03/18 10:34 PTT Comment - 03/03/18 10:34 D-Dimer 2350 ng/mL (0-400) H* 03/03/18 10:34 Sample Site Lr 03/11/18 08:59 ABG pH 7.440 (7.35-7.45) 03/11/18 08:59 ABG pCO2 50.0 mmHg (35.0-45.0) H 03/11/18 08:59 ABG pO2 86.0 mmHg (80.0-100.0) 03/11/18 08:59 ABG HCO3 34.0 mmol/L (22-26) H* 03/11/18 08:59 ABG O2 Saturation 97.0 % (90-100) 03/11/18 08:59 ABG Base Excess 8.4 mmol/L (-2.0-2.0) H 03/11/18 08:59 Wes Test Pos 03/11/18 08:59 A-a Gradient 51.0 mmHg 03/11/18 08:59 FiO2 28 03/11/18 08:59 Blood Gas Comments Pt kelli well. cdn 03/11/18 08:59 Sodium 141 mmol/L (136-145) 03/11/18 05:42 Corrected Sodium 142 mmol/L (136-145) 03/11/18 05:42 Potassium 3.6 mmol/L (3.5-5.1) 03/11/18 05:42 Chloride 103 mmol/L (98-107) 03/11/18 05:42 Carbon Dioxide 32.1 mmol/L (21-32) H 03/11/18 05:42 BUN 11 mg/dL (7-18) 03/11/18 05:42 Creatinine 0.91 mg/dL (0.55-1.02) 03/11/18 05:42 Est GFR (MDRD) Af Amer > 60 (>60) 03/11/18 05:42 Est GFR (MDRD) Non-Af > 60 (>60) 03/11/18 05:42 Glucose 143 mg/dL (65-99) H 03/11/18 05:42 POC Glucose (mg/dL) 132 mg/dL (65-99) H 03/11/18 11:23 Lactic Acid 1.6 mmol/L (0.4-2.0) 03/03/18 10:34 Calcium 8.2 mg/dL (8.5-10.1) L 03/11/18 05:42 Corrected Calcium 9.3 mg/dL (8.5-10.1) 03/11/18 05:42 Magnesium 1.9 mg/dL (1.7-2.9) 03/06/18 04:10 Total Bilirubin 0.20 mg/dL (0.2-1.0) 03/11/18 05:42 AST 11 Units/L (15-37) L 03/11/18 05:42 ALT 19 Units/L (12-78) 03/11/18 05:42 Alkaline Phosphatase 108 Units/L (46-116) 03/11/18 05:42 Creatine Kinase 48 Units/L (26-192) 03/03/18 23:18 CK-MB (CK-2) < 1.0 ng/mL (0-4.0) 03/03/18 23:18 CK/CKMB % Calc 2.1 % (<4) 03/03/18 23:18 Troponin I < 0.02 ng/mL (0-1.5) 03/03/18 23:18 B-Natriuretic Peptide 37.2 pg/mL (0-79) 03/03/18 10:34 Total Protein 6.6 g/dL (6.4-8.2) 03/11/18 05:42 Albumin 2.6 g/dL (3.4-5.0) L 03/11/18 05:42 Globulin 4.0 g/dL (2.5-4.5) 03/11/18 05:42 Albumin/Globulin Ratio 0.7 Ratio (1.1-2.1) L 03/11/18 05:42 Specimen Type Clean catch urine 03/03/18 10:15 Urine Color Yellow (YELLOW) 03/03/18 10:15 Urine Appearance Hazy (CLEAR) 03/03/18 10:15 Urine pH 5.0 (5.0 - 8.0) 03/03/18 10:15 Ur Specific [place] 1.015 (1.000-1.030) 03/03/18 10:15 Urine Protein 2+ (NEGATIVE) 03/03/18 10:15 Urine Glucose (UA) Negative (NEGATIVE) 03/03/18 10:15 Urine Ketones Negative (NEGATIVE) 03/03/18 10:15 Urine Occult Blood Negative (NEGATIVE) 03/03/18 10:15 Urine Nitrite Negative (NEGATIVE) 03/03/18 10:15 Urine Bilirubin Negative (NEGATIVE) 03/03/18 10:15 Urine Urobilinogen Normal (NORMAL) 03/03/18 10:15 Ur Leukocyte Esterase Negative (NEGATIVE) 03/03/18 10:15 Urine RBC None seen /HPF (NONE SEEN) 03/03/18 10:15 Urine WBC None seen /HPF (NONE SEEN) 03/03/18 10:15 Ur Squamous Epith Cells Negative /HPF (NEGATIVE) 03/03/18 10:15 Urine Bacteria Negative /HPF (NEGATIVE) 03/03/18 10:15 Hyaline Casts Few /LPF (NEGATIVE) 03/03/18 10:15 Urine Mucus Few /HPF (NEGATIVE) 03/03/18 10:15 Ur Culture Indicated? No/not indicated 03/03/18 10:15 Radiology Reviewed: Yes - Plan (1) SOB (shortness of breath) Status: Acute Plan: SERIAL CE AND EKG ON ADMISSION REVIEWED WITH PT. SUPPLEMENTAL O2, AGRESSIVE RESP THERAPY, JET NEBS. BIPAP PRN, ABG Q A-M (2) Pneumonia Status: Acute Plan: JET NEBS. SUPPLEMENTAL O2. PULMONARY TOILETING. IV ANTIBIOTICS (3) Weakness Status: Acute (4) COPD (chronic obstructive pulmonary disease) Status: Chronic Qualifiers: COPD type: chronic bronchitis (5) Diabetes mellitus Status: Chronic (6) Hypertension Status: Chronic Qualifiers: Hypertension type: unspecified Qualified Code(s): I10 - Essential (primary) hypertension
== END 2018-03-11 14:05 | disposition home health service (06) | DRG 195 ==
LOC: ER 10:16 → ICU 14:13
PROVIDERS: ADMIT Internal Medicine; ATTEND Internal Medicine
DX: B95.1 Streptococcus, group B, as the cause of diseases classified elsewhere; I25.10 Atherosclerotic heart disease of native coronary artery without angina pectoris; I11.0 Hypertensive heart disease with heart failure; J44.9 Chronic obstructive pulmonary disease, unspecified; M19.90 Unspecified osteoarthritis, unspecified site; R06.03 Acute respiratory distress; R06.02 Shortness of breath; J20.8 Acute bronchitis due to other specified organisms; R79.1 Abnormal coagulation profile; E78.2 Mixed hyperlipidemia; J18.8 Other pneumonia, unspecified organism; Z23 Encounter for immunization; I50.9 Heart failure, unspecified; R53.1 Weakness; R94.31 Abnormal electrocardiogram [ECG] [EKG]; E11.65 Type 2 diabetes mellitus with hyperglycemia
CPT/HCPCS: 36415; 36600; 51702; 71010; 71045; 71275; 80053; 81001; 82550; 82553; 82803; 82947; 83605; 83735; 83880; 84484; 85025; 85378; 85610; 85730; 87040; 87070; 87077; 87186; 87205; 93005; 93010; 94640; 94660; 94669; 96365; 96374; 96375; 97110; 97116; 97163; 97166; 97530; 99231; 99283; 99285; A4222; A4618; A7030; J0456; J0696; J1815; J1940; J2020; J2543; J2920; J3490; J7050; J7620

== ENCOUNTER 2018-06-12 19:23 | Inpatient (IN) ==
[2018-06-12 19:57] LABS: ABG BASE EXCESS 7.5 mmol/L (-2.0-2.0)
[2018-06-12 19:58] LABS: ABG HCO3 33.6 mmol/L (22-26)
[2018-06-12] MEDS ORDERED: ROCEPHIN VIAL 1 GRAM IVP ONE (20:00)
[2018-06-12] MEDS ORDERED: SOLU-Medrol 125 MG VIAL IVP ONE (20:05)
[2018-06-12] MEDS ORDERED: DUONEB 0.5 MG/3 MG NEB ONE (20:05)
[2018-06-12] MEDS ORDERED: SOLU-Medrol 125 MG VIAL ONE (20:15)
[2018-06-12] MEDS ORDERED: ROCEPHIN VIAL 1 GRAM ONE (20:16)
--- NOTE | 2018-06-12 20:18 | DR.URIAD ---
HPI Time Seen Time Seen by Provider: 06/12/18 19:46 PCP Primary Care Physician: DR. KELLEY Complaint Chief Complaint:: PT STATES SHE HAS BEEN VOMITING SINCE LAST NIGHT. DAUGHTER IN LAW STATES SHE HAS BEEN HALLUCINATING AND HER O2 SAT AT HOME PRIOR TO ARRIVING TO THE HOSPITAL WAS IN THE 70S. Source History Provided: Family Member Mode of Arrival Mode of Arrival: Wheelchair Timing Onset of Chief Complaint: 06/11/18 PMH PMH Past Medical History: Yes Past Medical History: CHF, COPD, Diabetes, Dyslipidemia, Hypertension and Sleep Apnea Past Surgical History: Yes Surgical History: Cholecystectomy, Hysterectomy and Ortho Surgery Family History History of Family Medical Conditions: Yes Family Medical History: Cancer Social History Do you use any recreational Drugs:: No infectious screening In the last 2 months have you had wt loss of >10#?: NO Have you traveled outside the country in the last 6 months?: No Isolation: Standard PE Vital Signs Vitals: Temperature 100.8 F Pulse Rate [Apical] 101 Pulse Rate 97 Respiratory Rate 32 Blood Pressure [Left Arm] 180/81 Blood Pressure [Right Arm] 125/109 Blood Pressure 215/103 O2 Sat by Pulse Oximetry 98 ROR Labs Reviewed Result Diagrams: 06/12/18 20:10 06/12/18 20:10 Laboratory: WBC 13.2 X10^3/uL (3.6-10.0) H 06/12/18 20:10 RBC 4.35 X10^6/uL (3.5-5.4) 06/12/18 20:10 Hgb 13.2 g/dL (12.0-16.0) 06/12/18 20:10 Hct 39.4 % (36.0-47.0) 06/12/18 20:10 MCV 90.6 fL (80.0-100.0) 06/12/18 20:10 MCH 30.3 pg (27.0-34.0) 06/12/18 20:10 MCHC 33.4 g/dL (33.0-35.0) 06/12/18 20:10 RDW 13.3 % (11.6-16.5) 06/12/18 20:10 Plt Count 201 X10^3/uL (150.0-450.0) 06/12/18 20:10 MPV 8.6 fL (7.4-11.0) 06/12/18 20:10 Neut % (Auto) 80.6 % (42.0-75.0) H 06/12/18 20:10 Lymph % (Auto) 11.3 % (21.0-51.0) L 06/12/18 20:10 [place] % (Auto) 6.1 % (0.0-13.0) 06/12/18 20:10 Eos % (Auto) 1.5 % (0.9-2.9) 06/12/18 20:10 Baso % (Auto) 0.5 % (0.2-1.0) 06/12/18 20:10 Neut # (Auto) 10.6 x10^3/uL (2.2-4.8) H 06/12/18 20:10 Lymph # (Auto) 1.5 X10^3/uL (1.3-2.9) 06/12/18 20:10 [place] # (Auto) 0.8 x10^3/uL (0.3-0.8) 06/12/18 20:10 Eos # (Auto) 0.2 x10^3/uL (0.0-0.2) 06/12/18 20:10 Baso # (Auto) 0.1 X10^3/uL (0.0-0.1) 06/12/18 20:10 Absolute Nucleated RBC 0.0 /100WBC 06/12/18 20:10 Sample Site Rbra 06/12/18 19:44 ABG pH 7.410 (7.35-7.45) 06/12/18 19:44 ABG pCO2 53.0 mmHg (35.0-45.0) H* 06/12/18 19:44 ABG pO2 240.0 mmHg (80.0-100.0) H 06/12/18 19:44 ABG HCO3 33.6 mmol/L (22-26) H* 06/12/18 19:44 ABG O2 Saturation 100.0 % (90-100) 06/12/18 19:44 ABG Base Excess 7.5 mmol/L (-2.0-2.0) H 06/12/18 19:44 Wes Test Na 06/12/18 19:44 A-a Gradient 407.0 mmHg 06/12/18 19:44 FiO2 100.0 06/12/18 19:44 Blood Gas Comments Miguel Angel abg well-mtf 06/12/18 19:44 Sodium 138 mmol/L (136-145) 06/12/18 20:10 Corrected Sodium 140 mmol/L (136-145) 06/12/18 20:10 Potassium 4.3 mmol/L (3.5-5.1) 06/12/18 20:10 Chloride 98 mmol/L (98-107) 06/12/18 20:10 Carbon Dioxide 32.5 mmol/L (21-32) H 06/12/18 20:10 BUN 18 mg/dL (7-18) 06/12/18 20:10 Creatinine 1.15 mg/dL (0.55-1.02) H 06/12/18 20:10 Est GFR (MDRD) Af Amer 59 (>60) 06/12/18 20:10 Est GFR (MDRD) Non-Af 49 (>60) L 06/12/18 20:10 Glucose 191 mg/dL (65-99) H 06/12/18 20:10 POC Glucose (mg/dL) 176 mg/dL (65-99) H 06/12/18 20:09 Lactic Acid 1.5 mmol/L (0.4-2.0) 06/12/18 20:10 Calcium 9.5 mg/dL (8.5-10.1) 06/12/18 20:10 Corrected Calcium 10.4 mg/dL (8.5-10.1) H 06/12/18 20:10 Total Bilirubin 0.40 mg/dL (0.2-1.0) 06/12/18 20:10 AST 15 Units/L (15-37) 06/12/18 20:10 ALT 19 Units/L (12-78) 06/12/18 20:10 Alkaline Phosphatase 166 Units/L (46-116) H 06/12/18 20:10 Creatine Kinase 22 Units/L (26-192) L 06/12/18 20:10 CK-MB (CK-2) < 1.0 ng/mL (0-4.0) 06/12/18 20:10 CK/CKMB % Calc 4.6 % (<4) 06/12/18 20:10 Troponin I < 0.02 ng/mL (0-1.5) 06/12/18 20:10 B-Natriuretic Peptide 163 pg/mL (0-79) H 06/12/18 20:10 Total Protein 7.5 g/dL (6.4-8.2) 06/12/18 20:10 Albumin 2.9 g/dL (3.4-5.0) L 06/12/18 20:10 Globulin 4.6 g/dL (2.5-4.5) H 06/12/18 20:10 Albumin/Globulin Ratio 0.6 Ratio (1.1-2.1) L 06/12/18 20:10
[2018-06-12 20:27] LABS: BASOPHILS # (AUTO) 0.1 X10^3/uL (0.0-0.1); BASOPHILS % (AUTO) 0.5 % (0.2-1.0); EOSINOPHILS # (AUTO) 0.2 x10^3/uL (0.0-0.2); EOSINOPHILS % (AUTO) 1.5 % (0.9-2.9); HEMATOCRIT 39.4 % (36.0-47.0); HEMOGLOBIN 13.2 g/dL (12.0-16.0); LYMPHOCYTES # (AUTO) 1.5 X10^3/uL (1.3-2.9); LYMPHOCYTES % (AUTO) 11.3 % (21.0-51.0); MEAN CORPUSCULAR HEMOGLOBIN 30.3 pg (27.0-34.0); MEAN CORPUSCULAR HGB CONC 33.4 g/dL (33.0-35.0); MEAN CORPUSCULAR VOLUME 90.6 fL (80.0-100.0); MEAN PLATELET VOLUME 8.6 fL (7.4-11.0); MONOCYTES # (AUTO) 0.8 x10^3/uL (0.3-0.8); MONOCYTES % (AUTO) 6.1 % (0.0-13.0); NEUTROPHILS # (AUTO) 10.6 x10^3/uL (2.2-4.8); NEUTROPHILS % (AUTO) 80.6 % (42.0-75.0); PLATELET COUNT 201 X10^3/uL (150.0-450.0); RED BLOOD COUNT 4.35 X10^6/uL (3.5-5.4); RED CELL DISTRIBUTION WIDTH 13.3 % (11.6-16.5); WHITE BLOOD COUNT 13.2 X10^3/uL (3.6-10.0)
[2018-06-12 20:43] LABS: BLOOD UREA NITROGEN 18 mg/dL (7-18); CALCIUM 9.5 mg/dL (8.5-10.1); CARBON DIOXIDE 32.5 mmol/L (21-32); CHLORIDE 98 mmol/L (98-107); COR NA(FOR HYPERGLY) 140 mmol/L (136-145); CREATININE 1.15 mg/dL (0.55-1.02); SODIUM 138 mmol/L (136-145); TROPONIN I < 0.02 ng/mL (0-1.5); eGFR NON BLACK RACES 49 (>60)
[2018-06-12 20:46] LABS: LACTIC ACID 1.5 mmol/L (0.4-2.0)
[2018-06-12 20:49] LABS: ALANINE AMINOTRANSFERASE 19 Units/L (12-78); ALBUMIN 2.9 g/dL (3.4-5.0); ALKALINE PHOSPHATASE 166 Units/L (46-116); ASPARTATE AMINO TRANSFERASE 15 Units/L (15-37); CKMB % 4.6 % (<4); COR CA(FOR HYPOALB) 10.4 mg/dL (8.5-10.1); CREATINE KINASE 22 Units/L (26-192); CREATINE KINASE MB < 1.0 ng/mL (0-4.0); TOTAL PROTEIN 7.5 g/dL (6.4-8.2)
[2018-06-12 20:54] LABS: B-TYPE NATRIURETIC PEPTIDE 163 pg/mL (0-79)
--- NOTE | 2018-06-12 21:53 | RAD ---
HISTORY: Shortness of breath Study: Single view chest Comparison: 03/10/2018 Findings: Single portable view is submitted. Lung volumes are reduced nonspecific interstitial changes appear chronic. No infiltrate, effusion or pneumothorax identified. The cardiac and mediastinal contours are within normal limits. Stable chronic right rib fractures. IMPRESSION: 1. No acute cardiopulmonary abnormality. Reported By:
[2018-06-13 01:12] LABS: BILIRUBIN,URINE NEGATIVE (NEGATIVE); BLOOD/HEMOGLOBIN,URINE 4+ (NEGATIVE); GLUCOSE, URINE 3+ (NEGATIVE); KETONES,URINE 3+ (NEGATIVE); LEUKOCYTE ESTERASE ,URINE 3+ (NEGATIVE); NITRITES,URINE POSITIVE (NEGATIVE); PROTEIN,URINE 2+ (NEGATIVE); UROBILINOGEN,URINE NORMAL (NORMAL)
[2018-06-13 01:20] LABS: COLOR,URINE PALE YELLOW (YELLOW)
[2018-06-13 01:21] LABS: APPEARANCE,URINE CLEAR (CLEAR); BACTERIA,URINE 4+ /HPF (NEGATIVE); MUCUS,URINE MODERATE /HPF (NEGATIVE); SQUAMOUS EPITHELIAL CELL,UR NEGATIVE /HPF (NEGATIVE)
[2018-06-13 01:37] VITALS: BMI 28.7
[2018-06-13] MEDS: HumuLIN R SUBCUT PRN ×4 (05:44→21:31)
[2018-06-13 06:08] LABS: BASOPHILS % (AUTO) 0.1 % (0.2-1.0); HEMATOCRIT 38.3 % (36.0-47.0); HEMOGLOBIN 12.9 g/dL (12.0-16.0); LYMPHOCYTES # (AUTO) 0.9 X10^3/uL (1.3-2.9); LYMPHOCYTES % (AUTO) 9.6 % (21.0-51.0); MEAN CORPUSCULAR HEMOGLOBIN 30.6 pg (27.0-34.0); MEAN CORPUSCULAR HGB CONC 33.7 g/dL (33.0-35.0); MEAN CORPUSCULAR VOLUME 90.7 fL (80.0-100.0); MEAN PLATELET VOLUME 9.2 fL (7.4-11.0); MONOCYTES # (AUTO) 0.1 x10^3/uL (0.3-0.8); MONOCYTES % (AUTO) 1.3 % (0.0-13.0); PLATELET COUNT 200 X10^3/uL (150.0-450.0); RED BLOOD COUNT 4.23 X10^6/uL (3.5-5.4); RED CELL DISTRIBUTION WIDTH 13.6 % (11.6-16.5)
[2018-06-13 06:18] LABS: ALANINE AMINOTRANSFERASE 15 Units/L (12-78); ALBUMIN 2.6 g/dL (3.4-5.0); ALKALINE PHOSPHATASE 152 Units/L (46-116); ASPARTATE AMINO TRANSFERASE 11 Units/L (15-37); BLOOD UREA NITROGEN 21 mg/dL (7-18); CALCIUM 9.3 mg/dL (8.5-10.1); CARBON DIOXIDE 26.7 mmol/L (21-32); CHLORIDE 100 mmol/L (98-107); COR CA(FOR HYPOALB) 10.4 mg/dL (8.5-10.1); COR NA(FOR HYPERGLY) 145 mmol/L (136-145); SODIUM 138 mmol/L (136-145); TOTAL PROTEIN 6.9 g/dL (6.4-8.2); eGFR NON BLACK RACES 58 (>60)
[2018-06-13] MEDS: ROCEPHIN VIAL 1 GRAM IVP SCH (08:02)
[2018-06-13] MEDS ORDERED: PHARMACY CONSULT - DOSE _____ XX SCH (10:00)
[2018-06-13] MEDS ORDERED: NS 1/2 1000 ML IV 1,000 ML IV ONE (10:22)
[2018-06-13] MEDS: LEVAQUIN PREMIX IV 500 MG 500 MG/100 ML BAG IV SCH (10:27)
[2018-06-13] MEDS: NS 1/2 1000 ML IV 1,000 ML IV SCH ×2 (10:27→18:04)
--- NOTE | 2018-06-13 13:34 | RAD ---
Examination: Portable AP chest History: COPD SOB Comparison 06/12/2018 Findings: Continued normal heart size with no acute pulmonary, hilar or pleural lesion. Left shoulder prosthesis incidentally observed. Impression: No acute findings. Reported By:
[2018-06-13 16:05] LABS: ABG BASE EXCESS 9.7 mmol/L (-2.0-2.0)
[2018-06-13 16:06] LABS: ABG HCO3 34.3 mmol/L (22-26)
[2018-06-13 16:07] LABS: ABG ALLEN TEST POS
[2018-06-13] MEDS ORDERED: DIOVAN TAB 80 MG PO ONE (16:08)
[2018-06-13] MEDS: DIOVAN TAB 80 MG PO SCH (16:15)
[2018-06-13] MEDS: LOVENOX INJ 40 MG SYR SC SCH (16:16)
--- NOTE | 2018-06-13 17:12 | DR.H&P ---
H&P - History & Physical for Day of: H&P Date: 06/12/18 - Chief Complaint Chief Complaint: WEAKNESS, CONFUSION, LOW O2 SATURATION - History of Present Illness History of Present Illness: 72 WF ER ADMISSION AFTER PRESENTING WITH FAMILY CO PT HAS HAD UPPER RESPIRATORY SYMPTOMS WITH LOWER O2 SATURATION, CONFUSION AND "TALKING OUT OF HER HEAD" AND GENERALIZED WEAKNESS. PT HAS PMH OF DM, CHF, COPD, OA, GERD, RLS, NEUROPATHY. PT HAD UTI ON UA COLLECTED IN ER. PT WAS ADMITTED TO FOR TREATMENT OF ACUTE ILLNESS, R/O SEPSIS. - Past Medical History Past Medical History: Anxiety, Arthritis, CHF, COPD, Coronary Artery Disease, Diabetes, Dyslipidemia, GERD, Hypertension, Sleep Apnea - Past Surgical History Surgical History: Cholecystectomy, Hysterectomy, Other - Family History Family Medical History: Cancer - Social History Does patient currently use any type of tobacco product: No Have you used tobacco products in the last 12 months: No Type of Tobacco Use: None Alcohol Use: None Drug Use: None - Medications Home Medications: No Known Drug Allergies Allergy (Verified 01/06/18 12:40) CONTINUE taking the following medications cyclobenzaprine 10 mg PO DAILY 06/13/18 [History] pregabalin [Lyrica] 100 mg PO BID 06/13/18 [History] ropinirole 0.75 mg PO HS 06/13/18 [History] - Review of Systems Constitutional: Weakness Eyes: No Symptoms Reported ENT: No Symptoms Reported Respiratory: Cough, Shortness of Breath Cardiovascular: No Symptoms Reported, Edema Gastrointestinal: Other (POOR PO INTAKE) Genitourinary: Frequency Musculoskeletal: No Symptoms Reported Skin: No Symptoms Reported Neurological: Weakness, Confusion - Physical Exam Vital Signs: Temperature 96.9 F Pulse Rate [Apical] 77 Pulse Rate 79 Respiratory Rate 20 Blood Pressure [Left Arm] 142/80 Blood Pressure [Right Arm] 161/74 Blood Pressure 137/68 O2 Sat by Pulse Oximetry 99 Oriented: Person Eyes: Normal Ear: Normal Nose: Normal Throat: Dry Respiratory: Wheezes Throughout, RLL Diminished, LLL Diminished Cardiovascular: Normal, Edema (TRACE BILATERAL LE) Auscultation: Bowel Sounds: Normal Palpation: Normal Tenderness: Normal Skin: Decreased Turgur Musculoskeletal: Right, Left, Hip, Back:Thoracic, Back:Lumbar Speech Pattern: Delayed - Assessment/Plan (1) Altered mental state Status: Acute Plan: ADMIT, ICU BIPAP PRN FOR COPD AND HYPOXIA TREATMENT. CXR ON ADMISSION, REPEAT Q AM. GENTLE IV HYDRATION, BLOOD AND URINE CULTURE. VERIFY HOME MEDICATION, CONTINUOUS O2 AND RESP THERAPY CONSULT. BP CONTROL, STRICT I& OS (2) SOB (shortness of breath) Status: Acute (3) UTI (urinary tract infection) Status: Acute (4) Hypertension Qualifiers: Hypertension type: unspecified Qualified Code(s): I10 - Essential (primary) hypertension Status: Chronic (5) Diabetes mellitus Status: Chronic (6) CHF (congestive heart failure) Status: Chronic (7) COPD (chronic obstructive pulmonary disease) Qualifiers: COPD type: chronic bronchitis Status: Chronic - Allergies Allergies/Adverse Reactions: Allergies Allergy/AdvReac Type Severity Reaction Status Date / Time No Known Drug Allergies Allergy Verified 01/06/18 12:40
[2018-06-13] MEDS ORDERED: PERCOCET TAB 5/325 MG PO PRN (17:18)
--- NOTE | 2018-06-13 17:18 | PCM.PROG ---
Progress Note - Progress Note for Day of Date of Exam: 06/13/18 - Subjective Subjective: 72 WF ER ADMISSION WITH UTI, CONFUSION SUSPECTED DUE TO INFECTION AND RESP DISTRESS. PT CURRENTLY ON BIPAP. WILL REPEAT ABG AND CONVERT TO NASAL CANULA TOLERED. PT DOES USE CPAP AT HOME. PT HAD BLOOD AND URINE CULTURES COLLECTED ON ADMISSION WITH LAB REPORTING BC GROWTH IN BOTH BOTTLES. REPEAT BC ORDERED. PT CURRENTLY ON IV LEVAQUIN AND ROCEPHIN WITH UC RESULTS PENDINGS. PT A/O X3 THIS AM. PT DENIES ANY CHEST PAIN, CO FEELING WEAK. BP STABLE 140/65, RESUMED HOME BP MEDICATION. - Past Medical Family Social History Past Med/Fam/Surg Hx: No changes since H&P Allergies: Allergies No Known Drug Allergies Allergy (Verified 01/06/18 12:40) - Review of Systems ROS: No change since H&P - Vital Signs and I&O's Vital Signs: Temperature 96.9 F Pulse Rate [Apical] 76 Pulse Rate 79 Respiratory Rate 18 Blood Pressure [Left Arm] 142/80 Blood Pressure [Right Arm] 160/78 Blood Pressure 137/68 O2 Sat by Pulse Oximetry 100 Intake and Output: Intake & Output 06/11/18 06/12/18 06/13/18 06/14/18 11:59 11:59 11:59 11:59 Intake Total 240 / 240 735 / 735 Output Total 500 / 500 700 / 700 Balance -260 / -260 35 / 35 - Physical Exam Oriented: Normal Eyes: Normal Ear: Normal Nose: Normal Throat: Dry Respiratory: Diminished Cardiovascular: Normal, Edema (TRACE BILATERAL LE) Auscultation: Bowel Sounds: Normal Tenderness: Normal Skin: Decreased Turgur Musculoskeletal: Right, Left, Hip, Back:Thoracic, Back:Lumbar Speech Pattern: Clear, Appropriate - Laboratory and Diagnostics Result Diagrams: 06/13/18 05:18 06/13/18 05:18 Labs: 06/12/18 20:10 Blood Blood Culture - Preliminary 06/12/18 20:10 Blood Blood Culture - Preliminary Laboratory WBC 9.0 X10^3/uL (3.6-10.0) 06/13/18 05:18 RBC 4.23 X10^6/uL (3.5-5.4) 06/13/18 05:18 Hgb 12.9 g/dL (12.0-16.0) 06/13/18 05:18 Hct 38.3 % (36.0-47.0) 06/13/18 05:18 MCV 90.7 fL (80.0-100.0) 06/13/18 05:18 MCH 30.6 pg (27.0-34.0) 06/13/18 05:18 MCHC 33.7 g/dL (33.0-35.0) 06/13/18 05:18 RDW 13.6 % (11.6-16.5) 06/13/18 05:18 Plt Count 200 X10^3/uL (150.0-450.0) 06/13/18 05:18 MPV 9.2 fL (7.4-11.0) 06/13/18 05:18 Neut % (Auto) 89.0 % (42.0-75.0) H 06/13/18 05:18 Lymph % (Auto) 9.6 % (21.0-51.0) L 06/13/18 05:18 [place] % (Auto) 1.3 % (0.0-13.0) 06/13/18 05:18 Eos % (Auto) 0.0 % (0.9-2.9) L 06/13/18 05:18 Baso % (Auto) 0.1 % (0.2-1.0) L 06/13/18 05:18 Neut # (Auto) 8.0 x10^3/uL (2.2-4.8) H 06/13/18 05:18 Lymph # (Auto) 0.9 X10^3/uL (1.3-2.9) L 06/13/18 05:18 [place] # (Auto) 0.1 x10^3/uL (0.3-0.8) L 06/13/18 05:18 Eos # (Auto) 0.0 x10^3/uL (0.0-0.2) 06/13/18 05:18 Baso # (Auto) 0.0 X10^3/uL (0.0-0.1) 06/13/18 05:18 Absolute Nucleated RBC 0.0 /100WBC 06/13/18 05:18 Sample Site Rr 06/13/18 15:54 ABG pH 7.490 (7.35-7.45) H 06/13/18 15:54 ABG pCO2 45.0 mmHg (35.0-45.0) 06/13/18 15:54 ABG pO2 80.0 mmHg (80.0-100.0) 06/13/18 15:54 ABG HCO3 34.3 mmol/L (22-26) H* 06/13/18 15:54 ABG O2 Saturation 97.0 % (90-100) 06/13/18 15:54 ABG Base Excess 9.7 mmol/L (-2.0-2.0) H 06/13/18 15:54 Wes Test Pos 06/13/18 15:54 A-a Gradient 63.0 mmHg 06/13/18 15:54 FiO2 28.0 06/13/18 15:54 Blood Gas Comments Miguel Angel well-sd 06/13/18 15:54 Sodium 138 mmol/L (136-145) 06/13/18 05:18 Corrected Sodium 145 mmol/L (136-145) 06/13/18 05:18 Potassium 4.2 mmol/L (3.5-5.1) 06/13/18 05:18 Chloride 100 mmol/L (98-107) 06/13/18 05:18 Carbon Dioxide 26.7 mmol/L (21-32) 06/13/18 05:18 BUN 21 mg/dL (7-18) H 06/13/18 05:18 Creatinine 1.00 mg/dL (0.55-1.02) 06/13/18 05:18 Est GFR (MDRD) Af Amer > 60 (>60) 06/13/18 05:18 Est GFR (MDRD) Non-Af 58 (>60) L 06/13/18 05:18 Glucose 378 mg/dL (65-99) H 06/13/18 05:18 POC Glucose (mg/dL) 311 mg/dL (65-99) H 06/13/18 15:56 Lactic Acid 1.5 mmol/L (0.4-2.0) 06/12/18 20:10 Calcium 9.3 mg/dL (8.5-10.1) 06/13/18 05:18 Corrected Calcium 10.4 mg/dL (8.5-10.1) H 06/13/18 05:18 Total Bilirubin 0.30 mg/dL (0.2-1.0) 06/13/18 05:18 AST 11 Units/L (15-37) L 06/13/18 05:18 ALT 15 Units/L (12-78) 06/13/18 05:18 Alkaline Phosphatase 152 Units/L (46-116) H 06/13/18 05:18 Creatine Kinase 22 Units/L (26-192) L 06/12/18 20:10 CK-MB (CK-2) < 1.0 ng/mL (0-4.0) 06/12/18 20:10 CK/CKMB % Calc 4.6 % (<4) 06/12/18 20:10 Troponin I < 0.02 ng/mL (0-1.5) 06/12/18 20:10 B-Natriuretic Peptide 163 pg/mL (0-79) H 06/12/18 20:10 Total Protein 6.9 g/dL (6.4-8.2) 06/13/18 05:18 Albumin 2.6 g/dL (3.4-5.0) L 06/13/18 05:18 Globulin 4.3 g/dL (2.5-4.5) 06/13/18 05:18 Albumin/Globulin Ratio 0.6 Ratio (1.1-2.1) L 06/13/18 05:18 Specimen Type Catherized urine 06/13/18 01:00 Urine Color Pale yellow (YELLOW) 06/13/18 01:00 Urine Appearance Clear (CLEAR) 06/13/18 01:00 Urine pH 5.0 (5.0 - 8.0) 06/13/18 01:00 Ur Specific [place] 1.015 (1.000-1.030) 06/13/18 01:00 Urine Protein 2+ (NEGATIVE) 06/13/18 01:00 Urine Glucose (UA) 3+ (NEGATIVE) 06/13/18 01:00 Urine Ketones 3+ (NEGATIVE) 06/13/18 01:00 Urine Occult Blood 4+ (NEGATIVE) 06/13/18 01:00 Urine Nitrite Positive (NEGATIVE) 06/13/18 01:00 Urine Bilirubin Negative (NEGATIVE) 06/13/18 01:00 Urine Urobilinogen Normal (NORMAL) 06/13/18 01:00 Ur Leukocyte Esterase 3+ (NEGATIVE) 06/13/18 01:00 Urine RBC 10-20 /HPF (NONE SEEN) 06/13/18 01:00 Urine WBC Tntc /HPF (NONE SEEN) 06/13/18 01:00 Ur Squamous Epith Cells Negative /HPF (NEGATIVE) 06/13/18 01:00 Urine Bacteria 4+ /HPF (NEGATIVE) 06/13/18 01:00 Urine Mucus Moderate /HPF (NEGATIVE) 06/13/18 01:00 Ur Culture Indicated? Yes/culture set up 06/13/18 01:00 - Plan (1) Altered mental state Status: Acute Plan: ICU BIPAP PRN FOR COPD AND HYPOXIA TREATMENT, REPEAT ABG AND CONVERT TO NC TOLERATED. CXR , REPEAT Q AM. GENTLE IV HYDRATION, BLOOD AND URINE CULTURE. VERIFY HOME MEDICATION, CONTINUOUS O2 AND RESP THERAPY CONSULT. BP CONTROL, STRICT I& OS (2) SOB (shortness of breath) Status: Acute (3) UTI (urinary tract infection) Status: Acute (4) Hypertension Status: Chronic Qualifiers: Hypertension type: unspecified Qualified Code(s): I10 - Essential (primary) hypertension (5) Diabetes mellitus Status: Chronic (6) CHF (congestive heart failure) Status: Chronic (7) COPD (chronic obstructive pulmonary disease) Status: Chronic Qualifiers: COPD type: chronic bronchitis (8) Bacteremia Status: Acute Plan: IV ATBX, LEVAQUIN AND ROCEPHIN. BACTERIA ID PENDING
[2018-06-13] MEDS: SNACK - Diabetic Appropriate PO SCH (20:32)
[2018-06-13] MEDS: ZOCOR TAB 20 MG PO SCH (21:31)
[2018-06-13] MEDS: COREG TAB 12.5 MG PO SCH (21:31)
[2018-06-13] MEDS: REQUIP PO SCH (21:36)
--- NOTE | 2018-06-14 05:15 | RAD ---
Examination: Portable AP chest History: SOB COPD Comparison 06/13/2018 Findings: Continued normal heart size with no evidence for acute pulmonary, hilar or pleural lesion. Impression: No interval change or acute chest findings. Reported By:
[2018-06-14 06:11] LABS: BASOPHILS % (AUTO) 0.2 % (0.2-1.0); EOSINOPHILS % (AUTO) 0.3 % (0.9-2.9); HEMATOCRIT 35.7 % (36.0-47.0); HEMOGLOBIN 12.1 g/dL (12.0-16.0); LYMPHOCYTES # (AUTO) 1.5 X10^3/uL (1.3-2.9); LYMPHOCYTES % (AUTO) 14.7 % (21.0-51.0); MEAN CORPUSCULAR HEMOGLOBIN 30.3 pg (27.0-34.0); MEAN PLATELET VOLUME 8.7 fL (7.4-11.0); MONOCYTES # (AUTO) 0.7 x10^3/uL (0.3-0.8); MONOCYTES % (AUTO) 6.4 % (0.0-13.0); NEUTROPHILS # (AUTO) 8.2 x10^3/uL (2.2-4.8); NEUTROPHILS % (AUTO) 78.4 % (42.0-75.0); PLATELET COUNT 231 X10^3/uL (150.0-450.0); RED BLOOD COUNT 4.01 X10^6/uL (3.5-5.4); RED CELL DISTRIBUTION WIDTH 13.6 % (11.6-16.5); WHITE BLOOD COUNT 10.4 X10^3/uL (3.6-10.0)
[2018-06-14] MEDS ORDERED: NS 1/2 1000 ML IV 1,000 ML IV ONE (06:17)
[2018-06-14 06:18] LABS: ALANINE AMINOTRANSFERASE 17 Units/L (12-78); ALBUMIN 2.3 g/dL (3.4-5.0); ALKALINE PHOSPHATASE 118 Units/L (46-116); ASPARTATE AMINO TRANSFERASE 11 Units/L (15-37); BLOOD UREA NITROGEN 23 mg/dL (7-18); CALCIUM 8.9 mg/dL (8.5-10.1); CARBON DIOXIDE 29.8 mmol/L (21-32); CHLORIDE 102 mmol/L (98-107); COR CA(FOR HYPOALB) 10.3 mg/dL (8.5-10.1); COR NA(FOR HYPERGLY) 142 mmol/L (136-145); CREATININE 0.92 mg/dL (0.55-1.02); SODIUM 139 mmol/L (136-145); TOTAL PROTEIN 6.1 g/dL (6.4-8.2); eGFR NON BLACK RACES > 60 (>60)
[2018-06-14] MEDS: NS 1/2 1000 ML IV 1,000 ML IV SCH ×2 (06:19→11:41)
[2018-06-14] MEDS: HumuLIN R SUBCUT PRN ×3 (06:20→16:12)
[2018-06-14] MEDS: ROCEPHIN VIAL 1 GRAM IVP SCH (08:29)
[2018-06-14] MEDS: DIOVAN TAB 80 MG PO SCH (08:29)
[2018-06-14] MEDS: COREG TAB 12.5 MG PO SCH ×2 (08:30→20:37)
[2018-06-14] MEDS: LEVAQUIN PREMIX IV 500 MG 500 MG/100 ML BAG IV SCH (08:30)
[2018-06-14] MEDS: ZETIA TAB 10 MG PO SCH (08:31)
[2018-06-14] MEDS: LOVENOX INJ 40 MG SYR SC SCH (08:33)
[2018-06-14] MEDS: MEMANTINE 28 MG PO SCH (08:40)
--- NOTE | 2018-06-14 19:43 | PCM.PROG ---
Progress Note - Progress Note for Day of Date of Exam: 06/14/18 - Subjective Subjective: IS A [address] DUMAS. SHE WAS AN ER ADMISSION WITH UTI, CONFUSION SUSPECTED DUE TO INFECTION AND RESP DISTRESS. PT CURRENTLY ON NASAL CANNULA. PT A/O X3 THIS AM. PT DENIES ANY CHEST PAIN, CO FEELING WEAK. PT DOES USE CPAP AT HOME. VITALS THIS MORNING ARE 97.2-58-16-100%- 128/61. PRELIMINARY BLOOD CULTURES ARE POSITIVE FOR GRAM NEGATIVE RODS. URINE CULTURE ALSO REPORTING GROWTH OF GRAM NEGATIVE RODS. A CHEST XRAY WAS OBTAINED THIS MORNING AND REVEALED: No interval change or acute chest findings. PT CURRENTLY ON IV LEVAQUIN AND ROCEPHIN. WE WILL CONTINUE WITH CURRENT PLAN OF CARE TODAY. WE WILL FOLLOW UP WITH AM LABS AND CONTINUE TO MONITOR. - Past Medical Family Social History Past Med/Fam/Surg Hx: No changes since H&P Allergies: Allergies No Known Drug Allergies Allergy (Verified 01/06/18 12:40) - Review of Systems ROS: No change since H&P - Vital Signs and I&O's Vital Signs: Temperature 97 F Pulse Rate [Apical] 75 Pulse Rate 79 Respiratory Rate 24 Blood Pressure [Left Arm] 142/80 Blood Pressure [Right Arm] 173/83 Blood Pressure 137/68 O2 Sat by Pulse Oximetry 100 Intake and Output: Intake & Output 06/12/18 06/13/18 06/14/18 06/15/18 11:59 11:59 11:59 11:59 Intake Total 240 / 240 1585 / 1585 555 / 555 Output Total 500 / 500 1250 / 1250 400 / 400 Balance -260 / -260 335 / 335 155 / 155 - Physical Exam Oriented: Normal Eyes: Normal Ear: Normal Nose: Normal Throat: Dry Respiratory: Diminished Cardiovascular: Normal, Edema (TRACE BILATERAL LE) Auscultation: Bowel Sounds: Normal Palpation: Normal Tenderness: Normal Skin: Decreased Turgur Musculoskeletal: Right, Left, Hip, Back:Thoracic, Back:Lumbar Speech Pattern: Clear, Appropriate - Laboratory and Diagnostics Result Diagrams: 06/14/18 05:20 06/14/18 05:20 Labs: 06/12/18 20:10 Blood Blood Culture - Preliminary 06/12/18 20:10 Blood Blood Culture - Preliminary 06/13/18 01:00 Urine,Catheterized Urine Culture - Preliminary Laboratory WBC 10.4 X10^3/uL (3.6-10.0) H 06/14/18 05:20 RBC 4.01 X10^6/uL (3.5-5.4) 06/14/18 05:20 Hgb 12.1 g/dL (12.0-16.0) 06/14/18 05:20 Hct 35.7 % (36.0-47.0) L 06/14/18 05:20 MCV 89.0 fL (80.0-100.0) 06/14/18 05:20 MCH 30.3 pg (27.0-34.0) 06/14/18 05:20 MCHC 34.0 g/dL (33.0-35.0) 06/14/18 05:20 RDW 13.6 % (11.6-16.5) 06/14/18 05:20 Plt Count 231 X10^3/uL (150.0-450.0) 06/14/18 05:20 MPV 8.7 fL (7.4-11.0) 06/14/18 05:20 Neut % (Auto) 78.4 % (42.0-75.0) H 06/14/18 05:20 Lymph % (Auto) 14.7 % (21.0-51.0) L 06/14/18 05:20 [place] % (Auto) 6.4 % (0.0-13.0) 06/14/18 05:20 Eos % (Auto) 0.3 % (0.9-2.9) L 06/14/18 05:20 Baso % (Auto) 0.2 % (0.2-1.0) 06/14/18 05:20 Neut # (Auto) 8.2 x10^3/uL (2.2-4.8) H 06/14/18 05:20 Lymph # (Auto) 1.5 X10^3/uL (1.3-2.9) 06/14/18 05:20 [place] # (Auto) 0.7 x10^3/uL (0.3-0.8) 06/14/18 05:20 Eos # (Auto) 0.0 x10^3/uL (0.0-0.2) 06/14/18 05:20 Baso # (Auto) 0.0 X10^3/uL (0.0-0.1) 06/14/18 05:20 Absolute Nucleated RBC 0.1 /100WBC 06/14/18 05:20 Sample Site Rr 06/13/18 15:54 ABG pH 7.490 (7.35-7.45) H 06/13/18 15:54 ABG pCO2 45.0 mmHg (35.0-45.0) 06/13/18 15:54 ABG pO2 80.0 mmHg (80.0-100.0) 06/13/18 15:54 ABG HCO3 34.3 mmol/L (22-26) H* 06/13/18 15:54 ABG O2 Saturation 97.0 % (90-100) 06/13/18 15:54 ABG Base Excess 9.7 mmol/L (-2.0-2.0) H 06/13/18 15:54 Wes Test Pos 06/13/18 15:54 A-a Gradient 63.0 mmHg 06/13/18 15:54 FiO2 28.0 06/13/18 15:54 Blood Gas Comments Miguel Angel well-sd 06/13/18 15:54 Sodium 139 mmol/L (136-145) 06/14/18 05:20 Corrected Sodium 142 mmol/L (136-145) 06/14/18 05:20 Potassium 4.0 mmol/L (3.5-5.1) 06/14/18 05:20 Chloride 102 mmol/L (98-107) 06/14/18 05:20 Carbon Dioxide 29.8 mmol/L (21-32) 06/14/18 05:20 BUN 23 mg/dL (7-18) H 06/14/18 05:20 Creatinine 0.92 mg/dL (0.55-1.02) 06/14/18 05:20 Est GFR (MDRD) Af Amer > 60 (>60) 06/14/18 05:20 Est GFR (MDRD) Non-Af > 60 (>60) 06/14/18 05:20 Glucose 225 mg/dL (65-99) H 06/14/18 05:20 POC Glucose (mg/dL) 186 mg/dL (65-99) H 06/14/18 12:14 Lactic Acid 1.5 mmol/L (0.4-2.0) 06/12/18 20:10 Calcium 8.9 mg/dL (8.5-10.1) 06/14/18 05:20 Corrected Calcium 10.3 mg/dL (8.5-10.1) H 06/14/18 05:20 Total Bilirubin 0.20 mg/dL (0.2-1.0) 06/14/18 05:20 AST 11 Units/L (15-37) L 06/14/18 05:20 ALT 17 Units/L (12-78) 06/14/18 05:20 Alkaline Phosphatase 118 Units/L (46-116) H 06/14/18 05:20 Creatine Kinase 22 Units/L (26-192) L 06/12/18 20:10 CK-MB (CK-2) < 1.0 ng/mL (0-4.0) 06/12/18 20:10 CK/CKMB % Calc 4.6 % (<4) 06/12/18 20:10 Troponin I < 0.02 ng/mL (0-1.5) 06/12/18 20:10 B-Natriuretic Peptide 163 pg/mL (0-79) H 06/12/18 20:10 Total Protein 6.1 g/dL (6.4-8.2) L 06/14/18 05:20 Albumin 2.3 g/dL (3.4-5.0) L 06/14/18 05:20 Globulin 3.8 g/dL (2.5-4.5) 06/14/18 05:20 Albumin/Globulin Ratio 0.6 Ratio (1.1-2.1) L 06/14/18 05:20 Specimen Type Catherized urine 06/13/18 01:00 Urine Color Pale yellow (YELLOW) 06/13/18 01:00 Urine Appearance Clear (CLEAR) 06/13/18 01:00 Urine pH 5.0 (5.0 - 8.0) 06/13/18 01:00 Ur Specific [place] 1.015 (1.000-1.030) 06/13/18 01:00 Urine Protein 2+ (NEGATIVE) 06/13/18 01:00 Urine Glucose (UA) 3+ (NEGATIVE) 06/13/18 01:00 Urine Ketones 3+ (NEGATIVE) 06/13/18 01:00 Urine Occult Blood 4+ (NEGATIVE) 06/13/18 01:00 Urine Nitrite Positive (NEGATIVE) 06/13/18 01:00 Urine Bilirubin Negative (NEGATIVE) 06/13/18 01:00 Urine Urobilinogen Normal (NORMAL) 06/13/18 01:00 Ur Leukocyte Esterase 3+ (NEGATIVE) 06/13/18 01:00 Urine RBC 10-20 /HPF (NONE SEEN) 06/13/18 01:00 Urine WBC Tntc /HPF (NONE SEEN) 06/13/18 01:00 Ur Squamous Epith Cells Negative /HPF (NEGATIVE) 06/13/18 01:00 Urine Bacteria 4+ /HPF (NEGATIVE) 06/13/18 01:00 Urine Mucus Moderate /HPF (NEGATIVE) 06/13/18 01:00 Ur Culture Indicated? Yes/culture set up 06/13/18 01:00 - Plan (1) UTI (urinary tract infection) Status: Acute Qualifiers: Urinary tract infection type: acute cystitis Hematuria presence: with hematuria Qualified Code(s): N30.01 - Acute cystitis with hematuria (2) Blood bacterial culture positive Status: Acute (3) Altered mental state Status: Acute Qualifiers: Altered mental status type: transient alteration of awareness Qualified Code(s): R40.4 - Transient alteration of awareness
[2018-06-14] MEDS: LYRICA CAP 100 MG PO SCH (20:36)
[2018-06-14] MEDS: REQUIP PO SCH (20:36)
[2018-06-14] MEDS: ZOCOR TAB 20 MG PO SCH (20:37)
[2018-06-14] MEDS: SNACK - Diabetic Appropriate PO SCH (21:37)
[2018-06-15] MEDS: NS 1/2 1000 ML IV 1,000 ML IV SCH ×4 (02:30→20:15)
[2018-06-15] MEDS ORDERED: NS 1/2 1000 ML IV 1,000 ML IV ONE ×2 (03:41→23:56)
[2018-06-15] MEDS: HumuLIN R SUBCUT PRN ×4 (05:54→20:15)
[2018-06-15 05:57] LABS: BASOPHILS % (AUTO) 0.6 % (0.2-1.0); EOSINOPHILS # (AUTO) 0.1 x10^3/uL (0.0-0.2); EOSINOPHILS % (AUTO) 1.7 % (0.9-2.9); HEMOGLOBIN 12.4 g/dL (12.0-16.0); LYMPHOCYTES # (AUTO) 1.6 X10^3/uL (1.3-2.9); LYMPHOCYTES % (AUTO) 22.3 % (21.0-51.0); MEAN CORPUSCULAR HEMOGLOBIN 30.1 pg (27.0-34.0); MEAN CORPUSCULAR HGB CONC 33.5 g/dL (33.0-35.0); MEAN PLATELET VOLUME 8.1 fL (7.4-11.0); MONOCYTES # (AUTO) 0.6 x10^3/uL (0.3-0.8); MONOCYTES % (AUTO) 8.3 % (0.0-13.0); NEUTROPHILS # (AUTO) 4.7 x10^3/uL (2.2-4.8); NEUTROPHILS % (AUTO) 67.1 % (42.0-75.0); PLATELET COUNT 214 X10^3/uL (150.0-450.0); RED BLOOD COUNT 4.11 X10^6/uL (3.5-5.4); RED CELL DISTRIBUTION WIDTH 13.4 % (11.6-16.5); WHITE BLOOD COUNT 7.1 X10^3/uL (3.6-10.0)
[2018-06-15 06:18] LABS: ALANINE AMINOTRANSFERASE 18 Units/L (12-78); ALBUMIN 2.3 g/dL (3.4-5.0); ALKALINE PHOSPHATASE 113 Units/L (46-116); ASPARTATE AMINO TRANSFERASE 11 Units/L (15-37); BLOOD UREA NITROGEN 18 mg/dL (7-18); CALCIUM 8.9 mg/dL (8.5-10.1); CARBON DIOXIDE 30.4 mmol/L (21-32); CHLORIDE 104 mmol/L (98-107); COR CA(FOR HYPOALB) 10.3 mg/dL (8.5-10.1); COR NA(FOR HYPERGLY) 142 mmol/L (136-145); CREATININE 0.95 mg/dL (0.55-1.02); SODIUM 140 mmol/L (136-145); eGFR NON BLACK RACES > 60 (>60)
[2018-06-15] MEDS: LYRICA CAP 100 MG PO SCH ×3 (08:59→20:15)
[2018-06-15] MEDS: LEVAQUIN PREMIX IV 500 MG 500 MG/100 ML BAG IV SCH (09:00)
[2018-06-15] MEDS: ROCEPHIN VIAL 1 GRAM IVP SCH (09:00)
[2018-06-15] MEDS: COREG TAB 12.5 MG PO SCH ×2 (09:00→20:17)
[2018-06-15] MEDS: DIOVAN TAB 80 MG PO SCH (09:01)
[2018-06-15] MEDS: LOVENOX INJ 40 MG SYR SC SCH (09:02)
[2018-06-15] MEDS: ZETIA TAB 10 MG PO SCH (09:02)
[2018-06-15] MEDS: MEMANTINE 28 MG PO SCH (09:02)
[2018-06-15] MEDS ORDERED: INVANZ INJ 1 GM VIAL IM SCH (10:00)
[2018-06-15] MEDS ORDERED: INVANZ INJ 1 GM VIAL ONE (10:34)
[2018-06-15] MEDS ORDERED: NS 50 ML IV 50 ML IV ONE (10:34)
--- NOTE | 2018-06-15 19:46 | PCM.PROG ---
Progress Note - Progress Note for Day of Date of Exam: 06/15/18 - Subjective Subjective: IS A [address] DUMAS. SHE WAS AN ER ADMISSION WITH UTI, CONFUSION SUSPECTED DUE TO INFECTION AND RESP DISTRESS. PT CURRENTLY ON NASAL CANNULA. PT A/O X3 THIS AM. SHE COMPLAINS OF WEAKNESS AND SHORTNESS OF BREATH. PT DOES USE CPAP AT HOME. VITALS THIS MORNING ARE 97. 1-68-22-100%-167/86. ABNORMAL LAB VALUES INCLUDE THE FOLLOWING: GLUCOSE 163, AST 11, TOTAL PROTEIN 6.0, ALBUMIN 2.3. BLOOD AND URINE CULTURES REPORT GROWTH OF E.COLI. IT IS RESISTANT TO HER CURRENT ANTIBIOTICS. PT CURRENTLY ON IV LEVAQUIN AND ROCEPHIN. WE WILL DISCONTINUE THESE TODAY AND START INVANZ 1GM IV DAILY. OTHERWISE, WE WILL CONTINUE WITH CURRENT PLAN OF CARE TODAY. WE WILL FOLLOW UP WITH AM LABS AND CONTINUE TO MONITOR. - Past Medical Family Social History Past Med/Fam/Surg Hx: No changes since H&P Allergies: Allergies No Known Drug Allergies Allergy (Verified 01/06/18 12:40) - Review of Systems ROS: No change since H&P - Vital Signs and I&O's Vital Signs: Temperature 97 F Pulse Rate [Apical] 72 Pulse Rate 79 Respiratory Rate 22 Blood Pressure [Left Arm] 142/80 Blood Pressure [Right Arm] 167/79 Blood Pressure 137/68 O2 Sat by Pulse Oximetry 98 Intake and Output: Intake & Output 06/13/18 06/14/18 06/15/18 06/16/18 11:59 11:59 11:59 11:59 Intake Total 240 / 240 1585 / 1585 1355 / 1355 465 / 465 Output Total 500 / 500 1250 / 1250 1040 / 1040 425 / 425 Balance -260 / -260 335 / 335 315 / 315 40 / 40 - Physical Exam Oriented: Normal Eyes: Normal Ear: Normal Nose: Normal Throat: Dry Respiratory: Diminished Cardiovascular: Normal, Edema (TRACE BILATERAL LE) Auscultation: Bowel Sounds: Normal Tenderness: Normal Skin: Decreased [place] Musculoskeletal: Right, Left, Hip, Back:Thoracic, Back:Lumbar Speech Pattern: Clear, Appropriate - Laboratory and Diagnostics Result Diagrams: 06/15/18 05:45 06/15/18 05:45 Labs: 06/13/18 09:31 Blood Blood Culture - Preliminary 06/13/18 09:27 Blood Blood Culture - Preliminary 06/13/18 01:00 Urine,Catheterized Urine Culture - Final Escherichia Coli 06/12/18 20:10 Blood Blood Culture - Final Escherichia Coli 06/12/18 20:10 Blood Blood Culture - Final Escherichia Coli Laboratory WBC 7.1 X10^3/uL (3.6-10.0) 06/15/18 05:45 RBC 4.11 X10^6/uL (3.5-5.4) 06/15/18 05:45 Hgb 12.4 g/dL (12.0-16.0) 06/15/18 05:45 Hct 37.0 % (36.0-47.0) 06/15/18 05:45 MCV 90.0 fL (80.0-100.0) 06/15/18 05:45 MCH 30.1 pg (27.0-34.0) 06/15/18 05:45 MCHC 33.5 g/dL (33.0-35.0) 06/15/18 05:45 RDW 13.4 % (11.6-16.5) 06/15/18 05:45 Plt Count 214 X10^3/uL (150.0-450.0) 06/15/18 05:45 MPV 8.1 fL (7.4-11.0) 06/15/18 05:45 Neut % (Auto) 67.1 % (42.0-75.0) 06/15/18 05:45 Lymph % (Auto) 22.3 % (21.0-51.0) 06/15/18 05:45 [place] % (Auto) 8.3 % (0.0-13.0) 06/15/18 05:45 Eos % (Auto) 1.7 % (0.9-2.9) 06/15/18 05:45 Baso % (Auto) 0.6 % (0.2-1.0) 06/15/18 05:45 Neut # (Auto) 4.7 x10^3/uL (2.2-4.8) 06/15/18 05:45 Lymph # (Auto) 1.6 X10^3/uL (1.3-2.9) 06/15/18 05:45 [place] # (Auto) 0.6 x10^3/uL (0.3-0.8) 06/15/18 05:45 Eos # (Auto) 0.1 x10^3/uL (0.0-0.2) 06/15/18 05:45 Baso # (Auto) 0.0 X10^3/uL (0.0-0.1) 06/15/18 05:45 Absolute Nucleated RBC 0.0 /100WBC 06/15/18 05:45 Sample Site Rr 06/13/18 15:54 ABG pH 7.490 (7.35-7.45) H 06/13/18 15:54 ABG pCO2 45.0 mmHg (35.0-45.0) 06/13/18 15:54 ABG pO2 80.0 mmHg (80.0-100.0) 06/13/18 15:54 ABG HCO3 34.3 mmol/L (22-26) H* 06/13/18 15:54 ABG O2 Saturation 97.0 % (90-100) 06/13/18 15:54 ABG Base Excess 9.7 mmol/L (-2.0-2.0) H 06/13/18 15:54 Wes Test Pos 06/13/18 15:54 A-a Gradient 63.0 mmHg 06/13/18 15:54 FiO2 28.0 06/13/18 15:54 Blood Gas Comments Miguel Angel well-sd 06/13/18 15:54 Sodium 140 mmol/L (136-145) 06/15/18 05:45 Corrected Sodium 142 mmol/L (136-145) 06/15/18 05:45 Potassium 3.9 mmol/L (3.5-5.1) 06/15/18 05:45 Chloride 104 mmol/L (98-107) 06/15/18 05:45 Carbon Dioxide 30.4 mmol/L (21-32) 06/15/18 05:45 BUN 18 mg/dL (7-18) 06/15/18 05:45 Creatinine 0.95 mg/dL (0.55-1.02) 06/15/18 05:45 Est GFR (MDRD) Af Amer > 60 (>60) 06/15/18 05:45 Est GFR (MDRD) Non-Af > 60 (>60) 06/15/18 05:45 Glucose 163 mg/dL (65-99) H 06/15/18 05:45 POC Glucose (mg/dL) 171 mg/dL (65-99) H 06/15/18 17:06 Lactic Acid 1.5 mmol/L (0.4-2.0) 06/12/18 20:10 Calcium 8.9 mg/dL (8.5-10.1) 06/15/18 05:45 Corrected Calcium 10.3 mg/dL (8.5-10.1) H 06/15/18 05:45 Total Bilirubin 0.20 mg/dL (0.2-1.0) 06/15/18 05:45 AST 11 Units/L (15-37) L 06/15/18 05:45 ALT 18 Units/L (12-78) 06/15/18 05:45 Alkaline Phosphatase 113 Units/L (46-116) 06/15/18 05:45 Creatine Kinase 22 Units/L (26-192) L 06/12/18 20:10 CK-MB (CK-2) < 1.0 ng/mL (0-4.0) 06/12/18 20:10 CK/CKMB % Calc 4.6 % (<4) 06/12/18 20:10 Troponin I < 0.02 ng/mL (0-1.5) 06/12/18 20:10 B-Natriuretic Peptide 163 pg/mL (0-79) H 06/12/18 20:10 Total Protein 6.0 g/dL (6.4-8.2) L 06/15/18 05:45 Albumin 2.3 g/dL (3.4-5.0) L 06/15/18 05:45 Globulin 3.7 g/dL (2.5-4.5) 06/15/18 05:45 Albumin/Globulin Ratio 0.6 Ratio (1.1-2.1) L 06/15/18 05:45 Specimen Type Catherized urine 06/13/18 01:00 Urine Color Pale yellow (YELLOW) 06/13/18 01:00 Urine Appearance Clear (CLEAR) 06/13/18 01:00 Urine pH 5.0 (5.0 - 8.0) 06/13/18 01:00 Ur Specific [place] 1.015 (1.000-1.030) 06/13/18 01:00 Urine Protein 2+ (NEGATIVE) 06/13/18 01:00 Urine Glucose (UA) 3+ (NEGATIVE) 06/13/18 01:00 Urine Ketones 3+ (NEGATIVE) 06/13/18 01:00 Urine Occult Blood 4+ (NEGATIVE) 06/13/18 01:00 Urine Nitrite Positive (NEGATIVE) 06/13/18 01:00 Urine Bilirubin Negative (NEGATIVE) 06/13/18 01:00 Urine Urobilinogen Normal (NORMAL) 06/13/18 01:00 Ur Leukocyte Esterase 3+ (NEGATIVE) 06/13/18 01:00 Urine RBC 10-20 /HPF (NONE SEEN) 06/13/18 01:00 Urine WBC Tntc /HPF (NONE SEEN) 06/13/18 01:00 Ur Squamous Epith Cells Negative /HPF (NEGATIVE) 06/13/18 01:00 Urine Bacteria 4+ /HPF (NEGATIVE) 06/13/18 01:00 Urine Mucus Moderate /HPF (NEGATIVE) 06/13/18 01:00 Ur Culture Indicated? Yes/culture set up 06/13/18 01:00 - Plan (1) UTI (urinary tract infection) Status: Acute Qualifiers: Urinary tract infection type: acute cystitis Hematuria presence: with hematuria Qualified Code(s): N30.01 - Acute cystitis with hematuria (2) Blood bacterial culture positive Status: Acute (3) Altered mental state Status: Acute Qualifiers: Altered mental status type: transient alteration of awareness Qualified Code(s): R40.4 - Transient alteration of awareness Plan: ICU BIPAP PRN FOR COPD AND HYPOXIA TREATMENT, REPEAT ABG AND CONVERT TO NC TOLERATED. CXR , REPEAT Q AM. GENTLE IV HYDRATION, BLOOD AND URINE CULTURE. VERIFY HOME MEDICATION, CONTINUOUS O2 AND RESP THERAPY CONSULT. BP CONTROL, STRICT I& OS
[2018-06-15] MEDS: ZOCOR TAB 20 MG PO SCH (20:15)
[2018-06-15] MEDS: REQUIP PO SCH (20:15)
[2018-06-15] MEDS: SNACK - Diabetic Appropriate PO SCH (20:16)
[2018-06-16] MEDS: NS 1/2 1000 ML IV 1,000 ML IV SCH ×3 (00:30→17:47)
[2018-06-16] MEDS ORDERED: MAALOX or MYLANTA PO PRN (05:25)
[2018-06-16] MEDS ORDERED: MAALOX or MYLANTA ONE (05:26)
[2018-06-16 06:35] LABS: BASOPHILS % (AUTO) 0.5 % (0.2-1.0); EOSINOPHILS # (AUTO) 0.1 x10^3/uL (0.0-0.2); EOSINOPHILS % (AUTO) 2.3 % (0.9-2.9); HEMATOCRIT 37.9 % (36.0-47.0); HEMOGLOBIN 12.6 g/dL (12.0-16.0); LYMPHOCYTES # (AUTO) 1.6 X10^3/uL (1.3-2.9); LYMPHOCYTES % (AUTO) 26.6 % (21.0-51.0); MEAN CORPUSCULAR HEMOGLOBIN 29.9 pg (27.0-34.0); MEAN CORPUSCULAR HGB CONC 33.3 g/dL (33.0-35.0); MEAN CORPUSCULAR VOLUME 89.8 fL (80.0-100.0); MEAN PLATELET VOLUME 8.7 fL (7.4-11.0); MONOCYTES # (AUTO) 0.5 x10^3/uL (0.3-0.8); MONOCYTES % (AUTO) 8.5 % (0.0-13.0); NEUTROPHILS # (AUTO) 3.7 x10^3/uL (2.2-4.8); NEUTROPHILS % (AUTO) 62.1 % (42.0-75.0); PLATELET COUNT 214 X10^3/uL (150.0-450.0); RED BLOOD COUNT 4.22 X10^6/uL (3.5-5.4); RED CELL DISTRIBUTION WIDTH 13.6 % (11.6-16.5)
[2018-06-16 06:45] LABS: ALANINE AMINOTRANSFERASE 15 Units/L (12-78); ALBUMIN 2.4 g/dL (3.4-5.0); ALKALINE PHOSPHATASE 110 Units/L (46-116); ASPARTATE AMINO TRANSFERASE 13 Units/L (15-37); BLOOD UREA NITROGEN 12 mg/dL (7-18); CALCIUM 8.7 mg/dL (8.5-10.1); CARBON DIOXIDE 27.7 mmol/L (21-32); CHLORIDE 105 mmol/L (98-107); COR NA(FOR HYPERGLY) 142 mmol/L (136-145); CREATININE 0.89 mg/dL (0.55-1.02); SODIUM 140 mmol/L (136-145); eGFR NON BLACK RACES > 60 (>60)
[2018-06-16] MEDS ORDERED: NS 100 ML IV + SPIKE MINIBAG* 100 ML IV ONE (08:23)
[2018-06-16] MEDS: INVANZ INJ 1 GM VIAL 1 GM in NS 100 ML IV + SPIKE MINIBAG* 100 ML IV SCH (08:58)
[2018-06-16] MEDS: MEMANTINE 28 MG PO SCH (08:58)
[2018-06-16] MEDS: DIOVAN TAB 80 MG PO SCH (08:59)
[2018-06-16] MEDS: COREG TAB 12.5 MG PO SCH ×2 (08:59→20:01)
[2018-06-16] MEDS: ZETIA TAB 10 MG PO SCH (09:00)
[2018-06-16] MEDS: LOVENOX INJ 40 MG SYR SC SCH (09:00)
[2018-06-16] MEDS: LYRICA CAP 100 MG PO SCH ×2 (09:00→20:01)
[2018-06-16] MEDS ORDERED: XYLOCAINE 1 % (PLAIN) ONE (11:07)
--- NOTE | 2018-06-16 12:52 | RAD ---
Exam: Portable chest History: 72-year-old female, status post PICC line placement Comparison: Previous chest radiograph from 06/14/2018. Findings: Since the previous exam, a PICC line has been placed on the left. Tip of the catheter extends to the superior vena cava. Heart size and pulmonary vasculature are normal. Minimal atelectasis is again noted at the left base. Otherwise lungs are clear. No significant effusion on either side. Impression: 1. PICC line placed on the left is identified with the tip just extending to the superior vena cava 2. No acute cardiopulmonary abnormality Reported By:
--- NOTE | 2018-06-16 13:00 | DR.UPDATE ---
H&P Update History and Physical Update: History and Physical reviewed and patient examined. Changes noted: NO Yes with the following:Agree with H&P. will place PICC for custodial (14d) abx therapy. Procedures (ALL) - Central Line Placement PCM.CLCO: written consent Time out performed: Yes Patient placed pm monitor/pulse ox: Yes prep: mask, gown, gloves, other Centrial line prep: chlorhexidine scrub, sterile drapes applied Local anesthsia used: lidocane 1% Ultrasound used for placement: Yes (right basilic, then left basilic id'd via u/s) Central line lumen ininserted: double (5fr power picc. right arm x2 attempts. unable to thrread guidewire. left arm x1 attempt. guidewire and catheter easily threaded on first attempt. ) Post procedure: sutured in place, good blood return, all ports aspirated, flushed,capped, sterile dressing applied Post procedure xray: tip oc catheter in good position (tip in SVC per radiologist.) Patient tolerated procedure: Yes Complications: none
--- NOTE | 2018-06-16 18:27 | PCM.PROG ---
Progress Note - Progress Note for Day of Date of Exam: 06/16/18 - Subjective Subjective: IS A [address] DUMAS. SHE WAS AN ER ADMISSION WITH UTI, CONFUSION SUSPECTED DUE TO INFECTION AND RESP DISTRESS. PT CURRENTLY ON NASAL CANNULA. PT A/O X3 THIS AM. SHE COMPLAINS OF WEAKNESS AND SHORTNESS OF BREATH. PT DOES USE CPAP AT HOME. VITALS THIS MORNING ARE 97. 1-68-22-100%-167/86. ABNORMAL LAB VALUES INCLUDE THE FOLLOWING: GLUCOSE 163, AST 11, TOTAL PROTEIN 6.0, ALBUMIN 2.3. BLOOD AND URINE CULTURES REPORT GROWTH OF E.COLI. IT IS RESISTANT TO HER CURRENT ANTIBIOTICS. PT CURRENTLY ON IV LEVAQUIN AND ROCEPHIN. WE WILL DISCONTINUE THESE TODAY AND START INVANZ 1GM IV DAILY. OTHERWISE, WE WILL CONTINUE WITH CURRENT PLAN OF CARE TODAY. WE WILL FOLLOW UP WITH AM LABS AND CONTINUE TO MONITOR. - Past Medical Family Social History Past Med/Fam/Surg Hx: No changes since H&P Allergies: Allergies No Known Drug Allergies Allergy (Verified 01/06/18 12:40) - Review of Systems ROS: No change since H&P - Vital Signs and I&O's Vital Signs: Temperature 99.0 F Pulse Rate [Apical] 72 Pulse Rate 79 Respiratory Rate 26 Blood Pressure [Left Arm] 142/80 Blood Pressure [Right Arm] 177/86 Blood Pressure 137/68 O2 Sat by Pulse Oximetry 100 Intake and Output: Intake & Output 06/14/18 06/15/18 06/16/18 06/17/18 11:59 11:59 11:59 11:59 Intake Total 1585 / 1585 1355 / 1355 1577 / 1577 570 / 570 Output Total 1250 / 1250 1040 / 1040 1225 / 1225 300 / 300 Balance 335 / 335 315 / 315 352 / 352 270 / 270 - Physical Exam Oriented: Normal Eyes: Normal Ear: Normal Nose: Normal Throat: Dry Respiratory: Diminished Cardiovascular: Normal, Edema (TRACE BILATERAL LE) Auscultation: Bowel Sounds: Normal Tenderness: Normal Skin: Normal Musculoskeletal: Right, Left, Hip, Back:Thoracic, Back:Lumbar Speech Pattern: Clear, Appropriate - Laboratory and Diagnostics Result Diagrams: 06/16/18 06:02 06/16/18 06:02 Labs: 06/13/18 09:31 Blood Blood Culture - Preliminary 06/13/18 09:27 Blood Blood Culture - Preliminary 06/13/18 01:00 Urine,Catheterized Urine Culture - Final Escherichia Coli 06/12/18 20:10 Blood Blood Culture - Final Escherichia Coli 06/12/18 20:10 Blood Blood Culture - Final Escherichia Coli Laboratory WBC 6.0 X10^3/uL (3.6-10.0) 06/16/18 06:02 RBC 4.22 X10^6/uL (3.5-5.4) 06/16/18 06:02 Hgb 12.6 g/dL (12.0-16.0) 06/16/18 06:02 Hct 37.9 % (36.0-47.0) 06/16/18 06:02 MCV 89.8 fL (80.0-100.0) 06/16/18 06:02 MCH 29.9 pg (27.0-34.0) 06/16/18 06:02 MCHC 33.3 g/dL (33.0-35.0) 06/16/18 06:02 RDW 13.6 % (11.6-16.5) 06/16/18 06:02 Plt Count 214 X10^3/uL (150.0-450.0) 06/16/18 06:02 MPV 8.7 fL (7.4-11.0) 06/16/18 06:02 Neut % (Auto) 62.1 % (42.0-75.0) 06/16/18 06:02 Lymph % (Auto) 26.6 % (21.0-51.0) 06/16/18 06:02 [place] % (Auto) 8.5 % (0.0-13.0) 06/16/18 06:02 Eos % (Auto) 2.3 % (0.9-2.9) 06/16/18 06:02 Baso % (Auto) 0.5 % (0.2-1.0) 06/16/18 06:02 Neut # (Auto) 3.7 x10^3/uL (2.2-4.8) 06/16/18 06:02 Lymph # (Auto) 1.6 X10^3/uL (1.3-2.9) 06/16/18 06:02 [place] # (Auto) 0.5 x10^3/uL (0.3-0.8) 06/16/18 06:02 Eos # (Auto) 0.1 x10^3/uL (0.0-0.2) 06/16/18 06:02 Baso # (Auto) 0.0 X10^3/uL (0.0-0.1) 06/16/18 06:02 Absolute Nucleated RBC 0.0 /100WBC 06/16/18 06:02 Sample Site Rr 06/13/18 15:54 ABG pH 7.490 (7.35-7.45) H 06/13/18 15:54 ABG pCO2 45.0 mmHg (35.0-45.0) 06/13/18 15:54 ABG pO2 80.0 mmHg (80.0-100.0) 06/13/18 15:54 ABG HCO3 34.3 mmol/L (22-26) H* 06/13/18 15:54 ABG O2 Saturation 97.0 % (90-100) 06/13/18 15:54 ABG Base Excess 9.7 mmol/L (-2.0-2.0) H 06/13/18 15:54 Wes Test Pos 06/13/18 15:54 A-a Gradient 63.0 mmHg 06/13/18 15:54 FiO2 28.0 06/13/18 15:54 Blood Gas Comments Miguel Angel well-sd 06/13/18 15:54 Sodium 140 mmol/L (136-145) 06/16/18 06:02 Corrected Sodium 142 mmol/L (136-145) 06/16/18 06:02 Potassium 3.7 mmol/L (3.5-5.1) 06/16/18 06:02 Chloride 105 mmol/L (98-107) 06/16/18 06:02 Carbon Dioxide 27.7 mmol/L (21-32) 06/16/18 06:02 BUN 12 mg/dL (7-18) 06/16/18 06:02 Creatinine 0.89 mg/dL (0.55-1.02) 06/16/18 06:02 Est GFR (MDRD) Af Amer > 60 (>60) 06/16/18 06:02 Est GFR (MDRD) Non-Af > 60 (>60) 02/11/19 06:02 Glucose 169 mg/dL (65-99) H 06/16/18 06:02 POC Glucose (mg/dL) 169 mg/dL (65-99) H 06/16/18 17:33 Lactic Acid 1.5 mmol/L (0.4-2.0) 06/12/18 20:10 Calcium 8.7 mg/dL (8.5-10.1) 06/16/18 06:02 Corrected Calcium 10.0 mg/dL (8.5-10.1) 06/16/18 06:02 Total Bilirubin 0.20 mg/dL (0.2-1.0) 06/16/18 06:02 AST 13 Units/L (15-37) L 06/16/18 06:02 ALT 15 Units/L (12-78) 06/16/18 06:02 Alkaline Phosphatase 110 Units/L (46-116) 06/16/18 06:02 Creatine Kinase 22 Units/L (26-192) L 06/12/18 20:10 CK-MB (CK-2) < 1.0 ng/mL (0-4.0) 06/12/18 20:10 CK/CKMB % Calc 4.6 % (<4) 06/12/18 20:10 Troponin I < 0.02 ng/mL (0-1.5) 06/12/18 20:10 B-Natriuretic Peptide 163 pg/mL (0-79) H 06/12/18 20:10 Total Protein 6.0 g/dL (6.4-8.2) L 06/16/18 06:02 Albumin 2.4 g/dL (3.4-5.0) L 06/16/18 06:02 Globulin 3.6 g/dL (2.5-4.5) 06/16/18 06:02 Albumin/Globulin Ratio 0.7 Ratio (1.1-2.1) L 06/16/18 06:02 Specimen Type Catherized urine 06/13/18 01:00 Urine Color Pale yellow (YELLOW) 06/13/18 01:00 Urine Appearance Clear (CLEAR) 06/13/18 01:00 Urine pH 5.0 (5.0 - 8.0) 06/13/18 01:00 Ur Specific [place] 1.015 (1.000-1.030) 06/13/18 01:00 Urine Protein 2+ (NEGATIVE) 06/13/18 01:00 Urine Glucose (UA) 3+ (NEGATIVE) 06/13/18 01:00 Urine Ketones 3+ (NEGATIVE) 06/13/18 01:00 Urine Occult Blood 4+ (NEGATIVE) 06/13/18 01:00 Urine Nitrite Positive (NEGATIVE) 06/13/18 01:00 Urine Bilirubin Negative (NEGATIVE) 06/13/18 01:00 Urine Urobilinogen Normal (NORMAL) 06/13/18 01:00 Ur Leukocyte Esterase 3+ (NEGATIVE) 06/13/18 01:00 Urine RBC 10-20 /HPF (NONE SEEN) 06/13/18 01:00 Urine WBC Tntc /HPF (NONE SEEN) 06/13/18 01:00 Ur Squamous Epith Cells Negative /HPF (NEGATIVE) 06/13/18 01:00 Urine Bacteria 4+ /HPF (NEGATIVE) 06/13/18 01:00 Urine Mucus Moderate /HPF (NEGATIVE) 06/13/18 01:00 Ur Culture Indicated? Yes/culture set up 06/13/18 01:00 - Plan (1) Altered mental state Status: Acute Qualifiers: Altered mental status type: transient alteration of awareness Qualified Code(s): R40.4 - Transient alteration of awareness Plan: ICU BIPAP PRN FOR COPD AND HYPOXIA TREATMENT, REPEAT ABG AND CONVERT TO NC TOLERATED. CXR , REPEAT Q AM. GENTLE IV HYDRATION, BLOOD AND URINE CULTURE POSITIVE + ECOLI. VERIFY HOME MEDICATION, CONTINUOUS O2 AND RESP THERAPY CONSULT. BP CONTROL, STRICT I& OS (2) SOB (shortness of breath) Status: Acute (3) UTI (urinary tract infection) Status: Acute Qualifiers: Urinary tract infection type: acute cystitis Hematuria presence: with hematuria Qualified Code(s): N30.01 - Acute cystitis with hematuria (4) Hypertension Status: Chronic Qualifiers: Hypertension type: unspecified Qualified Code(s): I10 - Essential (primary) hypertension (5) Diabetes mellitus Status: Chronic (6) CHF (congestive heart failure) Status: Chronic (7) COPD (chronic obstructive pulmonary disease) Status: Chronic Qualifiers: COPD type: chronic bronchitis (8) Bacteremia Status: Acute Plan: IV ATBX, LEVAQUIN AND ROCEPHIN. BACTERIA ID [email or web address]
[2018-06-16] MEDS: HumuLIN R SUBCUT PRN (20:00)
[2018-06-16] MEDS: ZOCOR TAB 20 MG PO SCH (20:01)
[2018-06-16] MEDS: REQUIP PO SCH (20:01)
[2018-06-16] MEDS: SNACK - Diabetic Appropriate PO SCH (20:02)
[2018-06-16] MEDS ORDERED: NS 1/2 1000 ML IV 1,000 ML IV ONE (23:21)
[2018-06-17] MEDS: NS 1/2 1000 ML IV 1,000 ML IV SCH ×3 (03:45→09:15)
[2018-06-17 06:16] LABS: BASOPHILS % (AUTO) 0.4 % (0.2-1.0); EOSINOPHILS # (AUTO) 0.2 x10^3/uL (0.0-0.2); EOSINOPHILS % (AUTO) 2.5 % (0.9-2.9); HEMATOCRIT 36.1 % (36.0-47.0); HEMOGLOBIN 12.1 g/dL (12.0-16.0); LYMPHOCYTES # (AUTO) 1.7 X10^3/uL (1.3-2.9); LYMPHOCYTES % (AUTO) 25.8 % (21.0-51.0); MEAN CORPUSCULAR HEMOGLOBIN 30.1 pg (27.0-34.0); MEAN CORPUSCULAR HGB CONC 33.6 g/dL (33.0-35.0); MEAN CORPUSCULAR VOLUME 89.6 fL (80.0-100.0); MEAN PLATELET VOLUME 8.3 fL (7.4-11.0); MONOCYTES # (AUTO) 0.5 x10^3/uL (0.3-0.8); MONOCYTES % (AUTO) 7.9 % (0.0-13.0); NEUTROPHILS # (AUTO) 4.1 x10^3/uL (2.2-4.8); NEUTROPHILS % (AUTO) 63.4 % (42.0-75.0); PLATELET COUNT 209 X10^3/uL (150.0-450.0); RED BLOOD COUNT 4.03 X10^6/uL (3.5-5.4); RED CELL DISTRIBUTION WIDTH 13.6 % (11.6-16.5); WHITE BLOOD COUNT 6.4 X10^3/uL (3.6-10.0)
[2018-06-17 07:05] LABS: ALANINE AMINOTRANSFERASE 15 Units/L (12-78); ALBUMIN 2.4 g/dL (3.4-5.0); ALKALINE PHOSPHATASE 99 Units/L (46-116); ASPARTATE AMINO TRANSFERASE 14 Units/L (15-37); BLOOD UREA NITROGEN 10 mg/dL (7-18); CALCIUM 8.1 mg/dL (8.5-10.1); CARBON DIOXIDE 26.7 mmol/L (21-32); CHLORIDE 105 mmol/L (98-107); COR CA(FOR HYPOALB) 9.4 mg/dL (8.5-10.1); COR NA(FOR HYPERGLY) 142 mmol/L (136-145); CREATININE 0.81 mg/dL (0.55-1.02); SODIUM 141 mmol/L (136-145); TOTAL PROTEIN 5.6 g/dL (6.4-8.2); eGFR NON BLACK RACES > 60 (>60)
[2018-06-17] MEDS: LOVENOX INJ 40 MG SYR SC SCH (08:38)
[2018-06-17] MEDS: COREG TAB 12.5 MG PO SCH (08:39)
[2018-06-17] MEDS: DIOVAN TAB 80 MG PO SCH (08:39)
[2018-06-17] MEDS: LYRICA CAP 100 MG PO SCH (08:39)
[2018-06-17] MEDS: INVANZ INJ 1 GM VIAL 1 GM in NS 100 ML IV + SPIKE MINIBAG* 100 ML IV SCH (08:40)
[2018-06-17] MEDS: MEMANTINE 28 MG PO SCH (08:47)
[2018-06-17] MEDS: ZETIA TAB 10 MG PO SCH (08:49)
[2018-06-17] MEDS ORDERED: NORVASC TAB 5 MG PO SCH (10:00)
[2018-06-17] MEDS ORDERED: LASIX PO SCH (10:00)
[2018-06-17 10:32] VITALS: BP 164/86
== END 2018-06-17 11:30 | disposition home health service (06) | DRG 690 ==
LOC: ER 19:23 → ICU 22:57
PROVIDERS: ADMIT Internal Medicine; ATTEND Internal Medicine
DX: R40.4 Transient alteration of awareness; N30.01 Acute cystitis with hematuria; K21.9 Gastro-esophageal reflux disease without esophagitis; R78.81 Bacteremia; J42 Unspecified chronic bronchitis; B96.29 Other Escherichia coli [E. coli] as the cause of diseases classified elsewhere; I50.9 Heart failure, unspecified; R60.0 Localized edema; R26.89 Other abnormalities of gait and mobility; R53.1 Weakness; R06.03 Acute respiratory distress; E78.2 Mixed hyperlipidemia; E11.65 Type 2 diabetes mellitus with hyperglycemia; F41.8 Other specified anxiety disorders; I11.0 Hypertensive heart disease with heart failure; J44.1 Chronic obstructive pulmonary disease with (acute) exacerbation
CPT/HCPCS: 36415; 36569; 36600; 71010; 71045; 80053; 81001; 82550; 82553; 82803; 83605; 83880; 84484; 85025; 87040; 87077; 87086; 87088; 87186; 94660; 96365; 96374; 96375; 97110; 97162; 97167; 97530; 97535; 99282; 99285; A4216; A4222; A4618; A7030; J0696; J1335; J1650; J1815; J1956; J2930; J7050; J7620

== ENCOUNTER 2018-06-23 10:07 | Observation (INO) ==
[2018-06-23 10:19] VITALS: BMI 37.5
--- NOTE | 2018-06-23 10:45 | DR.GENAD ---
HPI Time Seen Time Seen by Provider: 06/23/18 10:43 PCP Primary Care Physician: DR KELLEY Complaint/Symptoms Chief Complaint:: PT STATES THAT SHE HAS HAD GENERALIZED WEAKNESS FOR SEVERAL DAYS, STATES THAT THIS MORNING AROUND 3AM SHE GOT UP TO USE THE BATHROOM AND HER "LEGS GAVE OUT" AND SHE FELL. DENIES PAIN. Source History Provided: Patient Mode of Arrival Mode of Arrival: EMS Timing Onset of Chief Complaint: 06/23/18 PMH PMH Past Medical History: Yes Past Medical History: CHF, COPD, Diabetes, Dyslipidemia, Hypertension and Sleep Apnea Past Surgical History: Yes Surgical History: Cholecystectomy, Hysterectomy and Ortho Surgery Family History History of Family Medical Conditions: No Family Medical History: Cancer Social History Does patient currently use any type of tobacco product: No Have you used tobacco products in the last 12 months: No Type of Tobacco Use: None Does any household member use tobacco: No Alcohol Use: None Do you use any recreational Drugs:: No Lives With: Family Lives Where: Home infectious screening In the last 2 months have you had wt loss of >10#?: NO Have you had fever, night sweats or hemotysis?: No Have you traveled outside the country in the last 6 months?: No Isolation: Standard PE Vital Signs Vitals: Temperature 97.3 F Pulse Rate 78 Respiratory Rate 22 Blood Pressure [Left Arm] 142/80 Blood Pressure [Right Arm] 164/86 Blood Pressure 143/70 O2 Sat by Pulse Oximetry 96 ROR Labs Reviewed Result Diagrams: 06/23/18 11:04 06/23/18 11:04 Laboratory: WBC 9.7 X10^3/uL (3.6-10.0) 06/23/18 11:04 RBC 4.08 X10^6/uL (3.5-5.4) 06/23/18 11:04 Hgb 12.3 g/dL (12.0-16.0) 06/23/18 11:04 Hct 36.6 % (36.0-47.0) 06/23/18 11:04 MCV 89.7 fL (80.0-100.0) 06/23/18 11:04 MCH 30.2 pg (27.0-34.0) 06/23/18 11:04 MCHC 33.7 g/dL (33.0-35.0) 06/23/18 11:04 RDW 13.7 % (11.6-16.5) 06/23/18 11:04 Plt Count 213 X10^3/uL (150.0-450.0) 06/23/18 11:04 MPV 8.5 fL (7.4-11.0) 06/23/18 11:04 Neut % (Auto) 68.4 % (42.0-75.0) 06/23/18 11:04 Lymph % (Auto) 20.3 % (21.0-51.0) L 06/23/18 11:04 [place] % (Auto) 7.6 % (0.0-13.0) 06/23/18 11:04 Eos % (Auto) 3.0 % (0.9-2.9) H 06/23/18 11:04 Baso % (Auto) 0.7 % (0.2-1.0) 06/23/18 11:04 Neut # (Auto) 6.7 x10^3/uL (2.2-4.8) H 06/23/18 11:04 Lymph # (Auto) 2.0 X10^3/uL (1.3-2.9) 06/23/18 11:04 Real # (Auto) 0.7 x10^3/uL (0.3-0.8) 06/23/18 11:04 Eos # (Auto) 0.3 x10^3/uL (0.0-0.2) H 06/23/18 11:04 Baso # (Auto) 0.1 X10^3/uL (0.0-0.1) 06/23/18 11:04 Absolute Nucleated RBC 0.1 /100WBC 06/23/18 11:04 Sodium 142 mmol/L (136-145) 06/23/18 11:04 Corrected Sodium 144 mmol/L (136-145) 06/23/18 11:04 Potassium 3.8 mmol/L (3.5-5.1) 06/23/18 11:04 Chloride 102 mmol/L (98-107) 06/23/18 11:04 Carbon Dioxide 36.4 mmol/L (21-32) H 06/23/18 11:04 BUN 10 mg/dL (7-18) 06/23/18 11:04 Creatinine 1.04 mg/dL (0.55-1.02) H 06/23/18 11:04 Est GFR (MDRD) Af Amer > 60 (>60) 06/23/18 11:04 Est GFR (MDRD) Non-Af 55 (>60) L 06/23/18 11:04 Glucose 166 mg/dL (65-99) H 06/23/18 11:04 Lactic Acid 1.4 mmol/L (0.4-2.0) 06/23/18 11:04 Calcium 8.5 mg/dL (8.5-10.1) 06/23/18 11:04 Corrected Calcium 9.5 mg/dL (8.5-10.1) 06/23/18 11:04 Total Bilirubin 0.30 mg/dL (0.2-1.0) 06/23/18 11:04 AST 15 Units/L (15-37) 06/23/18 11:04 ALT 24 Units/L (12-78) 06/23/18 11:04 Alkaline Phosphatase 123 Units/L (46-116) H 06/23/18 11:04 C-Reactive Protein 76.70 mg/L (0-3.0) H 06/23/18 11:04 Total Protein 6.3 g/dL (6.4-8.2) L 06/23/18 11:04 Albumin 2.7 g/dL (3.4-5.0) L 06/23/18 11:04 Globulin 3.6 g/dL (2.5-4.5) 06/23/18 11:04 Albumin/Globulin Ratio 0.8 Ratio (1.1-2.1) L 06/23/18 11:04 Specimen Type Random urine 06/23/18 10:40 Urine Color Yellow (YELLOW) 06/23/18 10:40 Urine Appearance Cloudy (CLEAR) 06/23/18 10:40 Urine pH 5.0 (5.0 - 8.0) 06/23/18 10:40 Ur Specific [place] 1.020 (1.000-1.030) 06/23/18 10:40 Urine Protein 1+ (NEGATIVE) 06/23/18 10:40 Urine Glucose (UA) Negative (NEGATIVE) 06/23/18 10:40 Urine Ketones Negative (NEGATIVE) 06/23/18 10:40 Urine Occult Blood 1+ (NEGATIVE) 06/23/18 10:40 Urine Nitrite Negative (NEGATIVE) 06/23/18 10:40 Urine Bilirubin Negative (NEGATIVE) 06/23/18 10:40 Urine Urobilinogen Normal (NORMAL) 06/23/18 10:40 Ur Leukocyte Esterase 3+ (NEGATIVE) 06/23/18 10:40 Urine RBC 0-2 /HPF (NONE SEEN) 06/23/18 10:40 Urine WBC 5-10 /HPF (NONE SEEN) 06/23/18 10:40 Ur Squamous Epith Cells Few /HPF (NEGATIVE) 06/23/18 10:40 Urine Bacteria Negative /HPF (NEGATIVE) 06/23/18 10:40 Urine Yeast Few /HPF (NEGATIVE) 06/23/18 10:40 Ur Culture Indicated? No/not indicated 06/23/18 10:40
[2018-06-23 10:46] LABS: BILIRUBIN,URINE NEGATIVE (NEGATIVE); BLOOD/HEMOGLOBIN,URINE 1+ (NEGATIVE); GLUCOSE, URINE NEGATIVE (NEGATIVE); KETONES,URINE NEGATIVE (NEGATIVE); LEUKOCYTE ESTERASE ,URINE 3+ (NEGATIVE); NITRITES,URINE NEGATIVE (NEGATIVE); PROTEIN,URINE 1+ (NEGATIVE); UROBILINOGEN,URINE NORMAL (NORMAL)
[2018-06-23 11:00] LABS: APPEARANCE,URINE CLOUDY (CLEAR); COLOR,URINE YELLOW (YELLOW)
[2018-06-23 11:01] LABS: BACTERIA,URINE NEGATIVE /HPF (NEGATIVE); RBC,URINE 0-2 /HPF (NONE SEEN); SQUAMOUS EPITHELIAL CELL,UR FEW /HPF (NEGATIVE); YEAST,URINE FEW /HPF (NEGATIVE)
[2018-06-23 11:15] LABS: BASOPHILS # (AUTO) 0.1 X10^3/uL (0.0-0.1); BASOPHILS % (AUTO) 0.7 % (0.2-1.0); EOSINOPHILS # (AUTO) 0.3 x10^3/uL (0.0-0.2); HEMATOCRIT 36.6 % (36.0-47.0); HEMOGLOBIN 12.3 g/dL (12.0-16.0); LYMPHOCYTES % (AUTO) 20.3 % (21.0-51.0); MEAN CORPUSCULAR HEMOGLOBIN 30.2 pg (27.0-34.0); MEAN CORPUSCULAR HGB CONC 33.7 g/dL (33.0-35.0); MEAN CORPUSCULAR VOLUME 89.7 fL (80.0-100.0); MEAN PLATELET VOLUME 8.5 fL (7.4-11.0); MONOCYTES # (AUTO) 0.7 x10^3/uL (0.3-0.8); MONOCYTES % (AUTO) 7.6 % (0.0-13.0); NEUTROPHILS # (AUTO) 6.7 x10^3/uL (2.2-4.8); NEUTROPHILS % (AUTO) 68.4 % (42.0-75.0); PLATELET COUNT 213 X10^3/uL (150.0-450.0); RED BLOOD COUNT 4.08 X10^6/uL (3.5-5.4); RED CELL DISTRIBUTION WIDTH 13.7 % (11.6-16.5); WHITE BLOOD COUNT 9.7 X10^3/uL (3.6-10.0)
[2018-06-23 11:25] LABS: ALANINE AMINOTRANSFERASE 24 Units/L (12-78); ALBUMIN 2.7 g/dL (3.4-5.0); ALKALINE PHOSPHATASE 123 Units/L (46-116); ASPARTATE AMINO TRANSFERASE 15 Units/L (15-37); BLOOD UREA NITROGEN 10 mg/dL (7-18); CALCIUM 8.5 mg/dL (8.5-10.1); CARBON DIOXIDE 36.4 mmol/L (21-32); CHLORIDE 102 mmol/L (98-107); COR CA(FOR HYPOALB) 9.5 mg/dL (8.5-10.1); COR NA(FOR HYPERGLY) 144 mmol/L (136-145); CREATININE 1.04 mg/dL (0.55-1.02); SODIUM 142 mmol/L (136-145); TOTAL PROTEIN 6.3 g/dL (6.4-8.2); eGFR NON BLACK RACES 55 (>60)
[2018-06-23 11:32] LABS: LACTIC ACID 1.4 mmol/L (0.4-2.0)
[2018-06-23] MEDS ORDERED: NS 1000 ML 1,000 ML ONE (14:27)
[2018-06-23] MEDS: NS 1000 ML 1,000 ML IV SCH (14:28)
[2018-06-23] MEDS ORDERED: DUONEB 0.5 MG/3 MG IN PRN (14:48)
[2018-06-23] MEDS ORDERED: VENTOLIN or PROAIR HFA IN PRN (14:48)
[2018-06-23] MEDS ORDERED: PERCOCET TAB 5/325 MG PO PRN (14:48)
[2018-06-23] MEDS ORDERED: NS 100 ML IV + SPIKE MINIBAG* 100 ML IV ONE (16:47)
[2018-06-23] MEDS ORDERED: INVANZ INJ 1 GM VIAL ONE (16:47)
[2018-06-23] MEDS: INVANZ INJ 1 GM VIAL 1 GM in NS 100 ML IV + SPIKE MINIBAG* 100 ML IV SCH (16:48)
[2018-06-23 19:20] LABS: BILIRUBIN,URINE NEGATIVE (NEGATIVE); BLOOD/HEMOGLOBIN,URINE 1+ (NEGATIVE); GLUCOSE, URINE NEGATIVE (NEGATIVE); KETONES,URINE NEGATIVE (NEGATIVE); LEUKOCYTE ESTERASE ,URINE 2+ (NEGATIVE); NITRITES,URINE NEGATIVE (NEGATIVE); PROTEIN,URINE 1+ (NEGATIVE); UROBILINOGEN,URINE NORMAL (NORMAL)
[2018-06-23 19:25] LABS: APPEARANCE,URINE SLIGHTLY HAZY (CLEAR); BACTERIA,URINE TRACE /HPF (NEGATIVE); COLOR,URINE YELLOW (YELLOW); SQUAMOUS EPITHELIAL CELL,UR MODERATE /HPF (NEGATIVE); YEAST,URINE FEW /HPF (NEGATIVE)
[2018-06-23] MEDS: REQUIP PO SCH (21:20)
[2018-06-23] MEDS: SNACK - Diabetic Appropriate PO SCH (21:20)
[2018-06-23] MEDS: ARICEPT TAB 10 MG PO SCH (21:20)
[2018-06-23] MEDS: LYRICA CAP 50 MG PO SCH (21:21)
[2018-06-23] MEDS: COREG TAB 12.5 MG PO SCH (21:21)
[2018-06-23] MEDS: GLUCOTROL PO SCH (21:21)
[2018-06-23] MEDS: ZOCOR TAB 20 MG PO SCH (21:22)
[2018-06-23] MEDS: ZyrTEC TAB 10 MG PO SCH (21:23)
[2018-06-23] MEDS: PULMICORT NEB TX 0.5 MG NEB SCH (21:55)
[2018-06-23] MEDS ORDERED: STERILE WATER IRRIGATION IR ONE (23:43)
[2018-06-24] MEDS: NS 1000 ML 1,000 ML IV SCH ×2 (03:54→17:34)
[2018-06-24 05:29] LABS: BASOPHILS # (AUTO) 0.1 X10^3/uL (0.0-0.1); BASOPHILS % (AUTO) 0.7 % (0.2-1.0); EOSINOPHILS # (AUTO) 0.2 x10^3/uL (0.0-0.2); EOSINOPHILS % (AUTO) 3.6 % (0.9-2.9); HEMATOCRIT 35.4 % (36.0-47.0); HEMOGLOBIN 11.9 g/dL (12.0-16.0); LYMPHOCYTES % (AUTO) 28.3 % (21.0-51.0); MEAN CORPUSCULAR HEMOGLOBIN 30.5 pg (27.0-34.0); MEAN CORPUSCULAR HGB CONC 33.7 g/dL (33.0-35.0); MEAN CORPUSCULAR VOLUME 90.6 fL (80.0-100.0); MEAN PLATELET VOLUME 8.7 fL (7.4-11.0); MONOCYTES # (AUTO) 0.7 x10^3/uL (0.3-0.8); MONOCYTES % (AUTO) 9.4 % (0.0-13.0); PLATELET COUNT 208 X10^3/uL (150.0-450.0); RED BLOOD COUNT 3.91 X10^6/uL (3.5-5.4); RED CELL DISTRIBUTION WIDTH 14.2 % (11.6-16.5); WHITE BLOOD COUNT 6.9 X10^3/uL (3.6-10.0)
[2018-06-24 05:35] LABS: BLOOD UREA NITROGEN 8 mg/dL (7-18); CALCIUM 8.2 mg/dL (8.5-10.1); CARBON DIOXIDE 34.7 mmol/L (21-32); CHLORIDE 105 mmol/L (98-107); COR NA(FOR HYPERGLY) 144 mmol/L (136-145); CREATININE 0.87 mg/dL (0.55-1.02); SODIUM 143 mmol/L (136-145); eGFR NON BLACK RACES > 60 (>60)
[2018-06-24] MEDS: PULMICORT NEB TX 0.5 MG NEB SCH ×2 (08:55→20:36)
[2018-06-24] MEDS: PROVENTIL NEB TX 0.083% 2.5MG/ 3ML NEB PRN ×2 (08:55→20:36)
[2018-06-24] MEDS ORDERED: MEMANTINE 28 MG PO SCH (09:00)
[2018-06-24] MEDS ORDERED: UMECLIDINIUM VILANTEROL IN SCH (09:00)
[2018-06-24] MEDS: FLONASE NASAL SPRAY ENOSTRIL SCH (10:06)
[2018-06-24] MEDS: INVANZ INJ 1 GM VIAL 1 GM in NS 100 ML IV + SPIKE MINIBAG* 100 ML IV SCH (10:07)
[2018-06-24] MEDS: ELAVIL PO SCH (10:08)
[2018-06-24] MEDS: ASPIRIN EC 81 MG PO SCH (10:08)
[2018-06-24] MEDS: MICRO K EXTEN CAP 10 MEQ PO SCH (10:09)
[2018-06-24] MEDS: LYRICA CAP 50 MG PO SCH ×2 (10:09→21:16)
[2018-06-24] MEDS: AMARYL TAB 4 MG PO SCH (10:10)
[2018-06-24] MEDS: PriLOSEC PO SCH (10:10)
[2018-06-24] MEDS: GLUCOTROL PO SCH ×2 (10:10→21:17)
[2018-06-24] MEDS: COREG TAB 12.5 MG PO SCH ×2 (10:10→21:17)
[2018-06-24] MEDS: DIOVAN TAB 80 MG PO SCH (10:10)
[2018-06-24] MEDS: LASIX PO SCH (10:11)
[2018-06-24] MEDS: DETROL LA 2 MG CAP EXT REL PO SCH (10:11)
[2018-06-24] MEDS: MOBIC TAB 15 MG PO SCH (10:11)
[2018-06-24] MEDS: FLEXERIL TAB 10 MG PO SCH (10:11)
[2018-06-24] MEDS: XANAX PO SCH (10:12)
[2018-06-24] MEDS: ZETIA TAB 10 MG PO SCH (10:12)
--- NOTE | 2018-06-24 10:21 | RAD ---
History: Shortness of breath Study: AP chest Comparison: June 16 Findings: There are thin horizontal densities at both lung bases. The heart size is normal. There is a left shoulder prosthesis. There is an unchanged left sided PICC line with the tip barely into the SVC. There is chronic diffuse interstitial lung disease. Impression: Subsegmental atelectasis at both lung bases Reported By:
[2018-06-24] MEDS: INVOKANA PO SCH (10:23)
[2018-06-24 13:05] LABS: ALANINE AMINOTRANSFERASE 23 Units/L (12-78); ALBUMIN 2.5 g/dL (3.4-5.0); ALKALINE PHOSPHATASE 113 Units/L (46-116); ASPARTATE AMINO TRANSFERASE 18 Units/L (15-37); COR CA(FOR HYPOALB) 9.4 mg/dL (8.5-10.1); TOTAL PROTEIN 5.9 g/dL (6.4-8.2)
--- NOTE | 2018-06-24 16:44 | DR.H&P ---
H&P - History & Physical for Day of: H&P Date: 06/23/18 - Chief Complaint Chief Complaint: FALL AT HOME - History of Present Illness History of Present Illness: PT IS 72 WF ER ADMISSION FOLLOWING FALL TODAY. PT STATES SHE WAS USING WALKER AND HAD FALL, DENIES ANY LOC, NEW WEAKNESS OR CHEST PAIN. PT HAS PICC LINE AND BEEN RECEIVING IV ATBX FOR UTI AND +BC. PT DENIES ANY FEVERS AT HOME. PT CO LOWER BACK PAIN. PT HAS HX OF DM, COPD, CHF, HTN, OA, ELIAS, NEUROPATHY. PT ADMITTED FOR TREATMEND OF ACUTE ILLNESS - Past Medical History Past Medical History: Hypertension, Dyslipidemia, Diabetes, COPD, Sleep Apnea, CHF - Past Surgical History Surgical History: Cholecystectomy, Hysterectomy, Ortho Surgery, Other - Family History Family Medical History: Cancer - Social History Does patient currently use any type of tobacco product: No Have you used tobacco products in the last 12 months: No Type of Tobacco Use: None Does any household member use tobacco: No Alcohol Use: None Drug Use: Prescription Drugs - Medications Home Medications: No Known Drug Allergies Allergy (Verified 01/06/18 12:40) CONTINUE taking the following medications albuterol sulfate [ProAir HFA] 2 puff INHALATION Q4H PRN 06/23/18 [History] amitriptyline 100 mg PO DAILY 06/23/18 [History] canagliflozin [Invokana] 300 mg PO DAILY 06/23/18 [History] exenatide microspheres [Bydureon] 2 mg SUBCUT WEEKLY 06/23/18 [History] fluticasone 50 mcg INTRANASAL DAILY 06/23/18 [History] ipratropium-albuterol 1 neb INHALATION QID PRN 06/23/18 [History] omeprazole 20 mg PO DAILY 06/23/18 [History] pregabalin [Lyrica] 100 mg PO BID 06/23/18 [History] umeclidinium-vilanterol [Anoro Ellipta] 1 puff INHALATION DAILY 06/23/18 [Hist ory] - Review of Systems Constitutional: No Symptoms Reported Eyes: No Symptoms Reported ENT: No Symptoms Reported Respiratory: No Symptoms Reported Cardiovascular: No Symptoms Reported Gastrointestinal: No Symptoms Reported Genitourinary: No Symptoms Reported Musculoskeletal: Back Pain Skin: No Symptoms Reported Neurological: Weakness (MILD) - Physical Exam Vital Signs: Temperature 98.0 F Pulse Rate [Right Brachial] 70 Pulse Rate 72 Respiratory Rate 18 Blood Pressure [Left Arm] 142/80 Blood Pressure [Right Arm] 135/61 Blood Pressure 143/70 O2 Sat by Pulse Oximetry 99 Oriented: Normal Eyes: Normal Ear: Normal Nose: Normal Throat: Normal Respiratory: RLL Diminished, LLL Diminished, RLL Absent : Normal Auscultation: Bowel Sounds: Normal Palpation: Normal Tenderness: Normal Skin: Normal Musculoskeletal: Right, Left, Hip, Back:Lumbar Psychiatric: Anxiety Affect: Anxious Speech Pattern: Clear, Appropriate - Assessment/Plan (1) Multiple falls Status: Acute Plan: ADMIT, ADMISSION LABS. GENTLE IV HYDRATION. REPEAT URINE CULTURE. CXR ON ADMISSION AND EKG. VERIFY HOME MEDICATION, SUPPLEMENTAL O2. RESP THERAPY (2) Weakness Status: Acute (3) Blood bacterial culture positive Status: Acute (4) Hypertension Qualifiers: Hypertension type: unspecified Qualified Code(s): I10 - Essential (primary) hypertension Status: Chronic (5) Diabetes mellitus Status: Chronic (6) CHF (congestive heart failure) Status: Chronic (7) COPD (chronic obstructive pulmonary disease) Qualifiers: COPD type: chronic bronchitis Status: Chronic - Allergies Allergies/Adverse Reactions: Allergies Allergy/AdvReac Type Severity Reaction Status Date / Time No Known Drug Allergies Allergy Verified 01/06/18 12:40
--- NOTE | 2018-06-24 16:50 | PCM.PROG ---
Progress Note - Progress Note for Day of Date of Exam: 06/24/18 - Subjective Subjective: 72 WF ER ADMISSION LAST EVENING AFTER UNPROVOKED FALL. PT HAS BEEN ON IV INVANZ FOR UTI AND BACTEREMIA. PT DENIES ANY NEW WEAKNESS, SOB OR CHEST PAIN. PT HAS CO LOWER BACK PAIN, DENIES ANY NEW LOWER EXTREMITY WEAKNESS OR PAIN. PT LABS STABLE THIS AM, WILL OBTAIN L SPINE SERIES AND HIP XRAYS. - Past Medical Family Social History Past Med/Fam/Surg Hx: No changes since H&P Allergies: Allergies No Known Drug Allergies Allergy (Verified 01/06/18 12:40) - Review of Systems ROS: No change since H&P - Vital Signs and I&O's Vital Signs: Temperature 98.0 F Pulse Rate [Right Brachial] 70 Pulse Rate 72 Respiratory Rate 18 Blood Pressure [Left Arm] 142/80 Blood Pressure [Right Arm] 135/61 Blood Pressure 143/70 O2 Sat by Pulse Oximetry 99 Intake and Output: Intake & Output 06/22/18 06/23/18 06/24/18 06/25/18 11:59 11:59 11:59 11:59 Intake Total 370 / 370 1126 / 1126 Balance 370 / 370 1126 / 1126 - Physical Exam Oriented: Normal Eyes: Normal Ear: Normal Nose: Normal Throat: Normal Respiratory: Diminished Cardiovascular: Normal : Normal Auscultation: Bowel Sounds: Normal Tenderness: Normal Skin: Normal Musculoskeletal: Right, Left, Hip, Back:Lumbar Psychiatric: Anxiety Affect: Anxious Speech Pattern: Clear, Appropriate - Laboratory and Diagnostics Result Diagrams: 06/24/18 04:25 06/24/18 04:25 Labs: 06/23/18 19:00 Urine,Clean Catch Urine Culture - Preliminary Laboratory WBC 6.9 X10^3/uL (3.6-10.0) 06/24/18 04:25 RBC 3.91 X10^6/uL (3.5-5.4) 06/24/18 04:25 Hgb 11.9 g/dL (12.0-16.0) L 06/24/18 04:25 Hct 35.4 % (36.0-47.0) L 06/24/18 04:25 MCV 90.6 fL (80.0-100.0) 06/24/18 04:25 MCH 30.5 pg (27.0-34.0) 06/24/18 04:25 MCHC 33.7 g/dL (33.0-35.0) 06/24/18 04:25 RDW 14.2 % (11.6-16.5) 06/24/18 04:25 Plt Count 208 X10^3/uL (150.0-450.0) 06/24/18 04:25 MPV 8.7 fL (7.4-11.0) 06/24/18 04:25 Neut % (Auto) 58.0 % (42.0-75.0) 06/24/18 04:25 Lymph % (Auto) 28.3 % (21.0-51.0) 06/24/18 04:25 [place] % (Auto) 9.4 % (0.0-13.0) 06/24/18 04:25 Eos % (Auto) 3.6 % (0.9-2.9) H 06/24/18 04:25 Baso % (Auto) 0.7 % (0.2-1.0) 06/24/18 04:25 Neut # (Auto) 4.0 x10^3/uL (2.2-4.8) 06/24/18 04:25 Lymph # (Auto) 2.0 X10^3/uL (1.3-2.9) 06/24/18 04:25 [place] # (Auto) 0.7 x10^3/uL (0.3-0.8) 06/24/18 04:25 Eos # (Auto) 0.2 x10^3/uL (0.0-0.2) 06/24/18 04:25 Baso # (Auto) 0.1 X10^3/uL (0.0-0.1) 06/24/18 04:25 Absolute Nucleated RBC 0.1 /100WBC 06/24/18 04:25 Sodium 143 mmol/L (136-145) 06/24/18 04:25 Corrected Sodium 144 mmol/L (136-145) 06/24/18 04:25 Potassium 3.6 mmol/L (3.5-5.1) 06/24/18 04:25 Chloride 105 mmol/L (98-107) 06/24/18 04:25 Carbon Dioxide 34.7 mmol/L (21-32) H 06/24/18 04:25 BUN 8 mg/dL (7-18) 06/24/18 04:25 Creatinine 0.87 mg/dL (0.55-1.02) 06/24/18 04:25 Est GFR (MDRD) Af Amer > 60 (>60) 06/24/18 04:25 Est GFR (MDRD) Non-Af > 60 (>60) 06/24/18 04:25 Glucose 127 mg/dL (65-99) H 06/24/18 04:25 POC Glucose (mg/dL) 160 mg/dL (65-99) H 06/24/18 11:19 Lactic Acid 1.4 mmol/L (0.4-2.0) 06/23/18 11:04 Calcium 8.2 mg/dL (8.5-10.1) L 06/24/18 04:25 Corrected Calcium 9.4 mg/dL (8.5-10.1) 06/24/18 04:25 Total Bilirubin 0.20 mg/dL (0.2-1.0) 06/24/18 04:25 AST 18 Units/L (15-37) 06/24/18 04:25 ALT 23 Units/L (12-78) 06/24/18 04:25 Alkaline Phosphatase 113 Units/L (46-116) 06/24/18 04:25 C-Reactive Protein 76.70 mg/L (0-3.0) H 06/23/18 11:04 Total Protein 5.9 g/dL (6.4-8.2) L 06/24/18 04:25 Albumin 2.5 g/dL (3.4-5.0) L 06/24/18 04:25 Globulin 3.4 g/dL (2.5-4.5) 06/24/18 04:25 Albumin/Globulin Ratio 0.7 Ratio (1.1-2.1) L 06/24/18 04:25 Specimen Type Clean catch urine 06/23/18 19:00 Urine Color Yellow (YELLOW) 06/23/18 19:00 Urine Appearance Slightly hazy (CLEAR) 06/23/18 19:00 Urine pH 5.0 (5.0 - 8.0) 06/23/18 19:00 Ur Specific [place] 1.020 (1.000-1.030) 06/23/18 19:00 Urine Protein 1+ (NEGATIVE) 06/23/18 19:00 Urine Glucose (UA) Negative (NEGATIVE) 06/23/18 19:00 Urine Ketones Negative (NEGATIVE) 06/23/18 19:00 Urine Occult Blood 1+ (NEGATIVE) 06/23/18 19:00 Urine Nitrite Negative (NEGATIVE) 06/23/18 19:00 Urine Bilirubin Negative (NEGATIVE) 06/23/18 19:00 Urine Urobilinogen Normal (NORMAL) 06/23/18 19:00 Ur Leukocyte Esterase 2+ (NEGATIVE) 06/23/18 19:00 Urine RBC 5-10 /HPF (NONE SEEN) 06/23/18 19:00 Urine WBC 10-20 /HPF (NONE SEEN) 06/23/18 19:00 Ur Squamous Epith Cells Moderate /HPF (NEGATIVE) 06/23/18 19:00 Urine Bacteria Trace /HPF (NEGATIVE) 06/23/18 19:00 Urine Yeast Few /HPF (NEGATIVE) 06/23/18 19:00 Ur Culture Indicated? Yes/culture set up 06/23/18 19:00 - Plan (1) Multiple falls Status: Acute Plan: AMN LABS. GENTLE IV HYDRATION. REPEAT URINE CULTURE ON ADMISSION PENDING. CONTINUE IV INVANZ ORDERED. L SPINE SERIES AND BILATERAL HIP XRAY. VERIFY HOME MEDICATION, SUPPLEMENTAL O2. RESP THERAPY, PAIN CONTROL, PHYSICAL THERAPY (2) Weakness Status: Acute (3) Blood bacterial culture positive Status: Acute (4) Hypertension Status: Chronic Qualifiers: Hypertension type: unspecified Qualified Code(s): I10 - Essential (primary) hypertension (5) Diabetes mellitus Status: Chronic (6) CHF (congestive heart failure) Status: Chronic (7) COPD (chronic obstructive pulmonary disease) Status: Chronic Qualifiers: COPD type: chronic bronchitis
[2018-06-24] MEDS: SNACK - Diabetic Appropriate PO SCH (20:00)
[2018-06-24] MEDS: REQUIP PO SCH (21:15)
[2018-06-24] MEDS: ARICEPT TAB 10 MG PO SCH (21:16)
[2018-06-24] MEDS: ZOCOR TAB 20 MG PO SCH (21:18)
[2018-06-24] MEDS: ZyrTEC TAB 10 MG PO SCH (21:18)
--- NOTE | 2018-06-25 03:09 | RAD ---
Lumbar spine, three views Indication: 'Fell on Saturday but has no complaints, no pain' Comparison: None Findings: Bones are osteopenic. Vertebral body heights and alignment are normal. No acute fracture or subluxation is identified. Mild degenerative disc disease and facet arthropathy is present throughout the lumbosacral spine, greatest caudally. SI joints are intact. Partially visualized bilateral hip arthroplasties noted. Impression: Osteopenia and mild degenerative changes as above without acute osseous abnormality. Reported By:
--- NOTE | 2018-06-25 04:18 | RAD ---
Bilateral hips, two views Indication: 'Fall on Saturday but has no complaints, no pain' Comparison: 07/23/2017 Findings: There is a superiorly displaced fracture of the right femoral greater trochanter which demonstrates well corticated margins, compatible with chronicity. This is new when compared to the prior exam. Bilateral hip arthroplasties otherwise project in expected radiographic position without acute periprosthetic fracture or malalignment identified. There is no SI joint or pubic symphysis diastasis. Surrounding soft tissues are unremarkable. Impression: Superiorly displaced fracture of the right femoral greater trochanter, which is chronic in appearance but new since prior exam. Otherwise, no acute abnormality of either hip. Reported By:
[2018-06-25] MEDS: NS 1000 ML 1,000 ML IV SCH ×2 (05:07→06:58)
[2018-06-25 05:19] LABS: BASOPHILS % (AUTO) 0.5 % (0.2-1.0); EOSINOPHILS # (AUTO) 0.2 x10^3/uL (0.0-0.2); HEMATOCRIT 35.3 % (36.0-47.0); HEMOGLOBIN 11.9 g/dL (12.0-16.0); LYMPHOCYTES # (AUTO) 1.8 X10^3/uL (1.3-2.9); LYMPHOCYTES % (AUTO) 23.6 % (21.0-51.0); MEAN CORPUSCULAR HEMOGLOBIN 30.8 pg (27.0-34.0); MEAN CORPUSCULAR HGB CONC 33.9 g/dL (33.0-35.0); MEAN CORPUSCULAR VOLUME 90.9 fL (80.0-100.0); MEAN PLATELET VOLUME 8.4 fL (7.4-11.0); MONOCYTES # (AUTO) 0.6 x10^3/uL (0.3-0.8); MONOCYTES % (AUTO) 7.8 % (0.0-13.0); NEUTROPHILS # (AUTO) 4.9 x10^3/uL (2.2-4.8); NEUTROPHILS % (AUTO) 65.1 % (42.0-75.0); PLATELET COUNT 211 X10^3/uL (150.0-450.0); RED BLOOD COUNT 3.88 X10^6/uL (3.5-5.4); RED CELL DISTRIBUTION WIDTH 14.1 % (11.6-16.5); WHITE BLOOD COUNT 7.5 X10^3/uL (3.6-10.0)
[2018-06-25 05:42] LABS: ALANINE AMINOTRANSFERASE 25 Units/L (12-78); ALBUMIN 2.5 g/dL (3.4-5.0); ALKALINE PHOSPHATASE 113 Units/L (46-116); ASPARTATE AMINO TRANSFERASE 18 Units/L (15-37); BLOOD UREA NITROGEN 6 mg/dL (7-18); CALCIUM 8.4 mg/dL (8.5-10.1); CARBON DIOXIDE 34.7 mmol/L (21-32); CHLORIDE 105 mmol/L (98-107); COR CA(FOR HYPOALB) 9.6 mg/dL (8.5-10.1); CREATININE 0.91 mg/dL (0.55-1.02); SODIUM 143 mmol/L (136-145); eGFR NON BLACK RACES > 60 (>60)
[2018-06-25 08:06] VITALS: BP 168/74
[2018-06-25] MEDS: PROVENTIL NEB TX 0.083% 2.5MG/ 3ML NEB PRN (09:00)
[2018-06-25] MEDS: PULMICORT NEB TX 0.5 MG NEB SCH (09:00)
[2018-06-25] MEDS: MOBIC TAB 15 MG PO SCH (09:14)
[2018-06-25] MEDS: PriLOSEC PO SCH (09:14)
[2018-06-25] MEDS: ELAVIL PO SCH (09:14)
[2018-06-25] MEDS: AMARYL TAB 4 MG PO SCH (09:15)
[2018-06-25] MEDS: FLEXERIL TAB 10 MG PO SCH (09:15)
[2018-06-25] MEDS: DETROL LA 2 MG CAP EXT REL PO SCH (09:15)
[2018-06-25] MEDS: MICRO K EXTEN CAP 10 MEQ PO SCH (09:15)
[2018-06-25] MEDS: XANAX PO SCH (09:15)
[2018-06-25] MEDS: LYRICA CAP 50 MG PO SCH (09:15)
[2018-06-25] MEDS: ASPIRIN EC 81 MG PO SCH (09:15)
[2018-06-25] MEDS: LASIX PO SCH (09:16)
[2018-06-25] MEDS: GLUCOTROL PO SCH (09:16)
[2018-06-25] MEDS: COREG TAB 12.5 MG PO SCH (09:16)
[2018-06-25] MEDS: FLONASE NASAL SPRAY ENOSTRIL SCH (09:16)
[2018-06-25] MEDS: ZETIA TAB 10 MG PO SCH (09:16)
[2018-06-25] MEDS: INVANZ INJ 1 GM VIAL 1 GM in NS 100 ML IV + SPIKE MINIBAG* 100 ML IV SCH (09:17)
[2018-06-25] MEDS: INVOKANA PO SCH (09:17)
[2018-06-25] MEDS: DIOVAN TAB 80 MG PO SCH (09:17)
[2018-06-26] MEDS ORDERED: EXENATIDE MICROSPHERES 2 MG subcut SCH (09:00)
== END 2018-06-25 10:42 | disposition home health service (06) ==
LOC: MED/SURG 10:07 → ER 10:07
PROVIDERS: ADMIT Internal Medicine; ATTEND Internal Medicine
DX: R79.82 Elevated C-reactive protein (CRP); Y92.098 Other place in other non-institutional residence as the place of occurrence of the external cause; R78.81 Bacteremia; R29.6 Repeated falls; F41.8 Other specified anxiety disorders; I50.9 Heart failure, unspecified; J44.9 Chronic obstructive pulmonary disease, unspecified; I11.0 Hypertensive heart disease with heart failure; N39.0 Urinary tract infection, site not specified; E78.2 Mixed hyperlipidemia; E11.65 Type 2 diabetes mellitus with hyperglycemia; Z91.81 History of falling; W17.89XA Other fall from one level to another, initial encounter; R53.1 Weakness; R94.4 Abnormal results of kidney function studies; M19.90 Unspecified osteoarthritis, unspecified site; S72.112A Displaced fracture of greater trochanter of left femur, initial encounter for closed fracture; M54.5 Low back pain; Y92.230 Patient room in hospital as the place of occurrence of the external cause
CPT/HCPCS: 36415; 71010; 71045; 72100; 73521; 80053; 81001; 83605; 85025; 86140; 87040; 87086; 94640; 94760; 96367; 96374; 97110; 97162; 97166; 97535; 99282; 99284; 99285; A4217; A4222; G0378; J1335; J7030; J7050; J7613; J7626

== ENCOUNTER 2018-09-09 11:19 | Inpatient (IN) ==
--- NOTE | 2018-09-09 12:41 | RAD ---
HISTORY: Pneumonia Study: Two-view chest Comparison: 07/08/2018. Findings: There is again evidence of a reverse left shoulder arthroplasty. Trachea is midline. Heart size is upper normal. Very mild increased interstitial markings are seen in the lung bases which may represent foci of atelectasis , infiltrate or scarring.. No dense consolidation, pleural fluid or pneumothorax is seen. There is no evidence of CHF. Multiple healed right-sided rib fractures are seen. IMPRESSION: Very mild bibasilar increased interstitial markings. These may represent foci of atelectasis , infiltrate or scarring. No dense consolidation is seen. Reported By:
[2018-09-09] MEDS ORDERED: NS 1/2 1000 ML IV 1,000 ML ONE (12:44)
[2018-09-09 12:54] LABS: BASOPHILS % (AUTO) 0.6 % (0.2-1.0); EOSINOPHILS # (AUTO) 0.2 x10^3/uL (0.0-0.2); EOSINOPHILS % (AUTO) 3.8 % (0.9-2.9); HEMATOCRIT 37.2 % (36.0-47.0); HEMOGLOBIN 12.8 g/dL (12.0-16.0); LYMPHOCYTES # (AUTO) 1.7 X10^3/uL (1.3-2.9); LYMPHOCYTES % (AUTO) 26.5 % (21.0-51.0); MEAN CORPUSCULAR HEMOGLOBIN 30.7 pg (27.0-34.0); MEAN CORPUSCULAR HGB CONC 34.2 g/dL (33.0-35.0); MEAN CORPUSCULAR VOLUME 89.8 fL (80.0-100.0); MEAN PLATELET VOLUME 8.6 fL (7.4-11.0); MONOCYTES # (AUTO) 0.5 x10^3/uL (0.3-0.8); MONOCYTES % (AUTO) 7.1 % (0.0-13.0); PLATELET COUNT 183 X10^3/uL (150.0-450.0); RED BLOOD COUNT 4.15 X10^6/uL (3.5-5.4); RED CELL DISTRIBUTION WIDTH 13.7 % (11.6-16.5); WHITE BLOOD COUNT 6.4 X10^3/uL (3.6-10.0)
[2018-09-09] MEDS ORDERED: SALINE 3% 15 ML NEB TX NEB ONE (12:55)
[2018-09-09 13:00] LABS: ABG BASE EXCESS 9.7 mmol/L (-2.0-2.0)
[2018-09-09 13:01] LABS: ABG ALLEN TEST POS; ABG HCO3 35.8 mmol/L (22-26)
[2018-09-09 13:04] LABS: ALANINE AMINOTRANSFERASE 10 Units/L (12-78); ALBUMIN 2.9 g/dL (3.4-5.0); ALKALINE PHOSPHATASE 135 Units/L (46-116); ASPARTATE AMINO TRANSFERASE 11 Units/L (15-37); BLOOD UREA NITROGEN 12 mg/dL (7-18); CALCIUM 8.9 mg/dL (8.5-10.1); CARBON DIOXIDE 30.4 mmol/L (21-32); CHLORIDE 104 mmol/L (98-107); COR CA(FOR HYPOALB) 9.8 mg/dL (8.5-10.1); COR NA(FOR HYPERGLY) 145 mmol/L (136-145); CREATININE 1.04 mg/dL (0.55-1.02); SODIUM 142 mmol/L (136-145); TOTAL PROTEIN 6.6 g/dL (6.4-8.2); eGFR NON BLACK RACES 55 (>60)
[2018-09-09] MEDS: ROBITUSSIN DM PO SCH ×3 (13:09→20:04)
[2018-09-09] MEDS: NS 1/2 1000 ML IV 1,000 ML IV SCH (13:09)
[2018-09-09] MEDS ORDERED: POTASSIUM CHLORIDE LIQ 20 MEQ UDC PO PRN (13:22)
[2018-09-09] MEDS ORDERED: POTASSIUM CHL 40 MEQ/NS 0.45% 500 ML IV PRN (13:22)
[2018-09-09] MEDS ORDERED: K-RIDER 10 MEQ/NS 100 ML 10 MEQ/100 ML BAG IV PRN (13:22)
[2018-09-09] MEDS ORDERED: KLOR-CON PO PRN (13:22)
[2018-09-09] MEDS ORDERED: MICRO K EXTEN CAP 10 MEQ PO PRN (13:22)
[2018-09-09] MEDS ORDERED: POTASSIUM CHL 60 MEQ/NS 0.45% 500 ML IV PRN (13:22)
[2018-09-09] MEDS: LEVAQUIN PREMIX IV 500 MG 500 MG/100 ML BAG IV SCH (13:23)
[2018-09-09 14:04] LABS: BILIRUBIN,URINE NEGATIVE (NEGATIVE); BLOOD/HEMOGLOBIN,URINE NEGATIVE (NEGATIVE); GLUCOSE, URINE NEGATIVE (NEGATIVE); KETONES,URINE NEGATIVE (NEGATIVE); LEUKOCYTE ESTERASE ,URINE NEGATIVE (NEGATIVE); NITRITES,URINE NEGATIVE (NEGATIVE); PROTEIN,URINE NEGATIVE (NEGATIVE); UROBILINOGEN,URINE NORMAL (NORMAL)
[2018-09-09 14:05] LABS: APPEARANCE,URINE CLEAR (CLEAR); COLOR,URINE YELLOW (YELLOW)
[2018-09-09] MEDS: ZOSYN VIAL 3.375 GRAMS 3.375 G in NS 100 ML IV + SPIKE MINIBAG* 100 ML IV SCH ×2 (14:58→21:00)
[2018-09-09] MEDS: K-DUR TAB 20 MEQ PO PRN (14:59)
[2018-09-09] MEDS: MAGNESIUM SULFATE 1 GRAM/100 mL PREMIX 1 GM/100 ML BAG IV PRN ×2 (14:59→16:15)
[2018-09-09 15:22] VITALS: BMI 34.2
--- NOTE | 2018-09-09 16:19 | DR.H&P ---
H&P - History & Physical for Day of: H&P Date: 09/09/18 - Chief Complaint Chief Complaint: sob, wheezing ,ccc - History of Present Illness History of Present Illness: 73 [address] DUMAS OFFICE WITH CO INCREASED SOB, CHEST CONGESTION AND WHEEZING. PT HAD STEROID INJECTION 2 WEEKS AGO WITH DUO NEBS AND CPAP AT HOME WITHOUT IMPROVEMENT. PT HAS PMH OF COPD, CHF, CAD, DM, HTN, OA. PT O2 SAT 88% IN OFFICE. PT ADMITTED FOR TREATMENT OF ACUTE RESP DISTRESS, HYPOXIA, R/O PNEUMONIA. - Past Medical History Past Medical History: [place], Coronary Artery Disease, Diabetes, COPD, Sleep Apnea, CHF - Past Surgical History Surgical History: Hysterectomy, Ortho Surgery - Family History Family Medical History: Cancer - Social History Does patient currently use any type of tobacco product: No Have you used tobacco products in the last 12 months: No Type of Tobacco Use: None Does any household member use tobacco: No Alcohol Use: None Drug Use: None - Medications Home Medications: No Known Drug Allergies Allergy (Verified 01/06/18 12:40) - Review of Systems Constitutional: Weakness Eyes: No Symptoms Reported ENT: No Symptoms Reported Respiratory: Shortness of Breath, SOB with Excertion, Pleuritic Pain, Sputum, Wheezing Cardiovascular: denies: Chest Pain Gastrointestinal: Nausea Genitourinary: Frequency Musculoskeletal: Back Pain, Leg Pain Skin: No Symptoms Reported Neurological: Weakness - Physical Exam Vital Signs: Temperature 97.8 F Pulse Rate [Right Brachial] 65 Respiratory Rate 20 Blood Pressure [Left Radial 153/91 Artery] Blood Pressure [Left Arm] 176/75 Blood Pressure [Right Arm] 194/86 Blood Pressure 149/72 O2 Sat by Pulse Oximetry 89 Oriented: Normal Eyes: Normal Ear: Normal Nose: Normal Throat: Normal Respiratory: Rhonchi Throughout, RLL Diminished, LLL Diminished Cardiovascular: Normal : Normal Auscultation: Bowel Sounds: Normal Palpation: Normal Tenderness: Normal Skin: Decreased Turgur Musculoskeletal: Back:Thoracic, Back:Lumbar, Sensory Deficit Psychiatric: Anxiety Affect: Anxious Speech Pattern: Clear, Appropriate - Assessment/Plan (1) SOB (shortness of breath) Status: Acute Plan: PNEUMONIA PROTOCOL. IV ATBX, ABG ON ADMISSION. RESP CONSULT SPUTUM, BC. GENTLE IV HYDRATION. DM CONTROL WITH SSI, BP MONITORING (2) Pneumonia Status: Acute (3) Weakness Status: Acute (4) Hypertension Qualifiers: Status: Chronic (5) Diabetes mellitus Status: Chronic (6) CHF (congestive heart failure) Status: Chronic (7) COPD (chronic obstructive pulmonary disease) Status: Chronic - Allergies Allergies/Adverse Reactions: Allergies Allergy/AdvReac Type Severity Reaction Status Date / Time No Known Drug Allergies Allergy Verified 01/06/18 12:40
[2018-09-09] MEDS: XOPENEX 1.25 MG/3 ML NEBULE NEB SCH ×2 (16:27→18:15)
[2018-09-09] MEDS: COREG TAB 12.5 MG PO SCH (20:04)
[2018-09-09] MEDS: SNACK - Diabetic Appropriate PO SCH ×2 (20:22→20:45)
[2018-09-09] MEDS ORDERED: STERILE WATER IRRIGATION ONE (22:26)
[2018-09-10] MEDS ORDERED: LYRICA CAP 50 MG PO ONE (00:30)
[2018-09-10] MEDS: LYRICA CAP 50 MG PO SCH ×3 (00:34→20:37)
[2018-09-10] MEDS: XOPENEX 1.25 MG/3 ML NEBULE NEB SCH ×3 (00:42→12:40)
[2018-09-10] MEDS ORDERED: NS 1/2 1000 ML IV 1,000 ML ONE ×2 (03:17→19:48)
[2018-09-10] MEDS: NS 1/2 1000 ML IV 1,000 ML IV SCH ×2 (04:56→20:40)
[2018-09-10] MEDS: ZOSYN VIAL 3.375 GRAMS 3.375 G in NS 100 ML IV + SPIKE MINIBAG* 100 ML IV SCH ×3 (05:03→21:06)
[2018-09-10 05:23] LABS: BASOPHILS % (AUTO) 0.4 % (0.2-1.0); EOSINOPHILS # (AUTO) 0.3 x10^3/uL (0.0-0.2); EOSINOPHILS % (AUTO) 3.7 % (0.9-2.9); HEMATOCRIT 37.4 % (36.0-47.0); HEMOGLOBIN 12.7 g/dL (12.0-16.0); LYMPHOCYTES # (AUTO) 1.6 X10^3/uL (1.3-2.9); LYMPHOCYTES % (AUTO) 19.9 % (21.0-51.0); MEAN CORPUSCULAR HEMOGLOBIN 30.7 pg (27.0-34.0); MEAN CORPUSCULAR HGB CONC 33.9 g/dL (33.0-35.0); MEAN CORPUSCULAR VOLUME 90.6 fL (80.0-100.0); MEAN PLATELET VOLUME 9.2 fL (7.4-11.0); MONOCYTES # (AUTO) 0.5 x10^3/uL (0.3-0.8); MONOCYTES % (AUTO) 6.1 % (0.0-13.0); NEUTROPHILS # (AUTO) 5.5 x10^3/uL (2.2-4.8); NEUTROPHILS % (AUTO) 69.9 % (42.0-75.0); PLATELET COUNT 184 X10^3/uL (150.0-450.0); RED BLOOD COUNT 4.13 X10^6/uL (3.5-5.4); RED CELL DISTRIBUTION WIDTH 13.4 % (11.6-16.5); WHITE BLOOD COUNT 7.9 X10^3/uL (3.6-10.0)
[2018-09-10 05:35] LABS: ALANINE AMINOTRANSFERASE 10 Units/L (12-78); ALBUMIN 2.8 g/dL (3.4-5.0); ALKALINE PHOSPHATASE 137 Units/L (46-116); ASPARTATE AMINO TRANSFERASE 15 Units/L (15-37); BLOOD UREA NITROGEN 9 mg/dL (7-18); CALCIUM 8.6 mg/dL (8.5-10.1); CARBON DIOXIDE 32.6 mmol/L (21-32); CHLORIDE 104 mmol/L (98-107); COR CA(FOR HYPOALB) 9.6 mg/dL (8.5-10.1); COR NA(FOR HYPERGLY) 145 mmol/L (136-145); CREATININE 0.93 mg/dL (0.55-1.02); MAGNESIUM 2.2 mg/dL (1.7-2.9); SODIUM 144 mmol/L (136-145); TOTAL PROTEIN 6.5 g/dL (6.4-8.2); eGFR NON BLACK RACES > 60 (>60)
[2018-09-10] MEDS: K-DUR TAB 20 MEQ PO PRN (05:55)
[2018-09-10] MEDS: LEVAQUIN PREMIX IV 500 MG 500 MG/100 ML BAG IV SCH (08:09)
[2018-09-10] MEDS: COREG TAB 12.5 MG PO SCH ×2 (08:09→20:38)
[2018-09-10] MEDS: ROBITUSSIN DM PO SCH ×4 (08:09→20:38)
[2018-09-10] MEDS ORDERED: PHARMACY CONSULT - DOSE _____ XX SCH (09:00)
[2018-09-10] MEDS ORDERED: OXYCODONE ACETAMINOPHEN PO PRN (09:42)
[2018-09-10] MEDS: MOBIC TAB 15 MG PO SCH (12:18)
[2018-09-10] MEDS: ASPIRIN EC 81 MG PO SCH (12:18)
[2018-09-10] MEDS: GLUCOTROL PO SCH ×2 (12:18→20:38)
[2018-09-10] MEDS: XANAX PO SCH (12:18)
[2018-09-10] MEDS: SOLU-Medrol 40 MG VIAL IVP SCH ×2 (12:18→14:52)
[2018-09-10] MEDS: LASIX IVP SCH ×2 (12:18→20:37)
[2018-09-10] MEDS: PERCOCET TAB 5/325 MG PO PRN ×2 (12:19→20:37)
[2018-09-10] MEDS: PriLOSEC PO SCH (12:19)
[2018-09-10] MEDS: MICRO K EXTEN CAP 10 MEQ PO SCH (14:08)
[2018-09-10] MEDS: LOVENOX INJ 40 MG SYR SC SCH (14:51)
[2018-09-10] MEDS: SNACK - Diabetic Appropriate PO SCH (20:38)
[2018-09-10] MEDS: ARICEPT TAB 10 MG PO SCH (20:38)
[2018-09-10] MEDS: HumuLIN R SUBCUT PRN (20:39)
[2018-09-10] MEDS ORDERED: LYRICA CAP 50 MG PO SCH (21:00)
[2018-09-10] MEDS ORDERED: PATIENT'S HOME MEDICATION (Levocetirizine [Levocetirizine] 5 MG) PO SCH (21:00)
[2018-09-11] MEDS: XOPENEX 1.25 MG/3 ML NEBULE NEB SCH ×4 (01:03→17:22)
--- NOTE | 2018-09-11 05:02 | RAD ---
Chest, 1 view Indication: Pneumonia Comparison: 09/09/2018 Findings: Cardiac silhouette is stable. There are mild chronic interstitial changes of the lungs, which are otherwise essentially clear. No significant pleural effusion or pneumothorax. Chronic right 7th rib fracture. Impression: No acute chest process. Reported By:
[2018-09-11] MEDS: NS 1/2 1000 ML IV 1,000 ML IV SCH ×3 (05:07→21:06)
[2018-09-11 05:09] LABS: BASOPHILS % (AUTO) 0.2 % (0.2-1.0); HEMATOCRIT 36.1 % (36.0-47.0); HEMOGLOBIN 12.3 g/dL (12.0-16.0); LYMPHOCYTES # (AUTO) 0.8 X10^3/uL (1.3-2.9); LYMPHOCYTES % (AUTO) 17.3 % (21.0-51.0); MEAN CORPUSCULAR HEMOGLOBIN 30.8 pg (27.0-34.0); MEAN CORPUSCULAR VOLUME 90.6 fL (80.0-100.0); MEAN PLATELET VOLUME 9.4 fL (7.4-11.0); MONOCYTES # (AUTO) 0.2 x10^3/uL (0.3-0.8); MONOCYTES % (AUTO) 4.2 % (0.0-13.0); NEUTROPHILS # (AUTO) 3.8 x10^3/uL (2.2-4.8); NEUTROPHILS % (AUTO) 78.3 % (42.0-75.0); PLATELET COUNT 192 X10^3/uL (150.0-450.0); RED BLOOD COUNT 3.99 X10^6/uL (3.5-5.4); RED CELL DISTRIBUTION WIDTH 13.2 % (11.6-16.5); WHITE BLOOD COUNT 4.9 X10^3/uL (3.6-10.0)
[2018-09-11 05:23] LABS: ALANINE AMINOTRANSFERASE 9 Units/L (12-78); ALBUMIN 2.6 g/dL (3.4-5.0); ALKALINE PHOSPHATASE 122 Units/L (46-116); ASPARTATE AMINO TRANSFERASE 9 Units/L (15-37); BLOOD UREA NITROGEN 11 mg/dL (7-18); CALCIUM 8.4 mg/dL (8.5-10.1); CARBON DIOXIDE 29.3 mmol/L (21-32); CHLORIDE 104 mmol/L (98-107); COR CA(FOR HYPOALB) 9.5 mg/dL (8.5-10.1); COR NA(FOR HYPERGLY) 144 mmol/L (136-145); CREATININE 0.97 mg/dL (0.55-1.02); SODIUM 141 mmol/L (136-145); TOTAL PROTEIN 6.1 g/dL (6.4-8.2); eGFR NON BLACK RACES 60 (>60)
[2018-09-11] MEDS: ZOSYN VIAL 3.375 GRAMS 3.375 G in NS 100 ML IV + SPIKE MINIBAG* 100 ML IV SCH ×3 (05:27→21:06)
[2018-09-11] MEDS: HumuLIN R SUBCUT PRN ×3 (05:31→21:07)
[2018-09-11] MEDS: LEVAQUIN PREMIX IV 500 MG 500 MG/100 ML BAG IV SCH (08:41)
[2018-09-11] MEDS: LYRICA CAP 50 MG PO SCH ×2 (08:42→21:07)
[2018-09-11] MEDS: MOBIC TAB 15 MG PO SCH (08:42)
[2018-09-11] MEDS: ROBITUSSIN DM PO SCH ×4 (08:42→21:06)
[2018-09-11] MEDS: DIOVAN TAB 80 MG PO SCH (08:43)
[2018-09-11] MEDS: MICRO K EXTEN CAP 10 MEQ PO SCH (08:43)
[2018-09-11] MEDS: GLUCOTROL PO SCH ×2 (08:43→21:07)
[2018-09-11] MEDS: ASPIRIN EC 81 MG PO SCH (08:43)
[2018-09-11] MEDS: COREG TAB 12.5 MG PO SCH ×2 (08:43→21:05)
[2018-09-11] MEDS: PriLOSEC PO SCH (08:43)
[2018-09-11 08:47] LABS: ABG BASE EXCESS 8.9 mmol/L (-2.0-2.0)
[2018-09-11] MEDS: ZOCOR TAB 20 MG PO SCH (08:47)
[2018-09-11] MEDS: XANAX PO SCH (08:47)
[2018-09-11] MEDS: LOVENOX INJ 40 MG SYR SC SCH (08:48)
[2018-09-11 08:50] LABS: ABG HCO3 33.5 mmol/L (22-26)
[2018-09-11] MEDS: ZETIA TAB 10 MG PO SCH (09:00)
[2018-09-11] MEDS: PERCOCET TAB 5/325 MG PO PRN ×2 (12:04→21:08)
[2018-09-11] MEDS: SNACK - Diabetic Appropriate PO SCH (20:06)
[2018-09-11] MEDS: ARICEPT TAB 10 MG PO SCH (21:05)
[2018-09-12] MEDS: XOPENEX 1.25 MG/3 ML NEBULE NEB SCH ×2 (00:45→06:00)
[2018-09-12] MEDS ORDERED: NS 1/2 1000 ML IV 1,000 ML ONE (01:06)
[2018-09-12] MEDS: NS 1/2 1000 ML IV 1,000 ML IV SCH (01:53)
[2018-09-12 05:21] LABS: BASOPHILS % (AUTO) 0.4 % (0.2-1.0); EOSINOPHILS # (AUTO) 0.1 x10^3/uL (0.0-0.2); EOSINOPHILS % (AUTO) 1.3 % (0.9-2.9); HEMATOCRIT 34.3 % (36.0-47.0); LYMPHOCYTES # (AUTO) 1.8 X10^3/uL (1.3-2.9); MEAN CORPUSCULAR HEMOGLOBIN 31.7 pg (27.0-34.0); MEAN CORPUSCULAR HGB CONC 34.9 g/dL (33.0-35.0); MEAN CORPUSCULAR VOLUME 90.7 fL (80.0-100.0); MEAN PLATELET VOLUME 8.9 fL (7.4-11.0); MONOCYTES # (AUTO) 0.6 x10^3/uL (0.3-0.8); MONOCYTES % (AUTO) 6.3 % (0.0-13.0); NEUTROPHILS # (AUTO) 6.2 x10^3/uL (2.2-4.8); PLATELET COUNT 189 X10^3/uL (150.0-450.0); RED BLOOD COUNT 3.78 X10^6/uL (3.5-5.4); RED CELL DISTRIBUTION WIDTH 13.5 % (11.6-16.5); WHITE BLOOD COUNT 8.8 X10^3/uL (3.6-10.0)
[2018-09-12 05:33] LABS: ALANINE AMINOTRANSFERASE 8 Units/L (12-78); ALBUMIN 2.5 g/dL (3.4-5.0); ALKALINE PHOSPHATASE 106 Units/L (46-116); ASPARTATE AMINO TRANSFERASE 9 Units/L (15-37); BLOOD UREA NITROGEN 12 mg/dL (7-18); CALCIUM 8.4 mg/dL (8.5-10.1); CARBON DIOXIDE 28.4 mmol/L (21-32); CHLORIDE 107 mmol/L (98-107); COR CA(FOR HYPOALB) 9.6 mg/dL (8.5-10.1); COR NA(FOR HYPERGLY) 145 mmol/L (136-145); CREATININE 1.02 mg/dL (0.55-1.02); SODIUM 144 mmol/L (136-145); TOTAL PROTEIN 5.9 g/dL (6.4-8.2); eGFR NON BLACK RACES 56 (>60)
[2018-09-12] MEDS: ZOSYN VIAL 3.375 GRAMS 3.375 G in NS 100 ML IV + SPIKE MINIBAG* 100 ML IV SCH (05:36)
[2018-09-12] MEDS: K-DUR TAB 20 MEQ PO PRN (06:08)
[2018-09-12] MEDS: LEVAQUIN PREMIX IV 500 MG 500 MG/100 ML BAG IV SCH (08:57)
[2018-09-12] MEDS: DIOVAN TAB 80 MG PO SCH (08:58)
[2018-09-12] MEDS: COREG TAB 12.5 MG PO SCH (08:58)
[2018-09-12] MEDS: XANAX PO SCH (08:58)
[2018-09-12] MEDS: MOBIC TAB 15 MG PO SCH (08:58)
[2018-09-12] MEDS: LYRICA CAP 50 MG PO SCH (08:58)
[2018-09-12] MEDS: PriLOSEC PO SCH (08:59)
[2018-09-12] MEDS: ZOCOR TAB 20 MG PO SCH (08:59)
[2018-09-12] MEDS: MICRO K EXTEN CAP 10 MEQ PO SCH (08:59)
[2018-09-12] MEDS: ASPIRIN EC 81 MG PO SCH (08:59)
[2018-09-12] MEDS: GLUCOTROL PO SCH (08:59)
[2018-09-12] MEDS: ROBITUSSIN DM PO SCH (09:00)
[2018-09-12] MEDS: LOVENOX INJ 40 MG SYR SC SCH (09:00)
[2018-09-12] MEDS ORDERED: DIFLUCAN 200 MG IV PREMIX* 200 MG/100 ML BAG IV SCH (09:00)
[2018-09-12] MEDS: ZETIA TAB 10 MG PO SCH (09:00)
[2018-09-12] MEDS: PERCOCET TAB 5/325 MG PO PRN (09:00)
[2018-09-12 09:19] VITALS: BP 178/81
--- NOTE | 2018-09-12 16:17 | PCM.PROG ---
Progress Note - Progress Note for Day of Date of Exam: 09/11/18 - Subjective Subjective: 73 WF ADMITTED WITH SOB, COPD EXACERBATION, SINCE ADMISSION PT HAS BEEN TREATED WITH IV SOLU MEDROL, IV ATBX, RESP THERAPY. PT CONTINUES WITH DIFFUSE EXP WHEEZES, IMPROVING RHONCHI. PT GIVEN ADDITIONAL IV LASIX THIS AM. PLAN TO REPEAT AM CXR. PT DOES REPORT SHE IS FEELING BETTER. - Past Medical Family Social History Past Med/Fam/Surg Hx: No changes since H&P Allergies: Allergies No Known Drug Allergies Allergy (Verified 01/06/18 12:40) - Review of Systems ROS: No change since H&P - Vital Signs and I&O's Vital Signs: Temperature 98 F Pulse Rate [Left Brachial] 60 Pulse Rate [Right Brachial] 64 Pulse Rate 60 Respiratory Rate 18 Blood Pressure [Left Radial 154/67 Artery] Blood Pressure [Left Arm] 160/70 Blood Pressure [Right Arm] 178/81 Blood Pressure 149/72 O2 Sat by Pulse Oximetry 99 Intake and Output: Intake & Output 09/10/18 09/11/18 09/12/18 09/13/18 11:59 11:59 11:59 11:59 Intake Total 1180 / 1180 1300 / 1300 2628 / 2628 Output Total 600 / 600 Balance 580 / 580 1300 / 1300 2628 / 2628 - Physical Exam Oriented: Normal Eyes: Normal Ear: Normal Nose: Normal Throat: Normal Respiratory: Diminished, Wheezes, Rhonchi Cardiovascular: Normal : Normal Auscultation: Bowel Sounds: Normal Tenderness: Normal Skin: Decreased Turgur Musculoskeletal: Back:Thoracic, Back:Lumbar, Sensory Deficit Psychiatric: Anxiety Affect: Anxious Speech Pattern: Clear, Appropriate - Laboratory and Diagnostics Result Diagrams: 09/12/18 04:41 09/12/18 04:41 Labs: 09/09/18 12:45 Blood Blood Culture - Preliminary 09/09/18 12:35 Blood Blood Culture - Preliminary 09/09/18 13:37 Sputum - Expectorated Sputum Sputum Culture - Final 09/09/18 13:37 Sputum - Expectorated Sputum - Final Laboratory WBC 8.8 X10^3/uL (3.6-10.0) 09/12/18 04:41 RBC 3.78 X10^6/uL (3.5-5.4) 09/12/18 04:41 Hgb 12.0 g/dL (12.0-16.0) 09/12/18 04:41 Hct 34.3 % (36.0-47.0) L 09/12/18 04:41 MCV 90.7 fL (80.0-100.0) 09/12/18 04:41 MCH 31.7 pg (27.0-34.0) 09/12/18 04:41 MCHC 34.9 g/dL (33.0-35.0) 09/12/18 04:41 RDW 13.5 % (11.6-16.5) 09/12/18 04:41 Plt Count 189 X10^3/uL (150.0-450.0) 09/12/18 04:41 MPV 8.9 fL (7.4-11.0) 09/12/18 04:41 Neut % (Auto) 71.0 % (42.0-75.0) 09/12/18 04:41 Lymph % (Auto) 21.0 % (21.0-51.0) 09/12/18 04:41 [place] % (Auto) 6.3 % (0.0-13.0) 09/12/18 04:41 Eos % (Auto) 1.3 % (0.9-2.9) 09/12/18 04:41 Baso % (Auto) 0.4 % (0.2-1.0) 09/12/18 04:41 Neut # (Auto) 6.2 x10^3/uL (2.2-4.8) H 09/12/18 04:41 Lymph # (Auto) 1.8 X10^3/uL (1.3-2.9) 09/12/18 04:41 [place] # (Auto) 0.6 x10^3/uL (0.3-0.8) 09/12/18 04:41 Eos # (Auto) 0.1 x10^3/uL (0.0-0.2) 09/12/18 04:41 Baso # (Auto) 0.0 X10^3/uL (0.0-0.1) 09/12/18 04:41 Absolute Nucleated RBC 0.0 /100WBC 09/12/18 04:41 Sample Site Rbra 09/11/18 08:41 ABG pH 7.480 (7.35-7.45) H 09/11/18 08:41 ABG pCO2 45.0 mmHg (35.0-45.0) 09/11/18 08:41 ABG pO2 66.0 mmHg (80.0-100.0) L 09/11/18 08:41 ABG HCO3 33.5 mmol/L (22-26) H* 09/11/18 08:41 ABG O2 Saturation 94.0 % (90-100) 09/11/18 08:41 ABG Base Excess 8.9 mmol/L (-2.0-2.0) H 09/11/18 08:41 Wes Test Na 09/11/18 08:41 A-a Gradient 77.0 mmHg 09/11/18 08:41 FiO2 28.0 09/11/18 08:41 Blood Gas Comments Miguel Angel abg well-mtf 09/11/18 08:41 Sodium 144 mmol/L (136-145) 09/12/18 04:41 Corrected Sodium 145 mmol/L (136-145) 09/12/18 04:41 Potassium 3.1 mmol/L (3.5-5.1) L 09/12/18 04:41 Chloride 107 mmol/L (98-107) 09/12/18 04:41 Carbon Dioxide 28.4 mmol/L (21-32) 09/12/18 04:41 BUN 12 mg/dL (7-18) 09/12/18 04:41 Creatinine 1.02 mg/dL (0.55-1.02) 09/12/18 04:41 Est GFR (MDRD) Af Amer > 60 (>60) 09/12/18 04:41 Est GFR (MDRD) Non-Af 56 (>60) L 09/12/18 04:41 Glucose 150 mg/dL (65-99) H 09/12/18 04:41 Calcium 8.4 mg/dL (8.5-10.1) L 09/12/18 04:41 Corrected Calcium 9.6 mg/dL (8.5-10.1) 09/12/18 04:41 Magnesium 2.2 mg/dL (1.7-2.9) 09/10/18 04:26 Total Bilirubin 0.30 mg/dL (0.2-1.0) 09/12/18 04:41 AST 9 Units/L (15-37) L 09/12/18 04:41 ALT 8 Units/L (12-78) L 09/12/18 04:41 Alkaline Phosphatase 106 Units/L (46-116) 09/12/18 04:41 Total Protein 5.9 g/dL (6.4-8.2) L 09/12/18 04:41 Albumin 2.5 g/dL (3.4-5.0) L 09/12/18 04:41 Globulin 3.4 g/dL (2.5-4.5) 09/12/18 04:41 Albumin/Globulin Ratio 0.7 Ratio (1.1-2.1) L 09/12/18 04:41 Specimen Type Clean catch urine 09/09/18 13:40 Urine Color Yellow (YELLOW) 09/09/18 13:40 Urine Appearance Clear (CLEAR) 09/09/18 13:40 Urine pH 5.0 (5.0 - 8.0) 09/09/18 13:40 Ur Specific [place] 1.015 (1.000-1.030) 09/09/18 13:40 Urine Protein Negative (NEGATIVE) 09/09/18 13:40 Urine Glucose (UA) Negative (NEGATIVE) 09/09/18 13:40 Urine Ketones Negative (NEGATIVE) 09/09/18 13:40 Urine Occult Blood Negative (NEGATIVE) 09/09/18 13:40 Urine Nitrite Negative (NEGATIVE) 09/09/18 13:40 Urine Bilirubin Negative (NEGATIVE) 09/09/18 13:40 Urine Urobilinogen Normal (NORMAL) 09/09/18 13:40 Ur Leukocyte Esterase Negative (NEGATIVE) 09/09/18 13:40 - Plan (1) SOB (shortness of breath) Status: Acute Plan: PNEUMONIA PROTOCOL. IV ATBX, ABG ON ADMISSION. RESP CONSULT SPUTUM, BC. GENTLE IV HYDRATION. DM CONTROL WITH SSI, BP MONITORING (2) Pneumonia Status: Acute (3) Weakness Status: Acute (4) Hypertension Status: Chronic Qualifiers: (5) Diabetes mellitus Status: Chronic (6) CHF (congestive heart failure) Status: Chronic (7) COPD (chronic obstructive pulmonary disease) Status: Chronic
== END 2018-09-12 11:45 | disposition home health service (06) | DRG 194 ==
LOC: MED/SURG
PROVIDERS: ADMIT Internal Medicine; ATTEND Internal Medicine
DX: I50.9 Heart failure, unspecified; I11.0 Hypertensive heart disease with heart failure; J44.1 Chronic obstructive pulmonary disease with (acute) exacerbation; R53.1 Weakness; J18.8 Other pneumonia, unspecified organism; R06.02 Shortness of breath; E11.65 Type 2 diabetes mellitus with hyperglycemia; I25.10 Atherosclerotic heart disease of native coronary artery without angina pectoris
CPT/HCPCS: 36415; 36600; 71010; 71020; 71045; 71046; 80053; 81003; 82803; 83735; 85025; 87040; 87070; 87205; 94640; 94669; 94760; 97110; 97112; 97162; 97166; A4222; G0378; J1450; J1650; J1815; J1940; J1956; J2543; J2920; J3475; J7050

== ENCOUNTER 2021-10-05 16:38 | Observation (INO) ==
--- NOTE | 2021-10-05 18:07 | DR.H&P ---
H&P - History & Physical for Day of: H&P Date: 10/05/21 - Chief Complaint Chief Complaint: PAIN, REDNESS, SWELLING TO BOTH LEGS, LEG WOUND - History of Present Illness History of Present Illness: PT IS 76 WF, DIRECT ADMIT FROM DR KELLEY OFFICE WITH BILATERAL LOWER EXTREMITY CELLULITIS AND NON-HEALING LLE WOUND. PT HAD BEEN ON BACTRIM DS AND HAVING DAILY WOUND CARE WITHOUT OF IMPROVEMENT. PT HAS PMH OF DM, HTN, COPD, [place], RLS, OA. PT ADMITTED FOR TREATMENT OF ACUTE ILLNESS, FAILED OUTPT THERAPY. - Past Medical History Past Medical History: [place], Coronary Artery Disease, Diabetes, COPD, Sleep Apnea, CHF - Past Surgical History Surgical History: Hysterectomy, Ortho Surgery - Family History Family Medical History: Cancer - Social History Does patient currently use any type of tobacco product: Yes Have you used tobacco products in the last 12 months: Yes Type of Tobacco Use: Cigarettes Does any household member use tobacco: No Alcohol Use: None Risks, benefits, and alternatives of opioids discussed: No Prescription drug monitoring program results: PDMP reviewed and no concerns identified - Medications Home Medications: No Known Drug Allergies Allergy (Verified 01/06/18 12:40) - Review of Systems Constitutional: Chills, Weakness, Malaise Eyes: No Symptoms Reported ENT: No Symptoms Reported Respiratory: SOB with Excertion Cardiovascular: Edema Gastrointestinal: Nausea Genitourinary: No Symptoms Reported Musculoskeletal: Back Pain, Leg Pain Skin: Wound Neurological: Weakness - Physical Exam Vital Signs: Blood Pressure [Left Radial 153/72 Artery] Blood Pressure [Left Arm] 136/78 Blood Pressure [Right Arm] 178/81 Blood Pressure 169/79 Oriented: Normal Eyes: Normal Ear: Normal Nose: Normal Throat: Normal Respiratory: Wheezes Throughout Cardiovascular: Normal, Edema Auscultation: Bowel Sounds: Normal Palpation: Normal Tenderness: Normal Skin: Decreased Turgur, Red, Tender, Hot, Wound Musculoskeletal: Right, Left, Hip, Back:Thoracic, Back:Lumbar, Motor Deficit, Sensory Deficit Psychiatric: Anxiety Affect: Anxious Speech Pattern: Clear, Appropriate - Assessment/Plan (1) Bilateral lower leg cellulitis Status: Acute Plan: ADMIT, IV ATBX, WOUND CULTURE AND BLOOD CULTURES. IV LASIX, VENOUS US. VERIFY HOME MEDICATIONS. PAIN CONTROL, BP AND BS CONTROL (2) Hypertension Status: Chronic (3) Diabetes mellitus Status: Chronic (4) CHF (congestive heart failure) Status: Chronic (5) COPD (chronic obstructive pulmonary disease) Status: Chronic - Allergies Allergies/Adverse Reactions: Allergies Allergy/AdvReac Type Severity Reaction Status Date / Time No Known Drug Allergies Allergy Verified 01/06/18 12:40
[2021-10-05] MEDS ORDERED: DUONEB 0.5 MG/3 MG (3 mL) NEB PRN (18:29)
[2021-10-05 18:40] VITALS: BMI 31.1
[2021-10-05 18:48] LABS: BASOPHILS # (AUTO) 0.2 X10^3/uL (0.0-0.1); BASOPHILS % (AUTO) 2.2 % (0.2-1.0); EOSINOPHILS # (AUTO) 0.9 x10^3/uL (0.0-0.2); EOSINOPHILS % (AUTO) 9.3 % (0.9-2.9); HEMATOCRIT 41.3 % (36.0-47.0); HEMOGLOBIN 14.3 g/dL (12.0-16.0); LYMPHOCYTES % (AUTO) 10.6 % (21.0-51.0); MEAN CORPUSCULAR HEMOGLOBIN 31.3 pg (27.0-34.0); MEAN CORPUSCULAR HGB CONC 34.6 g/dL (33.0-35.0); MEAN CORPUSCULAR VOLUME 90.5 fL (80.0-100.0); MEAN PLATELET VOLUME 9.3 fL (7.4-11.0); MONOCYTES # (AUTO) 0.6 x10^3/uL (0.3-0.8); MONOCYTES % (AUTO) 6.5 % (0.0-13.0); NEUTROPHILS # (AUTO) 6.8 x10^3/uL (2.2-4.8); NEUTROPHILS % (AUTO) 71.4 % (42.0-75.0); RED BLOOD COUNT 4.56 X10^6/uL (3.5-5.4); RED CELL DISTRIBUTION WIDTH 13.9 % (11.6-16.5); WHITE BLOOD COUNT 9.5 X10^3/uL (3.6-10.0)
[2021-10-05 18:53] LABS: ALANINE AMINOTRANSFERASE 14 Units/L (12-78); ALBUMIN 3.1 g/dL (3.4-5.0); ALKALINE PHOSPHATASE 107 Units/L (46-116); ASPARTATE AMINO TRANSFERASE 16 Units/L (15-37); BLOOD UREA NITROGEN 16 mg/dL (7-18); CALCIUM 8.9 mg/dL (8.5-10.1); CARBON DIOXIDE 37.9 mmol/L (21-32); CHLORIDE 100 mmol/L (98-107); COR CA(FOR HYPOALB) 9.6 mg/dL (8.5-10.1); CREATININE 1.29 mg/dL (0.55-1.02); MAGNESIUM 2.2 mg/dL (1.7-2.9); SODIUM 140 mmol/L (136-145); TOTAL PROTEIN 6.9 g/dL (6.4-8.2); eGFR NON BLACK RACES 43 (>60)
[2021-10-05 19:07] LABS: LACTIC ACID 0.8 mmol/L (0.4-2.0)
--- NOTE | 2021-10-05 19:37 | RAD ---
HISTORYCOPD, SOBSTUDYCHEST, 1 VIEWCOMPARISONJanuary 2021.TECHNIQUEA single frontal view of the chest was obtained.FINDINGSThe heart is normal in size. There is no focal infiltrate. There is no effusion. There is no pneumothorax. The osseous structures are intact. There is a total left shoulder arthroplasty in situ.IMPRESSIONNo focal infiltrate or effusion.Electronically signed by: Aretha Boudreaux (Oct 05, 2021 19:36:49)
[2021-10-05] MEDS: MORPHINE SULFATE INJ 2 MG INJ IVP PRN (20:36)
[2021-10-05] MEDS ORDERED: VANCOMYCIN IV *PREMIX 1.25 G/250 ML BAG 1.25 G/250 ML PIGGYBACK IV SCH (23:00)
[2021-10-06] MEDS: XANAX PO PRN ×2 (00:11→21:24)
[2021-10-06] MEDS: KEFLEX CAP 500 MG PO SCH ×3 (02:03→21:17)
[2021-10-06 04:55] LABS: BASOPHILS # (AUTO) 0.1 X10^3/uL (0.0-0.1); BASOPHILS % (AUTO) 0.7 % (0.2-1.0); EOSINOPHILS % (AUTO) 12.5 % (0.9-2.9); HEMOGLOBIN 12.7 g/dL (12.0-16.0); LYMPHOCYTES # (AUTO) 1.6 X10^3/uL (1.3-2.9); LYMPHOCYTES % (AUTO) 19.9 % (21.0-51.0); MEAN CORPUSCULAR HEMOGLOBIN 30.7 pg (27.0-34.0); MEAN CORPUSCULAR HGB CONC 34.3 g/dL (33.0-35.0); MEAN CORPUSCULAR VOLUME 89.7 fL (80.0-100.0); MONOCYTES # (AUTO) 0.6 x10^3/uL (0.3-0.8); MONOCYTES % (AUTO) 7.7 % (0.0-13.0); NEUTROPHILS # (AUTO) 4.7 x10^3/uL (2.2-4.8); NEUTROPHILS % (AUTO) 59.2 % (42.0-75.0); RED BLOOD COUNT 4.13 X10^6/uL (3.5-5.4); RED CELL DISTRIBUTION WIDTH 13.8 % (11.6-16.5)
[2021-10-06 05:06] LABS: ALANINE AMINOTRANSFERASE 12 Units/L (12-78); ALBUMIN 2.6 g/dL (3.4-5.0); ALKALINE PHOSPHATASE 90 Units/L (46-116); ASPARTATE AMINO TRANSFERASE 17 Units/L (15-37); BLOOD UREA NITROGEN 14 mg/dL (7-18); CALCIUM 8.5 mg/dL (8.5-10.1); CHLORIDE 102 mmol/L (98-107); COR CA(FOR HYPOALB) 9.6 mg/dL (8.5-10.1); CREATININE 1.18 mg/dL (0.55-1.02); SODIUM 140 mmol/L (136-145); eGFR NON BLACK RACES 47 (>60)
[2021-10-06] MEDS: ZETIA TAB 10 MG PO SCH (09:27)
[2021-10-06] MEDS: ZyrTEC TAB 10 MG PO SCH (09:27)
[2021-10-06] MEDS: PriLOSEC PO SCH (09:27)
[2021-10-06] MEDS: ASPIRIN 81 MG CHEWTAB PO SCH (09:27)
[2021-10-06] MEDS: COREG TAB 12.5 MG PO SCH ×2 (09:28→21:20)
[2021-10-06] MEDS: INVOKANA PO SCH (09:28)
[2021-10-06] MEDS: LASIX IVP SCH ×2 (09:28→17:49)
[2021-10-06] MEDS: DIOVAN TAB 80 MG PO SCH (09:28)
[2021-10-06] MEDS: K-DUR TAB 20 MEQ PO SCH ×2 (09:29→17:49)
[2021-10-06] MEDS: GLUCOTROL PO SCH ×2 (09:29→21:19)
[2021-10-06] MEDS: MOBIC TAB 15 MG PO SCH (09:29)
--- NOTE | 2021-10-06 11:03 | VAS ---
HISTORY: [Extremity pain, swelling, and edema]Study: Bilateral lower extremity Doppler venous ultrasound.TECHNIQUE: Multiple adames scale and color flow Doppler images of the deep venous system were obtained of the [right and left] lower extremity.FINDINGS:The deep venous system of the [right and left lower extremities were] evaluated from the level of the common femoral veins through the popliteal veins, bilaterally. Normal color flow and augmentation can be observed. In addition, normal compression is seen throughout the deep venous system. [No Eisenberg's cyst is seen].IMPRESSION:1. Negative examination for DVT.Electronically signed by: JOSE SANDERS III (Oct 06, 2021 11:02:19)
[2021-10-06] MEDS: LOVENOX INJ 40 MG SYR SC SCH (13:09)
[2021-10-06 19:18] LABS: BILIRUBIN,URINE NEGATIVE (NEGATIVE); BLOOD/HEMOGLOBIN,URINE NEGATIVE (NEGATIVE); GLUCOSE, URINE 3+ (NEGATIVE); KETONES,URINE NEGATIVE (NEGATIVE); LEUKOCYTE ESTERASE ,URINE 2+ (NEGATIVE); NITRITES,URINE NEGATIVE (NEGATIVE); PROTEIN,URINE NEGATIVE (NEGATIVE); UROBILINOGEN,URINE NORMAL (NORMAL)
[2021-10-06 19:23] LABS: APPEARANCE,URINE CLEAR (CLEAR); BACTERIA,URINE TRACE /HPF (NEGATIVE); COLOR,URINE STRAW (YELLOW); RBC,URINE NONE SEEN /HPF (0-3); SQUAMOUS EPITHELIAL CELL,UR MODERATE /HPF (NEGATIVE)
[2021-10-06] MEDS ORDERED: PATIENT'S HOME MEDICATION (Levocetirizine 5 MG) PO SCH (21:00)
[2021-10-06] MEDS ORDERED: MIRABEGRON 50 MG PO SCH (21:00)
[2021-10-06] MEDS: ARICEPT TAB 10 MG PO SCH (21:16)
[2021-10-06] MEDS: ZYVOX 600MG IV 600 MG/300 ML BAG IV SCH (21:16)
[2021-10-06] MEDS: ZOCOR TAB 20 MG PO SCH (21:17)
[2021-10-06] MEDS: REQUIP PO SCH (21:18)
[2021-10-06] MEDS: DETROL LA 4 MG CAP EXT REL PO SCH (21:20)
[2021-10-06] MEDS: SNACK - Diabetic Appropriate PO SCH (21:21)
[2021-10-06] MEDS: PERCOCET TAB 5/325 MG PO PRN (21:25)
[2021-10-07 05:53] LABS: BASOPHILS # (AUTO) 0.2 X10^3/uL (0.0-0.1); BASOPHILS % (AUTO) 2.6 % (0.2-1.0); EOSINOPHILS # (AUTO) 1.2 x10^3/uL (0.0-0.2); EOSINOPHILS % (AUTO) 14.2 % (0.9-2.9); HEMATOCRIT 38.9 % (36.0-47.0); HEMOGLOBIN 13.3 g/dL (12.0-16.0); LYMPHOCYTES # (AUTO) 1.8 X10^3/uL (1.3-2.9); LYMPHOCYTES % (AUTO) 20.4 % (21.0-51.0); MEAN CORPUSCULAR HEMOGLOBIN 30.7 pg (27.0-34.0); MEAN CORPUSCULAR HGB CONC 34.2 g/dL (33.0-35.0); MEAN CORPUSCULAR VOLUME 89.9 fL (80.0-100.0); MEAN PLATELET VOLUME 9.3 fL (7.4-11.0); MONOCYTES # (AUTO) 0.8 x10^3/uL (0.3-0.8); MONOCYTES % (AUTO) 9.1 % (0.0-13.0); NEUTROPHILS # (AUTO) 4.6 x10^3/uL (2.2-4.8); NEUTROPHILS % (AUTO) 53.7 % (42.0-75.0); RED BLOOD COUNT 4.32 X10^6/uL (3.5-5.4); RED CELL DISTRIBUTION WIDTH 14.4 % (11.6-16.5); WHITE BLOOD COUNT 8.6 X10^3/uL (3.6-10.0)
[2021-10-07 06:18] LABS: ALANINE AMINOTRANSFERASE 7 Units/L (12-78); ALBUMIN 2.8 g/dL (3.4-5.0); ALKALINE PHOSPHATASE 87 Units/L (46-116); ASPARTATE AMINO TRANSFERASE 17 Units/L (15-37); BLOOD UREA NITROGEN 16 mg/dL (7-18); CALCIUM 8.3 mg/dL (8.5-10.1); CARBON DIOXIDE 33.6 mmol/L (21-32); CHLORIDE 102 mmol/L (98-107); COR CA(FOR HYPOALB) 9.3 mg/dL (8.5-10.1); CREATININE 1.33 mg/dL (0.55-1.02); SODIUM 142 mmol/L (136-145); TOTAL PROTEIN 6.2 g/dL (6.4-8.2); eGFR NON BLACK RACES 41 (>60)
[2021-10-07] MEDS: ASPIRIN 81 MG CHEWTAB PO SCH (10:17)
[2021-10-07] MEDS: ZYVOX 600MG IV 600 MG/300 ML BAG IV SCH ×2 (10:17→21:14)
[2021-10-07] MEDS: SILVADENE TOP SCH (10:17)
[2021-10-07] MEDS: ZyrTEC TAB 10 MG PO SCH (10:18)
[2021-10-07] MEDS: MOBIC TAB 15 MG PO SCH (10:18)
[2021-10-07] MEDS: ZETIA TAB 10 MG PO SCH (10:18)
[2021-10-07] MEDS: PriLOSEC PO SCH (10:20)
[2021-10-07] MEDS: K-DUR TAB 20 MEQ PO SCH ×2 (10:21→21:16)
[2021-10-07] MEDS: LASIX PO SCH (10:21)
[2021-10-07] MEDS: INVOKANA PO SCH (10:22)
[2021-10-07] MEDS: GLUCOTROL PO SCH ×2 (10:22→21:16)
[2021-10-07] MEDS: COREG TAB 12.5 MG PO SCH ×2 (10:22→21:18)
[2021-10-07] MEDS: LOVENOX INJ 40 MG SYR SC SCH (10:23)
[2021-10-07] MEDS: DIOVAN TAB 80 MG PO SCH (10:23)
[2021-10-07] MEDS: KEFLEX CAP 500 MG PO SCH ×2 (10:35→21:17)
[2021-10-07] MEDS ORDERED: K-DUR TAB 20 MEQ PO ONE (10:36)
[2021-10-07] MEDS ORDERED: POTASSIUM CHLORIDE LIQ 20 MEQ UDC PO PRN (10:38)
[2021-10-07] MEDS ORDERED: KLOR-CON PO PRN (10:38)
[2021-10-07] MEDS ORDERED: MICRO K EXTEN CAP 10 MEQ PO PRN (10:38)
[2021-10-07] MEDS ORDERED: K-RIDER 10 MEQ/NS 100 ML 10 MEQ/100 ML BAG IV PRN (10:38)
[2021-10-07] MEDS ORDERED: POTASSIUM CHL 40 MEQ/NS 0.45% 500 ML IV PRN (10:38)
[2021-10-07] MEDS ORDERED: POTASSIUM CHL 60 MEQ/NS 0.45% 500 ML IV PRN (10:38)
[2021-10-07] MEDS ORDERED: K-DUR TAB 20 MEQ PO PRN (10:38)
--- NOTE | 2021-10-07 11:36 | DR.PROGNOT ---
Hospital Progress Notes - Progress Note for Day of: Progress Note Date: 10/07/21 - Chief Complaint Chief Complaint: moderate pain both legs .. minimal drainage .. negative DVT on Doppler study .. on IV ABT .. - Past Medical Family Social History Past Med/Fam/Surg Hx: No changes since H&P Allergies: Allergies No Known Drug Allergies Allergy (Verified 01/06/18 12:40) - Review Of Systems ROS: No change since H&P - Vital Signs Vital Signs: Temperature 97.8 F Pulse Rate [Brachial] 94 Pulse Rate [Left Brachial] 95 Respiratory Rate 20 Blood Pressure [Left Radial 153/72 Artery] Blood Pressure [Left Arm] 136/78 Blood Pressure [Right Arm] 110/63 Blood Pressure 169/79 O2 Sat by Pulse Oximetry 93 - Physical Exam Oriented: Normal Eyes: Normal Ear: Normal Nose: Normal Throat: Normal Cardiovascular: Normal, Edema GI:Auscultation: Normal GI:Palpation: Normal GI: Tenderness: Normal Skin: Decreased Turgur, Red, Tender, Hot, Wound (bilateral leg ulceration below the knee with cellulitis .) Musculoskeletal: Right, Left, Hip, Back:Thoracic, Back:Lumbar, Motor Deficit, Sensory Deficit Psychiatric: Anxiety Affect: Anxious Speech Pattern: Clear - Laboratory and Diagnostics Result Diagrams: 10/07/21 05:07 10/07/21 05:07 Labs: Laboratory WBC 8.6 X10^3/uL (3.6-10.0) 10/07/21 05:07 RBC 4.32 X10^6/uL (3.5-5.4) 10/07/21 05:07 Hgb 13.3 g/dL (12.0-16.0) 10/07/21 05:07 Hct 38.9 % (36.0-47.0) 10/07/21 05:07 MCV 89.9 fL (80.0-100.0) 10/07/21 05:07 MCH 30.7 pg (27.0-34.0) 10/07/21 05:07 MCHC 34.2 g/dL (33.0-35.0) 10/07/21 05:07 RDW 14.4 % (11.6-16.5) 10/07/21 05:07 Plt Count 199 X10^3/uL (150.0-450.0) 10/07/21 05:07 MPV 9.3 fL (7.4-11.0) 10/07/21 05:07 Neut % (Auto) 53.7 % (42.0-75.0) 10/07/21 05:07 Lymph % (Auto) 20.4 % (21.0-51.0) L 10/07/21 05:07 [place] % (Auto) 9.1 % (0.0-13.0) 10/07/21 05:07 Eos % (Auto) 14.2 % (0.9-2.9) H 10/07/21 05:07 Baso % (Auto) 2.6 % (0.2-1.0) H 10/07/21 05:07 Neut # (Auto) 4.6 x10^3/uL (2.2-4.8) 10/07/21 05:07 Lymph # (Auto) 1.8 X10^3/uL (1.3-2.9) 10/07/21 05:07 [place] # (Auto) 0.8 x10^3/uL (0.3-0.8) 10/07/21 05:07 Eos # (Auto) 1.2 x10^3/uL (0.0-0.2) H 10/07/21 05:07 Baso # (Auto) 0.2 X10^3/uL (0.0-0.1) H 10/07/21 05:07 Absolute Nucleated RBC 0.0 /100WBC 10/07/21 05:07 Sodium 142 mmol/L (136-145) 10/07/21 05:07 Corrected Sodium TNP 10/07/21 05:07 Potassium 3.3 mmol/L (3.5-5.1) L 10/07/21 05:07 Chloride 102 mmol/L (98-107) 10/07/21 05:07 Carbon Dioxide 33.6 mmol/L (21-32) H 10/07/21 05:07 BUN 16 mg/dL (7-18) 10/07/21 05:07 Creatinine 1.33 mg/dL (0.55-1.02) H 10/07/21 05:07 Est GFR (MDRD) Af Amer 50 (>60) L 10/07/21 05:07 Est GFR (MDRD) Non-Af 41 (>60) L 10/07/21 05:07 Glucose 69 mg/dL (65-99) 10/07/21 05:07 POC Glucose (mg/dL) 88 mg/dL (65-99) 10/07/21 05:28 Lactic Acid 0.8 mmol/L (0.4-2.0) 10/05/21 18:18 Calcium 8.3 mg/dL (8.5-10.1) L 10/07/21 05:07 Corrected Calcium 9.3 mg/dL (8.5-10.1) 10/07/21 05:07 Magnesium 2.3 mg/dL (1.7-2.9) 10/07/21 05:07 Total Bilirubin 0.30 mg/dL (0.2-1.0) 10/07/21 05:07 AST 17 Units/L (15-37) 10/07/21 05:07 ALT 7 Units/L (12-78) L 10/07/21 05:07 Alkaline Phosphatase 87 Units/L (46-116) 10/07/21 05:07 Total Protein 6.2 g/dL (6.4-8.2) L 10/07/21 05:07 Albumin 2.8 g/dL (3.4-5.0) L 10/07/21 05:07 Globulin 3.4 g/dL (2.5-4.5) 10/07/21 05:07 Albumin/Globulin Ratio 0.8 Ratio (1.1-2.1) L 10/07/21 05:07 Specimen Type Random urine 10/06/21 18:20 Urine Color Straw (YELLOW) 10/06/21 18:20 Urine Appearance Clear (CLEAR) 10/06/21 18:20 Urine pH 7.0 (5.0 - 8.0) 10/06/21 18:20 Ur Specific [place] 1.010 (1.000-1.030) 10/06/21 18:20 Urine Protein Negative (NEGATIVE) 10/06/21 18:20 Urine Glucose (UA) 3+ (NEGATIVE) 10/06/21 18:20 Urine Ketones Negative (NEGATIVE) 10/06/21 18:20 Urine Blood Negative (NEGATIVE) 10/06/21 18:20 Urine Nitrite Negative (NEGATIVE) 10/06/21 18:20 Urine Bilirubin Negative (NEGATIVE) 10/06/21 18:20 Urine Urobilinogen Normal (NORMAL) 10/06/21 18:20 Ur Leukocyte Esterase 2+ (NEGATIVE) 10/06/21 18:20 Urine RBC None seen /HPF (0-3) 10/06/21 18:20 Urine WBC 5-10 /HPF (0-5) A 10/06/21 18:20 Ur Squamous Epith Cells Moderate /HPF (NEGATIVE) 10/06/21 18:20 Urine Bacteria Trace /HPF (NEGATIVE) 10/06/21 18:20 Ur Culture Indicated? No/not indicated 10/06/21 18:20 SARS-CoV-2 (PCR) Negative (NEGATIVE) 10/05/21 18:46 - Assessment and Plan 1: cellulitis both legs . multiple skin ulcerations both legs .. same IV ABT pending C&S . possible debridement in the the OR on saturday .. - Problem Patient Problems: Patient Problems Bilateral lower leg cellulitis (Acute) L03.116, L03.115 Hypertension (Chronic) I10 Diabetes mellitus (Chronic) E11.9 CHF (congestive heart failure) (Chronic) I50.9 COPD (chronic obstructive pulmonary disease) (Chronic) J44.9
[2021-10-07] MEDS: SNACK - Diabetic Appropriate PO SCH (21:00)
[2021-10-07] MEDS: ARICEPT TAB 10 MG PO SCH (21:13)
[2021-10-07] MEDS: REQUIP PO SCH (21:14)
[2021-10-07] MEDS: ZOCOR TAB 20 MG PO SCH (21:14)
[2021-10-07] MEDS: DETROL LA 4 MG CAP EXT REL PO SCH (21:17)
[2021-10-07] MEDS: MORPHINE SULFATE INJ 2 MG INJ IVP PRN (21:18)
[2021-10-07] MEDS: PERCOCET TAB 5/325 MG PO PRN (21:19)
[2021-10-08 05:21] LABS: BASOPHILS # (AUTO) 0.1 X10^3/uL (0.0-0.1); BASOPHILS % (AUTO) 1.2 % (0.2-1.0); EOSINOPHILS % (AUTO) 11.9 % (0.9-2.9); HEMATOCRIT 37.8 % (36.0-47.0); LYMPHOCYTES # (AUTO) 2.2 X10^3/uL (1.3-2.9); LYMPHOCYTES % (AUTO) 25.9 % (21.0-51.0); MEAN CORPUSCULAR HGB CONC 34.5 g/dL (33.0-35.0); MEAN CORPUSCULAR VOLUME 89.8 fL (80.0-100.0); MEAN PLATELET VOLUME 9.3 fL (7.4-11.0); MONOCYTES # (AUTO) 0.7 x10^3/uL (0.3-0.8); MONOCYTES % (AUTO) 8.5 % (0.0-13.0); NEUTROPHILS # (AUTO) 4.5 x10^3/uL (2.2-4.8); NEUTROPHILS % (AUTO) 52.5 % (42.0-75.0); RED BLOOD COUNT 4.21 X10^6/uL (3.5-5.4); RED CELL DISTRIBUTION WIDTH 14.1 % (11.6-16.5); WHITE BLOOD COUNT 8.6 X10^3/uL (3.6-10.0)
[2021-10-08 05:22] LABS: ALANINE AMINOTRANSFERASE 7 Units/L (12-78); ALBUMIN 2.6 g/dL (3.4-5.0); ALKALINE PHOSPHATASE 80 Units/L (46-116); ASPARTATE AMINO TRANSFERASE 16 Units/L (15-37); BLOOD UREA NITROGEN 18 mg/dL (7-18); CARBON DIOXIDE 34.5 mmol/L (21-32); CHLORIDE 105 mmol/L (98-107); COR CA(FOR HYPOALB) 9.1 mg/dL (8.5-10.1); CREATININE 1.46 mg/dL (0.55-1.02); SODIUM 142 mmol/L (136-145); TOTAL PROTEIN 5.8 g/dL (6.4-8.2); eGFR NON BLACK RACES 37 (>60)
[2021-10-08] MEDS: GLUCOTROL PO SCH ×2 (08:32→21:33)
[2021-10-08] MEDS: LASIX PO SCH (09:20)
[2021-10-08] MEDS: ASPIRIN 81 MG CHEWTAB PO SCH (09:26)
[2021-10-08] MEDS: COREG TAB 12.5 MG PO SCH ×2 (09:26→21:33)
[2021-10-08] MEDS: DIOVAN TAB 80 MG PO SCH (09:27)
[2021-10-08] MEDS: K-DUR TAB 20 MEQ PO SCH ×2 (09:28→21:35)
[2021-10-08] MEDS: PriLOSEC PO SCH (09:29)
[2021-10-08] MEDS: SILVADENE TOP SCH (09:29)
[2021-10-08] MEDS: MOBIC TAB 15 MG PO SCH (09:29)
[2021-10-08] MEDS: ZETIA TAB 10 MG PO SCH (09:30)
[2021-10-08] MEDS: ZyrTEC TAB 10 MG PO SCH (09:30)
[2021-10-08] MEDS: KEFLEX CAP 500 MG PO SCH ×2 (09:31→21:36)
[2021-10-08] MEDS: ZYVOX 600MG IV 600 MG/300 ML BAG IV SCH ×2 (09:33→21:32)
[2021-10-08] MEDS: LOVENOX INJ 40 MG SYR SC SCH (09:35)
[2021-10-08] MEDS: INVOKANA PO SCH (14:22)
[2021-10-08] MEDS ORDERED: NovoLIN R (or HumuLIN R) SUBCUT PRN (17:38)
[2021-10-08] MEDS ORDERED: PHARMACY COMMENT IV ONE (20:00)
[2021-10-08] MEDS ORDERED: SNACK - Diabetic Appropriate PO SCH (20:00)
[2021-10-08] MEDS: SNACK - Diabetic Appropriate PO SCH (21:00)
[2021-10-08] MEDS: ARICEPT TAB 10 MG PO SCH (21:31)
[2021-10-08] MEDS: DETROL LA 4 MG CAP EXT REL PO SCH (21:32)
[2021-10-08] MEDS: REQUIP PO SCH (21:32)
[2021-10-08] MEDS: ZOCOR TAB 20 MG PO SCH (21:34)
[2021-10-08] MEDS: XANAX PO PRN (21:35)
[2021-10-08] MEDS: PERCOCET TAB 5/325 MG PO PRN (21:36)
[2021-10-09 05:24] LABS: BASOPHILS # (AUTO) 0.1 X10^3/uL (0.0-0.1); BASOPHILS % (AUTO) 0.8 % (0.2-1.0); EOSINOPHILS # (AUTO) 0.9 x10^3/uL (0.0-0.2); EOSINOPHILS % (AUTO) 9.3 % (0.9-2.9); HEMATOCRIT 36.9 % (36.0-47.0); HEMOGLOBIN 12.5 g/dL (12.0-16.0); LYMPHOCYTES # (AUTO) 2.2 X10^3/uL (1.3-2.9); LYMPHOCYTES % (AUTO) 23.2 % (21.0-51.0); MEAN CORPUSCULAR HEMOGLOBIN 30.4 pg (27.0-34.0); MEAN CORPUSCULAR HGB CONC 33.8 g/dL (33.0-35.0); MEAN CORPUSCULAR VOLUME 89.9 fL (80.0-100.0); MEAN PLATELET VOLUME 9.4 fL (7.4-11.0); MONOCYTES # (AUTO) 0.7 x10^3/uL (0.3-0.8); MONOCYTES % (AUTO) 7.6 % (0.0-13.0); NEUTROPHILS # (AUTO) 5.5 x10^3/uL (2.2-4.8); NEUTROPHILS % (AUTO) 59.1 % (42.0-75.0); RED CELL DISTRIBUTION WIDTH 14.1 % (11.6-16.5); WHITE BLOOD COUNT 9.3 X10^3/uL (3.6-10.0)
[2021-10-09 05:40] LABS: ALANINE AMINOTRANSFERASE 13 Units/L (12-78); ALBUMIN 2.5 g/dL (3.4-5.0); ALKALINE PHOSPHATASE 75 Units/L (46-116); ASPARTATE AMINO TRANSFERASE 14 Units/L (15-37); BLOOD UREA NITROGEN 19 mg/dL (7-18); CALCIUM 8.2 mg/dL (8.5-10.1); CARBON DIOXIDE 31.5 mmol/L (21-32); CHLORIDE 108 mmol/L (98-107); COR CA(FOR HYPOALB) 9.4 mg/dL (8.5-10.1); CREATININE 1.21 mg/dL (0.55-1.02); SODIUM 143 mmol/L (136-145); TOTAL PROTEIN 5.6 g/dL (6.4-8.2); eGFR NON BLACK RACES 46 (>60)
[2021-10-09] MEDS: ASPIRIN 81 MG CHEWTAB PO SCH (09:24)
[2021-10-09] MEDS: GLUCOTROL PO SCH ×2 (09:26→21:17)
[2021-10-09] MEDS: COREG TAB 12.5 MG PO SCH ×2 (09:26→21:17)
[2021-10-09] MEDS: DIOVAN TAB 80 MG PO SCH (09:26)
[2021-10-09] MEDS: LASIX PO SCH (09:27)
[2021-10-09] MEDS: K-DUR TAB 20 MEQ PO SCH ×2 (09:27→21:16)
[2021-10-09] MEDS: INVOKANA PO SCH (09:27)
[2021-10-09] MEDS: PriLOSEC PO SCH (09:28)
[2021-10-09] MEDS: ZyrTEC TAB 10 MG PO SCH (09:28)
[2021-10-09] MEDS: SILVADENE TOP SCH (09:28)
[2021-10-09] MEDS: ZYVOX 600MG IV 600 MG/300 ML BAG IV SCH ×2 (09:29→21:15)
[2021-10-09] MEDS: MOBIC TAB 15 MG PO SCH (09:29)
[2021-10-09] MEDS: ZETIA TAB 10 MG PO SCH (09:29)
[2021-10-09] MEDS: LOVENOX INJ 40 MG SYR SC SCH (09:30)
[2021-10-09] MEDS: KEFLEX CAP 500 MG PO SCH ×2 (09:31→21:15)
[2021-10-09] MEDS ORDERED: BETADINE SOLN ONE (11:06)
[2021-10-09] MEDS ORDERED: XYLOCAINE 1 % (PLAIN) ONE (11:07)
[2021-10-09] MEDS ORDERED: NS 100 ML IV 100 ML ONE (11:42)
[2021-10-09] MEDS ORDERED: NS 1,000 ML IV 1,000 ML ONE (11:42)
[2021-10-09] MEDS ORDERED: ANCEF VIAL 1 GRAM ONE (11:42)
[2021-10-09] MEDS ORDERED: D5 LR 1,000 ML 1,000 ML IV ONE (12:01)
[2021-10-09] MEDS ORDERED: D50W ABBOJECT SYR ONE (12:03)
[2021-10-09] MEDS ORDERED: PRECEDEX INJ VIAL IVP ONE (12:20)
[2021-10-09] MEDS ORDERED: DIPRIVAN VIAL 20 ML ONE (12:20)
[2021-10-09] MEDS ORDERED: XYLOCAINE 2 % (PLAIN) ONE (12:20)
[2021-10-09] MEDS ORDERED: KETAMINE HCL ONE (12:21)
[2021-10-09] MEDS ORDERED: POLYMYXIN B SULFATE ONE (12:42)
[2021-10-09] MEDS: SNACK - Diabetic Appropriate PO SCH (21:13)
[2021-10-09] MEDS: ARICEPT TAB 10 MG PO SCH (21:14)
[2021-10-09] MEDS: REQUIP PO SCH (21:15)
[2021-10-09] MEDS: ZOCOR TAB 20 MG PO SCH (21:15)
[2021-10-09] MEDS: DETROL LA 4 MG CAP EXT REL PO SCH (21:17)
[2021-10-09] MEDS: PERCOCET TAB 5/325 MG PO PRN (21:18)
[2021-10-09] MEDS: XANAX PO PRN (21:41)
[2021-10-10 05:46] LABS: BASOPHILS # (AUTO) 0.1 X10^3/uL (0.0-0.1); BASOPHILS % (AUTO) 1.2 % (0.2-1.0); EOSINOPHILS # (AUTO) 0.7 x10^3/uL (0.0-0.2); EOSINOPHILS % (AUTO) 7.8 % (0.9-2.9); HEMATOCRIT 38.1 % (36.0-47.0); LYMPHOCYTES # (AUTO) 1.8 X10^3/uL (1.3-2.9); LYMPHOCYTES % (AUTO) 20.8 % (21.0-51.0); MEAN CORPUSCULAR HEMOGLOBIN 31.2 pg (27.0-34.0); MEAN CORPUSCULAR HGB CONC 34.2 g/dL (33.0-35.0); MEAN CORPUSCULAR VOLUME 91.3 fL (80.0-100.0); MEAN PLATELET VOLUME 9.3 fL (7.4-11.0); MONOCYTES # (AUTO) 0.6 x10^3/uL (0.3-0.8); MONOCYTES % (AUTO) 6.5 % (0.0-13.0); NEUTROPHILS # (AUTO) 5.6 x10^3/uL (2.2-4.8); NEUTROPHILS % (AUTO) 63.7 % (42.0-75.0); RED BLOOD COUNT 4.18 X10^6/uL (3.5-5.4); RED CELL DISTRIBUTION WIDTH 14.2 % (11.6-16.5); WHITE BLOOD COUNT 8.9 X10^3/uL (3.6-10.0)
[2021-10-10 06:00] LABS: ALANINE AMINOTRANSFERASE 12 Units/L (12-78); ALBUMIN 2.5 g/dL (3.4-5.0); ALKALINE PHOSPHATASE 74 Units/L (46-116); ASPARTATE AMINO TRANSFERASE 18 Units/L (15-37); BLOOD UREA NITROGEN 16 mg/dL (7-18); CALCIUM 8.3 mg/dL (8.5-10.1); CARBON DIOXIDE 29.1 mmol/L (21-32); CHLORIDE 108 mmol/L (98-107); COR CA(FOR HYPOALB) 9.5 mg/dL (8.5-10.1); CREATININE 1.06 mg/dL (0.55-1.02); SODIUM 142 mmol/L (136-145); TOTAL PROTEIN 5.7 g/dL (6.4-8.2); eGFR NON BLACK RACES 53 (>60)
[2021-10-10] MEDS: PriLOSEC PO SCH (09:00)
[2021-10-10] MEDS: ASPIRIN 81 MG CHEWTAB PO SCH (09:00)
[2021-10-10] MEDS: ZYVOX 600MG IV 600 MG/300 ML BAG IV SCH ×2 (09:00→20:46)
[2021-10-10] MEDS: MOBIC TAB 15 MG PO SCH (09:01)
[2021-10-10] MEDS: SILVADENE TOP SCH (09:01)
[2021-10-10] MEDS: ZyrTEC TAB 10 MG PO SCH (09:01)
[2021-10-10] MEDS: KEFLEX CAP 500 MG PO SCH ×2 (09:02→22:18)
[2021-10-10] MEDS: ZETIA TAB 10 MG PO SCH (09:02)
[2021-10-10] MEDS: LASIX PO SCH (09:02)
[2021-10-10] MEDS: DIOVAN TAB 80 MG PO SCH (09:03)
[2021-10-10] MEDS: K-DUR TAB 20 MEQ PO SCH ×2 (09:03→20:45)
[2021-10-10] MEDS: GLUCOTROL PO SCH ×2 (09:03→20:45)
[2021-10-10] MEDS: COREG TAB 12.5 MG PO SCH ×2 (09:03→20:45)
[2021-10-10] MEDS: INVOKANA PO SCH (09:03)
[2021-10-10] MEDS: LOVENOX INJ 40 MG SYR SC SCH (09:04)
--- NOTE | 2021-10-10 11:32 | DR.PROGNOT ---
Hospital Progress Notes - Progress Note for Day of: Progress Note Date: 10/10/21 - Chief Complaint Chief Complaint: c/o pain both lower extremities . dressengs intact . no drainage .. distal pulses positive only with Doppler . - Past Medical Family Social History Past Med/Fam/Surg Hx: No changes since H&P Allergies: Allergies No Known Drug Allergies Allergy (Verified 01/06/18 12:40) - Review Of Systems ROS: No change since H&P - Vital Signs Vital Signs: Temperature 98.2 F Pulse Rate [Brachial] 95 Pulse Rate [Left Brachial] 95 Pulse Rate 65 Respiratory Rate 22 Blood Pressure [Left Radial 153/72 Artery] Blood Pressure [Left Arm] 136/78 Blood Pressure [Right Arm] 160/70 Blood Pressure 131/70 O2 Sat by Pulse Oximetry 95 - Physical Exam Oriented: Normal Eyes: Normal Ear: Normal Nose: Normal Throat: Normal Cardiovascular: Normal, Edema GI:Auscultation: Normal GI:Palpation: Normal GI: Tenderness: Normal Skin: Decreased Turgur, Red, Tender, Hot, Wound (bilateral leg ulceration below the knee with cellulitis .s/p debridement ..) Musculoskeletal: Right, Left, Hip, Back:Thoracic, Back:Lumbar, Motor Deficit, Sensory Deficit Psychiatric: Anxiety Affect: Anxious Speech Pattern: Clear - Laboratory and Diagnostics Result Diagrams: 10/10/21 05:08 10/10/21 05:08 Labs: 10/07/21 17:20 Urine,Clean Catch Urine Culture - Final 10/05/21 18:27 Blood Blood Culture - Preliminary 10/05/21 18:18 Blood Blood Culture - Preliminary Laboratory WBC 8.9 X10^3/uL (3.6-10.0) 10/10/21 05:08 RBC 4.18 X10^6/uL (3.5-5.4) 10/10/21 05:08 Hgb 13.0 g/dL (12.0-16.0) 10/10/21 05:08 Hct 38.1 % (36.0-47.0) 10/10/21 05:08 MCV 91.3 fL (80.0-100.0) 10/10/21 05:08 MCH 31.2 pg (27.0-34.0) 10/10/21 05:08 MCHC 34.2 g/dL (33.0-35.0) 10/10/21 05:08 RDW 14.2 % (11.6-16.5) 10/10/21 05:08 Plt Count 155 X10^3/uL (150.0-450.0) 10/10/21 05:08 MPV 9.3 fL (7.4-11.0) 10/10/21 05:08 Neut % (Auto) 63.7 % (42.0-75.0) 10/10/21 05:08 Lymph % (Auto) 20.8 % (21.0-51.0) L 10/10/21 05:08 [place] % (Auto) 6.5 % (0.0-13.0) 10/10/21 05:08 Eos % (Auto) 7.8 % (0.9-2.9) H 10/10/21 05:08 Baso % (Auto) 1.2 % (0.2-1.0) H 10/10/21 05:08 Neut # (Auto) 5.6 x10^3/uL (2.2-4.8) H 10/10/21 05:08 Lymph # (Auto) 1.8 X10^3/uL (1.3-2.9) 10/10/21 05:08 [place] # (Auto) 0.6 x10^3/uL (0.3-0.8) 10/10/21 05:08 Eos # (Auto) 0.7 x10^3/uL (0.0-0.2) H 10/10/21 05:08 Baso # (Auto) 0.1 X10^3/uL (0.0-0.1) 10/10/21 05:08 Absolute Nucleated RBC 0.1 /100WBC 10/10/21 05:08 Sodium 142 mmol/L (136-145) 10/10/21 05:08 Corrected Sodium TNP 10/10/21 05:08 Potassium 4.4 mmol/L (3.5-5.1) 10/10/21 05:08 Chloride 108 mmol/L (98-107) H 10/10/21 05:08 Carbon Dioxide 29.1 mmol/L (21-32) 10/10/21 05:08 BUN 16 mg/dL (7-18) 10/10/21 05:08 Creatinine 1.06 mg/dL (0.55-1.02) H 10/10/21 05:08 Est GFR (MDRD) Af Amer > 60 (>60) 10/10/21 05:08 Est GFR (MDRD) Non-Af 53 (>60) L 10/10/21 05:08 Glucose 87 mg/dL (65-99) 10/10/21 05:08 POC Glucose (mg/dL) 114 mg/dL (65-99) H 10/10/21 10:57 Lactic Acid 0.8 mmol/L (0.4-2.0) 10/05/21 18:18 Calcium 8.3 mg/dL (8.5-10.1) L 10/10/21 05:08 Corrected Calcium 9.5 mg/dL (8.5-10.1) 10/10/21 05:08 Magnesium 2.3 mg/dL (1.7-2.9) 10/07/21 05:07 Total Bilirubin 0.10 mg/dL (0.2-1.0) L 10/10/21 05:08 AST 18 Units/L (15-37) 10/10/21 05:08 ALT 12 Units/L (12-78) 10/10/21 05:08 Alkaline Phosphatase 74 Units/L (46-116) 10/10/21 05:08 Total Protein 5.7 g/dL (6.4-8.2) L 10/10/21 05:08 Albumin 2.5 g/dL (3.4-5.0) L 10/10/21 05:08 Globulin 3.2 g/dL (2.5-4.5) 10/10/21 05:08 Albumin/Globulin Ratio 0.8 Ratio (1.1-2.1) L 10/10/21 05:08 Specimen Type Random urine 10/06/21 18:20 Urine Color Straw (YELLOW) 10/06/21 18:20 Urine Appearance Clear (CLEAR) 10/06/21 18:20 Urine pH 7.0 (5.0 - 8.0) 10/06/21 18:20 Ur Specific [place] 1.010 (1.000-1.030) 10/06/21 18:20 Urine Protein Negative (NEGATIVE) 10/06/21 18:20 Urine Glucose (UA) 3+ (NEGATIVE) 10/06/21 18:20 Urine Ketones Negative (NEGATIVE) 10/06/21 18:20 Urine Blood Negative (NEGATIVE) 10/06/21 18:20 Urine Nitrite Negative (NEGATIVE) 10/06/21 18:20 Urine Bilirubin Negative (NEGATIVE) 10/06/21 18:20 Urine Urobilinogen Normal (NORMAL) 10/06/21 18:20 Ur Leukocyte Esterase 2+ (NEGATIVE) 10/06/21 18:20 Urine RBC None seen /HPF (0-3) 10/06/21 18:20 Urine WBC 5-10 /HPF (0-5) A 10/06/21 18:20 Ur Squamous Epith Cells Moderate /HPF (NEGATIVE) 10/06/21 18:20 Urine Bacteria Trace /HPF (NEGATIVE) 10/06/21 18:20 Ur Culture Indicated? No/not indicated 10/06/21 18:20 SARS-CoV-2 (PCR) Negative (NEGATIVE) 10/05/21 18:46 Tissue Pathology To follow 10/09/21 12:55 - Assessment and Plan 1: multiple skin ulcerations both legs s/p debridement and packing .. same IV ABT pending C&S . - Problem Patient Problems: Patient Problems Bilateral lower leg cellulitis (Acute) L03.116, L03.115 Hypertension (Chronic) I10 Diabetes mellitus (Chronic) E11.9 CHF (congestive heart failure) (Chronic) I50.9 COPD (chronic obstructive pulmonary disease) (Chronic) J44.9
--- NOTE | 2021-10-10 13:24 | PCM.PROG ---
Progress Note - Subjective Subjective: Patient was admitted as per HPI. S/P debridement of bilateral lower ext by Dr. Reese. Plan for dc in am. - Past Medical Family Social History Past Med/Fam/Surg Hx: No changes since H&P Allergies: Allergies No Known Drug Allergies Allergy (Verified 01/06/18 12:40) - Review of Systems ROS: No change since H&P - Vital Signs and I&O's Vital Signs: Temperature 98.2 F Pulse Rate [Brachial] 78 Pulse Rate [Left Brachial] 95 Pulse Rate 65 Respiratory Rate 20 Blood Pressure [Left Radial 153/72 Artery] Blood Pressure [Left Arm] 136/78 Blood Pressure [Right Arm] 142/62 Blood Pressure 131/70 O2 Sat by Pulse Oximetry 95 Intake and Output: Intake & Output 10/07/21 10/08/21 10/09/21 10/10/21 23:59 23:59 23:59 23:59 Intake Total 1124 / 1124 1540 / 1540 2740 / 2740 170 / 170 Output Total 1000 / 1000 Balance 1124 / 1124 1540 / 1540 1740 / 1740 170 / 170 - Physical Exam Oriented: Normal Eyes: Normal Ear: Normal Nose: Normal Throat: Normal Respiratory: Normal Cardiovascular: Normal : Normal Auscultation: Bowel Sounds: Normal Palpation: Normal Tenderness: Normal Skin: Decreased Turgur, Red, Tender, Hot, Wound (bilateral leg ulceration below the knee with cellulitis .s/p debridement ..) Musculoskeletal: Right, Left, Hip, Back:Thoracic, Back:Lumbar, Motor Deficit, Sensory Deficit Psychiatric: Anxiety Mood Description: Calm Affect: Anxious Speech Pattern: Clear - Laboratory and Diagnostics Result Diagrams: 10/10/21 05:08 10/10/21 05:08 Labs: 10/07/21 17:20 Urine,Clean Catch Urine Culture - Final 10/05/21 18:27 Blood Blood Culture - Preliminary 10/05/21 18:18 Blood Blood Culture - Preliminary Laboratory WBC 8.9 X10^3/uL (3.6-10.0) 10/10/21 05:08 RBC 4.18 X10^6/uL (3.5-5.4) 10/10/21 05:08 Hgb 13.0 g/dL (12.0-16.0) 10/10/21 05:08 Hct 38.1 % (36.0-47.0) 10/10/21 05:08 MCV 91.3 fL (80.0-100.0) 10/10/21 05:08 MCH 31.2 pg (27.0-34.0) 10/10/21 05:08 MCHC 34.2 g/dL (33.0-35.0) 10/10/21 05:08 RDW 14.2 % (11.6-16.5) 10/10/21 05:08 Plt Count 155 X10^3/uL (150.0-450.0) 10/10/21 05:08 MPV 9.3 fL (7.4-11.0) 10/10/21 05:08 Neut % (Auto) 63.7 % (42.0-75.0) 10/10/21 05:08 Lymph % (Auto) 20.8 % (21.0-51.0) L 10/10/21 05:08 [place] % (Auto) 6.5 % (0.0-13.0) 10/10/21 05:08 Eos % (Auto) 7.8 % (0.9-2.9) H 10/10/21 05:08 Baso % (Auto) 1.2 % (0.2-1.0) H 10/10/21 05:08 Neut # (Auto) 5.6 x10^3/uL (2.2-4.8) H 10/10/21 05:08 Lymph # (Auto) 1.8 X10^3/uL (1.3-2.9) 10/10/21 05:08 [place] # (Auto) 0.6 x10^3/uL (0.3-0.8) 10/10/21 05:08 Eos # (Auto) 0.7 x10^3/uL (0.0-0.2) H 10/10/21 05:08 Baso # (Auto) 0.1 X10^3/uL (0.0-0.1) 10/10/21 05:08 Absolute Nucleated RBC 0.1 /100WBC 10/10/21 05:08 Sodium 142 mmol/L (136-145) 10/10/21 05:08 Corrected Sodium TNP 10/10/21 05:08 Potassium 4.4 mmol/L (3.5-5.1) 10/10/21 05:08 Chloride 108 mmol/L (98-107) H 10/10/21 05:08 Carbon Dioxide 29.1 mmol/L (21-32) 10/10/21 05:08 BUN 16 mg/dL (7-18) 10/10/21 05:08 Creatinine 1.06 mg/dL (0.55-1.02) H 10/10/21 05:08 Est GFR (MDRD) Af Amer > 60 (>60) 10/10/21 05:08 Est GFR (MDRD) Non-Af 53 (>60) L 10/10/21 05:08 Glucose 87 mg/dL (65-99) 10/10/21 05:08 POC Glucose (mg/dL) 114 mg/dL (65-99) H 10/10/21 10:57 Lactic Acid 0.8 mmol/L (0.4-2.0) 10/05/21 18:18 Calcium 8.3 mg/dL (8.5-10.1) L 10/10/21 05:08 Corrected Calcium 9.5 mg/dL (8.5-10.1) 10/10/21 05:08 Magnesium 2.3 mg/dL (1.7-2.9) 10/07/21 05:07 Total Bilirubin 0.10 mg/dL (0.2-1.0) L 10/10/21 05:08 AST 18 Units/L (15-37) 10/10/21 05:08 ALT 12 Units/L (12-78) 10/10/21 05:08 Alkaline Phosphatase 74 Units/L (46-116) 10/10/21 05:08 Total Protein 5.7 g/dL (6.4-8.2) L 10/10/21 05:08 Albumin 2.5 g/dL (3.4-5.0) L 10/10/21 05:08 Globulin 3.2 g/dL (2.5-4.5) 10/10/21 05:08 Albumin/Globulin Ratio 0.8 Ratio (1.1-2.1) L 10/10/21 05:08 Specimen Type Random urine 10/06/21 18:20 Urine Color Straw (YELLOW) 10/06/21 18:20 Urine Appearance Clear (CLEAR) 10/06/21 18:20 Urine pH 7.0 (5.0 - 8.0) 10/06/21 18:20 Ur Specific [place] 1.010 (1.000-1.030) 10/06/21 18:20 Urine Protein Negative (NEGATIVE) 10/06/21 18:20 Urine Glucose (UA) 3+ (NEGATIVE) 10/06/21 18:20 Urine Ketones Negative (NEGATIVE) 10/06/21 18:20 Urine Blood Negative (NEGATIVE) 10/06/21 18:20 Urine Nitrite Negative (NEGATIVE) 10/06/21 18:20 Urine Bilirubin Negative (NEGATIVE) 10/06/21 18:20 Urine Urobilinogen Normal (NORMAL) 10/06/21 18:20 Ur Leukocyte Esterase 2+ (NEGATIVE) 10/06/21 18:20 Urine RBC None seen /HPF (0-3) 10/06/21 18:20 Urine WBC 5-10 /HPF (0-5) A 10/06/21 18:20 Ur Squamous Epith Cells Moderate /HPF (NEGATIVE) 10/06/21 18:20 Urine Bacteria Trace /HPF (NEGATIVE) 10/06/21 18:20 Ur Culture Indicated? No/not indicated 10/06/21 18:20 SARS-CoV-2 (PCR) Negative (NEGATIVE) 10/05/21 18:46 Tissue Pathology To follow 10/09/21 12:55 - Plan (1) Cellulitis of lower extremity Status: Acute Plan: Bilateral lower ext cellulitis, extensive circumferential cellulitis. IV abx; wound care per Dr. Rincon (2) Generalized weakness Status: Acute (3) Diabetes mellitus Status: Chronic (4) CHF (congestive heart failure) Status: Chronic Plan: Home meds (5) COPD (chronic obstructive pulmonary disease) Status: Chronic
[2021-10-10] MEDS: ARICEPT TAB 10 MG PO SCH (20:44)
[2021-10-10] MEDS: DETROL LA 4 MG CAP EXT REL PO SCH (20:45)
[2021-10-10] MEDS: REQUIP PO SCH (20:46)
[2021-10-10] MEDS: ZOCOR TAB 20 MG PO SCH (20:46)
[2021-10-10] MEDS: XANAX PO PRN (20:47)
[2021-10-10] MEDS: PERCOCET TAB 5/325 MG PO PRN (20:47)
[2021-10-10] MEDS: SNACK - Diabetic Appropriate PO SCH (20:47)
[2021-10-11 05:46] LABS: BASOPHILS # (AUTO) 0.1 X10^3/uL (0.0-0.1); BASOPHILS % (AUTO) 1.1 % (0.2-1.0); EOSINOPHILS # (AUTO) 0.8 x10^3/uL (0.0-0.2); EOSINOPHILS % (AUTO) 9.4 % (0.9-2.9); HEMATOCRIT 37.4 % (36.0-47.0); HEMOGLOBIN 12.7 g/dL (12.0-16.0); LYMPHOCYTES # (AUTO) 1.8 X10^3/uL (1.3-2.9); LYMPHOCYTES % (AUTO) 22.7 % (21.0-51.0); MEAN CORPUSCULAR HEMOGLOBIN 30.7 pg (27.0-34.0); MEAN CORPUSCULAR VOLUME 90.4 fL (80.0-100.0); MONOCYTES # (AUTO) 0.6 x10^3/uL (0.3-0.8); MONOCYTES % (AUTO) 7.3 % (0.0-13.0); NEUTROPHILS # (AUTO) 4.8 x10^3/uL (2.2-4.8); NEUTROPHILS % (AUTO) 59.5 % (42.0-75.0); RED BLOOD COUNT 4.14 X10^6/uL (3.5-5.4); RED CELL DISTRIBUTION WIDTH 14.4 % (11.6-16.5)
[2021-10-11 06:00] LABS: ALANINE AMINOTRANSFERASE 13 Units/L (12-78); ALBUMIN 2.5 g/dL (3.4-5.0); ALKALINE PHOSPHATASE 76 Units/L (46-116); ASPARTATE AMINO TRANSFERASE 19 Units/L (15-37); BLOOD UREA NITROGEN 17 mg/dL (7-18); CALCIUM 8.3 mg/dL (8.5-10.1); CARBON DIOXIDE 31.4 mmol/L (21-32); CHLORIDE 107 mmol/L (98-107); COR CA(FOR HYPOALB) 9.5 mg/dL (8.5-10.1); CREATININE 1.12 mg/dL (0.55-1.02); SODIUM 143 mmol/L (136-145); TOTAL PROTEIN 5.9 g/dL (6.4-8.2); eGFR NON BLACK RACES 50 (>60)
[2021-10-11] MEDS: ASPIRIN 81 MG CHEWTAB PO SCH (09:37)
[2021-10-11] MEDS: ZyrTEC TAB 10 MG PO SCH (09:37)
[2021-10-11] MEDS: ZETIA TAB 10 MG PO SCH (09:38)
[2021-10-11] MEDS: SILVADENE TOP SCH (09:39)
[2021-10-11] MEDS: PriLOSEC PO SCH (09:39)
[2021-10-11] MEDS: MOBIC TAB 15 MG PO SCH (09:39)
[2021-10-11] MEDS: KEFLEX CAP 500 MG PO SCH (09:39)
[2021-10-11] MEDS: LASIX PO SCH (09:40)
[2021-10-11] MEDS: LOVENOX INJ 40 MG SYR SC SCH (09:40)
[2021-10-11] MEDS: COREG TAB 12.5 MG PO SCH (09:40)
[2021-10-11] MEDS: DIOVAN TAB 80 MG PO SCH (09:41)
[2021-10-11] MEDS: K-DUR TAB 20 MEQ PO SCH (09:41)
[2021-10-11] MEDS: INVOKANA PO SCH (09:41)
[2021-10-11] MEDS: GLUCOTROL PO SCH (09:42)
[2021-10-11] MEDS: ZYVOX 600MG IV 600 MG/300 ML BAG IV SCH (09:42)
--- NOTE | 2021-10-11 15:05 | DR.PROGNOT ---
Hospital Progress Notes - Progress Note for Day of: Progress Note Date: 10/11/21 - Chief Complaint Chief Complaint: moderate pain both lower extremities . able to ambulate .. dressengs were changed , no necrosis or significant drainage .. distal pulses positive only with Doppler . - Past Medical Family Social History Past Med/Fam/Surg Hx: No changes since H&P Allergies: Allergies No Known Drug Allergies Allergy (Verified 01/06/18 12:40) - Review Of Systems ROS: No change since H&P - Vital Signs Vital Signs: Temperature 98.2 F Pulse Rate [Brachial] 73 Pulse Rate [Left Brachial] 95 Pulse Rate 65 Respiratory Rate 18 Blood Pressure [Left Radial 153/72 Artery] Blood Pressure [Left Arm] 136/78 Blood Pressure [Right Arm] 153/71 Blood Pressure 131/70 O2 Sat by Pulse Oximetry 94 - Physical Exam Oriented: Normal Eyes: Normal Ear: Normal Nose: Normal Throat: Normal Respiratory: Normal Cardiovascular: Normal : Normal GI:Auscultation: Normal GI:Palpation: Normal GI: Tenderness: Normal Skin: Decreased [place]urg[place], Red, Tender, Hot, Wound (bilateral leg ulceration below the knee with cellulitis .s/p debridement ..) Musculoskeletal: Right, Left, Hip, Back:Thoracic, Back:Lumbar, Motor Deficit, Sensory Deficit Psychiatric: Anxiety Mood Description: Calm Affect: Anxious Speech Pattern: Clear - Laboratory and Diagnostics Result Diagrams: 10/11/21 05:15 10/11/21 05:15 Labs: 10/05/21 18:27 Blood Blood Culture - Final 10/05/21 18:18 Blood Blood Culture - Final 10/07/21 17:20 Urine,Clean Catch Urine Culture - Final Laboratory WBC 8.0 X10^3/uL (3.6-10.0) 10/11/21 05:15 RBC 4.14 X10^6/uL (3.5-5.4) 10/11/21 05:15 Hgb 12.7 g/dL (12.0-16.0) 10/11/21 05:15 Hct 37.4 % (36.0-47.0) 10/11/21 05:15 MCV 90.4 fL (80.0-100.0) 10/11/21 05:15 MCH 30.7 pg (27.0-34.0) 10/11/21 05:15 MCHC 34.0 g/dL (33.0-35.0) 10/11/21 05:15 RDW 14.4 % (11.6-16.5) 10/11/21 05:15 Plt Count 179 X10^3/uL (150.0-450.0) 10/11/21 05:15 MPV 9.0 fL (7.4-11.0) 10/11/21 05:15 Neut % (Auto) 59.5 % (42.0-75.0) 10/11/21 05:15 Lymph % (Auto) 22.7 % (21.0-51.0) 10/11/21 05:15 [place] % (Auto) 7.3 % (0.0-13.0) 10/11/21 05:15 Eos % (Auto) 9.4 % (0.9-2.9) H 10/11/21 05:15 Baso % (Auto) 1.1 % (0.2-1.0) H 10/11/21 05:15 Neut # (Auto) 4.8 x10^3/uL (2.2-4.8) 10/11/21 05:15 Lymph # (Auto) 1.8 X10^3/uL (1.3-2.9) 10/11/21 05:15 [place] # (Auto) 0.6 x10^3/uL (0.3-0.8) 10/11/21 05:15 Eos # (Auto) 0.8 x10^3/uL (0.0-0.2) H 10/11/21 05:15 Baso # (Auto) 0.1 X10^3/uL (0.0-0.1) 10/11/21 05:15 Absolute Nucleated RBC 0.0 /100WBC 10/11/21 05:15 Sodium 143 mmol/L (136-145) 10/11/21 05:15 Corrected Sodium TNP 10/11/21 05:15 Potassium 4.1 mmol/L (3.5-5.1) 10/11/21 05:15 Chloride 107 mmol/L (98-107) 10/11/21 05:15 Carbon Dioxide 31.4 mmol/L (21-32) 10/11/21 05:15 BUN 17 mg/dL (7-18) 10/11/21 05:15 Creatinine 1.12 mg/dL (0.55-1.02) H 10/11/21 05:15 Est GFR (MDRD) Af Amer > 60 (>60) 10/11/21 05:15 Est GFR (MDRD) Non-Af 50 (>60) L 10/11/21 05:15 Glucose 42 mg/dL (65-99) L* 10/11/21 05:15 POC Glucose (mg/dL) 76 mg/dL (65-99) 10/11/21 06:33 Lactic Acid 0.8 mmol/L (0.4-2.0) 10/05/21 18:18 Calcium 8.3 mg/dL (8.5-10.1) L 10/11/21 05:15 Corrected Calcium 9.5 mg/dL (8.5-10.1) 10/11/21 05:15 Magnesium 2.3 mg/dL (1.7-2.9) 10/07/21 05:07 Total Bilirubin 0.20 mg/dL (0.2-1.0) 10/11/21 05:15 AST 19 Units/L (15-37) 10/11/21 05:15 ALT 13 Units/L (12-78) 10/11/21 05:15 Alkaline Phosphatase 76 Units/L (46-116) 10/11/21 05:15 Total Protein 5.9 g/dL (6.4-8.2) L 10/11/21 05:15 Albumin 2.5 g/dL (3.4-5.0) L 10/11/21 05:15 Globulin 3.4 g/dL (2.5-4.5) 10/11/21 05:15 Albumin/Globulin Ratio 0.7 Ratio (1.1-2.1) L 10/11/21 05:15 Specimen Type Random urine 10/06/21 18:20 Urine Color Straw (YELLOW) 10/06/21 18:20 Urine Appearance Clear (CLEAR) 10/06/21 18:20 Urine pH 7.0 (5.0 - 8.0) 10/06/21 18:20 Ur Specific [place] 1.010 (1.000-1.030) 10/06/21 18:20 Urine Protein Negative (NEGATIVE) 10/06/21 18:20 Urine Glucose (UA) 3+ (NEGATIVE) 10/06/21 18:20 Urine Ketones Negative (NEGATIVE) 10/06/21 18:20 Urine Blood Negative (NEGATIVE) 10/06/21 18:20 Urine Nitrite Negative (NEGATIVE) 10/06/21 18:20 Urine Bilirubin Negative (NEGATIVE) 10/06/21 18:20 Urine Urobilinogen Normal (NORMAL) 10/06/21 18:20 Ur Leukocyte Esterase 2+ (NEGATIVE) 10/06/21 18:20 Urine RBC None seen /HPF (0-3) 10/06/21 18:20 Urine WBC 5-10 /HPF (0-5) A 10/06/21 18:20 Ur Squamous Epith Cells Moderate /HPF (NEGATIVE) 10/06/21 18:20 Urine Bacteria Trace /HPF (NEGATIVE) 10/06/21 18:20 Ur Culture Indicated? No/not indicated 10/06/21 18:20 SARS-CoV-2 (PCR) Negative (NEGATIVE) 10/05/21 18:46 Tissue Pathology To follow 10/09/21 12:55 - Assessment and Plan 1: multiple skin ulcerations both legs s/p debridement and packing .. same IV ABT and local care .. - Problem Patient Problems: Patient Problems Generalized weakness (Acute) R53.1 Bilateral lower leg cellulitis (Acute) L03.116, L03.115 Cellulitis of lower extremity (Acute) L03.119 Hypertension (Chronic) I10 Diabetes mellitus (Chronic) E11.9 CHF (congestive heart failure) (Chronic) I50.9 COPD (chronic obstructive pulmonary disease) (Chronic) J44.9
[2021-10-11 16:34] VITALS: BP 165/87
--- NOTE | 2021-10-12 11:35 | PCM.DCPLAN ---
Discharge Plan - Discharge Plan Hospital Course: Admit date 10/05/21 Discharge date 10/11/21 DOS 10/11/21 Admit diagnosis(1) Bilateral lower leg cellulitis (2) Hypertension (3) Diabetes mellitus (4) CHF (congestive heart failure) (5) COPD (chronic obstructive pulmonary disease) Discharge diagnosis(1) Cellulitis of lower extremity (2) Generalized weakness (3) Diabetes mellitus (4) CHF (congestive heart failure) (5) COPD (chronic obstructive pulmonary disease) Hospital Course PT IS 76 WF, DIRECT ADMIT FROM DR KELLEY OFFICE WITH BILATERAL LOWER EXTREMITY CELLULITIS AND NON-HEALING LLE WOUND. PT HAD BEEN ON BACTRIM DS AND HAVING DAILY WOUND CARE WITHOUT IMPROVEMENT. PT HAS PMH OF DM, HTN, COPD, VILLAFUERTE, RLS, OA. PT ADMITTED FOR TREATMENT OF ACUTE ILLNESS, FAILED OUTPT THERAPY. DR CALIXTO (GENERAL SURGEON) WAS CONSULTED. PATIENT UNDERWENT INCISIONAL DEBRIDEMENT OF BILATERAL LEG ULCERS. PATIENT WAS TREATED WITH IV ABX. URINE AND BLOOD CULTURES NEGATIVE. ALL CHRONIC CONDITIONS AND COMORBIDITIES CONTROLLED WITH HOME MEDS. PAIN WAS TOLERABLE FOR PATIENT TO DISCHARGE. LABS WERE UNREMARKABLE AND AT PATIENTS BASELINE. PATIENT WAS DISCHARGED HOME WITH WOUND CARE INSTRUCTIONS AND PO ANTIBIOTICS. PATIENT IS TO FOLLOW UP WITH DR CALIXTO SCHEDULED AND FOLLOW UP WITH PCP IN 1 WEEK. Discharge time spent > 35 mins Disposition: HOME HEALTH SERVICE Condition: Stable Health Concerns: Post Hospitalization: new medications and changes needed to prevent readmission or further decline. Pt educated and given instructions on all concerns. Care Plan Goals: Problem: Infection Goal: Temperature within normal limits. Resolved infection. Instructions: Follow provided instructions. Follow up with primary physician as directed. Contact primary care physician or report to the closest Emergency Room if condition worsens. Plan of Treatment: Continue with present treatment and follow up plan. Pt is to keep follow up appointment as instructed and take medications as ordered. Assessment: Stable no acute distress noted at discharge. Prescriptions: New ciprofloxacin HCl [Cipro] 500 mg Tablet 500 mg PO Q12H 10 Days Qty: 20 RF: 0 Transmission Status: Received by [facility] [employer] albuterol sulfate 90 mcg/actuation HFA aerosol inhaler 3 mcg INHALATION DAILY alprazolam 0.25 mg tablet 0.25 mg PO DAILY PRN aspirin [Aspir-81] 81 mg Tablet,Delayed Release (Dr/Ec) 81 mg PO DAILY carvedilol 12.5 mg tablet 12.5 mg PO BID cephalexin 500 mg capsule 500 mg PO Q12W donepezil 10 mg tablet 10 mg PO HS ezetimibe 10 mg tablet 10 mg PO DAILY fluticasone propion-salmeterol 250-50 mcg/dose blister with device 1 inh INHALATION BID furosemide 40 mg tablet 40 mg PO DAILY glipizide 5 mg tablet 5 mg PO BID Invokana 300 mg tablet 300 mg PO DAILY ipratropium-albuterol 0.5 mg-3 mg(2.5 mg base)/3 mL solution for nebulization 3 ml INHALATION TID levocetirizine 5 mg tablet 5 mg PO HS meloxicam 7.5 mg tablet 7.5 mg PO DAILY Myrbetriq 50 mg tablet extended release 24 hr 50 mg PO HS omeprazole 20 mg capsule,delayed release(DR/EC) 20 mg PO DAILY oxycodone-acetaminophen 10-325 mg tablet 1 tab PO Q8-10H PRN potassium chloride 10 mEq tablet extended release 10 meq PO BID pregabalin 150 mg capsule 100 mg PO BID ropinirole 0.25 mg tablet 0.25 mg PO HS simvastatin 20 mg tablet 20 mg PO DAILY valsartan 80 mg tablet 80 mg PO DAILY - Follow ups/Referrals Follow ups/Referrals: ABDIAZIZ CASH [Primary Care Provider] - 10/17/21 8:45 am BETSY CALIX [STAFF PHYSICIAN] - 10/19/21 10:40 am - Instructions Instructions: Fall Prevention in the Home, Adult, Kskj-yn-Cbyq, Wound Infection, Jkre-pg-Yuls, How to Change Your Wound Dressing, Heqt-ue-Mcar, Steps to Quit Smoking, Zpih-cd-Ayzz, Heart Failure, Self Care, Vbhf-pu-Lnsg, Chronic Obstructive Pulmonary Disease, Lyey-qv-Jvrq, Health Risks of Smoking, Weakness, Tefq-fn-Nluy, Cellulitis, Adult, Oqpk-zc-[id number], Surgical Wound Debridement, Care After, Managing Your Hypertension, Tobacco Use Disorder Forms: Precautions for [facility], Patient Portal, Social Distancing Print Language: BRUNEIAN - Patient Education Addl Reference Links: Fall Prevention in the Home, Adult [email or web address] [email or web address] [email or web address] [email or web address] riteria.v.[id number]
== END 2021-10-11 16:50 | disposition home health service (06) ==
LOC: MED/SURG
PROVIDERS: ADMIT Internal Medicine; ATTEND Internal Medicine
DX: L03.115 Cellulitis of right lower limb; I25.10 Atherosclerotic heart disease of native coronary artery without angina pectoris; Z20.822 Contact with and (suspected) exposure to COVID-19; J44.9 Chronic obstructive pulmonary disease, unspecified; I11.0 Hypertensive heart disease with heart failure; I73.9 Peripheral vascular disease, unspecified; E11.65 Type 2 diabetes mellitus with hyperglycemia; G47.33 Obstructive sleep apnea (adult) (pediatric); L97.919 Non-pressure chronic ulcer of unspecified part of right lower leg with unspecified severity; I50.9 Heart failure, unspecified; L03.116 Cellulitis of left lower limb; L97.929 Non-pressure chronic ulcer of unspecified part of left lower leg with unspecified severity